=== PATIENT | male | born 1955 | race Caucasian/White ===

== ENCOUNTER → 2017-08-02 10:18 | Outpatient (CLI) | payer MEDICARE, MEDICAID, SELFPAY ==
[2017-08-02 13:37] LABS: Absolute Lymphocyte Count 1.54 X10^3/ul (0.83-4.51); Basophil# 0.04 X10^3/uL; Basophil% 0.8 % (0-1); Eosinophil# 0.22 X10^3/uL; Eosinophils% 4.2 % (0-5); Hematocrit 44.8 % (40-54); Hemoglobin 14.5 g/dl (13.0-16.5); Lymphocyte # 1.54 X10^3/ul (4.0); Lymphocyte % 29.6 % (19-41); Mean Corp Hgb Conc 32.4 g/gl (32-36); Mean Corpuscular Hgb 28.7 pg (27.0-32.0); Mean Corpuscular Volume 88.5 fL (80-94); Mean Platelet Vol. 10.6 fl (6.2-12.0); Monocyte# 0.36 X10^3/uL; Monocyte% 6.9 % (0-10); Neutrophil # 3.02 X10^3/uL (2.7-7.7); Neutrophil % 57.9 % (47-70); Platelet Count 190 K/mm3 (150-450); RBC Distribution Width CV 14.7 % (11.6-14.6); RBC Distribution Width SD 47.2 fl (35.1-43.9); Red Blood Count 5.06 M/mm3 (4.6-6.2); White Blood Count 5.2 K/mm3 (4.4-11.0)
[2017-08-02 13:38] LABS: POSITIVE COUNT NO; POSITIVE DIFFERENTIAL NO; POSITIVE MORPHOLOGY NO
[2017-08-02 14:08] LABS: AST(SGOT) 18 U/L (15-37); Alanine Aminotransfer ALT/SGPT 40 U/L (16-61); Albumin, Serum 3.5 g/dL (3.2-5.0); Alkaline Phosphatase 68 U/L (45-117); Anion Gap 10 (5-15); BUN 18 mg/dL (7-18); BUN/Creat Ratio 15.1 RATIO (10-20); Calcium,Total 8.5 mg/dL (8.5-10.1); Chloride 105 mmol/L (98-107); Creatinine, Serum 1.19 mg/dL (0.70-1.30); EST Glomerular Filtration Rate 65 mL/min (>60); Est Glom Filt Rate - Afr Amer 79 mL/min (>60); Globulin 3.6 g/dL (2.2-4.2); Glucose 82 mg/dL (74-106); Protein, Total 7.1 g/dL (6.4-8.2); Sodium Level 140 mmol/L (136-145); Thyroid Stim Hormone (TSH) 3.11 uIU/mL (0.358-3.74)
== END ==
PROVIDERS: Family Provider Family Medicine Geriatric Medicine; PCP Family Medicine Geriatric Medicine; Visit Provider Family Medicine Geriatric Medicine
DX: I10 Essential (primary) hypertension (principal)
CPT/HCPCS: 36415; 80053; 84443; 85025

== ENCOUNTER → 2018-02-04 10:55 | Outpatient (CLI) | payer MEDICARE, MEDICAID, SELFPAY ==
[2018-02-04 12:01] LABS: Absolute Lymphocyte Count 1.04 X10^3/ul (0.83-4.51); Absolute Neutrophil Count 4.4 X10^3/uL (2.0-7.7); Basophil# 0.02 X10^3/uL; Basophil% 0.3 % (0-1); Eosinophil# 0.11 X10^3/uL; Eosinophils% 1.8 % (0-5); Hemoglobin 15.6 g/dl (13.0-16.5); Lymphocyte # 1.04 X10^3/ul (4.0); Lymphocyte % 17.2 % (19-41); Mean Corp Hgb Conc 33.9 g/gl (32-36); Mean Corpuscular Hgb 29.2 pg (27.0-32.0); Mean Platelet Vol. 10.9 fl (6.2-12.0); Monocyte# 0.51 X10^3/uL; Monocyte% 8.4 % (0-10); Neutrophil # 4.35 X10^3/uL (2.7-7.7); Platelet Count 220 K/mm3 (150-450); RBC Distribution Width CV 13.5 % (11.6-14.6); RBC Distribution Width SD 42.2 fl (35.1-43.9); Red Blood Count 5.35 M/mm3 (4.6-6.2); White Blood Count 6.1 K/mm3 (4.4-11.0)
[2018-02-04 12:20] LABS: POSITIVE COUNT NO; POSITIVE DIFFERENTIAL NO; POSITIVE MORPHOLOGY NO
[2018-02-04 12:27] LABS: AST(SGOT) 17 U/L (15-37); Alanine Aminotransfer ALT/SGPT 32 U/L (16-61); Albumin, Serum 3.8 g/dL (3.2-5.0); Alkaline Phosphatase 68 U/L (45-117); Anion Gap 10 (5-15); BUN 13 mg/dL (7-18); BUN/Creat Ratio 10.6 RATIO (10-20); Calcium,Total 9.1 mg/dL (8.5-10.1); Chloride 102 mmol/L (98-107); Creatinine, Serum 1.23 mg/dL (0.70-1.30); EST Glomerular Filtration Rate 63 mL/min (>60); Est Glom Filt Rate - Afr Amer 76 mL/min (>60); Globulin 3.8 g/dL (2.2-4.2); Glucose 183 mg/dL (74-106); PSA,Total - Annual Screen 0.38 ng/mL (0.00-4.00); Potassium 3.7 mmol/L (3.5-5.1); Protein, Total 7.6 g/dL (6.4-8.2); Sodium Level 137 mmol/L (136-145); Thyroid Stim Hormone (TSH) 5.04 uIU/mL (0.358-3.74)
[2018-02-05 10:19] LABS: Hep C Antibodies <0.1 s/co ratio (0.0-0.9)
[2018-02-05 10:42] LABS: Hemoglobin A1c 5.5 % (4.2-6.3)
== END ==
PROVIDERS: Family Provider Family Medicine Geriatric Medicine; PCP Family Medicine Geriatric Medicine; Visit Provider Family Medicine Geriatric Medicine
DX: I10 Essential (primary) hypertension (principal); Z12.5 Encounter for screening for malignant neoplasm of prostate; Z13.89 Encounter for screening for other disorder; E16.2 Hypoglycemia, unspecified
CPT/HCPCS: 36415; 80053; 83036; 84153; 84443; 85025; 86803; G0103

== ENCOUNTER → 2018-05-07 08:10 | Outpatient (CLI) | payer MEDICARE, MEDICAID, SELFPAY ==
[2018-05-07 09:52] LABS: Thyroid Stim Hormone (TSH) 3.62 uIU/mL (0.358-3.74)
== END ==
PROVIDERS: Family Provider Family Medicine Geriatric Medicine; PCP Family Medicine Geriatric Medicine; Referring Provider Family Medicine Geriatric Medicine; Visit Provider Family Medicine Geriatric Medicine
DX: E03.9 Hypothyroidism, unspecified (principal)
CPT/HCPCS: 36415; 84443

== ENCOUNTER → 2018-08-07 13:40 | Outpatient (CLI) | payer MEDICARE, MEDICAID, SELFPAY ==
[2017-05-20 14:37] VITALS: BMI 28.3
[2018-08-07 16:12] LABS: Absolute Lymphocyte Count 1.23 X10^3/ul (0.83-4.51); Absolute Neutrophil Count 3.7 X10^3/uL (2.0-7.7); Basophil# 0.02 X10^3/uL; Basophil% 0.3 % (0-1); Eosinophil# 0.28 X10^3/uL; Eosinophils% 4.7 % (0-5); Hematocrit 47.9 % (40-54); Lymphocyte # 1.23 X10^3/ul (4.0); Lymphocyte % 20.7 % (19-41); Mean Corp Hgb Conc 33.4 g/gl (32-36); Mean Corpuscular Hgb 29.3 pg (27.0-32.0); Mean Corpuscular Volume 87.6 fL (80-94); Mean Platelet Vol. 11.1 fl (6.2-12.0); Monocyte# 0.67 X10^3/uL; Monocyte% 11.3 % (0-10); Neutrophil % 62.3 % (47-70); Platelet Count 221 K/mm3 (150-450); RBC Distribution Width CV 14.4 % (11.6-14.6); RBC Distribution Width SD 45.8 fl (35.1-43.9); Red Blood Count 5.47 M/mm3 (4.6-6.2); White Blood Count 5.9 K/mm3 (4.4-11.0)
[2018-08-07 16:17] LABS: Vitamin D,25 Hydroxy 12.5 ng/mL (29.95-100.01)
[2018-08-07 16:19] LABS: AST(SGOT) 16 U/L (15-37); Alanine Aminotransfer ALT/SGPT 38 U/L (16-61); Albumin, Serum 3.6 g/dL (3.2-5.0); Alkaline Phosphatase 70 U/L (45-117); Anion Gap 8 (5-15); BUN 16 mg/dL (7-18); Calcium,Total 8.8 mg/dL (8.5-10.1); Chloride 109 mmol/L (98-107); EST Glomerular Filtration Rate 80 mL/min (>60); Est Glom Filt Rate - Afr Amer 97 mL/min (>60); Globulin 3.7 g/dL (2.2-4.2); Glucose 84 mg/dL (74-106); Potassium 3.8 mmol/L (3.5-5.1); Protein, Total 7.3 g/dL (6.4-8.2); Sodium Level 140 mmol/L (136-145); Thyroid Stim Hormone (TSH) 4.09 uIU/mL (0.358-3.74)
[2018-08-07 16:20] LABS: POSITIVE COUNT NO; POSITIVE DIFFERENTIAL NO; POSITIVE MORPHOLOGY NO
== END ==
PROVIDERS: Family Provider Family Medicine Geriatric Medicine; PCP Family Medicine Geriatric Medicine; Visit Provider Family Medicine Geriatric Medicine
DX: E55.9 Vitamin D deficiency, unspecified (principal); I10 Essential (primary) hypertension
CPT/HCPCS: 36415; 80053; 82306; 84443; 85025

== ENCOUNTER → 2018-09-04 17:18 | Outpatient (CLI) | payer MEDICARE, MEDICAID, SELFPAY ==
[2017-05-20 14:37] VITALS: BMI 28.3
== END ==
PROVIDERS: Family Provider Family Medicine Geriatric Medicine; PCP Family Medicine Geriatric Medicine; Referring Provider Family Medicine Geriatric Medicine; Visit Provider Family Medicine Geriatric Medicine
DX: J11.1 Influenza due to unidentified influenza virus with other respiratory manifestations (principal)
CPT/HCPCS: 87633

== ENCOUNTER 2018-09-23 09:07 | Emergency (ER) | payer MEDICARE, MEDICAID, SELFPAY ==
[2018-09-23 09:08] VITALS: BP 148/66; PULSE 98; RESP 20; TEMP 36.8; O2SAT 96; BMI 30.2
--- NOTE | 2018-09-23 09:29 | ED.DCSUM_ITS ---
- ER Visit Summary Date of Service: 09/23/18 Chief Complaint: Cough History of Present Illness: The patient is a [address] Salinas. He has MRDD and is a poor informant. Per [facility] staff patient has a cough began 3 days ago. He has had subjective fever. His cough is productive yellow sputum without blood. He has been congested. They report that he has been wheezing. He does not have an inhaler. Patient also reports is been lightheaded. He has not passed out. Staff reports that he had a poor appetite. He has been exposed to influenza A at the [facility]. He finished prednisone and an unknown antibiotic last week. Physical Examination: Vitals: Stable. Afebrile. General: Well-nourished and well-developed. Head: Normocephalic atraumatic. HEENT: Sinus congestion. No drainage at this time. No pharyngeal erythema or tonsillar exudate. Neck: Supple, no lymphadenopathy. No JVD. Nontender. Cardiovascular: Regular rate and rhythm. No murmurs. Respiratory: No respiratory distress. Clear to auscultation bilaterally. Abdominal: Soft, nontender, nondistended, normal bowel sounds. No guarding, rebound, or peritoneal signs. Back: Nontender. Extremities: Nontender, no edema. Skin: Normal color, no rash. Neurologic: Alert and oriented ?3. Cranial nerves II through XII are intact. Normal strength and sensation. Psych: Normal affect. Test Results: Influenza is negative. CBC shows 7 neutrophils 81 lymphs lites and 9. Chem-7 shows a BUN of 22 and glucose 113. Chest x-ray shows increased markings left lung base. Infiltrate versus atelectasis. Emergency Department Course and Treatment: Patient was given Benadryl for his congestion. Is given a liter normal saline. He is resting comfortably. He was given a dose of Levaquin p.o. Treatment Plan: Patient has a pneumonia severity index of 65. He is a suitable candidate for outpatient treatment. He will be discharged on Levaquin. Instructed follow-up Dr. Salinas within 5 days for another exam. Return to the e mergency department for any worsening symptoms. Disposition: To home in improved and stable condition. Impression: 1. Pneumonia, community acquired. This note was generated with OLED-Tation software. It may contain incorrect words, spelling, and punctuation that were not noted in review of the chart prior to signing ED Disposition - Plan for ED Patient: Instructions: ED Pneumonia Adult Prescriptions: Albuterol Inhaler [Ventolin Hfa] 1 - 2 puff INHALATION Q4H PRN PRN #1 inhaler PRN Reason: Wheezing Levofloxacin [Levaquin] 750 mg PO DAILY #7 tablet Referrals: Kg Salinas Chi, MD [Primary Care Provider] - 3-5 Days
[2018-09-23 10:26] LABS: Absolute Lymphocyte Count 0.88 X10^3/ul (0.83-4.51); Absolute Neutrophil Count 7.7 X10^3/uL (2.0-7.7); Basophil# 0.02 X10^3/uL; Basophil% 0.2 % (0-1); Eosinophil# 0.14 X10^3/uL; Eosinophils% 1.5 % (0-5); Hematocrit 41.5 % (40-54); Lymphocyte # 0.88 X10^3/ul (4.0); Lymphocyte % 9.2 % (19-41); Mean Corp Hgb Conc 33.7 g/gl (32-36); Mean Corpuscular Volume 86.1 fL (80-94); Mean Platelet Vol. 10.4 fl (6.2-12.0); Monocyte% 7.3 % (0-10); Neutrophil # 7.74 X10^3/uL (2.7-7.7); Neutrophil % 81.3 % (47-70); Platelet Count 216 K/mm3 (150-450); RBC Distribution Width CV 13.8 % (11.6-14.6); RBC Distribution Width SD 42.8 fl (35.1-43.9); Red Blood Count 4.82 M/mm3 (4.6-6.2); White Blood Count 9.5 K/mm3 (4.4-11.0)
[2018-09-23 10:27] LABS: POSITIVE COUNT NO; POSITIVE DIFFERENTIAL NO; POSITIVE MORPHOLOGY NO
[2018-09-23 10:34] LABS: BUN 22 mg/dL (7-18); Creatinine, Serum 0.99 mg/dL (0.70-1.30); Estimated Creatinine Clearance 67.13 ml/min; Glucose 113 mg/dL (74-106)
[2018-09-23 10:35] LABS: Anion Gap 5 (5-15); BUN/Creat Ratio 22.3 RATIO (10-20); Calcium,Total 8.9 mg/dL (8.5-10.1); Chloride 107 mmol/L (98-107); EST Glomerular Filtration Rate 81 mL/min (>60); Est Glom Filt Rate - Afr Amer 98 mL/min (>60); Potassium 4.1 mmol/L (3.5-5.1); Sodium Level 138 mmol/L (136-145)
[2018-09-23 10:41] VITALS: BP 133/85; PULSE 80; RESP 18; O2SAT 97
--- NOTE | 2018-09-23 10:50 | RAD_ITS ---
STUDY: X-RAY CHEST REASON FOR EXAM: Male, 63 years old. Cough and wheezing. TECHNIQUE: PA and lateral views of the chest. COMPARISON: None. FINDINGS: EKG electrodes are seen. Mild increased markings at the left lung base suggestive of left basilar atelectasis versus early infiltrate. Follow-up is recommended. There is no demonstrated pleural abnormality. There is borderline cardiomegaly. Normal mediastinum and cait. Normal visualized pulmonary arteries. There is atherosclerotic tortuosity of the aortic arch and descending thoracic aorta. There are diffuse degenerative changes of the visualized thoracic spine. Normal visualized ribs, clavicles, and shoulders. There is no demonstrated abnormality of the visualized soft tissue structures of the upper abdomen. RAD/Chest PA and Lateral IMPRESSION: Increased markings at the left lung base suggestive of either early infiltrate or atelectasis. Follow-up is recommended. Electronically Signed: Casey Galindo, at 11:45 EDT , Service support ,
[2018-09-23] MEDS: DiphenhydrAMINE 25 MG Capsule 50 MG PO (11:01)
[2018-09-23 11:05] VITALS: BP 138/78; PULSE 72; RESP 19; TEMP 36.6; O2SAT 96
[2018-09-23 11:09] VITALS: O2SAT 96
[2018-09-23 12:11] VITALS: BP 128/73; PULSE 65; RESP 18; O2SAT 96
[2018-09-23] MEDS: levoFLOXacin 750 MG Tablet PO (13:21)
== END 2018-09-23 13:24 | disposition home or self-care (01) ==
PROVIDERS: Emergency Provider Emergency Medicine; Family Provider Family Medicine Geriatric Medicine; PCP Family Medicine Geriatric Medicine
DX: J18.9 Pneumonia, unspecified organism (principal); I10 Essential (primary) hypertension; N40.0 Benign prostatic hyperplasia without lower urinary tract symptoms; F79 Unspecified intellectual disabilities; F63.9 Impulse disorder, unspecified; Z79.899 Other long term (current) drug therapy
CPT/HCPCS: 71046; 80048; 85025; 87804; 99284; J7030; J7040

== ENCOUNTER → 2019-02-06 | Outpatient (CLI) | payer MEDICARE, MEDICAID, SELFPAY ==
[2019-02-06 12:26] LABS: Absolute Lymphocyte Count 1.42 X10^3/uL (0.83-4.51); Absolute Neutrophil Count 4.3 X10^3/uL (2.0-7.7); Basophil# 0.06 X10^3/uL; Basophil% 0.9 % (0-1); Eosinophil# 0.43 X10^3/uL; Eosinophils% 6.2 % (0-5); Hematocrit 44.9 % (40-54); Lymphocyte # 1.42 X10^3/ul (4.0); Lymphocyte % 20.4 % (19-41); Mean Corp Hgb Conc 33.4 g/dL (32-36); Mean Corpuscular Hgb 29.4 pg (27.0-32.0); Mean Platelet Vol. 10.6 fl (6.2-12.0); Monocyte# 0.65 X10^3/uL; Monocyte% 9.4 % (0-10); NRBC Flagged by Analyzer 0 % (0-5); Neutrophil # 4.33 X10^3/uL (2.7-7.7); Neutrophil % 62.2 % (47-70); Platelet Count 208 K/mm3 (150-450); RBC Distribution Width CV 13.2 % (11.6-14.6); RBC Distribution Width SD 42.4 fl (35.1-43.9)
[2019-02-06 12:54] LABS: Vitamin D,25 Hydroxy 20.8 ng/mL (29.95-100.01)
[2019-02-06 13:03] LABS: ALB/GLOB Ratio 0.9 RATIO (0.9-2.4); AST(SGOT) 14 U/L (15-37); Alanine Aminotransfer ALT/SGPT 33 U/L (16-61); Albumin, Serum 3.4 g/dL (3.2-5.0); Alkaline Phosphatase 69 U/L (45-117); Anion Gap 7 (5-15); BUN 14 mg/dL (7-18); BUN/Creat Ratio 13.3 RATIO (10-20); Calcium,Total 8.7 mg/dL (8.5-10.1); Chloride 109 mmol/L (98-107); Creatinine, Serum 1.05 mg/dL (0.70-1.30); EST Glomerular Filtration Rate 75 mL/min (>60); Est Glom Filt Rate - Afr Amer 91 mL/min (>60); Globulin 3.7 g/dL (2.2-4.2); Glucose 109 mg/dL (74-106); PSA,Total - Annual Screen 0.39 ng/mL (0.00-4.00); Protein, Total 7.1 g/dL (6.4-8.2); Sodium Level 140 mmol/L (136-145)
== END | disposition home or self-care (01) ==
LOC: POLAB3 08:47
PROVIDERS: Family Provider Family Medicine Geriatric Medicine; PCP Family Medicine Geriatric Medicine; Visit Provider Family Medicine Geriatric Medicine
DX: E55.9 Vitamin D deficiency, unspecified (principal); I10 Essential (primary) hypertension; Z12.5 Encounter for screening for malignant neoplasm of prostate
CPT/HCPCS: 36415; 80053; 82306; 84153; 84443; 85025; G0103

== ENCOUNTER 2019-05-14 08:52 | Day surgery (SDC) | payer MEDICARE, MEDICAID, SELFPAY ==
[2019-05-14 09:22] VITALS: BP 164/84; PULSE 88; RESP 16; TEMP 36.2; O2SAT 99; BMI 33.3
[2019-05-14] MEDS: Lactated Ringers 1,000 ML 100 ML IV (09:35)
[2019-05-14] MEDS: Cefazolin 2 GM in 0.9% Normal Saline 100 ML IV (12:10)
--- NOTE | 2019-05-14 12:10 | DCINST_ITS ---
Discharge Diet: Light diet - advance as tolerated Discharge Activity: Return to Normal Activity Call your doctor if your incision/area has: Sudden Increased Bleeding Allergies/Adverse Reactions: Allergies Penicillins Allergy (Verified 05/14/19 09:15) Unknown Medications to take at Discharge Lisinopril 20 mg PO DAILY 12/16/13 Risperidone 2 mg PO QHS 12/16/13 Tamsulosin HCl [Flomax] 0.4 mg PO DAILY 12/16/13 Levothyroxine [Synthroid] 75 mcg PO DAILY 08/14/16 Pravastatin [Pravachol] 40 mg PO QHS 08/14/16 Risperidone 1 mg PO DAILY 08/14/16 Primary Care Physician: Kg Salinas Chi, MD [Primary Care Provider] - Test Results: Test results from this visit will be discussed in further detail at your follow- up appointment, if applicable. Please Follow Up With: Ole Roldan MD When: please call to make an appointment.
[2019-05-14] MEDS: 0.9% Normal Saline (Pres. free 10 ML Vial (12:25)
[2019-05-14] MEDS: Lubricating Jelly 60 GM Tube 30 GM TOPICAL (12:25)
--- NOTE | 2019-05-14 12:30 | OP.PCM_ITS ---
Report of Operation Date of Procedure: 05/14/19 Pre-Operative Diagnosis: Overactive bladder and urge incontinence Post-Operative Diagnosis: Same Surgery/Procedure Performed:: Cystoscopy dilation of meatal stricture and injection of Botox 100 units into the bladder Description of Surgical Findings:: 64-year-old male taken back to the operating room, he is he [facility] has severe overactive bladder and urge incontinence today we will do a cystoscopy diagnostic and also inject the bladder with Botox he is tried multiple multiple medications with no improvement. On cystoscopy attempt to found to have a dense meatal stricture so I dilated the meatal stricture with a sounds using 14-26 American sounds after dilating the medial stricture then went into the bladder with a rigid offset cystoscope the entire length the urethra is normal the sphincter was intact the prostate was normal he did have a prior prostate surgery wide open channel inside the bladder I then checked the bladder there was some mild trabeculation throughout the bladder trigone was normal left and right ureteral orifice orifice normal no tumors or stones seen within the bladder I then injected 100 units of Botox 1 mL at the time into 10 sites in the back of the bladder avoiding the trigone. After the injection remove the cystoscope the bladder was drained the patient acetic was reversed plan to see him back in a month for checkup. Type of Anesthesia:: General Drains: none - Admit VTE Documentation VTE Present on Admission: No VTE Mechan Device Prophylaxis: SCD's
[2019-05-14 12:39] VITALS: BP 123/81; BP 164/84; PULSE 69; RESP 16; TEMP 36.5; O2SAT 96
[2019-05-14 12:45] VITALS: BP 125/77; BP 164/84; PULSE 67; RESP 16; O2SAT 96
[2019-05-14 13:01] VITALS: BP 118/86; BP 164/84; PULSE 62; RESP 16; TEMP 36.5; O2SAT 96
[2019-05-14 13:22] VITALS: BP 164/84
== END 2019-05-14 13:26 | disposition home or self-care (01) ==
LOC: SDC 08:53 → AC 08:55
PROVIDERS: Family Provider Family Medicine Geriatric Medicine; PCP Family Medicine Geriatric Medicine; Referring Provider Urology; Visit Provider Urology
PROC: 3E0K8GC Introduction of Other Therapeutic Substance into Genitourinary Tract, Via Natural or Artificial Opening Endoscopic (ICD-10-PCS; CPT 52287; principal; 2019-05-14 10:45)
DX: N32.81 Overactive bladder (principal); N40.1 Benign prostatic hyperplasia with lower urinary tract symptoms; N39.41 Urge incontinence; R35.1 Nocturia; R35.0 Frequency of micturition; I10 Essential (primary) hypertension; E78.00 Pure hypercholesterolemia, unspecified; F79 Unspecified intellectual disabilities; E06.9 Thyroiditis, unspecified; Z79.899 Other long term (current) drug therapy
CPT/HCPCS: 52287; J7120; J0585; J3490

== ENCOUNTER → 2019-08-07 09:31 | Outpatient (CLI) | payer MEDICARE, MEDICAID, SELFPAY ==
[2019-08-07 12:33] LABS: Absolute Lymphocyte Count 1.43 X10^3/uL (0.83-4.51); Absolute Neutrophil Count 3.8 X10^3/uL (2.0-7.7); Basophil# 0.04 X10^3/uL; Basophil% 0.7 % (0-1); Eosinophil# 0.34 X10^3/uL; Eosinophils% 5.6 % (0-5); Hematocrit 46.9 % (40-54); Hemoglobin 15.4 g/dL (13.0-16.5); Lymphocyte # 1.43 X10^3/ul (4.0); Lymphocyte % 23.4 % (19-41); Mean Corp Hgb Conc 32.8 g/dL (32-36); Mean Corpuscular Hgb 28.2 pg (27.0-32.0); Mean Corpuscular Volume 85.7 fL (80-94); Monocyte% 8.2 % (0-10); NRBC Flagged by Analyzer 0 % (0-5); Neutrophil # 3.76 X10^3/uL (2.7-7.7); Neutrophil % 61.6 % (47-70); Platelet Count 252 K/mm3 (150-450); RBC Distribution Width CV 13.2 % (11.6-14.6); RBC Distribution Width SD 41.1 fl (35.1-43.9); Red Blood Count 5.47 M/mm3 (4.6-6.2); White Blood Count 6.1 K/mm3 (4.4-11.0)
[2019-08-07 12:39] LABS: Vitamin D,25 Hydroxy 35.6 ng/mL (29.95-100.01)
[2019-08-07 12:40] LABS: ALB/GLOB Ratio 0.9 RATIO (0.9-2.4); AST(SGOT) 14 U/L (15-37); Alanine Aminotransfer ALT/SGPT 29 U/L (16-61); Albumin, Serum 3.7 g/dL (3.2-5.0); Alkaline Phosphatase 64 U/L (45-117); Anion Gap 6 (5-15); BUN 17 mg/dL (7-18); BUN/Creat Ratio 14.4 RATIO (10-20); Calcium,Total 9.3 mg/dL (8.5-10.1); Chloride 107 mmol/L (98-107); Creatinine, Serum 1.18 mg/dL (0.70-1.30); EST Glomerular Filtration Rate 66 mL/min (>60); Est Glom Filt Rate - Afr Amer 79 mL/min (>60); Globulin 3.9 g/dL (2.2-4.2); Glucose 106 mg/dL (74-106); Potassium 4.1 mmol/L (3.5-5.1); Protein, Total 7.6 g/dL (6.4-8.2); Sodium Level 141 mmol/L (136-145); Thyroid Stim Hormone (TSH) 3.62 uIU/mL (0.358-3.74)
== END ==
PROVIDERS: PCP Family Medicine Geriatric Medicine; Visit Provider Family Medicine Geriatric Medicine
DX: I10 Essential (primary) hypertension (principal); E55.9 Vitamin D deficiency, unspecified
CPT/HCPCS: 36415; 80053; 82306; 84443; 85025

== ENCOUNTER → 2019-08-20 12:00 | Outpatient (CLI) | payer MEDICARE, MEDICAID, SELFPAY ==
[2019-08-20 12:44] LABS: Absolute Lymphocyte Count 0.33 X10^3/uL (0.83-4.51); Absolute Neutrophil Count 6.7 X10^3/uL (2.0-7.7); Basophil# 0.02 X10^3/uL; Basophil% 0.3 % (0-1); Eosinophil# 0.01 X10^3/uL; Eosinophils% 0.1 % (0-5); Hemoglobin 17.9 g/dL (13.0-16.5); Lymphocyte # 0.33 X10^3/ul (4.0); Lymphocyte % 4.3 % (19-41); Mean Corp Hgb Conc 31.6 g/dL (32-36); Mean Corpuscular Hgb 27.8 pg (27.0-32.0); Mean Corpuscular Volume 88.2 fL (80-94); Mean Platelet Vol. 11.1 fl (6.2-12.0); Monocyte# 0.58 X10^3/uL; Monocyte% 7.6 % (0-10); NRBC Flagged by Analyzer 0 % (0-5); Neutrophil # 6.67 X10^3/uL (2.7-7.7); Neutrophil % 87.4 % (47-70); POSITIVE DIFFERENTIAL YES; POSITIVE MORPHOLOGY YES; Platelet Count 199 K/mm3 (150-450); RBC Distribution Width CV 14.6 % (11.6-14.6); RBC Distribution Width SD 44.4 fl (35.1-43.9); Red Blood Count 6.43 M/mm3 (4.6-6.2); White Blood Count 7.6 K/mm3 (4.4-11.0)
--- NOTE | 2019-08-20 12:49 | RAD_ITS ---
STUDY: X-RAY - ABDOMEN/PELVIS REASON FOR EXAM: Male, 64 years old. ABD PAIN. PT IS DIFFICULT TO UNDERSTAND TO OBTAIN A HISTORY TECHNIQUE: AP supine and upright views of the abdomen and pelvis. COMPARISON: None. FINDINGS: Increased markings at the left lung base suggestive of left basilar atelectasis. There is elevation of the right hemidiaphragm. There is a paralytic ileus of the small intestine with mild gaseous distention. Gas is seen throughout the colon down to the rectum. Gaseous distention of the stomach. There is no demonstrated free abdominal air. The visualized liver, spleen and kidneys are grossly normal in size and morphology. Normal soft tissue structures. Normal visualized osseous structures. RAD/Abd Inc Decub and/or Erect IMPRESSION: Dilated small bowel loops with air-fluid levels with gas in the colon. Findings are suggestive of either an ileus pattern or incomplete small bowel obstruction. There is also evidence of gaseous distention of the stomach. Follow-up is recommended. Electronically Signed: Casey Galindo, at 13:29 EST , Service support ,
[2019-08-20 12:50] LABS: Differential Indicated SCAN CRITERIA MET; Hematocrit 56.7 % (40-54)
[2019-08-20 13:22] LABS: ALB/GLOB Ratio 0.9 RATIO (0.9-2.4); AST(SGOT) 22 U/L (15-37); Alanine Aminotransfer ALT/SGPT 36 U/L (16-61); Albumin, Serum 3.9 g/dL (3.2-5.0); Alkaline Phosphatase 70 U/L (45-117); Anion Gap 12 (5-15); BUN 28 mg/dL (7-18); BUN/Creat Ratio 17.4 RATIO (10-20); Calcium,Total 9.1 mg/dL (8.5-10.1); Chloride 108 mmol/L (98-107); Creatinine, Serum 1.61 mg/dL (0.70-1.30); EST Glomerular Filtration Rate 46 mL/min (>60); Est Glom Filt Rate - Afr Amer 55 mL/min (>60); Globulin 4.3 g/dL (2.2-4.2); Glucose 161 mg/dL (74-106); Potassium 4.5 mmol/L (3.5-5.1); Protein, Total 8.2 g/dL (6.4-8.2); Sodium Level 137 mmol/L (136-145)
== END ==
PROVIDERS: PCP Family Medicine Geriatric Medicine; Referring Provider Family Medicine Geriatric Medicine; Visit Provider Family Medicine Geriatric Medicine
DX: R10.9 Unspecified abdominal pain (principal); R19.7 Diarrhea, unspecified
CPT/HCPCS: 36415; 74019; 80053; 82274; 83630; 85025; 87177; 87209; 87493; 87506

== ENCOUNTER → 2020-02-18 14:57 | Outpatient (CLI) | payer MEDICARE, MEDICAID, SELFPAY ==
[2020-02-18 16:11] LABS: Absolute Lymphocyte Count 1.64 X10^3/uL (0.83-4.51); Absolute Neutrophil Count 5.3 X10^3/uL (2.0-7.7); Basophil# 0.05 X10^3/uL; Basophil% 0.6 % (0-1); Eosinophil# 0.69 X10^3/uL; Eosinophils% 8.5 % (0-5); Hematocrit 47.1 % (40-54); Hemoglobin 15.5 g/dL (13.0-16.5); Lymphocyte # 1.64 X10^3/ul (4.0); Lymphocyte % 20.2 % (19-41); Mean Corp Hgb Conc 32.9 g/dL (32-36); Mean Corpuscular Volume 88.2 fL (80-94); Mean Platelet Vol. 10.7 fl (6.2-12.0); Monocyte# 0.44 X10^3/uL; Monocyte% 5.4 % (0-10); NRBC Flagged by Analyzer 0 % (0-5); Neutrophil # 5.25 X10^3/uL (2.7-7.7); Neutrophil % 64.8 % (47-70); Platelet Count 272 K/mm3 (150-450); RBC Distribution Width CV 13.8 % (11.6-14.6); Red Blood Count 5.34 M/mm3 (4.6-6.2); White Blood Count 8.1 K/mm3 (4.4-11.0)
[2020-02-18 16:28] LABS: ALB/GLOB Ratio 0.9 RATIO (0.9-2.4); AST(SGOT) 27 U/L (15-37); Alanine Aminotransfer ALT/SGPT 33 U/L (16-61); Albumin, Serum 3.7 g/dL (3.2-5.0); Alkaline Phosphatase 81 U/L (45-117); Anion Gap 5 (5-15); BUN 15 mg/dL (7-18); BUN/Creat Ratio 12.9 RATIO (10-20); Calcium,Total 8.8 mg/dL (8.5-10.1); Chloride 104 mmol/L (98-107); Creatinine, Serum 1.16 mg/dL (0.70-1.30); EST Glomerular Filtration Rate 67 mL/min (>60); Est Glom Filt Rate - Afr Amer 81 mL/min (>60); Globulin 3.9 g/dL (2.2-4.2); Glucose 116 mg/dL (74-106); PSA,Total - Annual Screen 0.38 ng/mL (0.00-4.00); Potassium 3.6 mmol/L (3.5-5.1); Protein, Total 7.6 g/dL (6.4-8.2); Sodium Level 138 mmol/L (136-145); Thyroid Stim Hormone (TSH) 4.31 uIU/mL (0.358-3.74)
[2020-02-18 16:51] LABS: Vitamin D,25 Hydroxy 54.2 ng/mL
== END ==
PROVIDERS: PCP Family Medicine Geriatric Medicine; Visit Provider Family Medicine Geriatric Medicine
DX: E55.9 Vitamin D deficiency, unspecified (principal); I10 Essential (primary) hypertension; Z12.5 Encounter for screening for malignant neoplasm of prostate
CPT/HCPCS: 36415; 80053; 82306; 84153; 84443; 85025; G0103

== ENCOUNTER → 2020-03-16 09:53 | Outpatient (CLI) | payer MEDICARE, MEDICAID, SELFPAY ==
[2020-03-16 13:45] LABS: Thyroid Stim Hormone (TSH) 3.79 uIU/mL (0.358-3.74)
== END ==
PROVIDERS: PCP Family Medicine Geriatric Medicine; Visit Provider Family Medicine Geriatric Medicine
DX: E03.9 Hypothyroidism, unspecified (principal)
CPT/HCPCS: 36415; 84443

== ENCOUNTER → 2020-04-19 | Outpatient (CLI) | payer MEDICARE, MEDICAID, SELFPAY | END | disposition home or self-care (01) | LOC: LABSPEC 17:30 | PROVIDERS: PCP Family Medicine Geriatric Medicine; Referring Provider Family Medicine Geriatric Medicine; Visit Provider Family Medicine Geriatric Medicine | DX: U07.1 COVID-19 (principal) | CPT/HCPCS: 87633; 87635; C9803; U0003 ==

== ENCOUNTER 2020-07-09 05:54 | Day surgery (SDC) | payer MEDICARE, MEDICAID, SELFPAY ==
[2020-07-05 14:45] VITALS: BMI 31.6
[2020-07-09] VITALS (7 sets, daily range): BP systolic 101–157; BP diastolic 62–78; PULSE 60–90; RESP 14–18; TEMP 36.2–36.6; O2SAT 96–99; BMI 29.8
[2020-07-09] MEDS: Lactated Ringers 1,000 ML 100 ML IV (06:28)
--- NOTE | 2020-07-09 07:20 | PCM.HP.STD ---
Problem List (1) Overactive bladder Status: Acute History of Present Illness Date of Admission: 07/09/20 Chief Complaint: Overactive bladder, urge incontinence The patient is a 65 year old male who comes from a special needs home he lives in a senior living, he has a history of prior TURP but still has severe overactive bladder causing accidents so with Botox injections 100 units he has been doing relatively well the Botox injection is worn off so today working to proceed with another Botox injection 100 units into the bladder for his overactive bladder and urge incontinence. Past Medical History Medical History: Medical History (Last Updated 07/05/20 @ 14:49 by Jody Newell) Difficulty balancing when standing R26.89 Incontinence R32 Limb weakness R29.898 Prostate enlargement N40.0 Thyroid disease E07.9 Allergies doxycycline Allergy (Verified 07/05/20 14:48) unknown Penicillins Allergy (Verified 07/05/20 14:46) Unknown Home Medications: Ambulatory Orders Medication Instructions Recorded Levothyroxine [Synthroid] 75 mcg PO DAILY 08/14/16 Risperidone 1 mg PO DAILY 08/14/16 alfuzosin 10 mg tablet,extended 10 mg PO 07/05/20 release 24 hr buspirone 10 mg tablet 10 mg PO 07/05/20 cholecalciferol (vitamin D3) 10 10 mcg PO DAILY 07/05/20 mcg (400 unit) capsule valsartan 320 tab PO 07/05/20 mg-hydrochlorothiazide 12.5 mg tablet Surgical History: no surgical history Smoking Status: Never smoker Tobacco Use: Non-smoker Review of Systems Constitutional: Denies: Chills, Fever, Weight Change HEENT: Denies: Head Aches, Sinus Congestion, Sinus Drainage Cardiovascular: Denies: Chest Pain, Palpitations Respiratory: Denies: Cough, Shortness of breath at rest, Sputum production Gastrointestinal: Denies: Abdominal Pain, Nausea, Vomiting Genitourinary: Denies: Dysuria Musculoskeletal: Denies: Joint Pain, Joint Tenderness Skin: Denies: Rash, Wounds Neurological: Denies: Numbness, Tingling, Focal weakness Psychiatric: Denies: Anxiety, Depression, Homicidal Ideations, Suicidal Ideations Hematologic/ Lymphatic: Denies: Easy Bruising, Easy Bleeding VTE Information - Inpt Only VTE Present on Admission: No - Physical Exam Vitals/I&O's: Vital Signs Temp Pulse Resp BP Pulse Ox 97.1 F L 90 18 157/77 H 99 07/09/20 06:23 07/09/20 06:23 07/09/20 06:23 07/09/20 06:23 07/09/20 06:23 Oxygen Delivery Method Room Air Weight: 86.5 kg Body Mass Index (BMI) 29.8 General: Alert, Oriented x3, Cooperative HEENT: Atraumatic, PERRLA, EOMI, Normocephalic Neck: Supple, No JVD, Negative Carotid Bruits Lungs: Clear to auscultation, Normal air movement Cardiovascular: Regular rate, No murmurs Abdomen: Bowel Sounds Present, Soft, Non Tender Extremities: No edema, Capillary Refill Less than 3 Seconds Skin: No rashes, No breakdown Musculoskeletal: No Tenderness to Palpation of Joints or Extremities Neurological: Cranial nerves II-XII grossly intact Psych/Mental Status: Normal Affect, Appropriate Current Medications Botulinum Toxin Type A (Botulinum Toxin A 100 Units/Vial Vial) 100 units IJ X1 ONE Stop: 07/09/20 13:06 Cefazolin Sodium 2 gm/ Sodium (Chloride) 110 mls @ 150 mls/hr IV PREOP ONE Stop: 07/09/20 13:48 Lactated Ringer's () 1,000 mls @ 100 mls/hr IV .Q10H DELFIN Last Admin: 07/09/20 06:28 Dose: 100 mls/hr Documented by: Assessment/Plan All Active Problems (Last Updated 07/05/20 @ 14:49 by Jody Newell) Overactive bladder (Acute) Strain of left ankle (Acute) Plan to proceed with Botox injection in the bladder.
--- NOTE | 2020-07-09 07:21 | DCINST_ITS ---
Discharge Diet: Light diet - advance as tolerated Discharge Activity: Return to Normal Activity Call your doctor if your incision/area has: Sudden Increased Bleeding Call your doctor if you observe: Fever of 101 or Higher Suture Line Care: Avoid Pulling/Pushing, Avoid Pinching/Bending Allergies/Adverse Reactions: Allergies doxycycline Allergy (Verified 07/05/20 14:48) unknown Penicillins Allergy (Verified 07/05/20 14:46) Unknown Medications to take at Discharge Levothyroxine [Synthroid] 75 mcg PO DAILY 08/14/16 Risperidone 1 mg PO DAILY 08/14/16 alfuzosin 10 mg tablet,extended release 24 hr 10 mg PO 07/05/20 buspirone 10 mg tablet 10 mg PO 07/05/20 cholecalciferol (vitamin D3) 10 mcg (400 unit) capsule 10 mcg PO DAILY 07/05/20 valsartan 320 mg-hydrochlorothiazide 12.5 mg tablet tab PO 07/05/20 Primary Care Physician: Kg Salinas Chi, MD [Primary Care Provider] - Test Results: Test results from this visit will be discussed in further detail at your follow- up appointment, if applicable. Please Follow Up With: Ole Roldan MD When: 4 weeks, please call to make an appointment.
[2020-07-09] MEDS: Cefazolin 2 GM in 0.9% Normal Saline 100 ML IV (08:01)
[2020-07-09] MEDS: 0.9% Normal Saline (Pres. free 10 ML Vial (08:15)
--- NOTE | 2020-07-09 08:19 | PCM.OPRPT ---
Problem List (1) Overactive bladder Status: Acute Report of Operation Date of Procedure: 07/09/20 Pre-Operative Diagnosis: Overactive bladder urge incontinence Post-Operative Diagnosis: Same Surgery/Procedure Performed:: Cystoscopy and Botox injection 100 units Description of Surgical Findings:: Patient has a history of an overactive bladder which is failed conservative measures and medical therapy. Today the patient presents to the hospital for an injection of Botox into the bladder. The patient understands the risk of the procedure involved bleeding, infection, paralytic bladder and failure to empty the bladder. The possibility of needing a catheter or self intermittent catheterization of the bladder is not able to function properly. The risk of infection and bleeding and the risk of anesthesia was discussed with the patient. Patient signed the consent form and we proceeded to the operating room. Patient was taken back to the operating room after induction of anesthesia, the patient was placed supine on the table in the legs were placed in dorsolithotomy position. The genitals and urethra were prepped and draped in usual sterile fashion. Using a 21 [place] offset cystoscope I went into the bladder via the urethra. The bladder was inspected. The trigone was normal. The left and right ureter orifice were identified. On the back table the Botox medication was prepared per the fabric separator operator's instruction, a total of 100 units of Botox were prepared. We then used a Botox needle through the cystoscope and then injected 0.5 cc of Botox solution into each site going through a matrix pattern in the back of the bladder to inject about every centimeter across the back of the bladder in several layers avoiding the trigone. After a total of 100 units of Botox was injected into the bladder there was minimal bleeding. The bladder was drained. The patient's anesthetic was reversed and the patient was taken back to the PACU in stable condition. Type of Anesthesia:: General Drains: none - Admit VTE Documentation VTE Present on Admission: No
== END 2020-07-09 09:21 | disposition home or self-care (01) ==
LOC: SDC 05:56 → AC 05:56
PROVIDERS: PCP Family Medicine Geriatric Medicine; Referring Provider Urology; Visit Provider Urology
PROC: 3E0K8GC Introduction of Other Therapeutic Substance into Genitourinary Tract, Via Natural or Artificial Opening Endoscopic (ICD-10-PCS; CPT 52287; principal; 2020-07-09 07:50)
DX: N32.81 Overactive bladder (principal); N40.1 Benign prostatic hyperplasia with lower urinary tract symptoms; N39.498 Other specified urinary incontinence; N39.41 Urge incontinence; I10 Essential (primary) hypertension; E06.9 Thyroiditis, unspecified; E78.00 Pure hypercholesterolemia, unspecified; Z79.899 Other long term (current) drug therapy
CPT/HCPCS: 00910; 52287; J7120; J0585; J3490

== ENCOUNTER → 2020-08-18 11:21 | Outpatient (CLI) | payer MEDICARE, MEDICAID, SELFPAY ==
[2020-07-09 06:23] VITALS: BMI 29.8
[2020-08-18 12:20] LABS: Absolute Lymphocyte Count 1.69 X10^3/uL (0.83-4.51); Absolute Neutrophil Count 4.8 X10^3/uL (2.0-7.7); Basophil# 0.06 X10^3/uL; Basophil% 0.8 % (0-1); Eosinophil# 0.16 X10^3/uL; Eosinophils% 2.2 % (0-5); Hematocrit 46.6 % (40-54); Hemoglobin 15.2 g/dL (13.0-16.5); Lymphocyte # 1.69 X10^3/ul (4.0); Lymphocyte % 22.8 % (19-41); Mean Corp Hgb Conc 32.6 g/dL (32-36); Mean Corpuscular Hgb 28.5 pg (27.0-32.0); Mean Corpuscular Volume 87.3 fL (80-94); Mean Platelet Vol. 10.5 fl (6.2-12.0); Monocyte# 0.63 X10^3/uL; Monocyte% 8.5 % (0-10); NRBC Flagged by Analyzer 0 % (0-5); Neutrophil # 4.84 X10^3/uL (2.7-7.7); Neutrophil % 65.2 % (47-70); Platelet Count 241 K/mm3 (150-450); RBC Distribution Width CV 14.3 % (11.6-14.6); RBC Distribution Width SD 45.1 fl (35.1-43.9); Red Blood Count 5.34 M/mm3 (4.6-6.2); White Blood Count 7.4 K/mm3 (4.4-11.0)
[2020-08-18 12:34] LABS: Vitamin D,25 Hydroxy 26.9 ng/mL
[2020-08-18 12:43] LABS: AST(SGOT) 14 U/L (15-37); Alanine Aminotransfer ALT/SGPT 33 U/L (16-61); Albumin, Serum 3.8 g/dL (3.2-5.0); Alkaline Phosphatase 71 U/L (45-117); Anion Gap 8 (5-15); BUN 14 mg/dL (7-18); BUN/Creat Ratio 12.4 RATIO (10-20); Calcium,Total 9.2 mg/dL (8.5-10.1); Chloride 105 mmol/L (98-107); Creatinine, Serum 1.13 mg/dL (0.70-1.30); EST Glomerular Filtration Rate 69 mL/min (>60); Est Glom Filt Rate - Afr Amer 83 mL/min (>60); Globulin 3.9 g/dL (2.2-4.2); Glucose 111 mg/dL (74-106); Potassium 3.8 mmol/L (3.5-5.1); Protein, Total 7.7 g/dL (6.4-8.2); Sodium Level 138 mmol/L (136-145); Thyroid Stim Hormone (TSH) 4.35 uIU/mL (0.358-3.74)
== END ==
PROVIDERS: PCP Family Medicine Geriatric Medicine; Visit Provider Family Medicine Geriatric Medicine
DX: I10 Essential (primary) hypertension (principal); E55.9 Vitamin D deficiency, unspecified
CPT/HCPCS: 36415; 80053; 82306; 84443; 85025

== ENCOUNTER → 2020-09-28 08:13 | Outpatient (CLI) | payer MEDICARE, MEDICAID, SELFPAY ==
[2020-07-09 06:23] VITALS: BMI 29.8
[2020-09-28 12:19] LABS: Hemoglobin 15.1 g/dL (13.0-16.5); Mean Corp Hgb Conc 32.8 g/dL (32-36); Mean Corpuscular Hgb 28.9 pg (27.0-32.0); Mean Platelet Vol. 10.6 fl (6.2-12.0); Platelet Count 203 K/mm3 (150-450); RBC Distribution Width CV 13.9 % (11.6-14.6); RBC Distribution Width SD 44.2 fl (35.1-43.9); Red Blood Count 5.23 M/mm3 (4.6-6.2)
[2020-09-28 12:39] LABS: ALB/GLOB Ratio 1.1 RATIO (0.9-2.4); AST(SGOT) 17 U/L (15-37); Alanine Aminotransfer ALT/SGPT 37 U/L (16-61); Albumin, Serum 3.8 g/dL (3.2-5.0); Alkaline Phosphatase 68 U/L (45-117); Anion Gap 8 (5-15); BUN 18 mg/dL (7-18); BUN/Creat Ratio 16.5 RATIO (10-20); Chloride 104 mmol/L (98-107); Cholesterol 132 mg/dL (200); Creatinine, Serum 1.09 mg/dL (0.70-1.30); EST Glomerular Filtration Rate 72 mL/min (>60); Est Glom Filt Rate - Afr Amer 87 mL/min (>60); Globulin 3.6 g/dL (2.2-4.2); Glucose 120 mg/dL (74-106); High Density Lipoprotein 44 mg/dL; Potassium 3.7 mmol/L (3.5-5.1); Protein, Total 7.4 g/dL (6.4-8.2); Sodium Level 139 mmol/L (136-145); Triglycerides 129 mg/dL; Very Low Density Lipoprotein 26 mg/dL (5-40)
[2020-09-28 12:46] LABS: Hemoglobin A1c 5.9 % (3.8-5.6)
== END ==
PROVIDERS: PCP Family Medicine Geriatric Medicine; Referring Provider Psychiatry & Neurology Child & Adolescent Psychiatry; Visit Provider Psychiatry & Neurology Child & Adolescent Psychiatry
DX: Z79.899 Other long term (current) drug therapy (principal)
CPT/HCPCS: 36415; 80053; 80061; 83036; 85027

== ENCOUNTER → 2020-10-11 10:50 | Outpatient (CLI) | payer MEDICARE, MEDICAID, SELFPAY ==
[2020-07-09 06:23] VITALS: BMI 29.8
[2020-10-11 12:43] LABS: Thyroid Stim Hormone (TSH) 4.39 uIU/mL (0.358-3.74)
== END ==
PROVIDERS: PCP Family Medicine Geriatric Medicine; Visit Provider Family Medicine Geriatric Medicine
DX: E03.9 Hypothyroidism, unspecified (principal)
CPT/HCPCS: 36415; 84443

== ENCOUNTER → 2020-10-18 14:44 | Outpatient (CLI) | payer MEDICARE, MEDICAID, SELFPAY ==
[2020-07-09 06:23] VITALS: BMI 29.8
--- NOTE | 2020-10-18 14:50 | ECHOD_ITS ---
Reason For Study: SOB Procedure This was a 2D Doppler, Color Flow transthoracic echocardiogram. The study was technically difficult. Patient refused IV for Definity. Exam performed in department. Left Ventricle Normal LV size. Left ventricular systolic function is normal. The estimated ejection fraction is 55 %. Stage 1 diastolic dysfunction. No regional wall motion abnormalities noted. Right Ventricle Normal RV size. Normal systolic function. Atria Normal left atrium. Mitral Valve Normal mitral valve. Tricuspid Valve Normal tricuspid valve. Aortic Valve The aortic valve is not well visualized. Pulmonic Valve The pulmonic valve is not well visualized. Great Vessels Normal aortic root. The pulmonary artery is normal size. Pericardium/Pleural No pericardial effusion. MMode/2D Measurements & Calculations LVIDd: 5.2 cm IVSd: 1.0 cm Ao root diam: 2.8 cm LVIDs: 3.3 cm LVPWd: 1.2 cm FS: 35.8 % LAV(MOD-bp): 33.2 ml LA A4 area: 16.0 cm2 LA dimension(2D): 4.0 cm LAV(MOD-bp) Indexed: 16.8 ml/m2 LAV(MOD-sp2): 28.3 ml LAV(MOD-sp4): 37.0 ml RA A4 area: 20.4 cm2 Doppler Measurements & Calculations MV E max nikos: 49.8 cm/sec Lat Peak E' Nikos: 11.4 cm/sec Med Peak E' Nikos: 9.7 cm/sec MV A max nikos: 68.2 cm/sec E/E' lat: 4.4 E/E' med: 5.1 MV E/A: 0.73 Ao V2 max: 131.1 cm/sec LV V1 max: 95.3 cm/sec PA V2 max: 108.7 cm/sec Ao max P.9 mmHg LV V1 max P.6 mmHg Ao V2 mean: 85.7 cm/sec Ao mean P.3 mmHg Ao V2 VTI: 18.5 cm ECHO/Echo Complete Interpretation Summary Normal LV size. Left ventricular systolic function is normal. The estimated ejection fraction is 55 %. Stage 1 diastolic dysfunction. The study was technically limited. The study was technically difficult. Ordering Physician: Kg Salinas Referring Physician: Kg Salinas Chi Performed By: Elza Solomon, JERMAINE, RVT
== END ==
PROVIDERS: PCP Family Medicine Geriatric Medicine; Referring Provider Family Medicine Geriatric Medicine; Visit Provider Family Medicine Geriatric Medicine
DX: R06.02 Shortness of breath (principal)
CPT/HCPCS: 93306

== ENCOUNTER → 2020-11-05 06:51 | Outpatient (CLI) | payer MEDICARE, MEDICAID, SELFPAY ==
[2020-07-09 06:23] VITALS: BMI 29.8
--- NOTE | 2020-11-05 14:27 | PFT ---
INTRODUCTION: The patient is a 65-year-old male that presents for pulmonary function studies secondary to a diagnosis of shortness of breath. Respiratory therapy reported that the patient had difficulty with testing and was unable to perform diffusing capacity maneuvers. Bronchodilators were used during testing. INTERPRETATION: Forced expiration spirometry demonstrates no evidence of a large airways obstructive ventilatory defect. There was no significant response to aerosolized bronchodilators. Spirograms are of suboptimal quality and terminate prior to 6 seconds, likely underestimating FVC. Body plethysmography was performed and reveals a decreased TLC to 3.95 L, 77% of predicted, indicative of a mild restrictive ventilatory impairment. IMPRESSION: Isolated mild restrictive ventilatory impairment. Results should be viewed with caution due to patient difficulty with testing. Diffusing capacity was unable to be obtained.
== END ==
PROVIDERS: PCP Family Medicine Geriatric Medicine; Referring Provider Family Medicine Geriatric Medicine; Visit Provider Family Medicine Geriatric Medicine
DX: R06.02 Shortness of breath (principal)
CPT/HCPCS: 94060; 94726

== ENCOUNTER → 2020-11-12 09:54 | Outpatient (CLI) | payer MEDICARE, MEDICAID, SELFPAY ==
[2020-07-09 06:23] VITALS: BMI 29.8
--- NOTE | 2020-11-12 09:56 | RAD_ITS ---
STUDY: X-RAY - LEFT ANKLE REASON FOR EXAM: Male, 65 years old. Ankle pain. TECHNIQUE: 3 view(s) of the ankle. COMPARISON: None. FINDINGS: Normal visualized distal tibia and fibula. Normal medial and lateral malleoli. Normal tibiotalar articulation and ankle mortise. Normal visualized talus and calcaneus. The visualized subtalar, talonavicular, calcaneocuboid and tarsal articulations are normal. Minimal anterolateral soft tissue swelling. Question sprain. RAD/Ankle min 3 Views IMPRESSION: Soft tissue swelling without fracture or dislocation. Electronically Signed: Nicholas Benedr DO at 23:57 EDT Tel [phone], Service support ,
== END ==
PROVIDERS: PCP Family Medicine Geriatric Medicine; Referring Provider Family Medicine Geriatric Medicine; Visit Provider Family Medicine Geriatric Medicine
DX: M25.572 Pain in left ankle and joints of left foot (principal)
CPT/HCPCS: 73610

== ENCOUNTER → 2020-12-01 16:16 | Outpatient (CLI) | payer MEDICARE, MEDICAID, SELFPAY ==
[2020-07-09 06:23] VITALS: BMI 29.8
== END ==
PROVIDERS: PCP Family Medicine Geriatric Medicine; Visit Provider Family Medicine Geriatric Medicine
DX: R68.83 Chills (without fever) (principal)
CPT/HCPCS: 87635; C9803; U0005; U0003

== ENCOUNTER 2021-02-23 05:42 | Day surgery (SDC) | payer MEDICARE, MEDICAID, SELFPAY ==
[2020-07-09 06:23] VITALS: BMI 29.8
[2021-02-23] VITALS (8 sets, daily range): BP systolic 84–132; BP diastolic 51–71; PULSE 41–58; RESP 14–16; TEMP 36.1–36.3; O2SAT 95–99; BMI 30.7
[2021-02-23] MEDS: Lactated Ringers 1,000 ML 100 ML IV (06:18)
[2021-02-23] MEDS: Cefazolin 2 GM in 0.9% Normal Saline 100 ML IV (07:24)
[2021-02-23] MEDS: Lubricating Jelly 60 GM Tube 30 GM TOPICAL (07:35)
[2021-02-23] MEDS: Lidocaine Jelly 2% 20 ML Syringe (URO-JET) 20 APPLIC (07:35)
--- NOTE | 2021-02-23 07:42 | PCM.DC ---
Discharge Instructions Diet Discharge Diet: No restrictions Activity Discharge Activity: Return to Normal Activity and May Not Drive (while taking narcotic pain medications.) Dressing / Incision Call your doctor if you observe: Fever of 101 or Higher Follow Up Care Please Follow Up With: Ole Roldan MD When: Call [phone] for an appointment Test Results: Test results from this visit will be discussed in further detail at your follow-up appointment, if applicable. Discharge Plan Admission Primary Reason for Your Visit: incontinence Attending Provider: Ole Roldan Primary Care Provider: Kg Salinas Chi Instructions Additional Instructions / Restrictions: stop Uroxatrol Discharge Orders/Prescriptions Prescriptions: New ciprofloxacin HCl [Cipro] 500 mg tablet 500 mg PO BID Qty: 14 RF: 0 oxybutynin chloride 15 mg tablet extended release 24hr 15 mg PO DAILY Qty: 90 RF: 3 Continued valsartan-hydrochlorothiazide 320-12.5 mg tablet 1 tab PO DAILY RF: 0 cholecalciferol (vitamin D3) 10 mcg (400 unit) capsule 10 mcg PO DAILY RF: 0 buspirone 10 mg tablet 10 mg PO TID RF: 0 levothyroxine 25 MCG tablet 100 mcg PO DAILY RF: 0 risperidone 1 MG tablet 1 mg PO BREAKFAST RF: 0 risperidone 2 mg tablet 2 mg PO QHS RF: 0 metoprolol tartrate 25 mg tablet 12.5 mg PO BID RF: 0 albuterol sulfate 2.5 mg/0.5 mL solution for nebulization 2.5 mg inhalation BID RF: 0 melatonin 10 mg Tablet 10 mg PO QHS RF: 0 Artificial Tears (cmc) 1 % Drops 2 drp EACH EYE QHS RF: 0 Referrals / Follow Up: Ole Roldan MD [STAFF PHYSICIAN] - Kg Salinas Chi, MD [Primary Care Provider] - Disposition Disposition (needs filled in before D/C Order can be placed): Home, Self Care
--- NOTE | 2021-02-23 07:43 | PCM.OPRPT ---
Report of Operation Date of Procedure: 02/23/21 Pre-Operative Diagnosis: Worsening incontinence Post-Operative Diagnosis: Same plus dense urethral stricture in the mid urethra Surgery/Procedure Performed:: Cystoscopy dilation of urethral stricture Description of Surgical Findings:: This is a 65-year-old male with a history of bladder control problems he lives in a half-way in the past we did a TUR resection of the prostate to open up the urethra prostate for obstruction after this he did fairly well with his bladder control but recently is been having worse problems so he comes back to the operating room for cystoscopy. Because of his mental status change he would require anesthesia to do a cystoscopy would not tolerate it in the office setting. Patient was taken back to the operating room after smooth induction of a MAC local the penis and testicles were prepped and draped in usual sterile fashion he was placed in dorsolithotomy position. I first tried to go into the meatus with a [address] [place] rigid cystourethroscope and immediately discovered that he had a dense meatal stricture and urethral stricture in the distal urethra I had to dilate the stricture starting from [address] [place] and worked all the way way up to [address] [place] it was a very dense stricture. After dilating the stricture that was he able to easily get into the urethra with a [address] [place] scope and work my way all the way into the bladder and inspected the bladder. The bladder was normal the prostate had been resected prior had wide open channel no obstruction bladder was normal trigone was normal. Basically the main finding was dense urethral stricture this could be contributing to his bladder control problems hopefully dilation of this will help and also can have him stop the Uroxatrol since this is not necessary and will start him on some oxybutynin 15 mg extended release daily to help with bladder control. He will follow-up in the office in about a month for checkup. I explained to the caregiver that the stricture may come back we could try to dilate in the office if it does. Surgeon: Ole Roldan Type of Anesthesia: General Drains: none Admit VTE Documentation VTE Present on Admission: No VTE Mechan Device Prophylaxis: SCD's
== END 2021-02-23 08:48 | disposition home or self-care (01) ==
LOC: SDC 05:43 → AC 05:44
PROVIDERS: PCP Family Medicine Geriatric Medicine; Referring Provider Urology; Visit Provider Urology
PROC: 0TJB8ZZ Inspection of Bladder, Via Natural or Artificial Opening Endoscopic (ICD-10-PCS; CPT 52000; principal; 2021-02-23 07:20)
DX: N35.919 Unspecified urethral stricture, male, unspecified site (principal); N40.1 Benign prostatic hyperplasia with lower urinary tract symptoms; R35.1 Nocturia; R33.8 Other retention of urine; N32.81 Overactive bladder; I10 Essential (primary) hypertension; F41.9 Anxiety disorder, unspecified; E07.9 Disorder of thyroid, unspecified; Z79.899 Other long term (current) drug therapy
CPT/HCPCS: 52281; J7120

== ENCOUNTER → 2021-03-01 14:01 | Outpatient (CLI) | payer MEDICARE, MEDICAID, SELFPAY ==
[2021-03-01 16:37] LABS: Absolute Lymphocyte Count 1.73 X10^3/uL (0.83-4.51); Absolute Neutrophil Count 4.6 X10^3/uL (2.0-7.7); Basophil# 0.05 X10^3/uL; Basophil% 0.7 % (0-1); Eosinophil# 0.12 X10^3/uL; Eosinophils% 1.7 % (0-5); Hemoglobin 15.1 g/dL (13.0-16.5); Lymphocyte # 1.73 X10^3/ul (0.83-4.51); Lymphocyte % 24.1 % (19-41); Mean Corp Hgb Conc 34.3 g/dL (32-36); Mean Corpuscular Hgb 30.3 pg (27.0-32.0); Mean Corpuscular Volume 88.2 fL (80-94); Mean Platelet Vol. 10.3 fl (6.2-12.0); Monocyte# 0.57 X10^3/uL; Monocyte% 7.9 % (0-10); NRBC Flagged by Analyzer 0 % (0-5); Neutrophil # 4.58 X10^3/uL (2.7-7.7); Neutrophil % 63.9 % (47-70); Platelet Count 208 K/mm3 (150-450); RBC Distribution Width CV 14.3 % (11.6-14.6); RBC Distribution Width SD 45.6 fl (35.1-43.9); Red Blood Count 4.99 M/mm3 (4.6-6.2); White Blood Count 7.2 K/mm3 (4.4-11.0)
[2021-03-01 17:18] LABS: ALB/GLOB Ratio 0.9 RATIO (0.9-2.4); AST(SGOT) 15 U/L (15-37); Alanine Aminotransfer ALT/SGPT 29 U/L (16-61); Albumin, Serum 3.4 g/dL (3.2-5.0); Alkaline Phosphatase 61 U/L (45-117); Anion Gap 8 (5-15); BUN 18 mg/dL (7-18); BUN/Creat Ratio 15.5 RATIO (10-20); Calcium,Total 8.8 mg/dL (8.5-10.1); Chloride 106 mmol/L (98-107); Creatinine, Serum 1.16 mg/dL (0.70-1.30); EST Glomerular Filtration Rate 67 mL/min (>60); Est Glom Filt Rate - Afr Amer 81 mL/min (>60); Globulin 3.7 g/dL (2.2-4.2); Glucose 121 mg/dL (74-106); Potassium 3.5 mmol/L (3.5-5.1); Protein, Total 7.1 g/dL (6.4-8.2); Sodium Level 139 mmol/L (136-145); Thyroid Stim Hormone (TSH) 2.42 uIU/mL (0.358-3.74)
[2021-03-01 17:23] LABS: Vitamin D,25 Hydroxy 33.8 ng/mL
== END ==
PROVIDERS: PCP Family Medicine Geriatric Medicine; Referring Provider Family Medicine Geriatric Medicine; Visit Provider Family Medicine Geriatric Medicine
DX: I10 Essential (primary) hypertension (principal); E55.9 Vitamin D deficiency, unspecified
CPT/HCPCS: 36415; 80053; 82306; 84443; 85025

== ENCOUNTER 2021-09-06 10:14 | Outpatient (CLI) | payer MEDICARE, MEDICAID, SELFPAY ==
[2021-09-06 12:13] LABS: Absolute Neutrophil Count 4.6 X10^3/uL (2.0-7.7); Basophil# 0.04 X10^3/uL; Basophil% 0.6 % (0-1); Eosinophil# 0.13 X10^3/uL; Eosinophils% 1.8 % (0-5); Hematocrit 46.4 % (40-54); Hemoglobin 15.2 g/dL (13.0-16.5); Lymphocyte % 23.4 % (19-41); Mean Corp Hgb Conc 32.8 g/dL (32-36); Mean Corpuscular Hgb 27.3 pg (27.0-32.0); Mean Corpuscular Volume 83.3 fL (80-94); Monocyte# 0.71 X10^3/uL; Monocyte% 9.8 % (0-10); NRBC Flagged by Analyzer 0 % (0-5); Neutrophil % 63.4 % (47-70); Platelet Count 230 K/mm3 (150-450); RBC Distribution Width CV 13.8 % (11.6-14.6); RBC Distribution Width SD 41.6 fl (35.1-43.9); Red Blood Count 5.57 M/mm3 (4.6-6.2); White Blood Count 7.3 K/mm3 (4.4-11.0)
[2021-09-06 12:28] LABS: Vitamin D,25 Hydroxy 35.5 ng/mL
[2021-09-06 12:35] LABS: AST(SGOT) 12 U/L (15-37); Alanine Aminotransfer ALT/SGPT 28 U/L (16-61); Albumin, Serum 3.6 g/dL (3.2-5.0); Alkaline Phosphatase 65 U/L (45-117); Anion Gap 3 (5-15); BUN 18 mg/dL (7-18); Calcium,Total 9.8 mg/dL (8.5-10.1); Chloride 109 mmol/L (98-107); Creatinine, Serum 1.38 mg/dL (0.70-1.30); EST Glomerular Filtration Rate 54 mL/min (>60); Est Glom Filt Rate - Afr Amer 66 mL/min (>60); Globulin 3.7 g/dL (2.2-4.2); Glucose 91 mg/dL (74-106); Potassium 4.1 mmol/L (3.5-5.1); Protein, Total 7.3 g/dL (6.4-8.2); Sodium Level 141 mmol/L (136-145); Thyroid Stim Hormone (TSH) 2.93 uIU/mL (0.358-3.74)
== END 2021-09-06 23:59 | disposition home or self-care (01) ==
LOC: POLAB3 10:16
PROVIDERS: PCP Family Medicine Geriatric Medicine; Visit Provider Family Medicine Geriatric Medicine
DX: I10 Essential (primary) hypertension (principal); E55.9 Vitamin D deficiency, unspecified
CPT/HCPCS: 36415; 80053; 82306; 84443; 85025

== ENCOUNTER 2021-10-06 11:15 | Outpatient (CLI) | payer MEDICARE, MEDICAID, SELFPAY ==
[2021-10-06 12:18] LABS: Absolute Lymphocyte Count 1.03 X10^3/uL (0.83-4.51); Absolute Neutrophil Count 4.7 X10^3/uL (2.0-7.7); Basophil# 0.03 X10^3/uL; Basophil% 0.5 % (0-1); Eosinophil# 0.09 X10^3/uL; Eosinophils% 1.4 % (0-5); Hematocrit 41.3 % (40-54); Hemoglobin 13.3 g/dL (13.0-16.5); Lymphocyte # 1.03 X10^3/ul (0.83-4.51); Lymphocyte % 15.5 % (19-41); Mean Corp Hgb Conc 32.2 g/dL (32-36); Mean Corpuscular Volume 83.9 fL (80-94); Mean Platelet Vol. 9.9 fl (6.2-12.0); Monocyte# 0.75 X10^3/uL; Monocyte% 11.3 % (0-10); NRBC Flagged by Analyzer 0 % (0-5); Neutrophil # 4.68 X10^3/uL (2.7-7.7); Neutrophil % 70.4 % (47-70); Platelet Count 256 K/mm3 (150-450); RBC Distribution Width CV 13.8 % (11.6-14.6); RBC Distribution Width SD 42.5 fl (35.1-43.9); Red Blood Count 4.92 M/mm3 (4.6-6.2); White Blood Count 6.6 K/mm3 (4.4-11.0)
[2021-10-06 12:44] LABS: Hemoglobin A1c 5.9 % (3.8-5.6)
[2021-10-06 12:47] LABS: ALB/GLOB Ratio 0.7 RATIO (0.9-2.4); AST(SGOT) 16 U/L (15-37); Alanine Aminotransfer ALT/SGPT 36 U/L (16-61); Albumin, Serum 3.2 g/dL (3.2-5.0); Alkaline Phosphatase 85 U/L (45-117); Anion Gap 6 (5-15); BUN 20 mg/dL (7-18); BUN/Creat Ratio 17.4 RATIO (10-20); Calcium,Total 9.1 mg/dL (8.5-10.1); Chloride 106 mmol/L (98-107); Creatinine, Serum 1.15 mg/dL (0.70-1.30); EST Glomerular Filtration Rate 67 mL/min (>60); Est Glom Filt Rate - Afr Amer 81 mL/min (>60); Globulin 4.4 g/dL (2.2-4.2); Glucose 112 mg/dL (74-106); Potassium 3.9 mmol/L (3.5-5.1); Protein, Total 7.6 g/dL (6.4-8.2); Sodium Level 140 mmol/L (136-145); Thyroid Stim Hormone (TSH) 3.88 uIU/mL (0.358-3.74)
== END 2021-10-06 23:59 | disposition home or self-care (01) ==
LOC: POLAB3 11:16
PROVIDERS: PCP Family Medicine Geriatric Medicine; Visit Provider Family Medicine Geriatric Medicine
DX: R53.83 Other fatigue (principal); Z79.899 Other long term (current) drug therapy
CPT/HCPCS: 36415; 80053; 83036; 84443; 85025

== ENCOUNTER 2021-10-06 11:33 | Outpatient (CLI) | payer MEDICARE, MEDICAID, SELFPAY ==
--- NOTE | 2021-10-06 11:42 | CT_ITS ---
STUDY: CT RIGHT ANKLE WITHOUT CONTRAST REASON FOR EXAM: Male, 66 years old. SPRAIN OF UNSPECIFIED LIGAMENT RADIATION DOSAGE (If Supplied By Facility): CTDIvol = ( 15.35 ) mGy, DLP = ( 411.33 ) mGycm TECHNIQUE: Thin section transaxial imaging of the ankle was obtained, with sagittal and coronal reconstructed images. Individualized dose optimization techniques were used for this CT. COMPARISON: None. FINDINGS: Well-corticated bones visualized inferior to the fibula and lateral to the talus bone, subtle demonstrate the mild irregularity in the contour, subchondral lucencies., no prior studies are available for comparison. A defect is visualized in the inferior fibular cortex visualized on coronal series 602 image 43 A lucency is visualized underlying the cortex/periosteum the inferior lateral talus seen on coronal series 602 image 38. Increased density visualized in the cortex along the medial tibial talar joint space. Subtle scattered bone density is visualized on coronal series 602 image 39. Extensive subchondral lucencies visualized most prominent on the lining the articular bone surfaces, degenerative bone changes seen. Extensive circumferential subcutaneous soft tissues is seen most prominent overlying the lateral malleolus with extension visualized surrounding the tendon sheaths. CT/Extremity Lower without Contra IMPRESSION: Extensive degenerative changes and soft tissue swelling, can''t rule out acute fracture or acute on chronic fracture. If clinically indicated would recommend further evaluation with an MRI Electronically Signed: Rod Maravilla MD at 12:27 EDT ,
== END 2021-10-06 23:59 | disposition home or self-care (01) ==
PROVIDERS: PCP Family Medicine Geriatric Medicine; Referring Provider Family Medicine Geriatric Medicine; Visit Provider Family Medicine Geriatric Medicine
DX: S93.401D Sprain of unspecified ligament of right ankle, subsequent encounter (principal); R53.83 Other fatigue; Z79.899 Other long term (current) drug therapy
CPT/HCPCS: 36415; 73700; 80053; 83036; 84443; 85025

== ENCOUNTER → 2021-10-10 | Outpatient (CLI) | payer MEDICARE, MEDICAID, SELFPAY ==
--- NOTE | 2021-10-10 18:05 | MRI_ITS ---
EXAM: MR RIGHT LOWER EXTREMITY WITHOUT INTRAVENOUS CONTRAST, ANKLE CLINICAL INDICATION: SPRAIN RT ANKLE History, Signs T Symptoms SPRAIN RT ANKLE Technologist Notes Patient could not hold still, DEVELOPMENTALLY DISABLED PATIENT WHO SPRAINED ANKLE. FOLLOW UP FROM CT 10/06/21. SPRAINED ANKLE ON 10/01/21. PATIENT HAD DIFFICULTY FOLLOWING INSTRUCTION AND HOLDING STILL. TECHNIQUE: Multiplanar and multisequence MR images of the right ankle without intravenous contrast. This report was created using [employer] report generation technology. COMPARISON: None. FINDINGS: LIGAMENTS: ANTERIOR TALOFIBULAR: Unremarkable. Intact. POSTERIOR TALOFIBULAR: Unremarkable. Intact. ANTERIOR TIBIOFIBULAR: Unremarkable. Intact. POSTERIOR TIBIOFIBULAR: Unremarkable. Intact. CALCANEOFIBULAR: Unremarkable. Intact. DELTOID: Unremarkable. Intact. SPRING: Unremarkable. Intact. LISFRANC: Unremarkable. Intact. TENDONS: ACHILLES: Unremarkable. Intact. FLEXOR: Unremarkable. Intact. EXTENSOR: Unremarkable. Intact. PERONEAL: Unremarkable. Intact. TIBIALIS ANTERIOR: Unremarkable. Intact. TIBIALIS POSTERIOR: Unremarkable. Intact. MUSCLES: Unremarkable. Normal bulk and signal. FLUID: Unremarkable. No joint effusion. SINUS TARSI: Unremarkable. Normal fat in the sinus tarsi. TARSAL TUNNEL: Unremarkable. PLANTAR FASCIA: Unremarkable. Intact. CARTILAGE: Unremarkable. No osteochondral lesion. Articular cartilage intact. BONES/JOINTS: There is a calcaneal spur. Subchondral cysts along the ankle mortise and talonavicular joint. Degenerative cystic changes along the articular surface of the tarsal bones. Talar dome intact. No fracture or marrow edema. OTHER SOFT TISSUES: Unremarkable. MRI/Lower Ext Joint Only (Routine) IMPRESSION: Severe motion artifact. No acute fracture. Degenerative changes throughout the ankle mortise, talonavicular joint, and tarsal articulations. Electronically Signed: Momo Glasgow MD at 19:50 EDT ,
== END | disposition home or self-care (01) ==
LOC: MRI 17:21
PROVIDERS: PCP Family Medicine Geriatric Medicine; Visit Provider Family Medicine Geriatric Medicine
DX: S93.401S Sprain of unspecified ligament of right ankle, sequela (principal)
CPT/HCPCS: 73721

== ENCOUNTER → 2021-11-22 | Outpatient (CLI) | payer MEDICARE, MEDICAID, SELFPAY | END | disposition home or self-care (01) | PROVIDERS: PCP Family Medicine Geriatric Medicine; Visit Provider Podiatrist | DX: L97.522 Non-pressure chronic ulcer of other part of left foot with fat layer exposed (principal) | CPT/HCPCS: 87070; 87075; 87077; 87186; 87205 ==

== ENCOUNTER 2021-12-02 09:00 | Inpatient (IN) | payer MEDICARE, MEDICAID, SELFPAY ==
[2021-12-02] VITALS (10 sets, daily range): BP systolic 106–139; BP diastolic 57–71; PULSE 50–71; RESP 16–18; TEMP 36.1–36.6; O2SAT 96–100; BMI 33.8; BMI 31.9
--- NOTE | 2021-12-02 09:53 | EKG12_ITS ---
Test Reason : Blood Pressure : / mmHG Vent. Rate : 051 BPM Atrial Rate : 051 BPM P-R Int : 164 ms QRS Dur : 096 ms QT Int : 396 ms P-R-T Axes : 022 037 081 degrees QTc Int : 364 ms Sinus bradycardia Nonspecific T wave abnormality Abnormal ECG Confirmed by CALLIE RAMOS, JOSE ANTONIO ([id number]), editorial cartoonist ELBA ARMSTRONG ([id number]) on 12/05/2021 12:41:20 PM Referred By: THANH Confirmed By:JOSE ANTONIO LEDESMA MD
--- NOTE | 2021-12-02 09:53 | CT_ITS ---
STUDY: CTA CHEST REASON FOR EXAM: Male, 66 years old. Dizziness, high risk for PE RADIATION DOSAGE (If Supplied By Facility): CTDIvol = ( 12.59 ) mGy, DLP = ( 515.85 ) mGycm TECHNIQUE: The examination was performed with the intravenous administration of IV 75mL Isovue-370. Post-processing of the angiographic images was performed, with multiplanar reformation and 3D reconstruction. Individualized dose optimization techniques were used for this CT. COMPARISON: None. FINDINGS: Normal enhancement of the main pulmonary artery and right and left pulmonary arteries. Normal enhancement of the bilateral peripheral pulmonary arteries. There is no demonstrated pulmonary embolism. There is atherosclerotic calcification of the aortic arch with tortuosity. There is no demonstrated aortic dissection. There are calcifications of the coronary arteries. Normal mediastinum. Normal hilar regions. Normal visualized trachea and bronchi. The lungs are well expanded. There is no focal infiltrate. There is calcified granuloma in the right middle lobe. Normal pleura. Normal chest wall structures. There are degenerative changes of thoracic spine. Normal visualized upper abdomen. CT/CTA Chest W/WO Contrast IMPRESSION: CTA chest examination, without a demonstrated pulmonary embolism or arterial dissection. Electronically Signed: Raymundo Leigh MD at 12:54 EDT Reading Location ID and State: [facility] / [place] , Service support ,
--- NOTE | 2021-12-02 09:53 | CT_ITS ---
STUDY: CT BRAIN WITHOUT CONTRAST REASON FOR EXAM: Male, 66 years old. Transient slurred speech RADIATION DOSAGE (If Supplied By Facility): CTDIvol = ( 47.06 ) mGy, DLP = ( 907.97 ) mGycm TECHNIQUE: Transaxial CT imaging of the brain was performed without administration of intravenous contrast material. Individualized dose optimization techniques were used for this CT. COMPARISON: No relevant priors. FINDINGS: Normal soft tissue structures. Normal calvarium. There is asymmetry of the ventricles consistent with an anatomic variant. The left lateral ventricle is larger than the right. Mild degree of cerebral atrophy. Questionable component of normal pressure hydrocephalus. Normal white matter tracts of the cerebral hemispheres. Normal basal ganglia and thalami. Normal brainstem. Normal cerebellum. There is no intracranial hemorrhage. There are no findings of an acute ischemic infarction. Atherosclerotic calcification of the vertebral arteries and cavernous portions of the internal carotid arteries bilaterally. Normal visualized paranasal sinuses. CT/Brain/Head without Contrast IMPRESSION: Chronic involutional changes of the brain. Questionable component of the normal pressure hydrocephalus. Electronically Signed: Casey Galindo MD at 12:33 EDT ,
[2021-12-02] MEDS: 0.9% Normal Saline 1,000 ML 1000 ML IV (10:02)
[2021-12-02 10:07] LABS: Absolute Lymphocyte Count 1.48 X10^3/uL (0.83-4.51); Absolute Neutrophil Count 4.3 X10^3/uL (2.0-7.7); Basophil# 0.04 X10^3/uL; Basophil% 0.6 % (0-1); Eosinophil# 0.15 X10^3/uL; Eosinophils% 2.2 % (0-5); Hematocrit 41.8 % (40-54); Hemoglobin 13.6 g/dL (13.0-16.5); Lymphocyte # 1.48 X10^3/ul (0.83-4.51); Lymphocyte % 21.8 % (19-41); Mean Corp Hgb Conc 32.5 g/dL (32-36); Mean Corpuscular Hgb 26.6 pg (27.0-32.0); Mean Corpuscular Volume 81.6 fL (80-94); Mean Platelet Vol. 9.9 fl (6.2-12.0); Monocyte# 0.78 X10^3/uL; Monocyte% 11.5 % (0-10); NRBC Flagged by Analyzer 0 % (0-5); Neutrophil # 4.31 X10^3/uL (2.7-7.7); Neutrophil % 63.5 % (47-70); Platelet Count 188 K/mm3 (150-450); RBC Distribution Width CV 13.7 % (11.6-14.6); RBC Distribution Width SD 40.6 fl (35.1-43.9); Red Blood Count 5.12 M/mm3 (4.6-6.2); White Blood Count 6.8 K/mm3 (4.4-11.0)
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
[2021-12-02 10:14] LABS: International Normalized Ratio 1.1; Prothrombin Time (Protime)PT. 13.6 SECONDS (11.7-14.9)
[2021-12-02 10:25] LABS: ALB/GLOB Ratio 0.9 RATIO (0.9-2.4); AST(SGOT) 8 U/L (15-37); Alanine Aminotransfer ALT/SGPT 16 U/L (16-61); Albumin, Serum 3.4 g/dL (3.2-5.0); Alkaline Phosphatase 77 U/L (45-117); Anion Gap 6 (5-15); BUN 55 mg/dL (7-18); BUN/Creat Ratio 11.9 RATIO (10-20); Chloride 109 mmol/L (98-107); Creatinine, Serum 4.62 mg/dL (0.70-1.30); EST Glomerular Filtration Rate 14 mL/min (>60); Est Glom Filt Rate - Afr Amer 16 mL/min (>60); Estimated Creatinine Clearance 12.81 ml/min; Globulin 3.9 g/dL (2.2-4.2); Glucose 111 mg/dL (74-106); Potassium 3.7 mmol/L (3.5-5.1); Protein, Total 7.3 g/dL (6.4-8.2); Sodium Level 141 mmol/L (136-145); Troponin-I HS 4 pg/mL (3.0-78.0)
--- NOTE | 2021-12-02 10:56 | VDLE_ITS ---
Reason For Study: SHORTNESS OF BREATH RIGHT LEFT GSV is normal. GSV is normal. CFV is compressible, spontaneous, phasic, CFV is compressible, spontaneous, phasic, competent and demonstrates normal competent, and demonstrates normal augmentation. augmentation. FV is compressible, spontaneous, phasic, FV is compressible, spontaneous, phasic, competent and demonstrates normal competent and demonstrates normal augmentation. augmentation. POP V is compressible, spontaneous, phasic, POP V is compressible, spontaneous, phasic, competent and demonstrates normal competent and demonstrates normal augmentation. augmentation. T/P Trunk is compressible. T/P Trunk is compressible. PTV is compressible. PTV is compressible. RT PerV is compressible. LT PerV is compressible. Procedure Exam performed portable in ED. A preliminary report was called and/or faxed to Dr. Kelley. VL/Venous Duplex US - Rick Extrem Interpretation Summary No evidence for acute deep venous thrombosis bilateral lower extremities with p atent and compressible bilateral great saphenous veins. Ordering Physician: Willa Kelley Referring Physician: Kg Salinas Chi Performed By: Noman Alvarez
--- NOTE | 2021-12-02 11:37 | PCM.HP.STD ---
HPI - General General Date of Admission: 12/02/21 Date of Service: 12/02/21 Chief Complaint: Dizziness, slurred speech intermittent for couple days HPI Narrative DAVONTE OKEEFE, is a 66 M [facility] for dizziness, slurred speech. Patient has developmental disorder therefore history mainly taken from Eva, health aide from the [facility]. Patient said he is feeling dizzy lightheaded and provider noted slurred speech. He also had dizziness and lightheadedness for last couple days. Calhoun denied that she passed out. Patient himself denies focal weakness but history not reliable because of cognitive impairment/developmental disorder. Denies chest pain, shortness of breath, abdominal pain. No fever. Patient had fracture in right ankle about a month ago and cast was removed 2 weeks ago. Prior to that he had a cast in left leg which was removed about a month ago. Health aid denies personal history of DVT/PE. Twelve-lead EKG shows sinus bradycardia 51 bpm, QTC 364 milliseconds [facility] Medical History Anxiety Difficulty balancing when standing History of echocardiogram Hypertension Incontinence Limb weakness Non-smoker Prostate enlargement Shortness of breath on exertion Thyroid disease Wears glasses Home Medications levothyroxine 25 mcg tablet 112 mcg PO DAILY 08/14/16 [History Last Taken 02/23/21 05:20] risperidone 1 mg tablet 1 mg PO BREAKFAST 08/14/16 [History Last Taken 07/09/20] buspirone 10 mg tablet 20 mg PO TID 07/05/20 [History Last Taken 02/23/21 05:20] cholecalciferol (vitamin D3) 10 mcg (400 unit) capsule 25 mcg PO DAILY 07/05/20 [History Last Taken 07/09/20] valsartan 320 mg-hydrochlorothiazide 12.5 mg tablet 1 tab PO DAILY 07/05/20 [History Last Taken 07/09/20] albuterol sulfate 2.5 mg/0.5 mL solution for nebulization 2.5 mg inhalation DAILY SOB 02/22/21 [History Last Taken 02/23/21 05:20] carboxymethylcellulose sodium 1 % eye drops (Artificial Tears (carboxymethylcellulose)) 2 drp EACH EYE QHS 02/22/21 [History Last Taken Unknown] melatonin 10 mg tablet 10 mg PO QHS 02/22/21 [History Last Taken Unknown] metoprolol tartrate 25 mg tablet 12.5 mg PO BID 02/22/21 [History Last Taken 02/23/21 05:20] risperidone 2 mg tablet 2 mg PO QHS 02/22/21 [History Last Taken 02/23/21 05:20] oxybutynin chloride 15 mg tablet,extended release 24 hr 15 mg PO DAILY #90 tabs 02/23/21 [Rx Last Taken Unknown] budesonide 0.5 mg/2 mL suspension for nebulization 0.5 mg inhalation DAILY 12/02/21 [History Last Taken Unknown] hydroxyzine pamoate 50 mg capsule 50 mg PO 4X/DAY 12/02/21 [History Last Taken Unknown] mupirocin 2 % topical ointment 1 applic topical TID 12/02/21 [History Last Taken Unknown] tamsulosin 0.4 mg capsule 0.4 mg PO QHS 12/02/21 [History Last Taken Unknown] Allergy/AdvReac Type Severity Reaction Status Date / Time doxycycline Allergy unknown Verified 12/02/21 09:12 Penicillins Allergy Unknown Verified 12/02/21 09:12 Surgical History Hx of colonoscopy Hx of cystoscopy Hx of cystoscopy Hx of cystoscopy Hx of transurethral resection of prostate Hx of transurethral resection of prostate Social History Smoking Status: Never smoker alcohol intake: never ROS ROS Narrative 14 ROS is limited/unobtainable due to developmental disorder/cognitive deficit. As per health aide, no fever . Patient himself denies dysuria. Moving bowels daily. Blood pressure is controlled. Denies diabetes/high blood pressure Rest as described in HPI Review of Systems ROS Unobtainable: due to mental condition Vital Signs Vital Signs Vital Signs: 12/02/21 09:02 12/02/21 10:02 Temperature 97.5 F L Temperature Source Temporal Pulse Rate 58 L 52 L Respiratory Rate 16 17 Blood Pressure 115/65 108/57 L Blood Pressure Mean 81 74 Pulse Ox 96 96 Oxygen Delivery Method Room Air Weight Weight: 197 lb 1.492 oz Body Mass Index (BMI) 33.8 Physical Exam Narrative General: Alert, chronic cognitive deficit, difficult to obtain orientation. Awake HEENT: Left eye legally blind. Right eye diminished vision. PERRLA, EOMI Oral: Oral mucosa dry. No Gingival or Mucosal Lesions/ Ulcerations Neck: Supple, No JVD, Negative Carotid Bruits Lungs: Air entry diminished in bilateral lung bases. No crepitation/rhonchi Cardiovascular: Regular rate, Regular Rhythm, Normal S1, Normal S2, No murmurs Abdomen: Bowel Sounds Present, Soft, Non Tender, Non-Distended : No renal angle tenderness. No suprapubic tenderness. Extremities: No edema, Capillary Refill Less than 3 Seconds Skin: No rashes, No breakdown Musculoskeletal: Left calf felt indurated. No tenderness of right or left leg. Recent fracture of right ankle and prior to that left leg. Neurological: Developmental disorder. Detailed neuro exam unobtainable. Slurred speech/dysarthria on top of chronic language deficit Psych/Mental Status: Flat affect Results Lab / Micro Data Result Diagrams: 12/02/21 09:15 12/02/21 09:15 Labs: Laboratory Results - last 24 hr 12/02/21 09:15: WBC 6.8, RBC 5.12, Hgb 13.6, Hct 41.8, MCV 81.6, MCH 26.6 L, MCHC 32.5, RDW Std Deviation 40.6, RDW Coeff of Deepali 13.7, Plt Count 188, MPV 9.9, Immature Gran % (Auto) 0.400, Neut % (Auto) 63.5, Lymph % (Auto) 21.8, [place] % (Auto) 11.5 H, Eos % (Auto) 2.2, Baso % (Auto) 0.6, Absolute Neuts (auto) 4.3, Absolute Lymphs (auto) 1.48, Nucleated RBC % 0 12/02/21 09:15: PT 13.6, INR 1.1 12/02/21 09:15: Sodium 141, Potassium 3.7, Chloride 109 H, Carbon Dioxide 26.0, Anion Gap 6, BUN 55 H, Creatinine 4.62 H, Estim Creat Clear Calc 12.81, Est GFR (MDRD) Af Amer 16 L, Est GFR (MDRD) Non-Af 14 L, BUN/Creatinine Ratio 11.9, Glucose 111 H, Calcium 10.0, Total Bilirubin 0.60, AST 8 L, ALT 16, Alkaline Phosphatase 77, Troponin I High Sens 4, Total Protein 7.3, Albumin 3.4, Globulin 3.9, Albumin/Globulin Ratio 0.9 Assessment & Plan Assessment/Plan (1) Near syncope: PLAN: Plan 1. Near syncope/slurred speech, exact etiology unclear: Rule out TIA/stroke: As per the health aide from [facility], patient is speech is improving but he still mild slurring. Dizziness has resolved. No syncope. Patient is being admitted in PCU. Orthostatic blood pressure. Troponin is negative. Serum magnesium and phosphorus are normal. Patient has moderate risk of DVT/PE as per modified Wells criteria of PE/DVT. Venous duplex ordered. VQ scan ordered. Patient does not have personal history of DVT/PE as per health aide. MRI brain and carotid duplex ordered. 2D echo ordered. 2. SAMUEL, exact etiology unclear: Patient baseline creatinine runs around 1.15, last 1 10/06/2021. Admitted with BUN 55, creatinine 4.62. As per the L2 there is no noticeable decrease in urine output. Denies burning micturition. No history of recurrent UTI but patient has history of BPH. 3. Overactive bladder/urge incontinence: Patient was seen by Dr. Roldan in June 2020 for eval problem and had Botox. He has history of prior TURP. 4. Hypothyroidism: TSH and free T4 tomorrow AM. Continue home dose of thyroxine. 5. Hypertension: Blood pressure is normal range. Other chronic comorbidities include developmental disorder/cognitive deficit, left eye legal blindness, severe scoliosis, hard of hearing, chronic disequilibrium VTE prophylaxis: Heparin 5000 units subcutaneous twice daily. Living will/advanced directive/end of life care: The patient is from [facility]. He has guardian from [facility], [facility]. After discussion of benefits/risks procedures involved with full code, DNR CC arrest and DNR CC, health aide said he has DNRCC arrest with no intubation As per [facility], patient does not want artificial life support including intubation, tube feed, ventilator and/chest compression, central venous catheter, vasopressor and DC shock if needed Total time spent in [id number] encounter in discussion of advanced directive 16 minutes. Charges/Coding Visit Charges OBSV E&M: 93418 Initial observation care L3 Procedures Hospitalists Procedures: 78122 Advncd Care Plan 30 Min
[2021-12-02 11:38] LABS: CPK Total, Creatine Kinase 49 U/L (39-308)
[2021-12-02 12:13] LABS: Magnesium 2.3 mg/dL (1.6-2.6); Phosphorus 3.4 mg/dL (2.5-4.9)
--- NOTE | 2021-12-02 13:24 | CDU_ITS ---
Reason For Study: Dizziness Rt. Velocities/BP Lt. Velocities/BP Prox CCA 61.7/8.2 cm/sec. Prox CCA 107.2/13.9 cm/sec. Mid CCA 90.4/12.1 cm/sec. Mid CCA 92.5/12.6 cm/sec. Dist CCA 77.3/12.1 cm/sec. Dist CCA 96.2/15.1 cm/sec. Prox ICA 48.6/13.4 cm/sec. Prox ICA 47/13.9 cm/sec. Mid ICA 77.3/18.6 cm/sec. Mid ICA 81.4/20 cm/sec. Dist ICA 90.4/21.3 cm/sec. Dist ICA 82.6/21.2 cm/sec. Rt. ICA/CCA = 1.17. Lt. ICA/CCA = 0.86. Prox ECA 100.8/4.3 cm/sec. Prox ECA 110.9/6.5 cm/sec. Rt. Vert. 34.3/10.7 cm/sec. Lt. Vert. 53.2/15.1 cm/sec. Right Extracranial There is intimal thickening but no significant atherosclerotic plaque noted in the right common carotid artery. There is heterogeneous, smooth atherosclerotic plaque noted in the right internal carotid artery. There is intimal thickening but no significant atherosclerotic plaque noted in the right external carotid artery. Antegrade flow is noted in the right vertebral artery. Left Extracranial There is homogeneous, smooth atherosclerotic plaque noted in the left common carotid artery. There is intimal thickening but no significant atherosclerotic plaque noted in the left internal carotid artery. There is intimal thickening but no significant atherosclerotic plaque noted in the left external carotid artery. Antegrade flow is noted in the left vertebral artery. Procedure This is a Carotid Duplex examination using B-mode, color flow and specral Doppler. Carotid Duplex 19710. Exam performed portable in patient room. VL/Carotid Duplex Ultrasound Interpretation Summary Smooth plaque at the proximal right internal carotid artery with less than 50% stenosis Less than 50% stenosis right external carotid artery Intimal thickening at the proximal left internal carotid artery with less than 50% stenosis Less than 50% stenosis left external carotid artery Patent and antegrade vertebral arteries bilaterally Ordering Physician: Temo Ba Referring Physician: Kg Salinas Chi Performed By: Christina Ojeda RVT
--- NOTE | 2021-12-02 13:24 | ECHOCS_ITS ---
Reason For Study: TIA/CVA Procedure This was a 2D Doppler, Color Flow transthoracic echocardiogram. Contrast injection was performed. The study was technically difficult. Exam performed portable in patient room. Left Ventricle Overall image quality is good for the parasternal views-7 out of 10, and fair for the apical views-6 out of 10 contrast was used to enhance imaging. Visually estimated left ventricular ejection fraction is about 65%. LV cavity size wall motion appear normal. LV wall thickness is at the upper limits of normal Diastolic function is indeterminate. No regional wall motion abnormality is appreciated. Right Ventricle Right ventricle appears mildly dilated in the parasternal views. RV systolic function is normal. Free wall of the right ventricle appears echodense, and slightly shaggy, and there is trivial pericardial effusion surrounding the right atrium. Clinical correlation is suggested. Alternate imaging may be considered. Atria Left atrium appears dilated. Transverse diameter is 4.8 cm. Left atrial volume index was not reported. Right atrial size appears normal. Mitral Valve Mitral valve appears grossly normal structurally and functionally. There is trivial mitral regurgitation. There is no mitral stenosis. Tricuspid Valve Tricuspid valve appears grossly normal. There is no appreciable tricuspid regurgitation hence PA systolic pressure could not be estimated. Aortic Valve Aortic valve appears grossly normal structurally and functionally. Aortic root size is normal. Pulmonic Valve Pulmonic valve appears grossly normal. Pericardium/Pleural There is trivial pericardial effusion surrounding the right atrium, and possibly surrounding the right ventricle and the apex. No gross echo evidence of tamponade. Medication Diluted definity 3.5ml given slow IV push to enhance endocardial definition. Performed a rapid injection of agitated mix of 9 cc saline and 1cc air to assess for atrial septal defect. IAC There is no evidence of interatrial shunting based on agitated saline contrast injection. There is no aneurysm of the interatrial septum. MMode/2D Measurements & Calculations LVIDd: 5.4 cm IVSd: 0.97 cm Ao root diam: 3.1 cm LVIDs: 3.0 cm LVPWd: 1.0 cm RVDd: 3.0 cm FS: 44.2 % LAV(MOD-bp): 28.1 ml LA A4 area: 12.9 cm2 LA dimension(2D): 4.7 cm LAV(MOD-bp) Indexed: 14.8 ml/m2 LAV(MOD-sp2): 27.8 ml LAV(MOD-sp4): 26.9 ml RA A4 area: 17.6 cm2 Doppler Measurements & Calculations MV E max nikos: 46.4 cm/sec Lat Peak E' Nikos: 10.0 cm/sec Med Peak E' Nikos: 10.2 cm/sec MV A max nikos: 58.1 cm/sec E/E' lat: 4.6 E/E' med: 4.6 MV E/A: 0.80 Ao V2 max: 166.9 cm/sec LV V1 max: 114.0 cm/sec PA V2 max: 186.8 cm/sec Ao max P.1 mmHg LV V1 max P.2 mmHg PA V2 mean: 122.8 cm/sec Ao V2 mean: 105.3 cm/sec PA V2 VTI: 37.1 cm Ao mean P.1 mmHg Ao V2 VTI: 30.0 cm ECHO/Echo Complete W/ Contrast Interpretation Summary Preserved LV and RV systolic function grossly normal valves left atrial enlarge ment, left atrial diameter 4.8 cm, left atrial volume index not reported. No evidence of interatrial shunting based on agitated saline contrast, There is no aneurysm of the interatrial septum. Probable trivial pericardial effusion surrounding the right atrium and the righ t ventricle, with slight echogenicity of the RV free wall and shagginess, clinical correlation turk ggested. Diastolic function is indeterminate. There is no evidence of inferior venacaval plethora. Compared to a previous echo report from October 2020, left atrium is dilated on the present study, no major difference in LV function or valve structure and physiology, trivial larisa cardial effusion was not reported on the previous study. Preserved LV and RV systolic function grossly normal valves left atrial enlarge ment, left atrial diameter 4.8 cm, left atrial volume index not reported. No evidence of interatrial shunting based on agitated saline contrast, There is no aneurysm of the interatrial septum. Probable trivial pericardial effusion surrounding the right atrium and the righ t ventricle, with slight echogenicity of the RV free wall and shagginess, clinical correlation turk ggested. Diastolic function indeterminate. Compared to a previous echo report from October 2020, left atrium is dilated on the present study, no major difference in LV function or valve structure and physiology, trivial larisa cardial effusion was not reported on the previous study. Ordering Physician: Temo Ba Referring Physician: Kg Salinas Chi Performed By: Elza Solomon RDCS, RVT
[2021-12-02] MEDS: 0.9% Saline Lock 10 ML Syringe IV (13:53)
[2021-12-02] MEDS: 0.9% Normal Saline 1,000 ML 100 ML IV (13:53)
--- NOTE | 2021-12-02 14:47 | MRI_ITS ---
EXAM: MR HEAD WITHOUT INTRAVENOUS CONTRAST CLINICAL INDICATION: stroke, suspected TECHNIQUE: Multiplanar and multisequence MR images of the brain were obtained without intravenous contrast. This report was created using [employer] report generation technology. COMPARISON: CT head without contrast 12/02/2021. FINDINGS: BRAIN AND EXTRA-AXIAL SPACES: No diffusion restriction to suspect acute or subacute ischemic infarct. Markedly dilated left lateral ventricle with diminished left central white matter volume. Normal remaining ventricles and cisterns. No focal signal abnormalities throughout the brain parenchyma. No intra- or extra-axial hemorrhage. No intracranial mass or mass effect. Posterior fossa structures are unremarkable. No hydrocephalus. SELLA: Unremarkable. Normal sella turcica, pituitary gland, infundibular stalk, optic chiasm and hypothalamus. AUDITORY SYSTEM: Unremarkable. The internal auditory canals are patent. BONES/JOINTS: Unremarkable. No discrete lytic or blastic abnormalities. SINUSES: Unremarkable as visualized. Clear. MASTOID AIR CELLS: Unremarkable as visualized. Clear. ORBITS: Unremarkable as visualized. Both globes, extraocular muscles, optic nerves and retrobulbar fat appear unremarkable. VASCULATURE: Unremarkable as visualized. Normal flow voids in the major intracranial circulation. MRI/Brain without Contrast IMPRESSION: 1. No MRI evidence of acute or subacute ischemic infarct, intracranial mass or acute intracranial abnormality. 2. Diminished left central white matter volume accounting for disproportionate dilatation of the left lateral ventricle with compared to the right. This is presumably developmental since there is no intrinsic signal abnormality of the brain parenchyma and particularly in the left cerebral hemisphere. This is unchanged when compared to CT head scan of 12/02/2021. Electronically Signed: Chilo Mackey MD at 15:32 EDT ,
--- NOTE | 2021-12-02 14:51 | WOUNDNOTE ---
wound photo: left dorsal foot
--- NOTE | 2021-12-02 15:30 | CASEMGMT ---
Discharge Rag Boiler Called Eva patients caregiver. Patient can return back to the care home when he is medically ready. Caregiver Eva will transport patient back home. Alannah Celaya Discharge Rag Boiler
[2021-12-02 15:48] LABS: Mucous, Urine 0 SEEN /hpf (<or=2+); Red Blood Cells-Urine 0 SEEN /hpf (0-5); Squamous Epithelial Cells - UA 0 SEEN /hpf (0-5)
[2021-12-02 15:51] LABS: Color, Urine Straw (Yellow); Glucose, Dipstick Normal (Normal); Ketone-Dipstick Negative (Negative); Leukocyte Esterase-Dipstick Negative /ul (Negative); Nitrite-Dipstick Negative (Negative); Occult Blood-Urine Negative /ul (Negative); Protein-Dipstick Negative (Negative); Urine Bilirubin Dipstick Negative (Negative); Urine Clarity Clear (Clear); Urine Urobilinogen Normal (Normal)
[2021-12-02 16:02] LABS: Bacteria RARE /hpf (None Seen); White Blood Cells 0-5 SEEN /hpf (0-5)
[2021-12-02] MEDS: Atorvastatin Calcium 80 MG Tablet PO (23:49)
[2021-12-03] VITALS (11 sets, daily range): BP systolic 128–139; BP diastolic 67–74; PULSE 53–75; RESP 16–18; TEMP 36.2–36.7; O2SAT 93–99; BMI 31.9
[2021-12-03] MEDS: 0.9% Normal Saline 1,000 ML 100 ML IV ×3 (00:41→22:07)
--- NOTE | 2021-12-03 07:15 | NM_ITS ---
EXAM: NM LUNG PERFUSION AND VENTILATION SCAN CLINICAL INDICATION: suspected PULMONARY EMBOLISM TECHNIQUE: Routine VQ scan protocol was performed using 53 mCi Tc-99m DTPA aerosol and intravenous 5.3 mCi Technetium 99m MAA. This report was created using [employer] report Tango technology. COMPARISON: None. FINDINGS: VENTILATION: The ventilation images demonstrate prominent amount of central clumping of tracer with diminished peripheral dilation consistent with airway disease. PERFUSION: Perfusion images show no segmental defects. NM/Lung Scan Vent/Perf IMPRESSION: 1. Low probability of pulmonary embolism. 2. Bilateral ventilation abnormality. Electronically Signed: Noé Oscar MD at 16:05 EDT ,
[2021-12-03 07:25] LABS: Absolute Lymphocyte Count 1.25 X10^3/uL (0.83-4.51); Absolute Neutrophil Count 4.1 X10^3/uL (2.0-7.7); Basophil# 0.03 X10^3/uL; Basophil% 0.5 % (0-1); Eosinophil# 0.12 X10^3/uL; Hematocrit 36.5 % (40-54); Hemoglobin 11.8 g/dL (13.0-16.5); Lymphocyte # 1.25 X10^3/ul (0.83-4.51); Lymphocyte % 20.4 % (19-41); Mean Corp Hgb Conc 32.3 g/dL (32-36); Mean Corpuscular Hgb 26.2 pg (27.0-32.0); Mean Corpuscular Volume 80.9 fL (80-94); Mean Platelet Vol. 9.6 fl (6.2-12.0); Monocyte# 0.61 X10^3/uL; NRBC Flagged by Analyzer 0 % (0-5); Neutrophil # 4.07 X10^3/uL (2.7-7.7); Neutrophil % 66.4 % (47-70); Platelet Count 173 K/mm3 (150-450); RBC Distribution Width CV 14.1 % (11.6-14.6); RBC Distribution Width SD 41.6 fl (35.1-43.9); Red Blood Count 4.51 M/mm3 (4.6-6.2); White Blood Count 6.1 K/mm3 (4.4-11.0)
[2021-12-03 08:39] LABS: Anion Gap 7 (5-15); BUN 52 mg/dL (7-18); BUN/Creat Ratio 13.3 RATIO (10-20); Calcium,Total 9.4 mg/dL (8.5-10.1); Chloride 113 mmol/L (98-107); Cholesterol 99 mg/dL (200); Creatinine, Serum 3.91 mg/dL (0.70-1.30); EST Glomerular Filtration Rate 16 mL/min (>60); Est Glom Filt Rate - Afr Amer 20 mL/min (>60); Estimated Creatinine Clearance 15.14 ml/min; Glucose 114 mg/dL (74-106); High Density Lipoprotein 29 mg/dL; Potassium 3.8 mmol/L (3.5-5.1); Sodium Level 143 mmol/L (136-145); Thyroid Stim Hormone (TSH) 5.93 uIU/mL (0.358-3.74); Triglycerides 139 mg/dL; Very Low Density Lipoprotein 28 mg/dL (5-40)
[2021-12-03] MEDS: Aspirin 81 MG TAB.CHEW PO (08:48)
[2021-12-03 09:02] LABS: Hemoglobin A1c 5.8 % (3.8-5.6)
--- NOTE | 2021-12-03 10:21 | RAD_ITS ---
STUDY: X-RAY CHEST REASON FOR EXAM: Male, 66 years old. Post Lung Study TECHNIQUE: Single AP portable view of the chest. COMPARISON: CT scan of the chest of 12/02/2021. FINDINGS: No focal infiltrate is seen. No evidence of pneumothorax. There is no demonstrated pleural abnormality. Borderline cardiac silhouette. Normal mediastinum and cait. Normal visualized pulmonary arteries. There is atherosclerotic tortuosity of the aortic arch and descending thoracic aorta. Levoscoliosis of the lower thoracic spine. There is no demonstrated abnormality of the visualized soft tissue structures of the upper abdomen. RAD/Chest 1 View IMPRESSION: No active pulmonary disease. No evidence of pneumothorax. Electronically Signed: Sha Guzman MD at 11:57 EDT ,
[2021-12-03 12:17] LABS: T4 Free Direct 0.99 ng/dL (0.76-1.46)
--- NOTE | 2021-12-03 15:37 | PN.HOSP_ITS ---
Subjective Subjective Follow-up for acute kidney injury, near syncope. Patient not feeling dizziness or lightheaded. MRI brain negative for acute or subacute infarct. Objective Data Objective Data Vital Signs: Vital Signs Temp Pulse Resp BP Pulse Ox 98.1 F 61 18 137/74 H 98 12/03/21 11:15 12/03/21 15:00 12/03/21 11:15 12/03/21 11:15 12/03/21 11:15 Oxygen Delivery Method Room Air Weight: 186 lb 1.122 oz Body Mass Index (BMI) 31.9 Intake & Output: Intake and Output for Last 24 Hours 12/01/21 12/02/21 12/03/21 23:59 23:59 23:59 Intake Total 2520 / 2520 1453.34 / 1453.34 Output Total 500 / 500 Balance 2019 1453.34 / 1453.34 Lab / Micro Data Result Diagrams: 12/03/21 07:07 12/03/21 07:07 Labs: Laboratory Results - last 24 hr 12/02/21 15:40: Urine Color Straw, Urine Clarity Clear, Urine pH 6.0, Ur Specific Leckrone 1.010, Urine Protein Negative, Urine Glucose (UA) Normal, Urine Ketones Negative, Urine Occult Blood Negative, Urine Nitrite Negative, Urine Bilirubin Negative, Urine Urobilinogen Normal, Ur Leukocyte Esterase Negative, Urine RBC 0 SEEN, Urine WBC 0-5 SEEN, Ur Squamous Epith Cells 0 SEEN, Urine Bacteria RARE, Urine Mucus 0 SEEN 12/03/21 07:07: WBC 6.1, RBC 4.51 L, Hgb 11.8 L, Hct 36.5 L, MCV 80.9, MCH 26.2 L, MCHC 32.3, RDW Std Deviation 41.6, RDW Coeff of Deepali 14.1, Plt Count 173, MPV 9.6, Immature Gran % (Auto) 0.700, Neut % (Auto) 66.4, Lymph % (Auto) 20.4, Cloud % (Auto) 10.0, Eos % (Auto) 2.0, Baso % (Auto) 0.5, Absolute Neuts (auto) 4.1, Absolute Lymphs (auto) 1.25, Nucleated RBC % 0 12/03/21 07:07: Sodium 143, Potassium 3.8, Chloride 113 H, Carbon Dioxide 23.0, Anion Gap 7, BUN 52 H, Creatinine 3.91 H, Estim Creat Clear Calc 15.14, Est GFR (MDRD) Af Amer 20 L, Est GFR (MDRD) Non-Af 16 L, BUN/Creatinine Ratio 13.3, Glucose 114 H, Calcium 9.4, Triglycerides 139, Cholesterol 99, LDL Cholesterol 42, VLDL Cholesterol 28, HDL Cholesterol 29 L, TSH 5.93 H 12/03/21 07:07: Hemoglobin A1c 5.8 H 12/03/21 07:07: Free T4 0.99 Radiography Diagnostic Testing: Radiology Impression Carotid Duplex 12/02/21 13:24 Interpretation Summary Smooth plaque at the proximal right internal carotid artery with less than 50% stenosis Less than 50% stenosis right external carotid artery Intimal thickening at the proximal left internal carotid artery with less than 50% stenosis Less than 50% stenosis left external carotid artery Patent and antegrade vertebral arteries bilaterally Echocardiogram 12/02/21 13:24 Interpretation Summary Preserved LV and RV systolic function grossly normal valves left atrial enlargement, left atrial diameter 4.8 cm, left atrial volume index not reported. No evidence of interatrial shunting based on agitated saline contrast, There is no aneurysm of the interatrial septum. Probable trivial pericardial effusion surrounding the right atrium and the right ventricle, with slight echogenicity of the RV free wall and shagginess, clinical correlation suggested. Diastolic function is indeterminate. There is no evidence of inferior venacaval plethora. Compared to a previous echo report from October 2020, left atrium is dilated on the present study, no major difference in LV function or valve structure and physiology, trivial pericardial effusion was not reported on the previous study. Preserved LV and RV systolic function grossly normal valves left atrial enlargement, left atrial diameter 4.8 cm, left atrial volume index not reported. No evidence of interatrial shunting based on agitated saline contrast, There is no aneurysm of the interatrial septum. Probable trivial pericardial effusion surrounding the right atrium and the right ventricle, with slight echogenicity of the RV free wall and shagginess, clinical correlation suggested. Diastolic function indeterminate. Compared to a previous echo report from October 2020, left atrium is dilated on the present study, no major difference in LV function or valve structure and physiology, trivial pericardial effusion was not reported on the previous study. Chest X-Ray 12/03/21 10:21 IMPRESSION: No active pulmonary disease. No evidence of pneumothorax. Rhythm Strip Rhythm Strip: Sinus genny Rate: 51 Ectopy: None Physical Exam Narrative Patient has limited compliance and understanding due to developmental disorder. He could not tell me whether he had a prior kidney disease, stroke. Physical exam General: Alert, awake chronic cognitive deficit,?awake oriented x2 HEENT: Left eye legally blind.? Right eye diminished vision.? PERRLA, EOMI Oral: Oral mucosa moist.? No Gingival or Mucosal Lesions/ Ulcerations Neck: Supple, No JVD, Negative Carotid Bruits Lungs:? Air entry diminished in bilateral lung bases.? No crepitation/rhonchi Cardiovascular: Regular rate, Regular Rhythm, Normal S1, Normal S2, No murmurs Abdomen: Bowel Sounds Present, Soft, Non Tender, Non-Distended : No renal angle tenderness.? No suprapubic tenderness. Extremities: No edema, Capillary Refill Less than 3 Seconds Skin: No rashes, No breakdown Musculoskeletal: Left calf felt indurated.? No tenderness of right or left leg.? Recent fracture of right ankle and prior to that left leg. Neurological: Developmental disorder.? Detailed neuro exam unobtainable.? Slurred speech resolved Psych/Mental Status: Flat affect Assessment & Plan Assessment/Plan (1) Near syncope: PLAN: Plan 1. Near syncope/slurred speech, exact etiology unclear: Rule out TIA/stroke: As per the health aide from [facility], patient is speech is improving but he still mild slurring. Dizziness has resolved. No syncope. Patient is being admitted in PCU. Orthostatic blood pressure. Troponin is negative. Serum magnesium and phosphorus are normal. Patient has moderate risk of DVT/PE as per modified Wells criteria of PE/DVT. Venous duplex ordered. VQ scan ordered. Lázaro york does not have personal history of DVT/PE as per health aide. MRI brain and carotid duplex ordered. 2D echo ordered. 12/03: MRI negative for acute or subacute infarct or hemorrhage. Carotid duplex shows less than 50% stenosis in right and left ICA and ECA. 2D echo reviewed, preserved RV and LV systolic function. Left atrium dilated. No evidence of interatrial shunting. Lipid profile LDL 42, HDL 29. We will continue baby aspirin and high intensity statin. Patient on multiple antipsychotic and antidepression meds including risperidone, high-dose of hydroxyzine and buspirone therefore slurred speech/near syncope may be due to medications. 2. SAMUEL, exact etiology unclear: Patient baseline creatinine runs around 1.15, last 1 10/06/2021. Admitted with BUN 55, creatinine 4.62. As per the L2 there is no noticeable decrease in urine output. Denies burning micturition. No history of recurrent UTI but patient has history of BPH. 12/03: SAMUEL most likely prerenal as creatinine is improving but is still high. Serum creatinine increasing but patient needs continued IV fluid rehydration for SAMUEL. BUN/creatinine 52/3.91. 3. Overactive bladder/urge incontinence: Patient was seen by Dr. Roldan in June 2020 for eval problem and had Botox. He has history of prior TURP. 12/03: On exam no suprapubic tenderness or bladder fullness. Bladder scan rule out urinary retention. 4. Hypothyroidism: 12/03: TSH 5.93. And free T4 0.98. Increase the levothyroxine to 2 125 mcg daily 5. Hypertension: Blood pressure is normal range. Other chronic comorbidities include developmental disorder/cognitive deficit, left eye legal blindness, severe scoliosis, hard of hearing, chronic di sequilibrium VTE prophylaxis: Heparin 5000 units subcutaneous twice daily. Living will/advanced directive/end of life care: The patient is from [facility]. He has guardian from [facility], [facility]. After discussion of benefits/risks procedures involved with full code, DNR CC arrest and DNR CC, health aide said he has DNRCC arrest with no intubation As per [facility], patient does not want artificial life support including intubation, tube feed, ventilator and/chest compression, central venous catheter, vasopressor and DC shock if needed Total time spent in [id number] encounter in discussion of advanced directive 16 minutes. Clinical Impression(s) from Imaging Studies Brain CT 12/02/21 09:53 IMPRESSION: Chronic involutional changes of the brain. Questionable component of the normal pressure hydrocephalus. Chest CTA 12/02/21 09:53 IMPRESSION: CTA chest examination, without a demonstrated pulmonary embolism or arterial dissection. Venous Doppler Study 12/02/21 10:56 Interpretation Summary No evidence for acute deep venous thrombosis bilateral lower extremities with patent and compressible bilateral great saphenous veins. Carotid Duplex 12/02/21 13:24 Interpretation Summary Smooth plaque at the proximal right internal carotid artery with less than 50% stenosis Less than 50% stenosis right external carotid artery Intimal thickening at the proximal left internal carotid artery with less than 50% stenosis Less than 50% stenosis left external carotid artery Patent and antegrade vertebral arteries bilaterally Echocardiogram 12/02/21 13:24 Interpretation Summary Preserved LV and RV systolic function grossly normal valves left atrial enlargement, left atrial diameter 4.8 cm, left atrial volume index not reported. No evidence of interatrial shunting based on agitated saline contrast, There is no aneurysm of the interatrial septum. Probable trivial pericardial effusion surrounding the right atrium and the right ventricle, with slight echogenicity of the RV free wall and shagginess, clinical correlation suggested. Diastolic function is indeterminate. There is no evidence of inferior venacaval plethora. Compared to a previous echo report from October 2020, left atrium is dilated on the present study, no major difference in LV function or valve structure and physiology, trivial pericardial effusion was not reported on the previous study. Preserved LV and RV systolic function grossly normal valves left atrial enlargement, left atrial diameter 4.8 cm, left atrial volume index not reported. No evidence of interatrial shunting based on agitated saline contrast, There is no aneurysm of the interatrial septum. Probable trivial pericardial effusion surrounding the right atrium and the right ventricle, with slight echogenicity of the RV free wall and shagginess, clinical correlation suggested. Diastolic function indeterminate. Compared to a previous echo report from October 2020, left atrium is dilated on the present study, no major difference in LV function or valve structure and physiology, trivial pericardial effusion was not reported on the previous study. Ordering Physician: Temo Ba Referring Physician: Kg Salinas Chi Performed By: Elza Solomon, JERMAINE, RVT Brain MRI 12/02/21 14:47 IMPRESSION: 1. No MRI evidence of acute or subacute ischemic infarct, intracranial mass or acute intracranial abnormality. 2. Diminished left central white matter volume accounting for disproportionate dilatation of the left lateral ventricle with compared to the right. This is presumably developmental since there is no intrinsic signal abnormality of the brain parenchyma and particularly in the left cerebral hemisphere. This is unchanged when compared to CT head scan of 12/02/2021. Charges/Coding Visit Charges Inpatient E&M: 17427 Subs Hosp L2
[2021-12-03] MEDS: Metoprolol Tartrate 25 MG Tablet 12.5 MG PO (17:01)
[2021-12-03] MEDS: busPIRone 5 MG Tablet 10 MG PO (23:22)
[2021-12-03] MEDS: Glycerin/Hypromellose/PEG400 15 ml Bottle 2 DRP EACH EYE (23:23)
[2021-12-03] MEDS: Tamsulosin HCl 0.4 MG Capsule PO (23:24)
[2021-12-03] MEDS: Atorvastatin Calcium 40 MG Tablet PO (23:25)
[2021-12-03] MEDS: MELATONIN 10 MG TABLET PO (23:27)
[2021-12-03] MEDS: RisperiDONE 2 MG Tablet PO (23:27)
[2021-12-04] VITALS (11 sets, daily range): BP systolic 118–136; BP diastolic 65–87; PULSE 49–66; RESP 16–20; TEMP 36.3–37.1; O2SAT 95–98; BMI 31.9
[2021-12-04] MEDS: Levothyroxine 125 MCG Tablet PO (04:52)
[2021-12-04] MEDS: busPIRone 5 MG Tablet 10 MG PO ×3 (04:53→21:46)
[2021-12-04 06:53] LABS: Anion Gap 7 (5-15); BUN 42 mg/dL (7-18); BUN/Creat Ratio 13.1 RATIO (10-20); Calcium,Total 9.2 mg/dL (8.5-10.1); Chloride 116 mmol/L (98-107); EST Glomerular Filtration Rate 21 mL/min (>60); Est Glom Filt Rate - Afr Amer 25 mL/min (>60); Glucose 103 mg/dL (74-106); Potassium 3.6 mmol/L (3.5-5.1); Sodium Level 145 mmol/L (136-145)
[2021-12-04] MEDS: Budesonide Respules 0.5 MG/2 ML AMPUL.NEB. INHALATION (07:29)
[2021-12-04] MEDS: Albuterol 2.5 MG/3 ML VIAL.NEB. INHALATION (07:29)
[2021-12-04] MEDS: Aspirin 81 MG TAB.CHEW PO (07:43)
[2021-12-04] MEDS: Cholecalciferol (VIT D3) 25 MCG TABLET (1,000 UNITS) PO (07:44)
[2021-12-04] MEDS: RisperiDONE 1 MG Tablet PO (07:44)
[2021-12-04] MEDS: 0.9% Normal Saline 1,000 ML 100 ML IV ×2 (07:44→17:51)
[2021-12-04] MEDS: Metoprolol Tartrate 25 MG Tablet 12.5 MG PO ×2 (10:23→21:49)
--- NOTE | 2021-12-04 14:26 | PCM.PN.HOSP ---
Subjective Subjective Follow-up on acute kidney injury/near syncope: Patient was seen and examined. He denied any new complaints. No acute events overnight. Objective Data Objective Data Vital Signs: Vital Signs Temp Pulse Resp BP Pulse Ox 98.0 F 64 16 136/73 H 98 12/04/21 10:22 12/04/21 10:23 12/04/21 10:22 12/04/21 10:23 12/04/21 10:22 Oxygen Delivery Method Room Air Weight: 84.4 kg Body Mass Index (BMI) 31.9 Intake & Output: Intake and Output for Last 24 Hours 12/02/21 12/03/21 12/04/21 23:59 23:59 23:59 Intake Total 2520 / 2520 2531.67 / 2531.67 1661.67 / 1661.67 Output Total 500 / 500 Balance 2019 2531.67 / 2531.67 1661.67 / 1661.67 Lab / Micro Data Result Diagrams: 12/03/21 07:07 12/04/21 05:52 Labs: Laboratory Results - last 24 hr 12/04/21 05:52: Sodium 145, Potassium 3.6, Chloride 116 H, Carbon Dioxide 22.0, Anion Gap 7, BUN 42 H, Creatinine 3.20 H, Estim Creat Clear Calc 18.50, Est GFR (MDRD) Af Amer 25 L, Est GFR (MDRD) Non-Af 21 L, BUN/Creatinine Ratio 13.1, Glucose 103, Calcium 9.2 Radiography Diagnostic Testing: Radiology Impression Lung Scan-VQ NM 12/03/21 07:15 IMPRESSION: 1. Low probability of pulmonary embolism. 2. Bilateral ventilation abnormality. Electronically Signed: Noé Oscar MD at 16:05 EDT , Rhythm Strip Rhythm Strip: Sinus genny Rate: 51 Ectopy: None Physical Exam Narrative Physical exam: General: Alert, Oriented x3, No apparent distress HEENT: Atraumatic Oral: Moist Mucosa Neck: Supple Lungs: Clear to auscultation Cardiovascular: HS I+II, regular, no murmurs Abdomen: Bowel Sounds Present, Soft, Non Tender Extremities: No edema Skin: No rashes, No breakdown Neurological: Grossly intact Psych/Mental Status: Appropriate Assessment & Plan Assessment/Plan (1) Near syncope: (2) Acute renal failure: PLAN: Plan 1. Near syncope, acute stroke ruled out Will check orthostatic vitals in am 2. SAMUEL, likely pre-renal, baseline creatinine is 1.15, admitted creatinine 4.62, creatinine now is 3.20 Continue on IVF, repeat labs in am Check renal ultrasound 3. Hypothyroidism, continue on Synthroid 4. Hypertension, controlled, continue on metoprolol 5. Cognitive impairment secondary to developmental disorder/left eye legal blindness/scoliosis/hearing impairment, remained stable for now 6. DVT PPx- Heparin SC Charges/Coding Visit Charges Inpatient E&M: 00749 Subs Hosp L2
[2021-12-04] MEDS: Glycerin/Hypromellose/PEG400 15 ml Bottle 2 DRP EACH EYE (21:45)
[2021-12-04] MEDS: Atorvastatin Calcium 40 MG Tablet PO (21:46)
[2021-12-04] MEDS: Tamsulosin HCl 0.4 MG Capsule PO (21:46)
[2021-12-04] MEDS: MELATONIN 10 MG TABLET PO (21:47)
[2021-12-04] MEDS: RisperiDONE 2 MG Tablet PO (21:47)
[2021-12-04] MEDS: Heparin Injection (Vial) 5,000 UNIT/ML VIAL 5000 UNIT SC (21:53)
[2021-12-05] VITALS (12 sets, daily range): BP systolic 100–149; BP diastolic 56–82; PULSE 51–70; RESP 16–20; TEMP 36.4–36.7; O2SAT 95–99
[2021-12-05] MEDS: 0.9% Normal Saline 1,000 ML 100 ML IV (03:40)
[2021-12-05] MEDS: Heparin Injection (Vial) 5,000 UNIT/ML VIAL 5000 UNIT SC ×2 (05:10→13:55)
[2021-12-05] MEDS: 0.9% Saline Lock 10 ML Syringe IV (05:10)
[2021-12-05] MEDS: Levothyroxine 125 MCG Tablet PO (05:10)
[2021-12-05] MEDS: busPIRone 5 MG Tablet 10 MG PO ×2 (05:10→13:55)
[2021-12-05 06:29] LABS: Absolute Lymphocyte Count 1.33 X10^3/uL (0.83-4.51); Basophil# 0.04 X10^3/uL; Basophil% 0.5 % (0-1); Eosinophil# 0.27 X10^3/uL; Eosinophils% 3.7 % (0-5); Hematocrit 36.2 % (40-54); Hemoglobin 11.6 g/dL (13.0-16.5); Lymphocyte # 1.33 X10^3/ul (0.83-4.51); Lymphocyte % 18.2 % (19-41); Mean Corpuscular Hgb 26.4 pg (27.0-32.0); Mean Corpuscular Volume 82.5 fL (80-94); Monocyte# 0.59 X10^3/uL; Monocyte% 8.1 % (0-10); NRBC Flagged by Analyzer 0 % (0-5); Neutrophil # 5.04 X10^3/uL (2.7-7.7); Neutrophil % 69.1 % (47-70); Platelet Count 187 K/mm3 (150-450); RBC Distribution Width CV 13.5 % (11.6-14.6); RBC Distribution Width SD 40.6 fl (35.1-43.9); Red Blood Count 4.39 M/mm3 (4.6-6.2); White Blood Count 7.3 K/mm3 (4.4-11.0)
[2021-12-05 07:08] LABS: ALB/GLOB Ratio 0.9 RATIO (0.9-2.4); AST(SGOT) 17 U/L (15-37); Alanine Aminotransfer ALT/SGPT 23 U/L (16-61); Alkaline Phosphatase 68 U/L (45-117); Anion Gap 9 (5-15); BUN 31 mg/dL (7-18); BUN/Creat Ratio 11.3 RATIO (10-20); Calcium,Total 8.8 mg/dL (8.5-10.1); Chloride 113 mmol/L (98-107); Creatinine, Serum 2.75 mg/dL (0.70-1.30); EST Glomerular Filtration Rate 25 mL/min (>60); Est Glom Filt Rate - Afr Amer 30 mL/min (>60); Estimated Creatinine Clearance 21.53 ml/min; Globulin 3.4 g/dL (2.2-4.2); Glucose 122 mg/dL (74-106); Potassium 3.5 mmol/L (3.5-5.1); Protein, Total 6.4 g/dL (6.4-8.2); Sodium Level 143 mmol/L (136-145)
[2021-12-05] MEDS: Albuterol 2.5 MG/3 ML VIAL.NEB. INHALATION (07:09)
[2021-12-05] MEDS: Budesonide Respules 0.5 MG/2 ML AMPUL.NEB. INHALATION (07:09)
--- NOTE | 2021-12-05 08:00 | US_ITS ---
INDICATION: SAMUEL EXAMINATION: Ultrasound US Kidney(s) complete (eg, kidneys and bladder) TECHNIQUE: Smith scale and color doppler images were obtained of the kidneys. COMPARISON: None. FINDINGS: RIGHT KIDNEY: 12.0 x 5.1 x 6.1 cm. There is no hydronephrosis. Normal parenchyma. No echogenic calculi. No masses. LEFT KIDNEY: 12.4 x 5.6 x 6.0 cm. There is no hydronephrosis. Normal parenchyma. No echogenic calculi. No masses. URINARY BLADDER: Underdistended but no acute findings. US/Kidney and Bladder IMPRESSION: Negative renal ultrasound. Electronically Signed: Gene Kenney, at 11:35 EDT ,
[2021-12-05] MEDS: Aspirin 81 MG TAB.CHEW PO (08:51)
[2021-12-05] MEDS: RisperiDONE 1 MG Tablet PO (08:52)
--- NOTE | 2021-12-05 10:56 | DCINST_ITS ---
Discharge Instructions Diet Discharge Diet: Low fat / Low cholesterol and 2000 mg Sodium Diet Activity Discharge Activity: Return to Normal Activity Follow Up Care Test Results: Test results from this visit will be discussed in further detail at your follow- up appointment, if applicable. Discharge Plan Admission Admit Date/Time: 12/03/21 11:47 Primary Reason for Your Visit: SAMUEL/Near syncope Attending Provider: Ivis Montenegro Primary Care Provider: Kg Salinas Chi Consult[employer] Providers: Temo Ba Instructions Additional Instructions / Restrictions: Continue to keep yourself hydrated You need repeat blood work to check on your kidney function within a week Follow-up with your primary care doctor within 1 week Discharge Orders/Prescriptions Prescriptions: New atorvastatin 40 mg Tablet 40 mg PO QHS 30 Days Qty: 30 0RF levothyroxine 125 mcg Tablet 125 mcg PO 0600 30 Days Qty: 30 0RF Continued cholecalciferol (vitamin D3) 10 mcg (400 unit) capsule 25 mcg PO DAILY buspirone 10 mg tablet 20 mg PO TID risperidone 1 MG tablet 1 mg PO BREAKFAST risperidone 2 mg tablet 2 mg PO QHS metoprolol tartrate 25 mg tablet 12.5 mg PO BID albuterol sulfate 2.5 mg/0.5 mL solution for nebulization 2.5 mg inhalation DAILY melatonin 10 mg Tablet 10 mg PO QHS Artificial Tears (cmc) 1 % Drops 2 drp EACH EYE QHS oxybutynin chloride 15 mg tablet extended release 24hr 15 mg PO DAILY Qty: 90 3RF hydroxyzine pamoate 50 mg Capsule 50 mg PO 4X/DAY tamsulosin 0.4 mg Capsule 0.4 mg PO QHS budesonide 0.5 mg/2 mL Suspension For Nebulization 0.5 mg INHALATION DAILY mupirocin 2 % Ointment 1 applic TOPICAL TID Discontinued valsartan-hydrochlorothiazide 320-12.5 mg tablet 1 tab PO DAILY levothyroxine 25 MCG tablet 112 mcg PO DAILY Referrals / Follow Up: Kg Salinas Chi, MD [Primary Care Provider] - Disposition Disposition (needs filled in before D/C Order can be placed): Home, Self Care
--- NOTE | 2021-12-05 11:14 | DS.PCM_ITS ---
Providers Date of Admission: 12/03/21 Date of Discharge: 12/05/21 Primary Care Physician: Dr. Kg Salinas MD Consultations 12/02/21 13:30 Consult: Onc/Wound/post form remover Routine Comment: Reason For Visit: tia Diagnosis Discharge Diagnosis (1) Near syncope: Status: Acute Code(s): R55 - Syncope and collapse (2) Acute renal failure: Status: Acute Code(s): N17.9 - Acute kidney failure, unspecified Medications at Discharge Home Medications risperidone 1 mg tablet 1 mg PO BREAKFAST 08/14/16 buspirone 10 mg tablet 20 mg PO TID 07/05/20 cholecalciferol (vitamin D3) 10 mcg (400 unit) capsule 25 mcg PO DAILY 07/05/20 albuterol sulfate 2.5 mg/0.5 mL solution for nebulization 2.5 mg inhalation DAILY SOB 02/22/21 carboxymethylcellulose sodium 1 % eye drops (Artificial Tears (carboxymethylcellulose)) 2 drp EACH EYE QHS 02/22/21 melatonin 10 mg tablet 10 mg PO QHS 02/22/21 metoprolol tartrate 25 mg tablet 12.5 mg PO BID 02/22/21 risperidone 2 mg tablet 2 mg PO QHS 02/22/21 oxybutynin chloride 15 mg tablet,extended release 24 hr 15 mg PO DAILY #90 tabs 02/23/21 budesonide 0.5 mg/2 mL suspension for nebulization 0.5 mg inhalation DAILY 12/02/21 hydroxyzine pamoate 50 mg capsule 50 mg PO 4X/DAY 12/02/21 mupirocin 2 % topical ointment 1 applic topical TID 12/02/21 tamsulosin 0.4 mg capsule 0.4 mg PO QHS 12/02/21 atorvastatin 40 mg tablet 40 mg PO QHS 30 days #30 tabs 12/05/21 levothyroxine 125 mcg tablet 125 mcg PO 0600 30 days #30 tabs 12/05/21 Hospital Course Operations None Procedures 2-D Echocardiogram Summary of Care Provided Minutes Spent on Discharge: 40 Hospital Course: 66-year-old male with past medical history of neurodevelopmental disorder who comes in with complaints of lightheadedness, slurred speech near syncope. History of the brain showed chronic involutional changes. CTA of the chest as well as V/Q scan was unremarkable with PE. Doppler Lower extremity was unremarkable. Carotid ultrasound showed less than 50% ICA stenosis. Brain MRI showed no evidence of acute infarct. 2D echo showed EF of 65%, dilated left atrium, unchanged from previous. Patient was admitted to rule out TIA/stroke. He was found to have acute kidney injury. His baseline creatinine 1.5. Was admitted creatinine of 4.62. Patient was continued on IV fluids. Renal ultrasound was negative. His valsartan- hydrochlorothiazide was discontinued. Patient's renal function continue to improve. He was discharged home. He was noted to resumed on valsartan?hydrochlorothiazide. He needs to follow-up with his primary care doctor within a week for repeat renal function. Physical Exam Narrative Physical exam: General: Alert, Oriented x3, No apparent distress HEENT: Atraumatic Oral: Moist Mucosa Neck: Supple Lungs: Clear to auscultation Cardiovascular: HS I+II, regular, no murmurs Abdomen: Bowel Sounds Present, Soft, Non Tender Extremities: No edema Skin: No rashes, No breakdown Neurological: Grossly intact Psych/Mental Status: Appropriate Weight / BMI Weight Weight: 84.4 kg Body Mass Index (BMI) 31.9 ABG / Lab / Microbiology Data Result Diagrams: 12/05/21 05:45 12/05/21 05:45 Laboratory: Laboratory Results - last 24 hr 12/05/21 05:45: Sodium 143, Potassium 3.5, Chloride 113 H, Carbon Dioxide 21.0, Anion Gap 9, BUN 31 H, Creatinine 2.75 H, Estim Creat Clear Calc 21.53, Est GFR (MDRD) Af Amer 30 L, Est GFR (MDRD) Non-Af 25 L, BUN/Creatinine Ratio 11.3, Glu cose 122 H, Calcium 8.8, Total Bilirubin 0.50, AST 17, ALT 23, Alkaline Phosphatase 68, Total Protein 6.4, Albumin 3.0 L, Globulin 3.4, Albumin/Globulin Ratio 0.9 12/05/21 05:45: WBC 7.3, RBC 4.39 L, Hgb 11.6 L, Hct 36.2 L, MCV 82.5, MCH 26.4 L, MCHC 32.0, RDW Std Deviation 40.6, RDW Coeff of Deepali 13.5, Plt Count 187, MPV 10.0, Immature Gran % (Auto) 0.400, Neut % (Auto) 69.1, Lymph % (Auto) 18.2 L, [place] % (Auto) 8.1, Eos % (Auto) 3.7, Baso % (Auto) 0.5, Absolute Neuts (auto) 5.0, Absolute Lymphs (auto) 1.33, Nucleated RBC % 0 D/C Instructions Discharge Diet: Low fat / Low cholesterol and 2000 mg Sodium Diet Meaningful Use Info Meaningful Use Diagnoses (Choose all that apply): None applicable Discharge Plan Admission Admit Date/Time: 12/03/21 11:47 Primary Reason for Your Visit: SAMUEL/Near syncope Attending Provider: Ivis Montenegro Primary Care Provider: Kg Salinas Chi Consulting Providers: Temo Ba Instructions Additional Instructions / Restrictions: Continue to keep yourself hydrated You need repeat blood work to check on your kidney function within a week Follow-up with your primary care doctor within 1 week Discharge Orders/Prescriptions Prescriptions: New atorvastatin 40 mg Tablet 40 mg PO QHS 30 Days Qty: 30 0RF levothyroxine 125 mcg Tablet 125 mcg PO 0600 30 Days Qty: 30 0RF Continued cholecalciferol (vitamin D3) 10 mcg (400 unit) capsule 25 mcg PO DAILY buspirone 10 mg tablet 20 mg PO TID risperidone 1 MG tablet 1 mg PO BREAKFAST risperidone 2 mg tablet 2 mg PO QHS metoprolol tartrate 25 mg tablet 12.5 mg PO BID albuterol sulfate 2.5 mg/0.5 mL solution for nebulization 2.5 mg inhalation DAILY melatonin 10 mg Tablet 10 mg PO QHS Artificial Tears (cmc) 1 % Drops 2 drp EACH EYE QHS oxybutynin chloride 15 mg tablet extended release 24hr 15 mg PO DAILY Qty: 90 3RF hydroxyzine pamoate 50 mg Capsule 50 mg PO 4X/DAY tamsulosin 0.4 mg Capsule 0.4 mg PO QHS budesonide 0.5 mg/2 mL Suspension For Nebulization 0.5 mg INHALATION DAILY mupirocin 2 % Ointment 1 applic TOPICAL TID Discontinued valsartan-hydrochlorothiazide 320-12.5 mg tablet 1 tab PO DAILY levothyroxine 25 MCG tablet 112 mcg PO DAILY Referrals / Follow Up: Kg Salinas Chi, MD [Primary Care Provider] - 12/08/21 11:00 am Disposition Disposition (needs filled in before D/C Order can be placed): Home, Self Care Charges/Coding Visit Charges Inpatient E&M: 07854 Disch Hosp
[2021-12-05] MEDS: Cholecalciferol (VIT D3) 25 MCG TABLET (1,000 UNITS) PO (11:22)
[2021-12-05] MEDS: Metoprolol Tartrate 25 MG Tablet 12.5 MG PO (11:22)
--- NOTE | 2021-12-05 11:37 | WOUNDNOTE ---
wound photo: left foot
--- NOTE | 2021-12-05 11:54 | PHA.DC.MR ---
Pharmacy Service has performed discharge medication reconciliation for this patient. The patient's discharge medication list was reviewed for discrepancies and discrepancies were resolved. Home Medications risperidone 1 mg tablet 1 mg PO BREAKFAST 08/14/16 buspirone 10 mg tablet 20 mg PO TID 07/05/20 cholecalciferol (vitamin D3) 10 mcg (400 unit) capsule 25 mcg PO DAILY 07/05/20 albuterol sulfate 2.5 mg/0.5 mL solution for nebulization 2.5 mg inhalation DAILY SOB 02/22/21 carboxymethylcellulose sodium 1 % eye drops (Artificial Tears (carboxymethylcellulose)) 2 drp EACH EYE QHS 02/22/21 melatonin 10 mg tablet 10 mg PO QHS 02/22/21 metoprolol tartrate 25 mg tablet 12.5 mg PO BID 02/22/21 risperidone 2 mg tablet 2 mg PO QHS 02/22/21 oxybutynin chloride 15 mg tablet,extended release 24 hr 15 mg PO DAILY #90 tabs 02/23/21 budesonide 0.5 mg/2 mL suspension for nebulization 0.5 mg inhalation DAILY 12/02/21 hydroxyzine pamoate 50 mg capsule 50 mg PO 4X/DAY 12/02/21 mupirocin 2 % topical ointment 1 applic topical TID 12/02/21 tamsulosin 0.4 mg capsule 0.4 mg PO QHS 12/02/21 atorvastatin 40 mg tablet 40 mg PO QHS 30 days #30 tabs 12/05/21 levothyroxine 125 mcg tablet 125 mcg PO 0600 30 days #30 tabs 12/05/21
== END 2021-12-05 20:20 | disposition home or self-care (01) | DRG 684 ==
LOC: ED 10:05 → PCU 13:06
PROVIDERS: Admitting Provider Internal Medicine; Emergency Provider Emergency Medicine; PCP Family Medicine Geriatric Medicine; Visit Provider Internal Medicine
DX: N17.9 Acute kidney failure, unspecified (principal); E03.9 Hypothyroidism, unspecified; I10 Essential (primary) hypertension; I65.23 Occlusion and stenosis of bilateral carotid arteries; M41.9 Scoliosis, unspecified; F41.9 Anxiety disorder, unspecified; R55 Syncope and collapse; Z66 Do not resuscitate; H91.90 Unspecified hearing loss, unspecified ear; Z79.82 Long term (current) use of aspirin; Z79.899 Other long term (current) drug therapy; Z79.890 Hormone replacement therapy; R47.81 Slurred speech; R32 Unspecified urinary incontinence; N32.81 Overactive bladder; F89 Unspecified disorder of psychological development
CPT/HCPCS: 36415; 70450; 70551; 71045; 71275; 76770; 78582; 80048; 80053; 80061; 81001; 82550; 83036; 83735; 84100; 84439; 84443; 84484; 85025; 85610; 92507; 92522; 92526; 92610; 93005; 93306; 93880; 93970; 94640; 94762; 97161; 97165; 99285; A9540; A9567; J7030; J7040; Q9957; Q9967; A4216; C8929

== ENCOUNTER → 2021-12-06 | Outpatient (CLI) | payer MEDICARE, MEDICAID, SELFPAY ==
[2021-12-06 16:16] LABS: Absolute Lymphocyte Count 1.31 X10^3/uL (0.83-4.51); Basophil# 0.04 X10^3/uL; Basophil% 0.6 % (0-1); Eosinophil# 0.28 X10^3/uL; Eosinophils% 4.4 % (0-5); Hemoglobin 12.7 g/dL (13.0-16.5); Lymphocyte # 1.31 X10^3/ul (0.83-4.51); Lymphocyte % 20.8 % (19-41); Mean Corp Hgb Conc 32.6 g/dL (32-36); Mean Corpuscular Hgb 26.6 pg (27.0-32.0); Mean Corpuscular Volume 81.8 fL (80-94); Mean Platelet Vol. 9.9 fl (6.2-12.0); Monocyte# 0.64 X10^3/uL; Monocyte% 10.2 % (0-10); NRBC Flagged by Analyzer 0 % (0-5); Neutrophil # 3.99 X10^3/uL (2.7-7.7); Neutrophil % 63.4 % (47-70); Platelet Count 191 K/mm3 (150-450); RBC Distribution Width CV 13.7 % (11.6-14.6); RBC Distribution Width SD 40.8 fl (35.1-43.9); Red Blood Count 4.77 M/mm3 (4.6-6.2); White Blood Count 6.3 K/mm3 (4.4-11.0)
[2021-12-06 16:38] LABS: Anion Gap 7 (5-15); BUN 26 mg/dL (7-18); BUN/Creat Ratio 11.6 RATIO (10-20); Calcium,Total 8.9 mg/dL (8.5-10.1); Chloride 106 mmol/L (98-107); Creatinine, Serum 2.25 mg/dL (0.70-1.30); EST Glomerular Filtration Rate 31 mL/min (>60); Est Glom Filt Rate - Afr Amer 37 mL/min (>60); Glucose 79 mg/dL (74-106); Potassium 3.8 mmol/L (3.5-5.1); Sodium Level 140 mmol/L (136-145); Thyroid Stim Hormone (TSH) 6.08 uIU/mL (0.358-3.74)
== END | disposition home or self-care (01) ==
LOC: POLAB3 15:01
PROVIDERS: PCP Family Medicine Geriatric Medicine; Visit Provider Family Medicine Geriatric Medicine
DX: E03.9 Hypothyroidism, unspecified (principal); N17.9 Acute kidney failure, unspecified
CPT/HCPCS: 36415; 80048; 84443; 85025

== ENCOUNTER → 2021-12-07 | Outpatient (CLI) | payer MEDICARE, MEDICAID, SELFPAY ==
[2021-12-07 12:56] LABS: Anion Gap 4 (5-15); BUN 23 mg/dL (7-18); BUN/Creat Ratio 11.2 RATIO (10-20); Chloride 114 mmol/L (98-107); Creatinine, Serum 2.05 mg/dL (0.70-1.30); EST Glomerular Filtration Rate 34 mL/min (>60); Est Glom Filt Rate - Afr Amer 42 mL/min (>60); Glucose 98 mg/dL (74-106); Sodium Level 144 mmol/L (136-145)
== END | disposition home or self-care (01) ==
LOC: POLAB3 10:01
PROVIDERS: PCP Family Medicine Geriatric Medicine; Visit Provider Family Medicine Geriatric Medicine
DX: N17.9 Acute kidney failure, unspecified (principal)
CPT/HCPCS: 36415; 80048

== ENCOUNTER → 2022-01-03 | Outpatient (CLI) | payer MEDICARE, MEDICAID, SELFPAY ==
--- NOTE | 2022-01-03 08:30 | MRI_ITS ---
STUDY: MRI LEFT ANKLE WITHOUT CONTRAST REASON FOR EXAM: Swelling of the left ankle/foot for 6 weeks, ankle instability. TECHNIQUE: Standardized fat and water weighted pulse sequences were obtained in all 3 orthogonal planes. COMPARISON: Radiographs 11/12/2020. FINDINGS: Although there is image degradation secondary to patient motion, there is still significant diagnostically useful information available from this examination. There is mild edema in the lateral subcutis adipose space. There is a very small volume of fluid in the retromalleolar posterior tibialis tendon sheath (T2 axial images 7-9). The posterior tibialis tendon is morphologically normal. There is a small volume of fluid in the flexor digitorum longus tendon sheath proximal to the sustentaculum sarah (T2 axial images 2-13). The flexor digitorum longus tendon is morphologically normal. There is a small volume of fluid in the flexor hallucis longus tendon sheath proximal and distal to the sustentaculum sarah (T2 axial images 8-12, 22, 23). There is retromalleolar and submalleolar peroneal tenosynovitis (inversion recovery sagittal series 8 images 7-19). There is a longitudinal split of the perimalleolar peroneus brevis tendon (T2 axial images 10-19). The peroneus longus tendon is morphologically normal. Normal tibialis anterior tendon. Normal extensor hallucis longus tendon. Normal extensor digitorum longus tendons. Normal Achilles tendon and teno-osseous insertion. Normal plantar fascia. Normal plantar calcaneal tubercles. Normal intrinsic muscles of the rearfoot. Normal distal tibiofibular syndesmotic ligamentous complex. There is a partial tear of the anterior talofibular ligament (T2 axial images 15, 16). Normal calcaneocuboid and posterior talofibular ligaments. There is soft tissue fullness in the anterolateral gutter (T2 axial images 14, 15), a possible MRI manifestation of anterolateral impingement. Normal subtalar ligaments and sinus tarsi. Normal deltoid ligamentous complexes. There is a bone contusion of the the medial malleolus (T2 coronal images 17, 18) Normal plantar calcaneonavicular (spring) ligament. There is a small tibiotalar joint effusion (inversion recovery sagittal series 8 image 12). There is a small bone contusion of the superior aspect of the medial talar dome (T2 coronal images 15, 16). There is a small posterior subtalar joint effusion (inversion recovery sagittal series 8 image 15). Normal talonavicular articulation. Normal calcaneocuboid articulation. Normal navicular-cuneiform articulations. MRI/Lower Ext Joint Only (Routine) IMPRESSION: Partial tear of the anterior talofibular ligament. Soft tissue fullness in the anterolateral gutter, a possible MRI manifestation of anterolateral impingement. Longitudinal split of the peroneus brevis tendon and peroneal tenosynovitis. Mild flexor digitorum longus tenosynovitis. Mild flexor hallucis longus tenosynovitis. Very mild posterior tibialis tenosynovitis. Bone contusions of the medial malleolus and medial talar dome. Small tibiotalar and posterior subtalar joint effusions. Electronically Signed: Goyo Combs MD at 9:33 EDT ,
== END | disposition home or self-care (01) ==
LOC: MRI 07:55
PROVIDERS: PCP Family Medicine Geriatric Medicine; Referring Provider Podiatrist; Visit Provider Podiatrist
DX: M25.372 Other instability, left ankle (principal)
CPT/HCPCS: 73721

== ENCOUNTER 2022-01-11 10:23 | Outpatient (CLI) | payer MEDICARE, MEDICAID, SELFPAY ==
[2022-01-11 12:46] LABS: Albumin, Serum 3.5 g/dL (3.2-5.0); BUN 14 mg/dL (7-18); Calcium,Total 9.3 mg/dL (8.5-10.1); Chloride 107 mmol/L (98-107); Creatinine, Serum 1.08 mg/dL (0.70-1.30); EST Glomerular Filtration Rate 72 mL/min (>60); Est Glom Filt Rate - Afr Amer 87 mL/min (>60); Glucose 95 mg/dL (74-106); Phosphorus 2.4 mg/dL (2.5-4.9); Potassium 3.9 mmol/L (3.5-5.1); Sodium Level 139 mmol/L (136-145)
== END 2022-01-11 23:59 | disposition home or self-care (01) ==
LOC: POLAB3 10:25
PROVIDERS: PCP Family Medicine Geriatric Medicine; Visit Provider Internal Medicine Nephrology
DX: N17.9 Acute kidney failure, unspecified (principal)
CPT/HCPCS: 36415; 80069

== ENCOUNTER 2022-03-07 10:06 | Outpatient (CLI) | payer MEDICARE, MEDICAID, SELFPAY ==
[2022-03-07 12:09] LABS: Absolute Lymphocyte Count 1.72 X10^3/uL (0.83-4.51); Absolute Neutrophil Count 4.4 X10^3/uL (2.0-7.7); Basophil# 0.05 X10^3/uL; Basophil% 0.7 % (0-1); Eosinophil# 0.12 X10^3/uL; Eosinophils% 1.7 % (0-5); Hematocrit 43.7 % (40-54); Hemoglobin 14.4 g/dL (13.0-16.5); Lymphocyte # 1.72 X10^3/ul (0.83-4.51); Lymphocyte % 24.8 % (19-41); Mean Corpuscular Hgb 28.6 pg (27.0-32.0); Mean Corpuscular Volume 86.7 fL (80-94); Mean Platelet Vol. 10.2 fl (6.2-12.0); Monocyte# 0.56 X10^3/uL; Monocyte% 8.1 % (0-10); NRBC Flagged by Analyzer 0 % (0-5); Neutrophil # 4.44 X10^3/uL (2.7-7.7); Platelet Count 287 K/mm3 (150-450); RBC Distribution Width CV 15.5 % (11.6-14.6); Red Blood Count 5.04 M/mm3 (4.6-6.2); White Blood Count 6.9 K/mm3 (4.4-11.0)
[2022-03-07 12:31] LABS: Vitamin D,25 Hydroxy 37.9 ng/mL
[2022-03-07 12:55] LABS: ALB/GLOB Ratio 0.9 RATIO (0.9-2.4); AST(SGOT) 9 U/L (15-37); Alanine Aminotransfer ALT/SGPT 26 U/L (16-61); Albumin, Serum 3.5 g/dL (3.2-5.0); Alkaline Phosphatase 93 U/L (45-117); Anion Gap 9 (5-15); BUN 13 mg/dL (7-18); BUN/Creat Ratio 11.3 RATIO (10-20); Calcium,Total 9.3 mg/dL (8.5-10.1); Chloride 107 mmol/L (98-107); Creatinine, Serum 1.15 mg/dL (0.70-1.30); EST Glomerular Filtration Rate 67 mL/min (>60); Est Glom Filt Rate - Afr Amer 81 mL/min (>60); Glucose 100 mg/dL (74-106); PSA,Total - Annual Screen 1.94 ng/mL (0.00-4.00); Potassium 3.7 mmol/L (3.5-5.1); Protein, Total 7.5 g/dL (6.4-8.2); Sodium Level 141 mmol/L (136-145); Thyroid Stim Hormone (TSH) 0.57 uIU/mL (0.358-3.74)
== END 2022-03-07 23:59 | disposition home or self-care (01) ==
LOC: POLAB3 10:08
PROVIDERS: PCP Family Medicine Geriatric Medicine; Visit Provider Family Medicine Geriatric Medicine
DX: E03.9 Hypothyroidism, unspecified (principal); E55.9 Vitamin D deficiency, unspecified; I10 Essential (primary) hypertension; Z12.5 Encounter for screening for malignant neoplasm of prostate
CPT/HCPCS: 36415; 80053; 82306; 84153; 84443; 85025; G0103

== ENCOUNTER → 2022-03-15 | Outpatient (CLI) | payer MEDICARE, MEDICAID, SELFPAY | END | disposition home or self-care (01) | LOC: PSN 12:06 | PROVIDERS: PCP Family Medicine Geriatric Medicine; Referring Provider Family Medicine Geriatric Medicine; Visit Provider Family Medicine Geriatric Medicine | DX: R68.83 Chills (without fever) (principal) | CPT/HCPCS: 87635; 87804; 87807; C9803; U0003; U0005 ==

== ENCOUNTER → 2022-04-26 | Outpatient (CLI) | payer MEDICARE, MEDICAID, SELFPAY ==
[2022-04-26 10:34] LABS: Hematocrit 46.7 % (40-54); Hemoglobin 15.4 g/dL (13.0-16.5); Mean Corpuscular Hgb 28.2 pg (27.0-32.0); Mean Corpuscular Volume 85.4 fL (80-94); Mean Platelet Vol. 10.6 fl (6.2-12.0); Platelet Count 230 K/mm3 (150-450); RBC Distribution Width CV 13.8 % (11.6-14.6); RBC Distribution Width SD 43.4 fl (35.1-43.9); Red Blood Count 5.47 M/mm3 (4.6-6.2); White Blood Count 5.6 K/mm3 (4.4-11.0)
[2022-04-26 10:54] LABS: Vitamin B12 375 pg/mL (211-911)
[2022-04-26 11:10] LABS: AST(SGOT) 11 U/L (15-37); Alanine Aminotransfer ALT/SGPT 21 U/L (16-61); Albumin, Serum 3.7 g/dL (3.2-5.0); Alkaline Phosphatase 87 U/L (45-117); Anion Gap 6 (5-15); BUN 12 mg/dL (7-18); BUN/Creat Ratio 11.1 RATIO (10-20); Calcium,Total 9.6 mg/dL (8.5-10.1); Chloride 109 mmol/L (98-107); Creatinine, Serum 1.08 mg/dL (0.70-1.30); EST Glomerular Filtration Rate 72 mL/min (>60); Est Glom Filt Rate - Afr Amer 87 mL/min (>60); Globulin 3.7 g/dL (2.2-4.2); Glucose 102 mg/dL (74-106); Phosphorus 2.4 mg/dL (2.5-4.9); Potassium 3.8 mmol/L (3.5-5.1); Protein, Total 7.4 g/dL (6.4-8.2); Sodium Level 141 mmol/L (136-145); Thyroid Stim Hormone (TSH) 0.36 uIU/mL (0.358-3.74)
[2022-04-28 20:07] LABS: Free Kappa Light Chains 27.6 mg/L (3.3-19.4); Free Lambda Light Chains 14.6 mg/L (5.7-26.3)
[2022-04-30 10:20] LABS: Vitamin B1, Thiamine 151.9 nmol/L (66.5-200.0)
== END | disposition home or self-care (01) ==
LOC: MTLAB 08:00
PROVIDERS: Psychiatry & Neurology Neurology; PCP Family Medicine Geriatric Medicine; Referring Provider Internal Medicine Nephrology; Visit Provider Internal Medicine Nephrology
DX: N18.32 Chronic kidney disease, stage 3b (principal); G62.9 Polyneuropathy, unspecified; E03.9 Hypothyroidism, unspecified
CPT/HCPCS: 36415; 80053; 82607; 82746; 83883; 84100; 84425; 84443; 85027

== ENCOUNTER 2022-05-19 08:30 | Outpatient (CLI) | payer MEDICARE, MEDICAID, SELFPAY ==
--- NOTE | 2022-05-19 10:12 | TELEMED_ITS ---
[facility] has confirmed receipt of a request for visit. This document confirms receipt of the order initiating the consult. To find the results of the consultation, please view the patient's reports for the scanned Telemed Consult.
[2022-05-19 11:26] LABS: Uric Acid 7.2 mg/dL (3.5-7.2)
== END 2022-05-19 23:59 | disposition home or self-care (01) ==
LOC: PSN 08:33
PROVIDERS: PCP Family Medicine Geriatric Medicine; Referring Provider Psychiatry & Neurology Neurology; Visit Provider Psychiatry & Neurology Neurology
DX: M10.00 Idiopathic gout, unspecified site (principal); F79 Unspecified intellectual disabilities; R47.1 Dysarthria and anarthria
CPT/HCPCS: 36415; 84550; 95819

== ENCOUNTER → 2022-05-30 | Outpatient (CLI) | payer MEDICARE, MEDICAID, SELFPAY ==
[2022-06-01 15:08] LABS: Albumin 3.7 g/dL (2.9-4.4); Alpha-1-Globulins 0.3 g/dL (0.0-0.4); Alpha-2-Globulins 0.7 g/dL (0.4-1.0); Gamma Globulin 2.1 g/dL (0.4-1.8); Immunoglobulin A 212 mg/dL (61-437); Immunoglobulin G 2268 mg/dL (603-1613); Immunoglobulin M 38 mg/dL (20-172); PROEL- TOTAL PROTEIN 7.8 g/dL (6.0-8.5)
== END | disposition home or self-care (01) ==
LOC: MTLAB 14:41
PROVIDERS: PCP Family Medicine Geriatric Medicine; Referring Provider Psychiatry & Neurology Neurology; Visit Provider Psychiatry & Neurology Neurology
DX: G62.9 Polyneuropathy, unspecified (principal)
CPT/HCPCS: 36415; 82784; 84165; 86334

== ENCOUNTER → 2022-06-21 | Outpatient (CLI) | payer MEDICARE, MEDICAID, SELFPAY | END | disposition home or self-care (01) | LOC: LABSPEC 09:06 | PROVIDERS: PCP Family Medicine Geriatric Medicine; Visit Provider Psychiatry & Neurology Neurology | DX: G62.9 Polyneuropathy, unspecified (principal) | CPT/HCPCS: 86335 ==

== ENCOUNTER → 2022-08-01 | Outpatient (CLI) | payer MEDICARE, MEDICAID, SELFPAY | END | disposition home or self-care (01) | PROVIDERS: PCP Family Medicine Geriatric Medicine; Referring Provider Family Medicine Geriatric Medicine; Visit Provider Family Medicine Geriatric Medicine | DX: R68.83 Chills (without fever) (principal) | CPT/HCPCS: 87635; 87804; 87807; C9803; U0003; U0005 ==

== ENCOUNTER 2022-08-22 08:30 | Outpatient (RCR) | payer MEDICARE, MEDICAID, SELFPAY ==
--- NOTE | 2022-07-03 09:19 | HP.PTEVAL_ITS ---
Patient's Visit Information DAVONTE OKEEFE is a 67 year old M referred to Physical Therapy by Dr. Jim Sanchez DPM with a diagnosis of R sprain of tarsal ligament.. Date of Evaluation: 06/28/22 Physical Therapist: Man Rehman DPT - Visit Plan Frequency: 2x /Week Duration: 6 Weeks Plan: Restore ankle dorsiflexion range of motion, improve strength and stability throughout foot/ankle. Return to function activities including stair negotiation. - Subjective Pt. is here today for his initial evaluation with diagnosis of R sprain of tarsal ligament. Pt. arrives with his caregiver today. Pt. lives in a retirement. Caregiver reports that he broke is R ankle earlier last year after twisting it. He was in a cast a non wt. bearing during this time. He then hurt his L ankle and again his R ankle. Ultimately he had an MRI showing a tarsal ligament partial tear. He is doing better, but had had to alter his lifestyle a bit. 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 Pt. is a poor historian with his questioning. caregiver reports he typically says he has no pain, but will show facial expressions that indicate otherwise. He has been layed up with WBing periodically throughout last year and is overall weakened. - Pain R ankle Pain Intensity (Out of 10): 0 Comment: unrated, but reports some soreness L ankle Pain Intensity (Out of 10): 0 Comment: no pain currently - Objective POSTURE: Pt. has a general flexed posture in stance. Pt. has wide NINI in stance. Increased thoracic kyphosis and B hip ER in stance. Normal B knee positioning noted. PALPATION: Pt. has no pain with palpation throughout B ankles. Pt. has some mild B distal LE edema, non pitting. NEURO: pt. has normal sensation in BLEs. Pt. has 2+ B Achilles and patellar DTR. Pt. is able to rise on toes and heels, but does require increased instruction to complete. ROM: Pt. has slight loss of DF on R side 6deg, L 12deg. Rest of ankle mobility is normal. No pain noted with testing. MMT: Pt. has 4+/5 B ankle strength, except 5/5 B PF. Pt. Knee: ext 5/5 flexion 5-/5. hip: flexion 4+/5, abd 4+/5. ext 4/5. Core strength- fair-. GAIT: Pt. ambulates without AD. Patient is very impulsive with his movements and tends to start moving faster than his legs resulting in increased fwrd lean. HE has a wide NINI and tends to have a larger lateral sway, non [place] movements. STAIRS: Pt. is able to complete with with reciprocal pattern. He had some visible functional weakness and difficulty controlling his eccentric lowering with descending. - Balance/Special Test Scores Lower Extremity Functional Score: 28 - Goals Goal 1:: LTG: PT. to be I with HEP. Goal Time Frame: 4-6 Weeks Goal 2:: LTG: Pt. to have no pain with all work and recreational activities. Goal Time Frame: 4-6 Weeks Goal 3:: LTG: Pt. to negotiate 1 flight of steps without increase in symptoms. 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 Goal Time Frame: 2-4 Weeks Goal 5:: LTG: Pt. to have 5/5 strength throughout BLEs. Goal Time Frame: 4-6 Weeks - Rehabilitation Potential Physical Therapy Diagnosis: Pt. has signs and symptoms of R sprain of tarsal ligament. He did not have much ligament laxity today, and reports no high levels of pain. Pt. is very impulsive with his general mobility and at times gets a bit off balance. He was able to correct throughout his mobility today. Pt. would benefit from PT to work on some stability in SLS, ankle strengthening and functional mobility. Rehabilitation Potential: Good - Anticipated Interventions Patient/Client Instruction: Educate patient on: Condition, Plan of Care, Risk Factors, Benefits of Fitness Program For the Purpose of:: To foster healthy habits, To improve decision making, To facilitate caregiver knowledge, To improve self management, To prevent re- injury, To improve ability to perform tasks related to life management Therapeutic Exercise to Include: Strength training, Power training, Endurance training, Balance training, Flexibilty training, Gait and locomotor training, Passive ROM, Active ROM For the Purpose of:: To decrease pain, To increase ROM, To improve nutrient delivery to tissue, To increase oxygenation perfusion, To improve muscle performance and motor function, To improve ability to perform ADL's, To increase tolerance to activity/condition/position, To improve gait and locomotor functions, To improve health of tissue, To decrease soft tissue restriction, To increase flexibility/ROM, To improve endurance, To improve balance Thank you for the opportunity to evaluate your patient. For Medicare and Medicare HMO plans, please review the plan of care and approve it. It will need to be FAXED BACK to us at [phone] for Medicare purposes. For Medicare only, by signing this I certify the plan of care. Please let me know if there are questions or concerns regarding this plan of care. Physician Signature: Date:
--- NOTE | 2022-07-26 11:53 | HP.PTREVAL ---
Dr. Jim Sanchez, DPM, It has been my pleasure to treat DAVONTE OKEEFE over the last 8 visits for R sprain of tarsal ligament.. Please see the progress note below for an update on the physical therapy plan of care! Subjective: Pt. reports having some ankle pain on top of his ankle. He did trip at work, but did not fall. Per caregiver. He is planning on going to [place] to visit brother in ~1-2 months. Objective/Function: ROM: Pt. has good ROM of B ankles, slight loss of DF ~3-4 on R side compared to L. MMT: Pt. has 5/5 strength throughout BLEs including ankle/knee/hip. GAIT: Pt. has decent gait pattern without increase in symptoms. pt. does have increased wide NINI with B toeing out. He has a equal step length, but does tend to fall off into stance phase, with decreased heel striking during initial contact/loading. STAIRS: Pt. is able to negotiate with 1 HR with reciprocal pattern, but does have marked weakness controlling eccentric lowering. He does still need VCing to slow down with all functional movement. He did do well with VCing. SLS: RLE 6sec, LLE 10sec. TU.9sec without AD. FGA: . Difficulty with eyes closed, narrow NINI and stepping over objects. Plan Plan: Due to having an occurrence of fall at work and history of this, I would like to keep working on balance both statically and dynamically. Progress SLS and narrow NINI balance activities. Also progress walking endurance and maneuvering narrow areas for safety. His R ankle stability is much better and is LE strength in much better. Balance/Gait/Functional tests - Balance/Special Test Scores Lower Extremity Functional Score: 28 Goals Goal 1:: LTG: PT. to be I with HEP. Goal Time Frame: 4-6 Weeks Goal Progress: Progressing Goal 2:: LTG: Pt. to have no pain with all work and recreational activities. Goal Time Frame: 4-6 Weeks Goal Progress: Goal Met Goal 3:: LTG: Pt. to negotiate 1 flight of steps without increase in symptoms. 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 Goal Time Frame: 2-4 Weeks Goal Progress: Progressing Goal 5:: LTG: Pt. to have 5/5 strength throughout BLEs. NEW GOAL (07/26/22)- Pt. to be able to stand on 1 leg for at least 30sec bilaterally. Goal Time Frame: 4-6 Weeks Goal Progress: Goal Met Goal 6:: LTG: Pt. to complete FGA with score of at least 25/30 indicating reduced risk for future falls. Anticipated Interventions Patient/Client Instruction: Educate patient on: Condition, Plan of Care, Risk Factors, Benefits of Fitness Program For the Purpose of:: To foster healthy habits, To improve decision making, To facilitate caregiver knowledge, To improve self management, To prevent re-injury, To improve ability to perform tasks related to life management Therapeutic Exercise to Include: Strength training, Power training, Endurance training, Balance training, Flexibilty training, Gait and locomotor training, Passive ROM, Active ROM For the Purpose of:: To decrease pain, To increase ROM, To improve nutrient delivery to tissue, To increase oxygenation perfusion, To improve muscle performance and motor function, To improve ability to perform ADL's, To increase tolerance to activity/condition/position, To improve gait and locomotor functions, To improve health of tissue, To decrease soft tissue restriction, To increase flexibility/ROM, To improve endurance, To improve balance Please do not hesitate to contact me at [phone] by phone or if you have questions or concerns regarding this new plan of care! Sincerely, Man Rehman DPT
--- NOTE | 2022-08-22 09:29 | HP.PTREVAL ---
Dr. Jim Sanchez, DPLeroy, It has been my pleasure to treat RL OKEEFE over the last 15 visits for R sprain of tarsal ligament.. Please see the progress note below for an update on the physical therapy plan of care! Subjective: Pt. reports being 100% better overall. He reports no issues with walking, no pain, no issues as work. Caregiver reports overall doing well. Rl is going to [place] this weekend and caregiver was slightly hesitant with boarding a plane and more what seems to be conserned about his ability to just slow down with his mobility. Objective/Function: Pt. has switched footwear to a boot style to assist with stability. He is overall doing much better. Pt. reports no pain with all ROM testing. ROM: normal without all testing no pain. MMT: 5/5 throughout without increase in symptoms. GAIT: Pt. has pretty decent gait pattern, slight B toeing out. He was much more controlled today. FGA: . SLS: 30sec on R leg, 32sec on LLE. No UEs used. Plan Plan: Pt. is overall doing very well. He is going on a trip this week. He is to trial his exercises on his own for a few weeks. If I do not hear from him/caregiver in that time I will DC back to physician. Balance/Gait/Functional tests - Balance/Special Test Scores Functional Gait Assessment Score: 27 % Disability: 10.0000 Lower Extremity Functional Score: 80 Goals Goal 1:: LTG: PT. to be I with HEP. Goal Time Frame: 4-6 Weeks Goal Progress: Goal Met Goal 2:: LTG: Pt. to have no pain with all work and recreational activities. Goal Time Frame: 4-6 Weeks Goal Progress: Goal Met Goal 3:: LTG: Pt. to negotiate 1 flight of steps without increase in symptoms. 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 Goal Time Frame: 2-4 Weeks Goal Progress: Goal Met Goal 5:: LTG: Pt. to have 5/5 strength throughout BLEs. NEW GOAL (07/26/22)- Pt. to be able to stand on 1 leg for at least 30sec bilaterally. Goal Time Frame: 4-6 Weeks Goal Progress: Goal Met Goal 6:: LTG: Pt. to complete FGA with score of at least 25/30 indicating reduced risk for future falls. Goal Progress: Goal Met Anticipated Interventions Patient/Client Instruction: Educate patient on: Condition, Plan of Care, Risk Factors, Benefits of Fitness Program For the Purpose of:: To foster healthy habits, To improve decision making, To facilitate caregiver knowledge, To improve self management, To prevent re-injury, To improve ability to perform tasks related to life management Therapeutic Exercise to Include: Strength training, Power training, Endurance training, Balance training, Flexibilty training, Gait and locomotor training, Passive ROM, Active ROM For the Purpose of:: To decrease pain, To increase ROM, To improve nutrient delivery to tissue, To increase oxygenation perfusion, To improve muscle performance and motor function, To improve ability to perform ADL's, To increase tolerance to activity/condition/position, To improve gait and locomotor functions, To improve health of tissue, To decrease soft tissue restriction, To increase flexibility/ROM, To improve endurance, To improve balance Please do not hesitate to contact me at [phone] by phone or if you have questions or concerns regarding this new plan of care! Sincerely, Man Rehman DPT
== END 2022-08-22 19:00 | disposition home or self-care (01) ==
LOC: PT 08:30
PROVIDERS: PCP Family Medicine Geriatric Medicine; Referring Provider Podiatrist; Visit Provider Podiatrist
DX: S93.611D Sprain of tarsal ligament of right foot, subsequent encounter (principal); M79.673 Pain in unspecified foot
CPT/HCPCS: 97110; 97161; 97164

== ENCOUNTER → 2022-09-05 | Outpatient (CLI) | payer MEDICARE, MEDICAID, SELFPAY ==
[2022-09-05 13:08] LABS: Absolute Lymphocyte Count 1.56 X10^3/uL (0.83-4.51); Absolute Neutrophil Count 3.3 X10^3/uL (2.0-7.7); Basophil# 0.03 X10^3/uL; Basophil% 0.5 % (0-1); Eosinophil# 0.09 X10^3/uL; Eosinophils% 1.6 % (0-5); Hematocrit 47.1 % (40-54); Hemoglobin 15.4 g/dL (13.0-16.5); Lymphocyte # 1.56 X10^3/ul (0.83-4.51); Lymphocyte % 27.5 % (19-41); Mean Corp Hgb Conc 32.7 g/dL (32-36); Mean Corpuscular Hgb 27.9 pg (27.0-32.0); Mean Corpuscular Volume 85.3 fL (80-94); Mean Platelet Vol. 10.5 fl (6.2-12.0); Monocyte# 0.64 X10^3/uL; Monocyte% 11.3 % (0-10); NRBC Flagged by Analyzer 0 % (0-5); Neutrophil # 3.31 X10^3/uL (2.7-7.7); Neutrophil % 58.4 % (47-70); Platelet Count 232 K/mm3 (150-450); RBC Distribution Width CV 15.1 % (11.6-14.6); RBC Distribution Width SD 47.4 fl (35.1-43.9); Red Blood Count 5.52 M/mm3 (4.6-6.2); White Blood Count 5.7 K/mm3 (4.4-11.0)
[2022-09-05 13:33] LABS: Vitamin D,25 Hydroxy 39.9 ng/mL
[2022-09-05 13:35] LABS: AST(SGOT) 19 U/L (15-37); Alanine Aminotransfer ALT/SGPT 31 U/L (16-61); Albumin, Serum 3.5 g/dL (3.2-5.0); Alkaline Phosphatase 75 U/L (45-117); Anion Gap 7 (5-15); BUN 14 mg/dL (7-18); BUN/Creat Ratio 12.7 RATIO (10-20); Calcium,Total 9.3 mg/dL (8.5-10.1); Chloride 110 mmol/L (98-107); Cholesterol 112 mg/dL (200); EST Glomerular Filtration Rate 71 mL/min (>60); Est Glom Filt Rate - Afr Amer 85 mL/min (>60); Globulin 3.6 g/dL (2.2-4.2); Glucose 80 mg/dL (74-106); High Density Lipoprotein 38 mg/dL; Potassium 3.7 mmol/L (3.5-5.1); Protein, Total 7.1 g/dL (6.4-8.2); Sodium Level 143 mmol/L (136-145); Triglycerides 165 mg/dL; Very Low Density Lipoprotein 33 mg/dL (5-40)
[2022-09-07 13:06] LABS: Vitamin D 1,25-Dihydroxy 32.7 pg/mL (24.8-81.5)
== END | disposition home or self-care (01) ==
PROVIDERS: PCP Family Medicine Geriatric Medicine; Referring Provider Psychiatry & Neurology Neurology; Visit Provider Psychiatry & Neurology Neurology
DX: I10 Essential (primary) hypertension (principal); E78.5 Hyperlipidemia, unspecified; E55.9 Vitamin D deficiency, unspecified; S82.891A Other fracture of right lower leg, initial encounter for closed fracture
CPT/HCPCS: 36415; 80053; 80061; 82306; 82652; 84443; 85025

== ENCOUNTER → 2022-09-27 | Outpatient (CLI) | payer MEDICARE, MEDICAID, SELFPAY | END | disposition home or self-care (01) | PROVIDERS: PCP Family Medicine Geriatric Medicine; Referring Provider Psychiatry & Neurology Neurology; Visit Provider Psychiatry & Neurology Neurology | DX: G62.9 Polyneuropathy, unspecified (principal) ==

== ENCOUNTER 2022-10-13 08:30 | Outpatient (RCR) | payer MEDICARE, MEDICAID, SELFPAY ==
--- NOTE | 2022-09-12 10:54 | HP.PTEVAL_ITS ---
Patient's Visit Information DAVONTE OKEEFE is a 67 year old M referred to Physical Therapy by Dr. Kg Salinas MD with a diagnosis of GAIT INTABILITY. Date of Evaluation: 09/12/22 Physical Therapist: Hardik Landers, PT, Cert MDT, OCS - Visit Plan Frequency: 2x /Week Duration: 4 Weeks Plan: PT INTERVETIONS PROGRESSIVE BALANCE TRAINING ,BLE STRENGTHENING TO INCLUDE ANKLES , ENDURANCE PROGRAM ,LE FLEXABILIRY AND FUNTIONAL STRENGTHENING - Subjective This 67 y/o male presents to physical therapy with gait instability. Patient has problem with unsteady on feet especially when get up ,patient is impulsive . Patient has h/o of ankle injury sprain ankle left had air cast and right ankle hard cast due to fracture Apr 2022. Patient has no recent falls. Patient denies paresthesia/tingling. Lives in group and [employer] sit at desk at work. Patient is able to drive self and bath but cues due to impulsive. Patient was in prior PT and was on Vacation in [facility]. Patient has Caregiver scientific manager brings patient in . Walk-in shower and hand rails. Denies paresthesia/tingling. Patient sleeps good. Patient goals to improve balance. No recent x-rays. SOCIAL: Half-Way - Pain Bilateral Ankle Pain Intensity (Out of 10): Unrated Pain Intensity Range: Unrated - Objective POSTURE: mild forward posture. GAIT: ambulates with reciprocal pattern cues to slow down becomes impulsive. NEURO: denies paresthesia/tingling. BALANCE : see testing. MMT: quads/hams 4/5 ,hip flexion 4-/5. AROM ANKLE: DF 0 degrees ,inversion 25 degrees ,eversion 0 degrees ,plantar flexion 50 degrees. FLEXABLIY: hamstrings mod tight ,G-S MOD TIGHT - Balance/Special Test Scores Functional Gait Assessment Score: 17 % Disability: 43.3400 CATSIB Score (Max score 120 seconds): 0 Lower Extremity Functional Score: 29 30 Second Chair Rise Test Seconds: 17 - Goals Goal 1:: I with HEP for balance Goal Time Frame: 4-6 Weeks Goal 2:: Patient to demonstrate 50% improvement with gait and balance Goal Time Frame: 4-6 Weeks Goal 3:: Patient to improve CATSIBE by 10 points to improve balance Goal Time Frame: 4-6 Weeks Goal 4:: Patient to improve LFES score by 5 10 points to improve gait Goal Time Frame: 4-6 Weeks Goal 5:: Patient to improve functional gait assessment sore by 5 points to improve gait and balance Goal Time Frame: 4-6 Weeks - Rehabilitation Potential Physical Therapy Diagnosis: Patient demonstrates decrease balance with decrease CATSIB ,functional gait assessment , impulsive and poor somatosensory thus benefit from skilled PT Rehabilitation Potential: Good - Anticipated Interventions Patient/Client Instruction: Educate patient on: Condition, Plan of Care For the Purpose of:: To decrease pain, To increase ROM, To improve muscle performance and motor function, To increase tolerance to activity/condition/ position, To improve ability of physical actions for home/community/work/leisure, To improve health of tissue, To decrease soft tissue restriction, To increase flexibility/ROM Therapeutic Exercise to Include: Strength training, Endurance training, Balance training, Flexibilty training, Gait and locomotor training, Active ROM Comment: BLE For the Purpose of:: To decrease pain, To increase ROM, To improve muscle performance and motor function, To increase tolerance to activity/condition/position, To improve performance and independence with ADL's, To improve ability of physical actions for home/community/work/leisure, To improve health of tissue, To decrease soft tissue restriction, To increase flexibility/ROM, To improve endurance, To improve balance, To improve tolerance to ADL's Thank you for the opportunity to evaluate your patient. For Medicare and Medicare HMO plans, please review the plan of care and approve it. It will need to be FAXED BACK to us at [phone] for Medicare purposes. For Medicare only, by signing this I certify the plan of care. Please let me know if there are questions or concerns regarding this plan of care. Physician Signature: Date:
--- NOTE | 2022-10-13 08:57 | HP.PTDCSUM_ITS ---
It has been my pleasure to treat DAVONTE OKEEFE referred by Dr. Kg Salinas MD, with the diagnosis of GAIT INSTABILITY for a total of 10 visit(s). Discharge Date: 10/13/22 Please see the following information for a summary of their discharge status. Subjective: Caregiver stated okay for d/c Bilateral Ankle Pain Intensity (Out of 10): 0 % Improvement: 30 Objective/Function: POSTURE: mild forward posture. GAIT: ambulates with reciprocal pattern cues to slow down becomes impulsive. NEURO: denies paresthesia/tingling. BALANCE : see testing. MMT: quads/hams 4/5 ,hip flexion 4-/5. AROM ANKLE: DF 0 degrees ,inversion 25 degrees ,eversion 0 degrees ,plantar flexion 50 degrees. FLEXABLIY: hamstrings mod tight ,G-S MOD TIGHT Goal 1:: I with HEP for balance Goal Progress: Goal Met Goal 2:: Patient to demonstrate 50% improvement with gait and balance Goal Progress: Progressing Goal 3:: Patient to improve CATSIBE by 10 points to improve balance Goal Progress: Progressing Goal 4:: Patient to improve LFES score by 5 10 points to improve gait Goal Progress: Goal Met Goal 5:: Patient to improve functional gait assessment sore by 5 points to improve gait and balance Goal Progress: Progressing Plan: d/c to HEP with assist per skin care technician If there are questions or concerns regarding this patient's physical therapy, please feel free to call me at [phone]. Thank you for the referral of this patient. Sincerely, Hardik Landers, PT, Cert MDT, OCS Balance/Gait/Functional tests - Balance/Special Test Scores Functional Gait Assessment Score: 20 % Disability: 33.3400 CATSIB Score (Max score 120 seconds): 0 Lower Extremity Functional Score: 51 30 Second Chair Rise Test Seconds: 17
== END 2022-10-13 19:00 | disposition home or self-care (01) ==
LOC: PT 08:30
PROVIDERS: PCP Family Medicine Geriatric Medicine; Referring Provider Family Medicine Geriatric Medicine; Visit Provider Family Medicine Geriatric Medicine
DX: R26.81 Unsteadiness on feet (principal)
CPT/HCPCS: 97110; 97162

== ENCOUNTER → 2022-11-07 | Outpatient (CLI) | payer MEDICARE, MEDICAID, SELFPAY ==
--- NOTE | 2022-11-07 16:56 | STRESSREP ---
Stress Test Report Pharmacologic myocardial perfusion stress test. 67-year-old man with a history of wide-complex tachycardia Resting EKG demonstrates sinus rhythm with a rate of 77 bpm. Resting blood pressure is 148/100 mmHg. 0.4 mg of regadenoson was infused per usual protocol followed by rapid intravenous saline flush injection. Continuous EKG monitoring was performed. The maximum heart rate was 97 bpm which was 64% of max impacted heart rate the maximum workload was 1 metabolic equivalent. At rest there were no ST or T wave changes noted to suggest ischemia and at peak infusion nonspecific ST changes were noted which did not meet the criteria for ischemia. No clinical angina is noted. The final blood pressure was 140/94 mmHg. Myocardial perfusion protocol. 14.5 mCi of technetium 99m sestamibi was injected at rest. 0.4 mg of regadenoson was infused per usual protocol. At peak infusion 44 point mCi of technetium 99m sestamibi was injected stress images were obtained stress and rest images were reconstructed and compared in the short axis vertical long and horizontal long axis. Gated images were also obtained. Perfusion SPECT analysis: Review of the stress images demonstrate normal uptake of tracer noted in all areas of the myocardium. The resting images similar demonstrated normal uptake of tracer noted in all areas of the myocardium. No areas of reversibility are noted to suggest ischemia and no previous infarct is noted. Gated SPECT analysis: The gated ejection fraction is 74%. Conclusion: Normal pharmacologic myocardial perfusion stress test. [Preserved] ejection fraction.
== END | disposition home or self-care (01) ==
LOC: CVS 05:23
PROVIDERS: PCP Family Medicine Geriatric Medicine; Referring Provider Psychiatry & Neurology Neurology; Visit Provider Psychiatry & Neurology Neurology
DX: I47.20 Ventricular tachycardia, unspecified (principal); R94.31 Abnormal electrocardiogram [ECG] [EKG]
CPT/HCPCS: 78452; 93017; A9500; A4216; J2785

== ENCOUNTER → 2023-03-13 | Outpatient (CLI) | payer MEDICARE, MEDICAID, SELFPAY ==
[2023-03-13 12:13] LABS: Absolute Lymphocyte Count 1.34 X10^3/uL (0.83-4.51); Absolute Neutrophil Count 2.9 X10^3/uL (2.0-7.7); Basophil# 0.03 X10^3/uL; Basophil% 0.6 % (0-1); Eosinophils% 2.1 % (0-5); Hematocrit 47.9 % (40-54); Hemoglobin 15.7 g/dL (13.0-16.5); Lymphocyte # 1.34 X10^3/ul (0.83-4.51); Lymphocyte % 27.9 % (19-41); Mean Corp Hgb Conc 32.8 g/dL (32-36); Mean Corpuscular Hgb 27.9 pg (27.0-32.0); Mean Corpuscular Volume 85.1 fL (80-94); Mean Platelet Vol. 10.5 fl (6.2-12.0); Monocyte# 0.41 X10^3/uL; Monocyte% 8.5 % (0-10); NRBC Flagged by Analyzer 0 % (0-5); Neutrophil # 2.91 X10^3/uL (2.7-7.7); Neutrophil % 60.5 % (47-70); Platelet Count 248 K/mm3 (150-450); RBC Distribution Width CV 13.6 % (11.6-14.6); RBC Distribution Width SD 41.9 fl (35.1-43.9); Red Blood Count 5.63 M/mm3 (4.6-6.2); White Blood Count 4.8 K/mm3 (4.4-11.0)
[2023-03-13 12:36] LABS: Vitamin D,25 Hydroxy 43.8 ng/mL
[2023-03-13 12:59] LABS: ALB/GLOB Ratio 0.9 RATIO (0.9-2.4); AST(SGOT) 14 U/L (15-37); Alanine Aminotransfer ALT/SGPT 31 U/L (16-61); Albumin, Serum 3.4 g/dL (3.2-5.0); Alkaline Phosphatase 80 U/L (45-117); Anion Gap 5 (5-15); BUN 12 mg/dL (7-18); BUN/Creat Ratio 12.2 RATIO (10-20); Calcium,Total 8.9 mg/dL (8.5-10.1); Chloride 109 mmol/L (98-107); Cholesterol 91 mg/dL (200); Creatinine, Serum 0.98 mg/dL (0.70-1.30); EST Glomerular Filtration Rate 80 mL/min (>60); Est Glom Filt Rate - Afr Amer 97 mL/min (>60); Globulin 3.9 g/dL (2.2-4.2); Glucose 96 mg/dL (74-106); High Density Lipoprotein 33 mg/dL; PSA,Total - Annual Screen 0.57 ng/mL (0.00-4.00); Potassium 3.4 mmol/L (3.5-5.1); Protein, Total 7.3 g/dL (6.4-8.2); Sodium Level 141 mmol/L (136-145); Thyroid Stim Hormone (TSH) 0.21 uIU/mL (0.358-3.74); Triglycerides 77 mg/dL; Very Low Density Lipoprotein 15 mg/dL (5-40)
== END | disposition home or self-care (01) ==
LOC: POLAB3 10:23
PROVIDERS: PCP Family Medicine Geriatric Medicine; Visit Provider Family Medicine Geriatric Medicine
DX: I10 Essential (primary) hypertension (principal); Z12.5 Encounter for screening for malignant neoplasm of prostate; E55.9 Vitamin D deficiency, unspecified
CPT/HCPCS: 36415; 80053; 80061; 82306; 84153; 84443; 85025; G0103

== ENCOUNTER → 2023-03-23 | Outpatient (CLI) | payer MEDICARE, MEDICAID, SELFPAY ==
[2023-03-23 10:52] LABS: Anion Gap 3 (5-15); BUN 15 mg/dL (7-18); BUN/Creat Ratio 12.6 RATIO (10-20); Calcium,Total 9.4 mg/dL (8.5-10.1); Chloride 110 mmol/L (98-107); Creatinine, Serum 1.19 mg/dL (0.70-1.30); EST Glomerular Filtration Rate 64 mL/min (>60); Est Glom Filt Rate - Afr Amer 78 mL/min (>60); Glucose 127 mg/dL (74-106); Potassium 4.1 mmol/L (3.5-5.1); Sodium Level 142 mmol/L (136-145)
== END | disposition home or self-care (01) ==
LOC: LAB 08:27
PROVIDERS: PCP Family Medicine Geriatric Medicine; Referring Provider Family Medicine Geriatric Medicine; Visit Provider Family Medicine Geriatric Medicine
DX: E87.6 Hypokalemia (principal)
CPT/HCPCS: 36415; 80048

== ENCOUNTER → 2023-07-25 | Outpatient (CLI) | payer MEDICARE, MEDICAID, SELFPAY ==
--- NOTE | 2023-07-25 08:15 | RAD_ITS ---
STUDY: X-RAY - ESOPHAGUS (BARIUM SWALLOW) WITH FLUOROSCOPY REASON FOR EXAM: Male, 68 years old. DYSPHAGIA. Choking episodes. TECHNIQUE: 17 fluoroscopic view(s) of the esophagus were obtained following swallowing of barium. FLUOROSCOPY TIME (if supplied): (32nd) minutes/seconds. 27.52 mGy COMPARISON: None. FINDINGS: There is no demonstrated esophageal foreign body. There is no demonstrated stricture or mucosal abnormality. Normal gastroesophageal junction, without a demonstrated hiatal hernia. The patient ingested a 12 mm tablet of barium without any difficulty. Normal visualized aortic arch and descending thoracic aorta. Normal visualized pulmonary parenchyma. There are degenerative changes of the visualized thoracic spine. RAD/Esophagus Dual Contrast IMPRESSION: Normal plain film x-ray examination (barium swallow) of the esophagus. Electronically Signed: Casey Galindo MD at 9:07 EST ,
== END | disposition home or self-care (01) ==
LOC: RAD 08:00
PROVIDERS: PCP Family Medicine Geriatric Medicine; Referring Provider Otolaryngology; Visit Provider Otolaryngology
DX: R13.10 Dysphagia, unspecified (principal)
CPT/HCPCS: 74221

== ENCOUNTER → 2023-09-12 | Outpatient (CLI) | payer MEDICARE, MEDICAID, SELFPAY ==
[2023-09-12 11:32] LABS: Absolute Lymphocyte Count 1.19 X10^3/uL (0.83-4.51); Absolute Neutrophil Count 3.5 X10^3/uL (2.0-7.7); Basophil# 0.03 X10^3/uL; Basophil% 0.6 % (0-1); Eosinophil# 0.09 X10^3/uL; Eosinophils% 1.7 % (0-5); Hemoglobin 16.6 g/dL (13.0-16.5); Lymphocyte # 1.19 X10^3/ul (0.83-4.51); Lymphocyte % 22.4 % (19-41); Mean Corp Hgb Conc 33.2 g/dL (32-36); Mean Corpuscular Hgb 28.6 pg (27.0-32.0); Mean Corpuscular Volume 86.1 fL (80-94); Mean Platelet Vol. 10.4 fl (6.2-12.0); Monocyte# 0.45 X10^3/uL; Monocyte% 8.5 % (0-10); NRBC Flagged by Analyzer 0 % (0-5); Neutrophil # 3.53 X10^3/uL (2.7-7.7); Neutrophil % 66.4 % (47-70); Platelet Count 218 K/mm3 (150-450); RBC Distribution Width CV 14.4 % (11.6-14.6); Red Blood Count 5.81 M/mm3 (4.6-6.2); White Blood Count 5.3 K/mm3 (4.4-11.0)
[2023-09-12 12:06] LABS: Vitamin D,25 Hydroxy 37.4 ng/mL
[2023-09-12 12:14] LABS: AST(SGOT) 13 U/L (15-37); Alanine Aminotransfer ALT/SGPT 21 U/L (16-61); Albumin, Serum 3.6 g/dL (3.2-5.0); Alkaline Phosphatase 82 U/L (45-117); Anion Gap 4 (5-15); BUN 13 mg/dL (7-18); BUN/Creat Ratio 12.9 RATIO (10-20); Calcium,Total 9.1 mg/dL (8.5-10.1); Chloride 110 mmol/L (98-107); Cholesterol 134 mg/dL (200); Creatinine, Serum 1.01 mg/dL (0.70-1.30); EST Glomerular Filtration Rate 78 mL/min (>60); Est Glom Filt Rate - Afr Amer 94 mL/min (>60); Globulin 3.6 g/dL (2.2-4.2); Glucose 81 mg/dL (74-106); High Density Lipoprotein 38 mg/dL; Potassium 3.9 mmol/L (3.5-5.1); Protein, Total 7.2 g/dL (6.4-8.2); Sodium Level 141 mmol/L (136-145); Thyroid Stim Hormone (TSH) 0.12 uIU/mL (0.358-3.74); Triglycerides 121 mg/dL; Very Low Density Lipoprotein 24 mg/dL (5-40)
== END | disposition home or self-care (01) ==
LOC: POLAB3 10:32
PROVIDERS: PCP Family Medicine Geriatric Medicine; Visit Provider Family Medicine Geriatric Medicine
DX: I10 Essential (primary) hypertension (principal); E55.9 Vitamin D deficiency, unspecified; E78.5 Hyperlipidemia, unspecified
CPT/HCPCS: 36415; 80053; 80061; 82306; 84443; 85025

== ENCOUNTER → 2023-10-24 | Outpatient (CLI) | payer MEDICARE, MEDICAID, SELFPAY ==
[2023-10-24 11:49] LABS: Thyroid Stim Hormone (TSH) 0.19 uIU/mL (0.358-3.74)
== END | disposition home or self-care (01) ==
LOC: LAB 10:10
PROVIDERS: PCP Family Medicine Geriatric Medicine; Referring Provider Family Medicine Geriatric Medicine; Visit Provider Family Medicine Geriatric Medicine
DX: E03.9 Hypothyroidism, unspecified (principal)
CPT/HCPCS: 36415; 84443

== ENCOUNTER → 2023-11-23 | Outpatient (CLI) | payer MEDICARE, MEDICAID, SELFPAY | END | disposition home or self-care (01) | LOC: PSN 08:44 | PROVIDERS: PCP Family Medicine Geriatric Medicine; Referring Provider Family Medicine Geriatric Medicine; Visit Provider Family Medicine Geriatric Medicine | DX: R68.83 Chills (without fever) (principal) | CPT/HCPCS: 87631 ==

== ENCOUNTER → 2023-12-24 | Outpatient (CLI) | payer MEDICARE, MEDICAID, SELFPAY ==
[2023-12-24 14:22] LABS: Thyroid Stim Hormone (TSH) 5.01 uIU/mL (0.358-3.74)
== END | disposition home or self-care (01) ==
LOC: POLAB3 13:24
PROVIDERS: PCP Family Medicine Geriatric Medicine; Visit Provider Family Medicine Geriatric Medicine
DX: E03.9 Hypothyroidism, unspecified (principal)
CPT/HCPCS: 36415; 84443

== ENCOUNTER → 2024-02-06 | Outpatient (CLI) | payer MEDICARE, MEDICAID, SELFPAY ==
--- NOTE | 2024-02-06 08:57 | BD_ITS ---
STUDY: DUAL ENERGY X-RAY ABSORPTIOMETRY / DXA REASON FOR EXAM: Male, 68 years old. History of 2 ankle fractures TECHNIQUE: Bone Mineral Density (BMD) measurements of lumbar spine and bilateral hips were obtained. COMPARISON: None. FINDINGS: Lumbar Spine (L1-L4): g/cm2 (0.899) / T-score (-1.6) / Z-score (-0.7) Findings are suggestive of osteopenia with a moderate fracture risk. Left Femur Total: g/cm2 (0.794) / T-score (-1.6) / Z-score (-0.9) Left Femoral Neck: g/cm2 (0.666) / T-score (-1.9) / Z-score (-0.7) Right Femur Total: g/cm2 (0.824) / T-score (-1.4) / Z-score (-0.7) Right Femoral Neck: g/cm2 (0.652) / T-score (-2.0) / Z-score (-0.8) BD/Dexa Bone Density Study IMPRESSION: The patient is considered osteoporotic as outlined below according to World Alex Organization (WHO) criteria with a moderate fracture risk. Reference Information: The T-score is the number of standard deviations above or below the standard which is normal for young adults at their peak bone mineral density. The World Health Organization (WHO) interprets the T-scores as follows: Above -1 Normal bone density Between -1 and -2.5 Osteopenia Equal to / or below -2.5 Osteoporosis As a practical clinical guideline, osteopenia may be graded as follows: Mild -1 through -1.5 Moderate -1.6 through -2.0 Severe -2.1 through -2.4 The Z-score is the number of standard deviations above or below age-matched controls. A Z-score of less than -1.5 would be considered abnormal. References: 1. NIH Osteoporosis and Related Bone Diseases www osteo.org 2. International Society for Clinical Densitometry www iscd.org 3. National Osteoporosis Foundation www nof.org Electronically Signed: Casey Galindo MD at 10:27 EDT ,
== END | disposition home or self-care (01) ==
LOC: OPBD 08:52
PROVIDERS: PCP Family Medicine Geriatric Medicine; Referring Provider Psychiatry & Neurology Neurology; Visit Provider Psychiatry & Neurology Neurology
DX: T07.XXXA Unspecified multiple injuries, initial encounter (principal); M85.88 Other specified disorders of bone density and structure, other site
CPT/HCPCS: 77080

== ENCOUNTER → 2024-03-19 | Outpatient (CLI) | payer MEDICARE, MEDICAID, SELFPAY ==
[2024-03-19 12:00] LABS: Absolute Neutrophil Count 3.9 X10^3/uL (2.0-7.7); Basophil# 0.05 X10^3/uL; Basophil% 0.8 % (0-1); Eosinophil# 0.19 X10^3/uL; Hematocrit 48.9 % (40-54); Lymphocyte % 26.5 % (19-41); Mean Corp Hgb Conc 32.7 g/dL (32-36); Mean Corpuscular Hgb 28.5 pg (27.0-32.0); Mean Corpuscular Volume 87.2 fL (80-94); Mean Platelet Vol. 10.2 fl (6.2-12.0); Monocyte# 0.55 X10^3/uL; Monocyte% 8.6 % (0-10); NRBC Flagged by Analyzer 0 % (0-5); Neutrophil # 3.89 X10^3/uL (2.7-7.7); Neutrophil % 60.6 % (47-70); Platelet Count 225 K/mm3 (150-450); RBC Distribution Width CV 13.8 % (11.6-14.6); RBC Distribution Width SD 43.4 fl (35.1-43.9); Red Blood Count 5.61 M/mm3 (4.6-6.2); White Blood Count 6.4 K/mm3 (4.4-11.0)
[2024-03-19 12:49] LABS: AST(SGOT) 12 U/L (15-37); Alanine Aminotransfer ALT/SGPT 24 U/L (16-61); Albumin, Serum 3.7 g/dL (3.2-5.0); Alkaline Phosphatase 81 U/L (45-117); Anion Gap 4 (5-15); BUN 13 mg/dL (7-18); BUN/Creat Ratio 11.5 RATIO (10-20); Calcium,Total 9.8 mg/dL (8.5-10.1); Chloride 108 mmol/L (98-107); Cholesterol 112 mg/dL (200); Creatinine, Serum 1.13 mg/dL (0.70-1.30); EST Glomerular Filtration Rate 68 mL/min (>60); Est Glom Filt Rate - Afr Amer 82 mL/min (>60); Globulin 3.6 g/dL (2.2-4.2); Glucose 93 mg/dL (74-106); High Density Lipoprotein 39 mg/dL; PSA,Total - Annual Screen 0.53 ng/mL (0.00-4.00); Potassium 4.4 mmol/L (3.5-5.1); Protein, Total 7.3 g/dL (6.4-8.2); Sodium Level 140 mmol/L (136-145); Triglycerides 159 mg/dL; Very Low Density Lipoprotein 32 mg/dL (5-40)
[2024-03-19 12:52] LABS: Vitamin D,25 Hydroxy 34.6 ng/mL
[2024-03-19 15:13] LABS: Vitamin B12 534 pg/mL (211-911)
== END | disposition home or self-care (01) ==
LOC: POLAB3 11:36
PROVIDERS: Psychiatry & Neurology Neurology; PCP Family Medicine Geriatric Medicine; Visit Provider Family Medicine Geriatric Medicine
DX: I10 Essential (primary) hypertension (principal); E55.9 Vitamin D deficiency, unspecified; E78.5 Hyperlipidemia, unspecified; Z12.5 Encounter for screening for malignant neoplasm of prostate
CPT/HCPCS: 36415; 80053; 80061; 82306; 82607; 84153; 84443; 85025; G0103

== ENCOUNTER → 2024-04-29 | Outpatient (CLI) | payer MEDICARE, MEDICAID, SELFPAY ==
[2024-04-29 17:48] LABS: M R Staph aureus DNA By PCR Negative (Negative); Probe Check PASS; Specimen Processing Control PASS; Staph aureus DNA By PCR NEGATIVE (Negative)
== END | disposition home or self-care (01) ==
LOC: POLAB3 15:48
PROVIDERS: PCP Family Medicine Geriatric Medicine; Visit Provider Family Medicine Geriatric Medicine
DX: L03.90 Cellulitis, unspecified (principal); T14.8XXA Other injury of unspecified body region, initial encounter; Z22.39 Carrier of other specified bacterial diseases
CPT/HCPCS: 87640

== ENCOUNTER → 2024-07-14 | Outpatient (CLI) | payer MEDICARE, MEDICAID, SELFPAY ==
[2024-07-14 12:08] LABS: Absolute Lymphocyte Count 1.42 X10^3/uL (0.83-4.51); Absolute Neutrophil Count 4.8 X10^3/uL (2.0-7.7); Basophil# 0.04 X10^3/uL; Basophil% 0.6 % (0-1); Eosinophil# 0.08 X10^3/uL; Eosinophils% 1.2 % (0-5); Hematocrit 47.3 % (40-54); Hemoglobin 15.8 g/dL (13.0-16.5); Lymphocyte # 1.42 X10^3/ul (0.83-4.51); Mean Corp Hgb Conc 33.4 g/dL (32-36); Mean Corpuscular Hgb 28.9 pg (27.0-32.0); Mean Corpuscular Volume 86.6 fL (80-94); Mean Platelet Vol. 10.4 fl (6.2-12.0); Monocyte# 0.42 X10^3/uL; Monocyte% 6.2 % (0-10); NRBC Flagged by Analyzer 0 % (0-5); Neutrophil # 4.75 X10^3/uL (2.7-7.7); Neutrophil % 70.3 % (47-70); Platelet Count 218 K/mm3 (150-450); RBC Distribution Width SD 43.7 fl (35.1-43.9); Red Blood Count 5.46 M/mm3 (4.6-6.2); White Blood Count 6.8 K/mm3 (4.4-11.0)
[2024-07-14 12:50] LABS: AST(SGOT) 14 U/L (15-37); Alanine Aminotransfer ALT/SGPT 29 U/L (16-61); Albumin, Serum 3.6 g/dL (3.2-5.0); Alkaline Phosphatase 78 U/L (45-117); Anion Gap 6 (5-15); BUN 14 mg/dL (7-18); BUN/Creat Ratio 12.6 RATIO (10-20); Calcium,Total 9.2 mg/dL (8.5-10.1); Chloride 108 mmol/L (98-107); Cholesterol 109 mg/dL (200); Creatinine, Serum 1.11 mg/dL (0.70-1.30); EST Glomerular Filtration Rate 69 mL/min (>60); Est Glom Filt Rate - Afr Amer 84 mL/min (>60); Globulin 3.7 g/dL (2.2-4.2); Glucose 89 mg/dL (74-106); High Density Lipoprotein 49 mg/dL; Potassium 3.9 mmol/L (3.5-5.1); Protein, Total 7.3 g/dL (6.4-8.2); Sodium Level 142 mmol/L (136-145); Triglycerides 142 mg/dL; Very Low Density Lipoprotein 28 mg/dL (5-40)
[2024-07-14 13:00] LABS: Hemoglobin A1c 5.4 % (3.8-5.6)
== END | disposition home or self-care (01) ==
LOC: BIMLAB 08:32
PROVIDERS: PCP Family Medicine Geriatric Medicine; Referring Provider Psychiatry & Neurology Child & Adolescent Psychiatry; Visit Provider Psychiatry & Neurology Child & Adolescent Psychiatry
DX: Z79.899 Other long term (current) drug therapy (principal)
CPT/HCPCS: 36415; 80053; 80061; 83036; 84443; 85025

== ENCOUNTER → 2024-09-11 | Outpatient (CLI) | payer MEDICARE, MEDICAID, SELFPAY ==
[2024-09-11 11:08] LABS: Absolute Lymphocyte Count 1.37 X10^3/uL (0.83-4.51); Absolute Neutrophil Count 3.4 X10^3/uL (2.0-7.7); Basophil# 0.04 X10^3/uL; Basophil% 0.7 % (0-1); Eosinophil# 0.19 X10^3/uL; Eosinophils% 3.4 % (0-5); Hematocrit 43.1 % (40-54); Hemoglobin 14.6 g/dL (13.0-16.5); Lymphocyte # 1.37 X10^3/ul (0.83-4.51); Lymphocyte % 24.5 % (19-41); Mean Corp Hgb Conc 33.9 g/dL (32-36); Mean Corpuscular Hgb 28.8 pg (27.0-32.0); Mean Platelet Vol. 9.5 fl (6.2-12.0); Monocyte# 0.61 X10^3/uL; Monocyte% 10.9 % (0-10); NRBC Flagged by Analyzer 0 % (0-5); Neutrophil # 3.35 X10^3/uL (2.7-7.7); Neutrophil % 59.8 % (47-70); Platelet Count 234 K/mm3 (150-450); RBC Distribution Width CV 13.7 % (11.6-14.6); RBC Distribution Width SD 42.3 fl (35.1-43.9); Red Blood Count 5.07 M/mm3 (4.6-6.2); White Blood Count 5.6 K/mm3 (4.4-11.0)
[2024-09-11 19:58] LABS: ALB/GLOB Ratio 1.3 RATIO (0.9-2.4); AST(SGOT) 17 U/L (<=37); Alanine Aminotransfer ALT/SGPT 26 U/L (<=46); Albumin, Serum 3.3 g/dL (3.4-4.8); Alkaline Phosphatase 87 U/L (40-129); Anion Gap 14 (5-15); BUN 12 mg/dL (4-19); BUN/Creat Ratio 12.1 RATIO (10-20); Calcium,Total 8.4 mg/dL (7.6-11.0); Carbon Dioxide 19.6 mmol/L (21.0-32.0); Chloride 104 mmol/L (98-108); EST Glomerular Filtration Rate 80 (>60); Globulin 2.6 g/dL (2.2-4.2); Glucose 78 mg/dL (70-99); Protein, Total 5.9 g/dL (5.9-8.4); Sodium Level 138 mmol/L (133-145); Total Bilirubin 0.37 mg/dL (0.00-1.30)
[2024-09-11 20:30] LABS: Cholesterol 130 mg/dL (<=200); High Density Lipoprotein 29 mg/dL; Low Density Lipoprotein Calc. 77 mg/dL; Triglycerides 120 mg/dL; Very Low Density Lipoprotein 24 mg/dL (5-40); cholesterol:hdl ratio screen 4.48
[2024-09-11 20:35] LABS: Vitamin D,25 Hydroxy 21.9 ng/mL (30-100)
== END | disposition home or self-care (01) ==
LOC: POLAB3 10:31
PROVIDERS: PCP Family Medicine Geriatric Medicine; Visit Provider Family Medicine Geriatric Medicine
DX: I10 Essential (primary) hypertension (principal); E55.9 Vitamin D deficiency, unspecified; E78.5 Hyperlipidemia, unspecified
CPT/HCPCS: 36415; 80053; 80061; 82306; 84443; 85025

== ENCOUNTER → 2025-02-03 | Outpatient (CLI) | payer MEDICARE, MEDICAID, SELFPAY ==
--- NOTE | 2025-02-03 16:37 | RAD_ITS ---
PROCEDURE: LEFT ANKLE MIN 3 VIEWS 02/03/2025 REASON FOR EXAM: PAIN TECHNIQUE: LEFT ANKLE MIN 3 VIEWS COMPARISON: 11/12/2020 FINDINGS: No acute fracture or dislocation. Alignment is anatomic. Preserved joint spaces. No aggressive osseous lesion. No marked soft tissue swelling or radiopaque foreign body. RAD/Ankle min 3 Views IMPRESSION: No acute or aggressive osseous abnormality. Reading Location: [id number]
== END | disposition home or self-care (01) ==
LOC: MTRAD 16:37
PROVIDERS: PCP Family Medicine Geriatric Medicine; Referring Provider Physician Assistant; Visit Provider Physician Assistant
DX: M25.572 Pain in left ankle and joints of left foot (principal)
CPT/HCPCS: 73610

== ENCOUNTER 2025-03-24 17:45 | Emergency (ER) | payer MEDICARE, MEDICAID, SELFPAY ==
[2025-03-24 17:45] VITALS: BP 182/100; PULSE 78; RESP 16; TEMP 36.6; O2SAT 98; BMI 35.2
--- NOTE | 2025-03-24 18:17 | EX.ED.DYSGE1 ---
HPI History of Present Illness Chief Complaint: General Illness Detail of Chief Complaint: Patient reportedly jumped in a retirement. Now resolved. No complaints. Informant: patient and other (detention personnel with him.) Onset/Context/Timing Onset: Today Context: Sudden Onset Timing: Intermittent Current Severity: Gone Maximum Severity: Mild Narrative Narrative: 69-year-old male who choked while eating some chicken noodle soup. Now he feels fine. Denies any trouble swallowing. Denies any trouble breathing. He is symptom-free pain-free. Prior similar symptoms: No Recent Illness/Hospitalization: No PFSH PFS Medical History Left ankle sprain Right arm cellulitis Cancer Hypothyroidism Insomnia Bipolar disorder Essential hypertension Ventricular tachycardia Wears glasses Anxiety Non-smoker Shortness of breath on exertion Incontinence Limb weakness Difficulty balancing when standing Prostate enlargement Thyroid disease Strain of left ankle Home Medications ?Medication ?Instructions ?Recorded ?Last Taken ?Type risperidone 1 mg tablet 1 mg PO BREAKFAST 08/14/16 07/09/20 History buspirone 10 mg tablet 20 mg PO TID 07/05/20 02/23/21 05:20 History risperidone 2 mg tablet 2 mg PO QHS 02/22/21 02/23/21 05:20 History oxybutynin chloride 15 mg 15 mg PO DAILY #90 tabs 02/23/21 Unknown Rx tablet,extended release 24 hr mirtazapine 7.5 mg tablet 7.5 mg PO QHS 04/25/22 Unknown History cholecalciferol (vitamin D3) 25 25 mcg PO DAILY 01/01/24 Unknown History mcg (1,000 unit) tablet levothyroxine 100 mcg tablet 100 mcg PO DAILY 01/01/24 Unknown History Allergy/AdvReac Type Severity Reaction Status Date / Time doxycycline Allergy unknown Verified 03/24/25 17:47 Environmental Allergies: Allergy allergic Verified 03/24/25 17:47 Uncoded (seasonal) rhinitis Penicillins Allergy Unknown Verified 03/24/25 17:47 Surgical History Hx of transurethral resection of prostate Hx of colonoscopy Hx of cystoscopy Social History Smoking Status: Never smoker second hand exposure: No alcohol intake: never substance use type: does not use caffeine: Yes Type: carbonated beverages Number of servings: 1 ROS ROS ED ROS Narrative Denies recent illness. Constitutional Constitutional ED: Denies chills or fever(s) Eyes Eyes: Denies blurry vision ENT ENT ED: Denies ear pain Cardiovascular Cardiovascular: Denies chest pain Respiratory/Chest Respiratory/Chest: Denies cough or dyspnea Gastrointestinal Gastrointestinal: Denies abdominal pain Genitourinary Genitourinary ED: Denies dysuria or hematuria Musculoskeletal Musculoskeletal: Denies arthralgias or back pain Integumentary Denies abscess Neurologic Neurologic: Denies headache(s) Psychiatric Psychiatric: Denies anxiety or depression Endocrine Endocrinology: Denies cold intolerance Hematologic/Lymphatic Hematologic/Lymphatic: Reports none Allergic/Immunologic Allergic/Immunologic ED: Denies mouth swelling, tongue swelling or urticaria EXAM Physical Exam Narrative Exam Narrative: 69-year-old male no acute distress vital signs stable afebrile. Pulse ox 98% on room air. No hypoxia. No trouble breathing or swallowing. No choking. 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 Right eye pupil round react to light. Show motion intact. Mouth no joint swelling or breathing no stridor or drooling again last water drink without any difficulty. Neck nontender no lymphadenopathy. Lungs clear to auscultation bilaterally. Heart regular rhythm no murmur rate about 80. Chest wall ribs nontender. Abdomen soft nontender. Moving all 4 extremities. 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 Normal dorsi plantarflexion. He is awake and alert. Answering questions following commands. Very benign exam. Const Vital Signs: 03/24/25 17:45 Temperature 98 F Temperature Source Oral Pulse Rate 78 Respiratory Rate 16 Blood Pressure 182/100 H Blood Pressure Mean 127 Pulse Ox 98 Oxygen Delivery Method Room Air MDM MDM MDM Narrative Medical decision making narrative: 69-year-old male with choking episode at the retirement. Currently can swallow without any difficulty. His lungs are clear. There is noes signs of aspiration. He will be discharged home to follow-up as needed. Discharge Plan Triage Chief Complaint: General Illness ED Provider: Filippo Bradshaw Dx/Rx/DC Orders Clinical Impression: Choking Instructions: ED Choking Spell (Adult) Prescriptions: No Action buspirone 10 mg tablet 20 mg PO TID mirtazapine 7.5 mg tablet 7.5 mg PO QHS levothyroxine 100 mcg tablet 100 mcg PO DAILY cholecalciferol (vitamin D3) 25 mcg (1,000 unit) tablet 25 mcg PO DAILY risperidone 1 MG tablet 1 mg PO BREAKFAST risperidone 2 mg tablet 2 mg PO QHS oxybutynin chloride 15 mg tablet extended release 24hr 15 mg PO DAILY Qty: 90 3RF Primary Care Provider: Kg Salinas Chi Referrals: Kg Salinas Chi, MD [Primary Care Provider, Geriatrics] - As Needed Activity Restrictions/Additional Instructions: He checks well now. He may return to work. Make sure he chews his food thoroughly and eats and drink slowly. Print Language: [place] Disposition Disposition: Home, Self Care
== END 2025-03-24 18:36 | disposition home or self-care (01) ==
LOC: ED 18:27
PROVIDERS: Emergency Provider Emergency Medicine; PCP Family Medicine Geriatric Medicine; Visit Provider Emergency Medicine
DX: T17.928A Food in respiratory tract, part unspecified causing other injury, initial encounter (principal); F31.9 Bipolar disorder, unspecified; I10 Essential (primary) hypertension; Y92.89 Other specified places as the place of occurrence of the external cause; F41.9 Anxiety disorder, unspecified; Z79.899 Other long term (current) drug therapy; E03.9 Hypothyroidism, unspecified; Z79.890 Hormone replacement therapy
CPT/HCPCS: 99282

== ENCOUNTER → 2025-03-25 | Outpatient (CLI) | payer MEDICARE, MEDICAID, SELFPAY ==
[2025-03-25 10:20] LABS: Hematocrit 44.7 % (40-54); Hemoglobin 15.2 g/dL (13.0-16.5); Immature Granulocytes Count 0.050 X10^3/uL (0.0-0.0); Mean Corp Hgb Conc 34.0 g/dL (32-36); Mean Corpuscular Volume 84.3 fL (80-94); Mean Platelet Vol. 9.9 fl (6.2-12.0); NRBC Flagged by Analyzer 0 % (0-5); Platelet Count 204 K/mm3 (150-450); RBC Distribution Width CV 14.5 % (11.6-14.6); RBC Distribution Width SD 43.9 fl (35.1-43.9); Red Blood Count 5.30 M/mm3 (4.6-6.2); White Blood Count 5.7 K/mm3 (4.4-11.0)
[2025-03-25 13:57] LABS: Alanine Aminotransfer ALT/SGPT 26 U/L (<=46); Albumin, Serum 4.0 g/dL (3.4-4.8); Alkaline Phosphatase 80 U/L (40-129); Chloride 105 mmol/L (98-108); Potassium 3.7 mmol/L (3.3-5.1); Vitamin D,25 Hydroxy 27.3 ng/mL (30-100)
[2025-03-25 15:51] LABS: AST(SGOT) 26 U/L (<=37); Anion Gap 15 (5-15); BUN 14 mg/dL (4-19); BUN/Creat Ratio 12.8 RATIO (10-20); Calcium,Total 9.4 mg/dL (7.6-11.0); Carbon Dioxide 20.7 mmol/L (21.0-32.0); Cholesterol 113 mg/dL (<=200); Globulin 3.2 g/dL (2.2-4.2); Glucose 146 mg/dL (70-99); Low Density Lipoprotein Calc. 43 mg/dL; Triglycerides 141 mg/dL; Very Low Density Lipoprotein 28 mg/dL (5-40); cholesterol:hdl ratio screen 2.73
[2025-03-25 17:55] LABS: Xtra Tube Kwok EXTRA TUBE
== END | disposition home or self-care (01) ==
LOC: POLAB3 09:54
PROVIDERS: PCP Family Medicine Geriatric Medicine; Visit Provider Family Medicine Geriatric Medicine
DX: I10 Essential (primary) hypertension (principal); E55.9 Vitamin D deficiency, unspecified; E78.5 Hyperlipidemia, unspecified
CPT/HCPCS: 36415; 80053; 80061; 82306; 84443; 85025

== ENCOUNTER → 2025-04-14 | Outpatient (CLI) | payer MEDICARE, MEDICAID, SELFPAY ==
[2025-04-14 12:32] LABS: Mucous, Urine 0 SEEN /hpf (<or=2+); Red Blood Cells-Urine 0 SEEN /hpf (0-5)
[2025-04-14 13:02] LABS: Color, Urine Yellow (Yellow); Glucose, Dipstick Normal (Normal); Ketone-Dipstick Negative (Negative); Leukocyte Esterase-Dipstick 25 /ul (Negative); Nitrite-Dipstick Positive (Negative); Occult Blood-Urine 10 /ul (Negative); Protein-Dipstick 15 mg/dl (Negative); Specific Gravity, Urine 1.010 (1.002-1.030); Urine Bilirubin Dipstick Negative (Negative)
[2025-04-14 13:08] LABS: Squamous Epithelial Cells - UA 0-5 SEEN /hpf (0-5)
== END | disposition home or self-care (01) ==
LOC: POLAB3 12:29
PROVIDERS: PCP Family Medicine Geriatric Medicine; Visit Provider Family Medicine Geriatric Medicine
DX: J32.9 Chronic sinusitis, unspecified (principal); R35.0 Frequency of micturition; R06.2 Wheezing
CPT/HCPCS: 81001; 87077; 87086; 87088; 87631; 87651

== ENCOUNTER → 2025-05-11 | Outpatient (CLI) | payer MEDICARE, MEDICAID, SELFPAY ==
--- OUTSIDE RECORDS SUMMARY | 2025-05-11 09:46 | XMS RPT_ITS | CCD ---
Author Organization [facility] Care Team Providers Care Records Assistant Name Role Phone Dr. Kg Salinas Chi Primary Care Provider [phone] Edinson Scott Attending Provider Dr. Willa Kelley Emergency Provider Dr. Temo Ba Admit Provider Dr. Temo Ba Attending Provider Dr. Temo Ba Other Provider 1([facility])[phone] MD Ja Farmer Attending Provider Dr. Ivis Montenegro Attending Provider Dr. Ivis Montenegro Other Provider Dr. Willa Kelley Referring Provider [phone] Kg Salinas Chi Primary Care Provider Dr. Kg Salinas Chi Primary Care Provider Dr. Kg Salinas Chi Referring Provider Dr. Jarad Tavera Attending Provider Dr. Jarad Tavera Referring Provider Dr. aCrlo Parmar Attending Provider MD Jarad Tavera Attending Provider Unavailab le Dr. Kg Salinas Chi Primary Care Provider Dr. Jarad Tavera Attending Provider Dr. Jarad Tavera Referring Provider Dr. Kg Salinas Chi Referring Provider Dr. Carlo Parmar Attending Provider MD Jarad Pressley Attending Provider Nargisny FINN Boone Attending Provider [phone] Kg Salinas Chi Primary Care Provider [phone] Dr. Kg Salinas Chi Referring Provider Dr. Jarad Tavera Attending Provider [phone] Kg Salinas Chi Primary Care Provider Unavailable Primary Care Provider Unavailabl e YANCY RAMAN D Attending Unavailable LEATHA LEVY Attending Unavailable Veronica RAMOS PhD, Carmen Gee Unavailable Veronica RAMOS PhD, Carmen Gee Unavailable Generic Provider MD, No Assigned Pcp Primary Car e Provider Unavailable Brad RAMOS, Dr. Kg Choudhury Primary Care Provider Diana RAMOS, Dr. Long Attending Provider Diana RAMOS, Dr. Long Referring Provider Brad RAMOS, Dr. Kg Choudhury Referring Provider [phone] Mo Arias Attending Provider Brad RAMOS, Dr. Kg Choudhury Attending Provider CARMEN MARTIN Referring Unavailable GENERIC PROVIDER, NO ASSIGNED PCP Primary Care Unavailable CARMEN MARTIN Attending Unavailable YANCY, RAMAN D Referring Unavailable GENERIC PROVIDER, NO ASSIGNED PCP Primary Care Unavailable YANCY, RAMAN D Referring Unavailable GENERIC PROVIDER, NO ASSIGNED PCP Primary Care Unavailable YANCY, RAMAN D Referring Unavailable GENERIC PROVIDER, NO ASSIGNED PCP Primary Care Unavailable YANCY, RAMAN D Referring Unavailable GENERIC PROVIDER, NO ASSIGNED PCP Primary Care Unavailable YANCY, RAMAN D Referring Unavailable GENERIC PROVIDER, NO ASSIGNED PCP Primary Care Unavailable YANCY, RAMAN D Referring Unavailable GENERIC PROVIDER, NO ASSIGNED PCP Primary Care Unavailable YANCY, RAMAN D Referring Unavailable GENERIC PROVIDER, NO ASSIGNED PCP Primary Care Unavailable YANCY, RAMAN D Referring Unavailable GENERIC PROVIDER, NO ASSIGNED PCP Primary Care Unavailable YANCY, RAMAN D Referring Unavailable GENERIC PROVIDER, NO ASSIGNED PCP Primary Care Unavailable YANCY, RAMAN D Referring Unavailable GENERIC PROVIDER, NO ASSIGNED PCP Primary Care Unavailable YANCY, RAMAN D Referring Unavailable GENERIC PROVIDER, NO ASSIGNED PCP Primary Care Unavailable YANCY, RAMAN D Referring Unavailable GENERIC PROVIDER, NO ASSIGNED PCP Primary Care Unavailable YANCY, RAMAN D Referring Unavailable GENERIC PROVIDER, NO ASSIGNED PCP Primary Care Unavailable YANCY, RAMAN D Referring Unavailable GENERIC PROVIDER, NO ASSIGNED PCP Primary Care Unavailable YANCY, RAMAN D Referring Unavailable GENERIC PROVIDER, NO ASSIGNED PCP Primary Care Unavailable YANCY, RAMAN D Referring Unavailable GENERIC PROVIDER, NO ASSIGNED PCP Primary Care Unavailable YANCY, RAMAN D Referring Unavailable GENERIC PROVIDER, NO ASSIGNED PCP Primary Care Unavailable Brad RAMOS, Dr. Kg Choudhury Primary Care Provider [phone] Mo Arias Attending Provider [phone] Mo Arias Referring Provider Dr. Kg Salinas MD, Chi Referring Provider Dr. Kg Salinas MD, Chi Primary Care Physician [phone] Physician [address] Filippo Bradshaw MD Emergency Department Physici an Brad, Kg Chi Primary Care Unavailable Brad, Kg Chi Attending Unavailable Brad, Kg Chi Attending Unavailable Brad, Kg Chi Primary Care Unavailable Brad, Kg Chi Attending Unavailable Brad, Kg Chi Primary Care Unavailable Brad, Kg Chi Primary Care Unavailable Solaro, Mercedes Attending Unavailable Solaro, Mercedes Referring Unavailable Brad, Kg Chi Attending Unavailable Brad, Kg Chi Primary Care Unavailable Mo Arias Attending Unavailable Mo Arias Referring Unavailable Brad, Kg Chi Primary Care Unavailable Filippo Bradshaw Attending Unavailable Brad, Kg Chi Primary Care Unavailable Brad, Kg Chi Referring Unavailable Brad, Kg Chi Primary Care Unavailable Brad, Kg Chi Attending Unavailable Mo Arias Attending Unavailable Brad, Kg Chi Referring Unavailable Brad, Kg Chi Primary Care Unavailable Mo Arias Attending Unavailable Brad, Kg Chi Referring Unavailable Brad, Kg Chi Primary Care Unavailable Allergies Allergy Classification Reported Allergen(s) Allergy Type Date of Onset Reaction(s) Facility (20 sources) Doxycycline; Translations: [DOXYCYCLINE] Drug Allergy 8 Rash, Unknown [facility] Work Phone: (20 sources) Penicillins; Translations: [PENICILLINS] Allergy to substance 08-21-201 4 Unknown [facility] Work Phone: (5 sources) Environmental Allergies: Uncoded; Translations: [Environmental Allergies: Uncoded] Allergy to substance 5 allergic rhinitis [facility] (1 source) Doxycycline Drug Allergy 5 [facility] Repository Medications Current Medications Medication Drug Class(es) Dates Sig (Normalized) Sig (Original) albuterol 0.83 mg/ml inhalation solution (20 sources) beta2-Adrenergic Agonist Start: 02-10-2022 albuterol (PROVENTIL) 2.5 mg /3 mL (0.083 %) nebulizer solution 02/10/2022 Active Start: 02-22-2021 take 2.5 mg by inhal ation twice daily Albuterol Sulfate Active 2.5 MG INHALATION TWICE A DAY February 22, 2021 8:42am Start: 02-22-2021 End: 07-26-2022 take 2.5 mg by inhalation once daily Albuterol Sulfate 2.5 mg/0.5 mL solution for nebulization Discontinued 2.5 mg INHALATION DAILY February 22, 2021 12:00am July 26, 2022 11:42am SOB aspirin 81 mg delayed release oral tablet (3 sources) Platelet Aggregation Inhibitor, Nonsteroidal Anti-inflammatory Drug take 1 tablet by mouth once daily aspirin, enteric coated (ASPIRIN, ENTERIC COATED) 81 mg EC tablet Take 81 mg by mouth once daily. Active Comment on above: Take 81 mg by mouth once daily. busPIRone hydrochloride 10 mg oral tablet (20 sources) Start: 06-19-19 busPIRone (Buspar) 10 mg tablet 1 tablet (10 mg). 06/19/2024 Active Start: 07-05-2020 take 10 mg by mouth three times daily Buspirone Active 10 MG PO THREE TIMES A DAY July 05, 2020 3:47pm Start: 07-05-2020 take 2 tablets by mo ut three times daily Start: 07-05-2020 take 20 mg by mouth three times daily Buspirone Active 20 MG PO THREE TIMES A DAY July 05, 2020 1:00am Comment on above: Take 20 mg by mouth. cholecalciferol 0.025 mg ora l tablet (20 sources) Vitamin D Start: 01-01-2024 take 1 tablet by mouth once daily Start: 07-05-2020 take 10 ug by mouth once daily Cholecalciferol (Vitamin D3) Active 10 MCG PO DAILY July 05, 2020 3:47pm Start: 07-05-2020 End: 01-01-2024 take 1 capsule by mouth once daily Cholecalciferol (Vitamin D3) 10 mcg (400 unit) capsule Discontinued 25 ug PO DAILY July 05, 2020 1:00am January 01, 2024 8:41am take 1 tablet by coy once daily cholecalciferol (Vitamin D3) 25 MCG (1000 UT) tablet Take 1 tablet (1,000 Units) by mouth once daily. Active ciprofloxacin 500 mg oral tablet (4 sources) Quinolone Antimicrobial Start: 02-23-2021 take 1 tablet by mouth twice daily Ciprofloxacin Hcl (Cipro) 500 mg tablet Active 500 MG PO TWICE A DAY February 23, 2021 7:40am levothyroxine sodium 0.1 mg oral tablet (20 sources) l-Thyroxine Start: 01-01-2024 take 1 tablet by mouth once daily Start: 12-05-2021 End: 01-01-2024 Levothyroxine 125 mcg Tablet Discontinued 125 ug PO 0600 30 30 0 December 05, 2021 12:00am January 01, 2024 8:37am Start: 08-14-2016 take 100 ug by mouth once daily Levothyroxine Active 100 MCG PO DAILY August 14, 2016 12:06pm Start: 08-14-2016 End: 12-05-2021 Levothyroxine 25 MCG tablet Discontinued 112 ug PO DAILY August 14, 2016 1:00am December 05, 2021 11:10am Start: 08-14-2016 End: 12-05-2021 take 112 ug by mouth once daily Levothyroxine Discontinued 112 MCG PO DAILY August 14, 2016 1:00am December 05, 2021 11:10am LEVOTHYROXINE SO DIUM (LEVOTHYROXINE ORAL) Take 125 mcg by mouth. Active LEVOTHYROXINE SO DIUM (LEVOTHYROXINE ORAL) Take 125 mcg by mouth. 0 Active Comment on above: Take 125 mcg by mout h. 24 hr oxybutynin chloride 15 mg extended release oral tablet (20 sources) Cholinergic Muscarinic Antagonist Start: 06-22-2024 oxybutynin XL (Ditropan-XL) 15 mg 24 hr tablet 1 tablet (15 mg). 06/22/2024 Active Start: 02-16-2022 oxybutynin ER (DITROPAN XL) 15 mg 24 hr Extended Rel Tab 02/16/2022 Active Start: 02-23-2021 take 1 tablet by coy th once daily risperiDONE 1 mg oral tablet (20 sources) Atypical Antipsychotic Start: 01-16-2022 risperi DONE (RISPERDAL) 2 mg tablet 1/2 (1mg) every morning, 2mg in evening 01/16/2022 Active Start: 02-22-2021 take 1 tablet by coy th at bedtime Start: 08-14-2016 take 1 tablet by coy th at breakfast Start: 08-14-2016 End: 02-18-2022 take 1 mg by mouth at breakfast Risperidone Active 1 M G PO WITH BREAKFAST August 14, 2016 1:00am Start: 12-16-2013 End: 07-05-2020 take 2 tablets by mouth at bedtime Risperidone 1 MG tablet Discontinued 2 mg PO AT BEDTIME December 16, 2013 12:00am July 05, 2020 3:47pm Start: 12-16-2013 End: 07-05-2020 take 2 mg by mouth at bedtime Risperidone Discontinued 2 MG PO AT BEDTIME December 16, 2013 12:00am July 05, 2020 3:47pm Comment on above: 1/2 (1mg) every morn ing, 2mg in evening Take 1 mg by mouth t wice daily. Completed/Discontinued Medications Medication Drug Class(es) Dates Sig (Normalized) Sig (Original) atorvastatin 40 mg oral tablet (20 sources) HMG-CoA Reductase Inhibitor Start: End: take 1 tablet by mouth at bedtime Atorvastatin 40 mg Tablet Discontinued 40 mg PO AT BEDTIME 30 30 0 December 05, 2021 12:00am July 26, 2022 11:42am Comment on above: Take by mouth. budesonide 0.25 mg/ml inhalation suspension (20 sources) Corticosteroid Start: End: take 0.5 mg by inhalation once daily Budesonide 0.5 mg/2 mL Suspension For Nebulization Discontinued 0.5 mg INHALATION DAILY December 02, 2021 12:00am February 8th, 2023 11:42am carboxymethylcellulose sodium 10 mg/ml ophthalmic solution (20 sources) Start: 021 End: 023 take 1 drop(s) into the eye(s) at bedtime Carboxymethylcellulose Sodium (Artificial Tears (Cmc)) 1 % Drops Discontinued 2 NMA EACH EYE AT BEDTIME February 22, 2021 12:00am July 26, 2022 11:42am Start: 02-22-2021 End: 07-26-2022 take 1 drop(s) into the eye(s) at bedtime Carboxymethylcellulose Sodium (Artificia l Tears (Cmc)) 1 % Drops Discontinued 2 DRP EACH EYE AT BEDTIME February 22, 2021 12:00am July 26, 2022 11:42am clindamycin 150 mg oral capsule (4 sources) Lincosamide Antibacterial Start: 09-08-2024 End: 02-03-2025 take 3 capsules by mouth three times daily Clindamycin Hcl 150 mg capsule Discontinued 450 mg PO THREE TIMES A DAY 90 0 September 08, 2024 12:00am February 03, 2025 4:51pm CODEINE PHOSPHATE/GUAIFENESIN (G TUSSIN AC ORAL) (1 source) End: 02-18-2022 CODEINE PHOSPHATE/GUAIFENES IN (G TUSSIN AC ORAL) Take by mouth. 0 02/18/2022 Discontinued Comment on above: Take by mouth. diphenhydrAMINE hydrochloride 25 mg oral capsule (1 source) Histamine-1 Receptor Antagonist Start: 07-01-2017 End: 02-18-2022 diphenhydrAMINE (BENADRYL) 25 mg capsule Indications: Rash For age 12+ years: Take 1-2 capsules by mouth every 6 hours as needed. (may cause drowsiness) 48 capsule 1 07/01/2017 02/18/2022 Discontinued Comment on above: For age 12+ years: T michel 1-2 capsules by mouth every 6 hours as needed. (may cause drowsiness) Doxycycline (1 source) Tetracycline-clas s Drug End: 02-18-2022 DOXYCYCLINE HYCLATE ORAL Take by mouth. 0 02/18/2022 Discontinued Comment on above: Take by mouth. Fenofibrate (1 source) Peroxisome Proliferator Receptor alpha Agonist End: 02-18-2022 FENOFIBRATE MICRONIZED 48 MG TAB hydroCHLOROthiazide 12.5 mg / valsartan 320 mg oral tablet (20 sources) Thiazide Diuretic, Angiotensin 2 Receptor Hansel Start: 07-05-2020 End: 12-05-2021 Valsartan-Hydrochlo rothiazide 320-12.5 mg tablet Discontinued 1 {tbl} PO DAILY July 05, 2020 1:00am December 05, 2021 11:10am Start: 07-05-2020 End: 12-05-2021 take 1 tablet by mouth once daily Valsartan-Hydrochlorothiazide Discontinu ed 1 TABLET PO DAILY July 05, 2020 1:00am December 05, 2021 11:10am hydrOXYzine pamoate 50 mg oral capsule (20 sources) Antihistamine Start: 12-02-2021 End: 07-26-2022 take 1 capsule by mouth four times daily Hydroxyzine Pamoate 50 mg Capsule Discontinued 50 mg PO 4 TIMES DAILY December 02, 2021 12:00am July 26, 2022 11:42am lisinopril 20 mg oral tablet (20 sources) Angiotensin Converting Enzyme Inhibitor Start: 12-16-2013 End: 07-05-2020 take 1 tablet by mouth once daily Lisinopril 20 MG tablet Discontinued 20 mg PO DAILY December 16, 2013 12:00am July 05, 2020 3:47pm End: 02-18-2022 LISINOPRIL ORAL Take by mout h. 0 02/18/2022 Discontinued Comment on above: Take by mouth. melatonin 10 mg oral tablet (20 sources) Start: 02-22-2021 End: 04-25-2022 take 1 tablet by mouth at bedtime Melatonin 10 mg Tablet Discontinued 10 mg PO AT BEDTIME February 22, 2021 12:00am April 25, 2022 10:04am Start: 07-02-2020 End: 07-05-2020 take 1 capsule by mouth at bedtime Melatonin 5 MG capsule Discontinued 5 mg PO AT BEDTIME July 02, 2020 1:00am July 05, 2020 3:47pm metoprolol tartrate 25 mg oral tablet (20 sources) beta-Adrenergic Hansel Start: 04-25-2022 End: 01-02-2023 take 12.5 mg by mouth once daily Metoprolol Tartrate Discontinued 12.5 MG PO DAILY April 25, 2022 11:28am January 02, 2023 10:48am Start: 02-22-2021 End: 01-02-2023 Metoprolol Tartrate 25 mg ta blet Discontinued 12.5 mg PO DAILY 15 4 April 25, 2022 11:28am January 02, 2023 10:48am Start: 02-22-2021 End: 04-25-2022 Metoprolol Tartrate 25 mg ta blet Discontinued 12.5 mg PO TWICE A DAY February 22, 2021 12:00am April 25, 2022 11:29am Start: 02-22-2021 End: 04-25-2022 take 12.5 mg by mouth twice daily Metoprolol Tartrate Discontinued 12.5 MG PO TWICE A DAY February 22, 2021 12:00am April 25, 2022 11:29am Comment on above: Take 12.5 mg by mout h. mirtazapine 15 mg oral tablet (17 sources) Start: 06-08-2024 End: 07-29-2024 mirtazapine (Remeron) 15 mg tablet 06/08/2024 07/29/2024 Discontinued (Therapy completed) Start: 04-25-2022 take 1 tablet by mouth at bedt juju mupirocin 0.02 mg/mg topical ointment (20 sources) RNA Synthetase Inhibitor Antibacterial Start: 12-02-2021 End: 07-26-2022 Mupirocin 2 % Ointment Discontinued 1 NMA TOPICAL THREE TIMES A DAY December 02, 2021 12:00am July 26, 2022 11:42am omeprazole 20 mg delayed release oral tablet (1 source) Proton Pump Inhibitor Start: 08-21-2014 End: 02-18-2022 take 1 tablet by mouth once daily Omeprazole 20 mg TbEC Take 20 mg by mouth once daily. 30 tablet 6 08/21/2014 02/18/2022 Discontinued Comment on above: Take 20 mg by mouth once daily. pravastatin sodium 40 mg oral tablet (20 sources) HMG-CoA Reductase Inhibitor Start: 08-14-2016 End: 07-05-2020 take 1 tablet by mouth at bedtime Pravastatin 40 MG tablet Discontinued 40 mg PO AT BEDTIME August 14, 2016 1:00am July 05, 2020 3:47pm predniSONE (1 source) End: 02-18-2022 PREDNISONE ORAL Take by mouth. 0 02/18/2022 Discontinued Comment on above: Take by mouth. tamsulosin hydrochloride 0.4 mg oral capsule (20 sources) alpha-Adrenergic Hansel Start: 12-16-2013 End: 01-01-2024 take 1 capsule by mouth at bedtime Tamsulosin 0.4 mg Capsule Discontinued 0.4 mg PO AT BEDTIME December 02, 2021 12:00am January 01, 2024 8:43am Comment on above: Take 0.4 mg by mouth . vitamin b12 1 mg oral tablet (19 sources) Vitamin B12 Start: 09-06-2022 End: 09-08-2024 take 1 tablet by mouth once daily Cyanocobalamin (Vitamin B-12) 1,000 mcg tablet Discontinued 1000 ug PO DAILY 16 04February 22, 2023 5:15pm January 01, 2024 8:31am Problems Active Problems Problem Classification Problem Date Documented Date Episodic/Chronic Acute and unspecified renal failure (20 sources) Acute renal failure syndrome; Translations: [Acute kidney failure, unspecified] Episodic Cardiac dysrhythmias (20 sources) Cardiac arrhythmia; Translations: [Cardiac arrhythmia, unspecified] 05-31-2022 Chronic Developmental disorders (20 sources) Intellectual disability; Translations: [Unspecified intellectual disabilities] Chronic Essential hypertension (12 sources) Essential hypertension; Translations: [Essential (primary) hypertension] Onset: 04-13-2025 07-24-2022 Chronic Fracture of lower limb (8 sources) Fracture of ankle; Translations: [Other fracture of right lower leg, initial encounter for closed fracture] 09-05-2022 Episodic Genitourinary symptoms and ill-defined conditions (20 sources) Retention of urine; Translations: [Retention of urine, unspecified] Onset: 04-14-2025 08-23-2016 Episodic Immunizations and screening for infectious disease (9 sources) Patient encounter status; Translations: [Encounter for immunization] 09-04-2022 Episodic Maintenance chemotherapy; radiotherapy (20 sources) Patient encounter status; Translations: [Encounter for antineoplastic radiation therapy] Onset: 08-26-2024 08-26-2024 Chronic Malaise and fatigue (16 sources) Fatigue; Translations: [Other fatigue] Episodic Malignant neoplasm without specification of site (4 sources) Malignant neoplastic disease; Translations: [Malignant (primary) neoplasm, unspecified] 09-08-2024 Chronic Neoplasms of unspecified nature or uncertain behavior (6 sources) Neoplasm of uncertain behavior of skin; Translations: [Neoplasm of uncertain behavior of skin] Onset: 07-01-2024 07-01-2024 Episodic Non-Hodgkin`s lymphoma (20 sources) Cutaneous/peripheral T-cell lymphoma; 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, unspecified, unspecified site] Onset: 07-29-2024 07-29-2024 Chronic Other circulatory disease (13 sources) Orthostatic hypotension; Translations: [Orthostatic hypotension] 04-25-2022 Episodic Other circulatory disease (7 sources) Orthostatic hypotension; Translations: [Orthostatic hypotension] Episodic Other diseases of bladder and urethra (20 sources) Overactive bladder; Translations: [Overactive bladder] 07-09-2020 Chronic Other injuries and conditions due to external causes (4 sources) Fracture of bone; Translations: [Unspecified multiple injuries, initial encounter] 01-01-2024 Episodic Other injuries and conditions due to external causes (1 source) Choking; Translations: [Unspecified foreign body in larynx causing other injury, initial encounter] 03-24-2025 Episodic Other injuries and conditions due to external causes (1 source) Food in respiratory tract, part unspecified causing other injury, initial encounter; Translations: [Food in respiratory tract, part unspecified causing other injury, initial encounter] Onset: 04-01-2025 Episodic Other nervous system disorders (13 sources) Polyneuropathy; Translations: [Polyneuropathy, unspecified] 04-25-2022 Chronic Other nervous system disorders (7 sources) Polyneuropathy, unspecified; Translations: [Unspecified hereditary and idiopathic peripheral neuropathy] Chronic Other nervous system disorders (13 sources) Dysarthria; Translations: [Dysarthria and anarthria] 04-25-2022 Episodic Other nervous system disorders (5 sources) Dysarthria and anarthria; Translations: [Dysarthria] Episodic Other non-traumatic joint disorders (2 sources) Acute ankle pain; Translations: [Pain in left ankle and joints of left foot] Episodic Other non-traumatic joint disorders (1 source) Pain in left ankle and joints of left foot; Translations: [Pain in left ankle and joints of left foot] Onset: 02-13-2025 Episodic Other skin disorders (3 sources) Disorder of skin and/or subcutaneous tissue; Translations: [Other infiltrative disorders of the skin and subcutaneous tissue] Onset: 07-01-2024 07-01-2024 Episodic Other skin disorders (2 sources) Other infiltrative disorders of the skin and subcutaneous tissue; Translations: [Other infiltrative disorders of the skin and subcutaneous tissue] Onset: 07-01-2024 Episodic Other upper respiratory infections (1 source) Chronic sinusitis, unspecified; Translations: [Chronic sinusitis, unspecified] Onset: 04-14-2025 Chronic Residual codes; unclassified (1 source) Chills (without fever); Translations: [Chills (without fever)] Onset: 04-14-2025 Episodic Sprains and strains (20 sources) Strain of muscle and/or tendon of lower leg; Translations: [Strain of unspecified muscle and tendon at ankle and foot level, left foot, initial encounter] Onset: 02-13-2025 07-24-2022 Episodic Syncope (20 sources) Near syncope; Translations: [Syncope and collapse] Episodic Thyroid disorders (9 sources) Hypothyroidism; Translations: [Hypothyroidism, unspecified] 07-24-2022 Chronic Unclassified (2 sources) OTV; Translations: [OTV] Onset: 08-29-2024 Past or Other Problems Problem Classification Problem Date Documented Da te Episodic/Chronic Other aftercare (1 source) Other ferry terminal agent (current) drug therapy; Translations: [Other ferry terminal agent (current) drug therapy] Onset: 08-02-2024 Episodic Skin and subcutaneous tissue infections (6 sources) Cellulitis of right upper limb; Translations: [Cellulitis of right upper limb] Onset: 05-27-2024 09-08-2024 Episodic Results Test Name Value Interpretation Reference Range Facility [email or web address] 04-23-2025 [email or web address] [facility] Speech Pathology [facility] [address] [place] [address]. [address] [place] [address] / REHABILITATION SERVICES INITIAL EVALUATION MR#: [id number] Acct: [id number] Name: RL BROWN Rep #: [id number] : [id number] 69 From: Juliet Fletcher Referring DrRachid: Dr. Kg Salinas MD Status: REG RCR Insurance: MEDICARE PART A B MEDICAID [place] Visit History Visit Info Date of Eval: 04/17/25 Today is Visit #: 1 Salesperson Burial Needs: AARON Gaines Attending Doctor: Referring Doctor: Reason for Referral: DYSPHAGIA RX HERE Medical Diagnosis: Oropharyngeal dysphagia Date of Onset of Diagnosis: Unknown Previous speech therapy: Yes Results: Rl received speech therapy in 2021 after a TIA for mild dysphagia. Rl was put in a thin liquid with easy to chew (IDDSI level EC7) upon being discharged from the hospital. Other Relevant Medical History/Diagnoses/Eric giovanni: Rl Brown is a 69M [facility] resident who was referred to [facility] outpatient speech therapy for dysphagia concerns. Rl has a PMH of anxiety, cancer, TIA, ventricular tachycardia, hypothyroidism, essential hypertension, cardiac arrhythmia, orthostatic hypotension, intellectual disability, dysarthria, polyneuropathy, and overactive bladder. His caregiver stated that he has difficulty with eating and drinking too quickly, which has caused him to have a major choking incident within the last month (he was eating chicken noodle soup). Medications related to this diagnosis: buspirone 10 mg tablet, cholecalciferol (vitamin D3) 25 mcg (1,000 unit) tablet, levothyroxine 100 mcg tablet, mirtazapine 7.5 mg tablet, oxybutynin chloride 15 mg tablet extended release 24hr, risperidone 1 MG tablet, risperidone 2 mg tablet Smoking Status: Never smoker Diagnosis Diagnosis: Mild oropharyngeal dysphagia Pain Is pain an issue with your current prescribed condition?: No Personal Preferred language: Gabonese Patient Allergies Allergies Allergies: Allergies doxycycline Allergy (Verified 03/24/25 17:47) unknown Environmental Allergies: Uncoded (seasonal) Allergy (Verified 03/24/25 17:47) allergic rhinitis Penicillins Allergy (Verified 03/24/25 17:47) Unknown Subjective Dysphagia Symptoms Reported Symptoms/Problems with: Coughing and Choking Current Diet Solids Current Diet: Regular Current Diet Liquids Current Liquids: Thin Ramsey free water Protocol: Yes Objective Dysphagia Administered by Administered by: Caregiver Thin Liquids Administred via: Cup Oral Transit: WNL Bolus clearance: fully cleared Gagging: No Cough: immediate, delayed and wet Pharyngeal phase: laryngeal elevation mildly restricted slow initiation Patient Report: Caregiver reported that Rl will guzzle liquids if given the opportunity. She also stated that he does not follow commands well, so it is hard to get him to slow down when he is given a drink. Comments: Mildly recuced hyolarygeal excursion may be due to how quickly he was drinking the water. Pureed Administered via: Spoon Oral Preparation: lip or tongue seal bolus escape and WNL Oral Transit: WNL Bolus clearance: significant clearance/minimal residue Gagging: No Cough: none observed/unable to assess Pharyngeal phase: laryngeal elevation mildly restricted slow initiation Comments: Mildly recuced hyolarygeal excursion observed. Rl not able to follow command to take smaller bites or to slow down while taking bites. Soft Bite sized (Mechanical) Administered via: Spoon Oral Preparation: WNL Oral Transit: WNL Bolus clearance: fully cleared Gagging: No Cough: throat clear, wet and productive Pharyngeal phase: laryngeal elevation mildly restricted slow initiation Comments: Mildly recuced hyolarygeal excursion observed. Rl not able to follow command to take smaller bites or to slow down while taking bites. Regular Oral Preparation: WNL Oral Transit: Delay > 1 seconds Bolus clearance: significant clearance/minimal residue Gagging: No Cough: none observed/unable to assess Pharyngeal phase: laryngeal elevation mildly restricted slow initiation Comments: Mildly recuced hyolarygeal excursion observed. Rl also with slower mastication during this consistency. Swallowing Impairment Contributing Factors to Swallowing Impairment: Reduced Alertness or Attention, Difficulty Following Directions and Reduced Laryngeal Excursion Impact Impact on Safety Functioning: Risk for Aspiration Recommendations Modified Barium Swallow/Cookie Swallow Recommended: No Swallowing Treatment: Yes Diet Texture Recommendations Solids: Soft Bite sized (Level 6, Chopped) Liquids: Thin (Level 0) Safety Saftey Precautions/Swallowin g Recommendations (Check all that Apply): Supervision Needed All Meals, (more content not included)... Normal [facility] Urine Cultureon 04-16-2025 URC Below infection level. Streptococcus group B [place] Count <1000 Normal [facility] Comment on above: Performed By: #### L 400.0001, M100.2200, M100.678, M100.677 ####[facility] [address] [place], [address] M100.677on 04-14-2025 M100.677 Negative Normal [facility] Comment on above: Performed By: #### L 400.0001, M100.2200, M100.678, M100.677 ####[facility] [address] [place], [address] M100.678on 04-14-2025 M100.678 Normal Reference Range = Negative FLUABV+SARS-CoV-2+RSV Pnl Resp LUZ ELENA+probe GeneXpert Instrument, PCR method SARS-CoV-2 (COVID 19) Negative INFLUENZA A Negative INFLUENZA B Negative RSV PCR Negative Normal [facility] Comment on above: Performed By: #### L 400.0001, M100.2200, M100.678, M100.677 ####[facility] [address] [place], [address] Urinalysis, Completeon 04-14 BACTERIA 3+ /hpf Normal None Seen [facility] Comment on above: Order Comment: Urine , Random Performed By: #### L 400.0001, M100.2200, M100.678, M100.677 ####[facility] [address] [place], [address] EPI,SQUAMOUS 0-5 SEEN Normal 0-5 [facility] Comment on above: Order Comment: Urine , Random Performed By: #### L 400.0001, M100.2200, M100.678, M100.677 ####[facility] [address] [place], [address] WBC 0-5 SEEN Normal 0-5 [facility] Comment on above: Order Comment: Urine , Random Performed By: #### L 400.0001, M100.2200, M100.678, M100.677 ####[facility] [address] [place], [address] Mucus Ql (Urine sed) 0 SEEN Normal [facility] Comment on above: Order Comment: Urine , Random Performed By: #### L 400.0001, M100.2200, M100.678, M100.677 ####[facility] [address] [place], [address] RBC 0 SEEN Normal 0-5 [facility] Comment on above: Order Comment: Urine , Random Performed By: #### L 400.0001, M100.2200, M100.678, M100.677 ####[facility] [address] [place], [address] CBC W/Diff, Automatedon 10-0 8-2025 Absolute Lymph 1.57 X10 3/uL Normal 0.83-4.51 [facility] Comment on above: Performed By: #### L 500.4050, L501.9520, L506.1001, L500.4100, L100.0100 #### [facility] [address] [place], [address] Absolute Neut 3.5 X10 3/uL Normal 2.0-7.7 [facility] Comment on above: Performed By: #### L 500.4050, L501.9520, L506.1001, L500.4100, L100.0100 #### [facility] [address] [place], [address] Basophils/100 WBC (Bld) 0.7 % Normal 0-1 [facility] Comment on above: Performed By: #### L 500.4050, L501.9520, L506.1001, L500.4100, L100.0100 #### [facility] [address] [place], [address] Eosinophils/100 WBC (Bld) 3.1 % Normal 0-5 [facility] Comment on above: Performed By: #### L 500.4050, L501.9520, L506.1001, L500.4100, L100.0100 #### [facility] [address] [place], [address] Erythrocyte distribution width (RBC) [Ratio] 14.5 % Normal 11.6-14.6 [facility] Comment on above: Performed By: #### L 500.4050, L501.9520, L506.1001, L500.4100, L100.0100 #### [facility] [address] [place], [address] Hematocrit (Bld) [Volume fraction] 44.7 % Normal 40-54 [facility] Comment on above: Performed By: #### L 500.4050, L501.9520, L506.1001, L500.4100, L100.0100 #### [facility] [address] [place], [address] Hemoglobin (Bld) [Mass/Vol] 15.2 g/dL Normal 13.0-16.5 [facility] Comment on above: Performed By: #### L 500.4050, L501.9520, L506.1001, L500.4100, L100.0100 #### [facility] [address] [place], [address] IG% 0.900 Normal 0.0-0.9 [facility] Comment on above: Result Comment: IG% - Immature Granulocytes (promyelocytes, myelocytes and metamyelocytes) > 1% indicates that a LEFT SHIFT is Present. Performed By: #### L 500.4050, L501.9520, L506.1001, L500.4100, L100.0100 #### [facility] [address] [place], [address] Lymphocytes/100 WBC (Bld) 27.4 % Normal 19-41 [facility] Comment on above: Performed By: #### L 500.4050, L501.9520, L506.1001, L500.4100, L100.0100 #### [facility] [address] [place], [address] MCH (RBC) [Entitic mass] 28.7 pg Normal 27.0-32.0 [facility] Comment on above: Performed By: #### L 500.4050, L501.9520, L506.1001, L500.4100, L100.0100 #### [facility] [address] [place], [address] MCHC (RBC) [Mass/Vol] 34.0 g/dL Normal 32-36 [facility] Comment on above: Performed By: #### L 500.4050, L501.9520, L506.1001, L500.4100, L100.0100 #### [facility] [address] [place], [address] MCV (RBC) [Entitic vol] 84.3 fL Normal 80-94 [facility] Comment on above: Performed By: #### L 500.4050, L501.9520, L506.1001, L500.4100, L100.0100 #### [facility] [address] [place], [address] Monocytes/100 WBC (Bld) 7.3 % Normal 0-10 [facility] Comment on above: Performed By: #### L 500.4050, L501.9520, L506.1001, L500.4100, L100.0100 #### [facility] [address] [place], [address] Neutrophils/100 WBC (Bld) 60.6 % Normal 47-70 [facility] Comment on above: Performed By: #### L 500.4050, L501.9520, L506.1001, L500.4100, L100.0100 #### [facility] [address] [place], [address] Nucleated RBC (Bld) [#/Vol] 0 10*3/uL Normal 0-5 [facility] Comment on above: Performed By: #### L 500.4050, L501.9520, L506.1001, L500.4100, L100.0100 #### [facility] [address] [place], [address] Platelet mean volume (Bld) [Entitic vol] 9.9 fL Normal 6.2-12.0 [facility] Comment on above: Performed By: #### L 500.4050, L501.9520, L506.1001, L500.4100, L100.0100 #### [facility] [address] [place], [address] Platelets (Bld) [#/Vol] 204 10*3/uL Normal 150-450 [facility] Comment on above: Performed By: #### L 500.4050, L501.9520, L506.1001, L500.4100, L100.0100 #### [facility] [address] [place], [address] RBC (Bld) [#/Vol] 5.30 10*6/uL Normal 4.6-6.2 [facility] Comment on above: Performed By: #### L 500.4050, L501.9520, L506.1001, L500.4100, L100.0100 #### [facility] [address] [place], [address] RDW SD 43.9 fl Normal 35.1-43.9 [facility] Comment on above: Performed By: #### L 500.4050, L501.9520, L506.1001, L500.4100, L100.0100 #### [facility] [address] [place], [address] WBC (Bld) [#/Vol] 5.7 10*3/uL Normal 4.4-11.0 [facility] Comment on above: Performed By: #### L 500.4050, L501.9520, L506.1001, L500.4100, L100.0100 #### [facility] [address] [place], [address] Comprehensive Metabolic Prof ilon 03-25-2025 Albumin/Globulin [Mass ratio] 1.2 {ratio} Normal 0.9-2.4 [facility] Comment on above: Performed By: #### L 500.4050, L501.9520, L506.1001, L500.4100, L100.0100 ####[facility] [address] [place], [address] AST [Catalytic activity/Vol] 26 U/L Normal <=37 [facility] Comment on above: Result Comment: AMENDED REPORT 03/25/251550 AST previously reported as: 25 U/L Performed By: #### L 500.4050, L501.9520, L506.1001, L500.4100, L100.0100 ####[facility] [address] [place], [address] Bilirubin [Mass/Vol] 0.55 mg/dL Normal 0.00-1.30 [facility] Comment on above: Result Comment: AMENDED REPORT 03/25/251550 T BILI previously reported as: 0.54 mg/dL Performed By: #### L 500.4050, L501.9520, L506.1001, L500.4100, L100.0100 ####[facility] [address] [place], [address] BUN/CRE 12.8 RATIO Normal 10-20 [facility] Comment on above: Result Comment: AMENDED REPORT 03/25/251550 BUN/CRE previously reported as: 13.5 RATIO Performed By: #### L 500.4050, L501.9520, L506.1001, L500.4100, L100.0100 ####[facility] [address] [place], [address] Calcium [Mass/Vol] 9.4 mg/dL Normal 7.6-11.0 [facility] Comment on above: Result Comment: AMENDED REPORT 03/25/251550 CA previously reported as: 9.3 mg/dL Performed By: #### L 500.4050, L501.9520, L506.1001, L500.4100, L100.0100 ####[facility] [address] [place], [address] CO2 [Moles/Vol] 20.7 mmol/L Low 21.0-32.0 [facility] Comment on above: Result Comment: AMENDED REPORT 03/25/251550 CO2 previously reported as: 23.1 mmol/L Performed By: #### L 500.4050, L501.9520, L506.1001, L500.4100, L100.0100 ####[facility] [address] [place], [address] Creatinine [Mass/Vol] 1.08 mg/dL Normal 0.70-1.20 [facility] Comment on above: Result Comment: AMENDED REPORT 03/25/251550 CREAT,SERUM previously reported as: 1.03 mg/dL Performed By: #### L 500.4050, L501.9520, L506.1001, L500.4100, L100.0100 ####[facility] [address] [place], [address] GAP 15 Normal 5-15 [facility] Comment on above: Result Comment: AMENDED REPORT 03/25/251550 GAP previously reported as: 13 Performed By: #### L 500.4050, L501.9520, L506.1001, L500.4100, L100.0100 ####[facility] [address] [place], [address] Globulin (S) [Mass/Vol] 3.2 g/dL Normal 2.2-4.2 [facility] Comment on above: Result Comment: AMENDED REPORT 03/25/251550 GLOB previously reported as: 3.0 g/dL Performed By: #### L 500.4050, L501.9520, L506.1001, L500.4100, L100.0100 ####[facility] [address] [place], [address] Glucose [Mass/Vol] 146 mg/dL High 70-99 [facility] Comment on above: Result Comment: AMENDED REPORT 03/25/251550 GLU previously reported as: 143 H mg/dL Performed By: #### L 500.4050, L501.9520, L506.1001, L500.4100, L100.0100 ####[facility] [address] [place], [address] T PROT 7.2 g/dL Normal 5.9-8.4 [facility] Comment on above: Result Comment: AMENDED REPORT 03/25/251550 T PROT previously reported as: 7.0 g/dL Performed By: #### L 500.4050, L501.9520, L506.1001, L500.4100, L100.0100 ####[facility] [address] [place], [address] Urea nitrogen [Mass/Vol] 14 mg/dL Normal 4-19 [facility] Comment on above: Performed By: #### L 500.4050, L501.9520, L506.1001, L500.4100, L100.0100 ####[facility] [address] [place], [address] Lipid Profileon 03-25-2025 CHOL:HDL 2.73 Normal [facility] Comment on above: Performed By: #### L 500.4050, L501.9520, L506.1001, L500.4100, L100.0100 ####[facility] [address] [place], [address] Cholesterol [Mass/Vol] 113 mg/dL Normal <=200 [facility] Comment on above: Result Comment: Chol esterol level, Desirable <200 mg/dL Borderline high cholesterol 200-239 mg/dL High cholesterol >=240 mg/dL Recommendations of the NCEP Adult Treatment Panel for the following risk-cutoff thresholds for the [place] population. Performed By: #### L 500.4050, L501.9520, L506.1001, L500.4100, L100.0100 ####[facility] [address] [place], [address] Cholesterol in HDL [Mass/Vol] 41 mg/dL Normal [facility] Comment on above: Result Comment: Rosy onal Cholesterol Education Program (NCEP) guidelines: <40 mg/dL: Low HDL-cholesterol (major risk factor for CHD) >= 60 mg/dL: High HDL-cholesterol (negative risk factor for CHD) HDL-cholesterol is affected by a number of factors, e.g. smoking, exercise, hormones, sex and age. Performed By: #### L 500.4050, L501.9520, L506.1001, L500.4100, L100.0100 ####[facility] [address] [place], [address] Cholesterol in LDL [Mass/Vol] 43 mg/dL Normal [facility] Comment on above: Result Comment: Bord rmbjeg=280-071 mg/dL Higher Dcyp=721 mg/dL or greater Friedwald Equation for LDL-C Performed By: #### L 500.4050, L501.9520, L506.1001, L500.4100, L100.0100 ####[facility] [address] [place], [address] Cholesterol in VLDL [Mass/Vol] 28 mg/dL Normal 5-40 [facility] Comment on above: Performed By: #### L 500.4050, L501.9520, L506.1001, L500.4100, L100.0100 ####[facility] [address] [place], [address] Triglyceride [Mass/Vol] 141 mg/dL Normal [facility] Comment on above: Result Comment: The drugs N-Acetylcysteine and Metamizole may falsely depress this assay. Normal range: <150 mg/dL Borderline High: 150-199 mg/dL High: 200-499 mg/dL Very High: >500 mg/dL Performed By: #### L 500.4050, L501.9520, L506.1001, L500.4100, L100.0100 ####[facility] [address] [place], [address] Thyroid Stim Hormone (TSH)on 03-25-2025 TSH 5.490 uIU/mL High 0.300-4.200 [facility] Comment on above: Performed By: #### L 500.4050, L501.9520, L506.1001, L500.4100, L100.0100 ####[facility] [address] [place], [address] Vitamin D,25 Hydroxyon 03-25 Vitamin D 25-OH 27.3 ng/mL Low 30-100 [facility] Comment on above: Result Comment: Swapna min D Status Deficiency: <20 ng/mL (50nmol/L) Insufficiency: 20-30 ng/mL (50-75 nmol/L) Sufficiency: 30-100 ng/mL (75-250 nmol/L) Toxicity: >100 ng/mL (>250 nmol/L) Performed By: #### L 500.4050, L501.9520, L506.1001, L500.4100, L100.0100 ####[facility] [address] [place], [address] Emergency Department Summary on 03-24-2025 Emergency Department Summary [facility] Medical Records Department [address] [place] [address] Emergency Department Summary 03/24/25 MR#: [id number] Acct: [id number] Name: RL BROWN Rep #: [id number] : 1955 69 From: Filippo Bradshaw MD PCP: Dr. Kg Salinas MD Status:PRE ER Location: ED HPI History of Present Illness Chief Complaint: General Illness Detail of Chief Complaint: Patient reportedly jumped in a shelter. Now resolved. No complaints. Informant: patient and other (long-term personnel with him.) Onset/Context/Timing Onset: Today Context: Sudden Onset Timing: Intermittent Current Severity: Gone Maximum Severity: Mild Narrative Narrative: 69-year-old male who choked while eating some chicken noodle soup. Now he feels fine. Denies any trouble swallowing. Denies any trouble breathing. He is symptom-free pain-free. Prior similar symptoms: No Recent Illness/Hospitalizati on: No PFSH PFSH Medical History Left ankle sprain Right arm cellulitis Cancer Hypothyroidism Insomnia Bipolar disorder Essential hypertension Ventricular tachycardia Wears glasses Anxiety Non-smoker Shortness of breath on exertion Incontinence Limb weakness Difficulty balancing when standing Prostate enlargement Thyroid disease Strain of left ankle Home Medications ???Medication ???Instructions ???Recorded ???Last Taken ???Type risperidone 1 mg tablet 1 mg PO BREAKFAST 08/14/1607/09/2 1 History buspirone 10 mg tablet 20 mg PO TID 07/05/20 02/23/21 05: 20 History risperidone 2 mg tablet 2 mg PO QHS 02/22/21 02/23/21 05:2 0 History oxybutynin chloride 15 mg 15 mg PO DAILY #90 tabs 02/23/21 U nknown Rx tablet,extended release 24 hr mirtazapine 7.5 mg tablet 7.5 mg PO QHS 04/25/22 Unknown His tory cholecalciferol (vitamin D3) 25 25 mcg PO DAILY 01/01/24 Unknown H istory mcg (1,000 unit) tablet levothyroxine 100 mcg tablet 100 mcg PO DAILY 01/01/24 Unknown History Allergy/AdvReac Type Severity Reaction Status Date / Time doxycycline Allergy unknown Verified 03/24/25 17:47 Environmental Allergies: Allergy allergic Verified 03/24/25 17:47 Uncoded (seasonal) rhinitis Penicillins Allergy Unknown Verified 03/24/25 17:47 Surgical History Hx of transurethral resection of prostate Hx of colonoscopy Hx of cystoscopy Social History Smoking Status: Never smoker second hand exposure: No alcohol intake: never substance use type: does not use caffeine: Yes Type: carbonated beverages Number of servings: 1 ROS ROS ED ROS Narrative Denies recent illness. Constitutional Constitutional ED: Denies chills or fever(s) Eyes Eyes: Denies blurry vision ENT ENT ED: Denies ear pain Cardiovascular Cardiovascular: Denies chest pain Respiratory/Chest Respiratory/Chest: Denies cough or dyspnea Gastrointestinal Gastrointestinal: Denies abdominal pain Genitourinary Genitourinary ED: Denies dysuria or hematuria Musculoskeletal Musculoskeletal: Denies arthralgias or back pain Integumentary Denies abscess Neurologic Neurologic: Denies headache(s) Psychiatric Psychiatric: Denies anxiety or depression Endocrine Endocrinology: Denies cold intolerance Hematologic/Lymphatic Hematologic/Lymphatic : Reports none Allergic/Immunologic Allergic/Immunologic ED: Denies mouth swelling, tongue swelling or urticaria EXAM Physical Exam Narrative Exam Narrative: 69-year-old male no acute distress vital signs stable afebrile. Pulse ox 98% on room air. No hypoxia. No trouble breathing or swallowing. No choking. 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 Right eye pupil round react to light. Show motion intact. Mouth no joint swelling or breathing no stridor or drooling again last water drink without any difficulty. Neck nontender no lymphadenopathy. Lungs clear to auscultation bilaterally. Heart regular rhythm no murmur rate about 80. Chest wall ribs nontender. Abdomen soft nontender. Moving all 4 extremities. Normal senior vice president strength. Normal dorsi plantarflexion. He is awake and alert. Answering questions following commands. Very benign exam. Const Vital Signs: 03/24/25 17:45 Temperature 98 F Temperature Source Oral Pulse Rate 78 Respiratory Rate 16 Blood Pressure 182/100 H Blood Pressure Mean 127 Pulse Ox 98 Oxygen Delivery Method Room Air MDM MDM MDM Narrative Medical decision making narrative: 69-year-old male with choking episode at the shelter. Currently can swallow without any difficulty. His lungs are clear. There is noes signs of aspiration. He will be discharged home to follow-up as needed. Discharge Plan Triage (more content not included)... Normal [facility] Ankle min 3 Viewson 02-04-20 Ankle min 3 Views [facility] Imaging Services [address] [place] [address] Ankle min 3 Views MR#: [id number] Acct: [id number] Name: RL BROWN Rep #: [id number] : 1955 M 69 From: Emiliano Rebolledo MD PCP: Dr. Kg Salinas MD Status: REG CLI Study: Ankle min 3 Views Date of Exam: 02/03/25 Exam# [id number] Ordering Dr: Mo Villegas PROCEDURE: LEFT ANKLE MIN 3 VIEWS 02/03/2025 REASON FOR EXAM: PAIN TECHNIQUE: LEFT ANKLE MIN 3 VIEWS COMPARISON: 11/12/2020 FINDINGS: No acute fracture or dislocation. Alignment is anatomic. Preserved joint spaces. No aggressive osseous lesion. No marked soft tissue swelling or radiopaque foreign body. RAD/Ankle min 3 Views IMPRESSION: No acute or aggressive osseous abnormality. Reading Location: [id number] CC: Dr. Kg Salinas MD; FINN Garcia Eeler: Signed Normal [facility] Urgent Care Visit Reporton 0 02-03-2025 Urgent Care Visit Report [facility] [address], [address] [place] [address] OFFICE VISIT Date of Service: 02/03/25 MR#: [id number] Acct: [id number] Name: RL BROWN Rep #: [id number] : 1955 Provider: FINN Garcia Age/Sex: 69/M Location: [email or web address] Status: Signed Intake Vital Signs 09/08/24 08:13 02/03/25 17:06 Height 5 ft 4 in 5 ft 4 in Weight: 180 lb 178 lb 4 oz BMI 30.9 30.6 BP 118/74 128/62 H Blood Pressure Location Lt brachial Rt brachial Position Sitting Sitting Respiration 18 Pulse 85 93 Pulse Source Monitor Monitor Temp 98.5 F 98.0 F Temp Source Oral Oral Pulse Oximetry (%) 95 96 Oxygen Delivery Method room air room air Intake Visit Reasons: L ANKLE INJURY/ [employer] Chief Complaint: L Ankle Injury Accompanied by: Caregiver Allergies doxycycline Allergy (Verified 02/03/25 16:51) unknown Environmental Allergies: Uncoded (seasonal) Allergy (Verified 02/03/25 16:51) allergic rhinitis Penicillins Allergy (Verified 02/03/25 16:51) Unknown Medications ???Medication ???Instructions ???Recorded ???Confirmed ???Type risperidone 1 mg tablet 1 mg PO BREAKFAST 08/14/16 5 History buspirone 10 mg tablet 20 mg PO TID 07/05/20 02/03/25 His tory risperidone 2 mg tablet 2 mg PO QHS 02/22/21 02/03/25 Hist ory oxybutynin chloride 15 mg 15 mg PO DAILY #90 tabs 02/23/21 0 02/03/25 Rx tablet,extended release 24 hr mirtazapine 7.5 mg tablet 7.5 mg PO QHS 04/25/22 02/03/25 Hi story cholecalciferol (vitamin D3) 25 25 mcg PO DAILY 01/01/24 02/03/25 History mcg (1,000 unit) tablet levothyroxine 100 mcg tablet 100 mcg PO DAILY 01/01/24 02/03/25 History Have you fallen in the past year?: Yes Nurse's Note: Tripped over log at work yesterday. Left ankle pain down to left foot. [facility] Medical History (Updated 02/03/25 @ 17:26 by Mo BRISENO, FINN) Left ankle sprain Right arm cellulitis Cancer Hypothyroidism Insomnia Bipolar disorder Essential hypertension Ventricular tachycardia Wears glasses Anxiety Non-smoker Shortness of breath on exertion Incontinence Limb weakness Difficulty balancing when standing Prostate enlargement Thyroid disease Strain of left ankle Surgical History Hx of transurethral resection of prostate Hx of colonoscopy Hx of cystoscopy Social History Smoking Status: Never smoker second hand exposure: No alcohol intake: never substance use type: does not use caffeine: Yes Type: carbonated beverages Number of servings: 1 HPI HPI Chief Complaint: L Ankle Injury Details: RL BROWN, is a 69 M who presents to the office today for initial evaluation of left medial ankle pain and swelling after trip/fall over a log at work yesterday. Localized pain to the same is aggravated/with prolonged standing, alleviated with sit/rest. No [id number] medications taken to assist. No left knee complaints or complaints upon questioning. No other associated symptoms and no other alleviating/aggravati ng factors. Above history verified by patient's window and door installer who accompanying him today. ROS Const Constitutional: No other (As above) Exam Const General: cooperative, healthy appearing and no acute distress Orientation: alert and awake Resp Effort Inspection: normal respiratory effort and able to speak in complete sentences Cardio Rate: regular rate Pulses: radial pulses present Skin General: no rashes or lesions noted Neuro General: patient alert and patient awake Cognition: normal cognition Speech: speech normal Extrem General: full ROM, capillary refill normal and normal exam except as noted (L medial ankle swelling/palpable tender; neg. drawer and unguarded ambulate) Psych Appearance: grossly normal Mood: congruent mood Attitude: cooperative Coding Level of Care Code Off vis,est,level 4 Diagnoses Left ankle sprain S93.402A Assessment and Plan Assessment and Plan (1) Left ankle sprain: Status: Acute Plan: Three-view left ankle radiographs reveal no acute osseous pathology or dislocation and trace medial soft tissue swelling, with radiologist interpretation pending at the time patient discharge. Return to work with restrictions as noted on today's [employer] (and no restrictions effective 02/10/2025). Rest, ice, elevate, home exercises, and acetaminophen as needed for symptomatic relief [facility]-up with [facility] on an as-needed basis only. Patient's caregiver states acknowledging understanding all the above. This note was generated with [employer] dictation software. It may contain incorrect words, spelling, and punctuation that were not noted in checking the note bef (more content not included)... Normal [facility] Absolute neutrophil countOrd ered By: Kg Salinas on 09-11-2024 Neutrophils (Bld) [#/Vol] 3.4 10*3/uL 2.0-7.7 [facility] Anion gap in Serum or Plasma Ordered By: Kg Salinas on 09-11-2024 Anion gap [Moles/Vol] 14 mmol/L 5-15 [facility] BUN/creatinine ratioOrdered By: Kg Salinas on 09-11-2024 Urea nitrogen/Creatinine [Mass ratio] 12.1 mg/mg 10-20 [facility] Basophil percentageOrdered B y: Kg Salinas on 09-11-2024 Basophils/100 WBC (Bld) 0.7 % 0-1 [facility] Bilirubin, totalOrdered By: Kg Salinas on 09-11-2024 Bilirubin [Mass/Vol] 0.37 mg/dL 0.00-1.30 [facility] CBC W/Diff, Automatedon 08-17 Absolute Lymph 1.37 X10 3/uL Normal 0.83-4.51 [facility] Comment on above: Performed By: #### L 100.0100, L501.9520, L506.1001, L500.4050, L500.4100 #### [facility] [address] [place], [address] Absolute Neut 3.4 X10 3/uL Normal 2.0-7.7 [facility] Comment on above: Performed By: #### L 100.0100, L501.9520, L506.1001, L500.4050, L500.4100 #### [facility] [address] [place], [address] Basophils/100 WBC (Bld) 0.7 % Normal 0-1 [facility] Comment on above: Performed By: #### L 100.0100, L501.9520, L506.1001, L500.4050, L500.4100 #### [facility] [address] [place], [address] Eosinophils/100 WBC (Bld) 3.4 % Normal 0-5 [facility] Comment on above: Performed By: #### L 100.0100, L501.9520, L506.1001, L500.4050, L500.4100 #### [facility] [address] [place], [address] Erythrocyte distribution width (RBC) [Ratio] 13.7 % Normal 11.6-14.6 [facility] Comment on above: Performed By: #### L 100.0100, L501.9520, L506.1001, L500.4050, L500.4100 #### [facility] [address] [place], [address] Hematocrit (Bld) [Volume fraction] 43.1 % Normal 40-54 [facility] Comment on above: Performed By: #### L 100.0100, L501.9520, L506.1001, L500.4050, L500.4100 #### [facility] [address] [place], [address] Hemoglobin (Bld) [Mass/Vol] 14.6 g/dL Normal 13.0-16.5 [facility] Comment on above: Performed By: #### L 100.0100, L501.9520, L506.1001, L500.4050, L500.4100 #### [facility] [address] [place], [address] IG% 0.700 Normal 0.0-0.9 [facility] Comment on above: Result Comment: IG% - Immature Granulocytes (promyelocytes, myelocytes and metamyelocytes) > 1% indicates that a LEFT SHIFT is Present. Performed By: #### L 100.0100, L501.9520, L506.1001, L500.4050, L500.4100 #### [facility] [address] [place], [address] Lymphocytes/100 WBC (Bld) 24.5 % Normal 19-41 [facility] Comment on above: Performed By: #### L 100.0100, L501.9520, L506.1001, L500.4050, L500.4100 #### [facility] [address] [place], [address] MCH (RBC) [Entitic mass] 28.8 pg Normal 27.0-32.0 [facility] Comment on above: Performed By: #### L 100.0100, L501.9520, L506.1001, L500.4050, L500.4100 #### [facility] [address] [place], [address] MCHC (RBC) [Mass/Vol] 33.9 g/dL Normal 32-36 [facility] Comment on above: Performed By: #### L 100.0100, L501.9520, L506.1001, L500.4050, L500.4100 #### [facility] [address] [place], [address] MCV (RBC) [Entitic vol] 85.0 fL Normal 80-94 [facility] Comment on above: Performed By: #### L 100.0100, L501.9520, L506.1001, L500.4050, L500.4100 #### [facility] [address] [place], [address] Monocytes/100 WBC (Bld) 10.9 % High 0-10 [facility] Comment on above: Performed By: #### L 100.0100, L501.9520, L506.1001, L500.4050, L500.4100 #### [facility] [address] [place], [address] Neutrophils/100 WBC (Bld) 59.8 % Normal 47-70 [facility] Comment on above: Performed By: #### L 100.0100, L501.9520, L506.1001, L500.4050, L500.4100 #### [facility] [address] [place], [address] Nucleated RBC (Bld) [#/Vol] 0 10*3/uL Normal 0-5 [facility] Comment on above: Performed By: #### L 100.0100, L501.9520, L506.1001, L500.4050, L500.4100 #### [facility] [address] [place], [address] Platelet mean volume (Bld) [Entitic vol] 9.5 fL Normal 6.2-12.0 [facility] Comment on above: Performed By: #### L 100.0100, L501.9520, L506.1001, L500.4050, L500.4100 #### [facility] [address] [place], [address] Platelets (Bld) [#/Vol] 234 10*3/uL Normal 150-450 [facility] Comment on above: Performed By: #### L 100.0100, L501.9520, L506.1001, L500.4050, L500.4100 #### [facility] [address] [place], [address] RBC (Bld) [#/Vol] 5.07 10*6/uL Normal 4.6-6.2 [facility] Comment on above: Performed By: #### L 100.0100, L501.9520, L506.1001, L500.4050, L500.4100 #### [facility] [address] [place], [address] RDW SD 42.3 fl Normal 35.1-43.9 [facility] Comment on above: Performed By: #### L 100.0100, L501.9520, L506.1001, L500.4050, L500.4100 #### [facility] [address] [place], [address] WBC (Bld) [#/Vol] 5.6 10*3/uL Normal 4.4-11.0 [facility] Comment on above: Performed By: #### L 100.0100, L501.9520, L506.1001, L500.4050, L500.4100 #### [facility] [address] [place], [address] Calculated very low density lipoprotein (VLDL) cholesterol measurementOrdered By: Kg Salinas on 09-11-2024 VLDL Cholesterol 24 mg/dL 5-40 [facility] Carbon dioxide, total [Moles /volume] in Central venous bloodOrdered By: Kg Slainas on 09-11-2024 CO2 [Moles/Vol] 19.6 mmol/L Low 21.0-32.0 [facility] Chloride assayOrdered By: Ace Salinas on 09-11-2024 Chloride [Moles/Vol] 104 mmol/L 98-108 [facility] Comprehensive Metabolic Prof ilon 09-11-2024 Albumin [Mass/Vol] 3.3 g/dL Low 3.4-4.8 [facility] Comment on above: Performed By: #### L 100.0100, L501.9520, L506.1001, L500.4050, L500.4100 #### [facility] [address] [place], [address] Albumin/Globulin [Mass ratio] 1.3 {ratio} Normal 0.9-2.4 [facility] Comment on above: Performed By: #### L 100.0100, L501.9520, L506.1001, L500.4050, L500.4100 #### [facility] [address] [place], [address] ALK PHOS 87 U/L Normal 40-129 [facility] Comment on above: Performed By: #### L 100.0100, L501.9520, L506.1001, L500.4050, L500.4100 #### [facility] [address] [place], [address] ALT [Catalytic activity/Vol] 26 U/L Normal <=46 [facility] Comment on above: Performed By: #### L 100.0100, L501.9520, L506.1001, L500.4050, L500.4100 #### [facility] [address] [place], [address] AST [Catalytic activity/Vol] 17 U/L Normal <=37 [facility] Comment on above: Performed By: #### L 100.0100, L501.9520, L506.1001, L500.4050, L500.4100 #### [facility] [address] [place], [address] Bilirubin [Mass/Vol] 0.37 mg/dL Normal 0.00-1.30 [facility] Comment on above: Performed By: #### L 100.0100, L501.9520, L506.1001, L500.4050, L500.4100 #### [facility] [address] [place], [address] BUN/CRE 12.1 RATIO Normal 10-20 [facility] Comment on above: Performed By: #### L 100.0100, L501.9520, L506.1001, L500.4050, L500.4100 #### [facility] [address] [place], [address] Calcium [Mass/Vol] 8.4 mg/dL Normal 7.6-11.0 [facility] Comment on above: Performed By: #### L 100.0100, L501.9520, L506.1001, L500.4050, L500.4100 #### [facility] [address] [place], [address] Chloride [Moles/Vol] 104 mmol/L Normal 98-108 [facility] Comment on above: Performed By: #### L 100.0100, L501.9520, L506.1001, L500.4050, L500.4100 #### [facility] [address] [place], [address] CO2 [Moles/Vol] 19.6 mmol/L Low 21.0-32.0 [facility] Comment on above: Performed By: #### L 100.0100, L501.9520, L506.1001, L500.4050, L500.4100 #### [facility] [address] [place], [address] Creatinine [Mass/Vol] 1.00 mg/dL Normal 0.70-1.20 [facility] Comment on above: Performed By: #### L 100.0100, L501.9520, L506.1001, L500.4050, L500.4100 #### [facility] [address] [place], [address] GAP 14 Normal 5-15 [facility] Comment on above: Performed By: #### L 100.0100, L501.9520, L506.1001, L500.4050, L500.4100 #### [facility] [address] [place], [address] GFR/1.73 sq M.predicted among non-blacks MDRD (S/P/Bld) [Vol rate/Area] 80 mL/min/{1.73_m2} Normal >60 [facility] Comment on above: Result Comment: mL/m in/1.73m2 CKD-EPI Creatinine Equation (2020) Performed By: #### L 100.0100, L501.9520, L506.1001, L500.4050, L500.4100 #### [facility] [address] [place], [address] Globulin (S) [Mass/Vol] 2.6 g/dL Normal 2.2-4.2 [facility] Comment on above: Performed By: #### L 100.0100, L501.9520, L506.1001, L500.4050, L500.4100 #### [facility] [address] [place], [address] Glucose [Mass/Vol] 78 mg/dL Normal 70-99 [facility] Comment on above: Performed By: #### L 100.0100, L501.9520, L506.1001, L500.4050, L500.4100 #### [facility] [address] [place], [address] Potassium [Moles/Vol] 4.0 mmol/L Normal 3.3-5.1 [facility] Comment on above: Performed By: #### L 100.0100, L501.9520, L506.1001, L500.4050, L500.4100 #### [facility] [address] [place], [address] Sodium [Moles/Vol] 138 mmol/L Normal 133-145 [facility] Comment on above: Performed By: #### L 100.0100, L501.9520, L506.1001, L500.4050, L500.4100 #### [facility] [address] [place], [address] T PROT 5.9 g/dL Normal 5.9-8.4 [facility] Comment on above: Performed By: #### L 100.0100, L501.9520, L506.1001, L500.4050, L500.4100 #### [facility] [address] [place], [address] Urea nitrogen [Mass/Vol] 12 mg/dL Normal 4-19 [facility] Comment on above: Performed By: #### L 100.0100, L501.9520, L506.1001, L500.4050, L500.4100 #### [facility] [address] [place], [address] Eosinophil percentageOrdered By: Kg Salinas on 09-11-2024 Eosinophils/100 WBC (Bld) 3.4 % 0-5 [facility] Erythrocyte distribution wid th ratioOrdered By: Kg Salinas on 09-11-2024 Erythrocyte distribution width (RBC) [Ratio] 13.7 % 11.6-14.6 [facility] Erythrocyte distribution wid th standard deviationOrdered By: Kg Salinas on 09-11-2024 Erythrocyte distribution width (RBC) [Entitic vol] 42.3 fL 35.1-43.9 [facility] GFR/1.73 sq M.predicted elayne g non-blacks MDRD (S/P/Bld) [Vol rate/Area]Ordered By: Kg Salinas on 09-11-2024 Estimated GFR (MDRD) Non-Af Amer 80 >60 [facility] Comment on above: mL/min/1.73m2 CKD-EP I Creatinine Equation (2020) Hematocrit Auto (Bld) [Volum e fraction]Ordered By: Kg Salinas 09-11-2024 Hematocrit (Bld) [Volume fraction] 43.1 % 40-54 [facility] Hemoglobin measurementOrdere d By: Kg Salinas 09-11-2024 Hemoglobin (Bld) [Mass/Vol] 14.6 g/dL 13.0-16.5 [facility] Immature granulocytes/100 WB C Auto (Bld)Ordered By: Kg Salinas 09-11-2024 Immature granulocytes/100 WBC (Bld) 0.700 % 0.0-0.9 [facility] Comment on above: IG% - Immature Granu locytes (promyelocytes, myelocytes and metamyelocytes) > 1% indicates that a LEFT SHIFT is Present. L506.1001on 09-11-2024 Vitamin D 25-OH 21.9 ng/mL Low 30-100 [facility] Comment on above: Result Comment: Swapna min D Status Deficiency: <20 ng/mL (50nmol/L) Insufficiency: 20-30 ng/mL (50-75 nmol/L) Sufficiency: 30-100 ng/mL (75-250 nmol/L) Toxicity: >100 ng/mL (>250 nmol/L) Performed By: #### L 100.0100, L501.9520, L506.1001, L500.4050, L500.4100 #### [facility] [address] [place], [address] LDL calc ser/plasOrdered By: Kg Salinas on 09-11-2024 LDL Cholesterol, Calculated 77 mg/dL [facility] Comment on above: Ecuwyqrise=908-101 m g/dL & Higher Hgsa=621 mg/dL or greater Laboratory - Chemistry and C hemistry - challengeOrdered By: Kg Salinas on 09-11-2024 AST [Catalytic activity/Vol] 17 U/L <38 [facility] Lipid Profileon 09-11-2024 CHOL:HDL 4.48 Normal [facility] Comment on above: Performed By: #### L 100.0100, L501.9520, L506.1001, L500.4050, L500.4100 #### [facility] [address] [place], [address] Cholesterol [Mass/Vol] 130 mg/dL Normal <=200 [facility] Comment on above: Result Comment: Chol esterol level, Desirable <200 mg/dL Borderline high cholesterol 200-239 mg/dL High cholesterol >=240 mg/dL Recommendations of the NCEP Adult Treatment Panel for the following risk-cutoff thresholds for the [place] population. Performed By: #### L 100.0100, L501.9520, L506.1001, L500.4050, L500.4100 #### [facility] [address] [place], [address] Cholesterol in HDL [Mass/Vol] 29 mg/dL Low [facility] Comment on above: Result Comment: Rosy onal Cholesterol Education Program (NCEP) guidelines: <40 mg/dL: Low HDL-cholesterol (major risk factor for CHD) >= 60 mg/dL: High HDL-cholesterol (negative risk factor for CHD) HDL-cholesterol is affected by a number of factors, e.g. smoking, exercise, hormones, sex and age. Performed By: #### L 100.0100, L501.9520, L506.1001, L500.4050, L500.4100 #### [facility] [address] [place], [address] Cholesterol in LDL [Mass/Vol] 77 mg/dL Normal [facility] Comment on above: Result Comment: Bord uidkda=156-648 mg/dL Higher Jnob=374 mg/dL or greater Performed By: #### L 100.0100, L501.9520, L506.1001, L500.4050, L500.4100 #### [facility] [address] [place], [address] Cholesterol in VLDL [Mass/Vol] 24 mg/dL Normal 5-40 [facility] Comment on above: Performed By: #### L 100.0100, L501.9520, L506.1001, L500.4050, L500.4100 #### [facility] [address] [place], [address] Triglyceride [Mass/Vol] 120 mg/dL Normal [facility] Comment on above: Result Comment: The drugs N-Acetylcysteine and Metamizole may falsely depress this assay. Normal range: <150 mg/dL Borderline High: 150-199 mg/dL High: 200-499 mg/dL Very High: >500 mg/dL Performed By: #### L 100.0100, L501.9520, L506.1001, L500.4050, L500.4100 #### [facility] [address] [place], [address] Lymphocytes Auto (Unsp spec) [#/Vol]Ordered By: Kg Salinas on 09-11-2024 Lymphocytes (Bld) [#/Vol] 1.37 10*3/uL 0.83-4.51 [facility] Lymphocytes/100 WBC Auto (Un sp spec)Ordered By: Kg Salinas on 09-11-2024 Lymphocytes/100 WBC (Bld) 24.5 % 19-41 [facility] MCV (mean corpuscular volume ) determinationOrdered By: Kg Salinas on 09-11-2024 MCV (RBC) [Entitic vol] 85.0 fL 80-94 [facility] Mean corpuscular hemoglobin (MCH) determinationOrdered By: Kg Salinas on 09-11-2024 MCH (RBC) [Entitic mass] 28.8 pg 27.0-32.0 [facility] Mean corpuscular hemoglobin concentration (MCHC) determinationOrdered By: Kg Salinsa on 09-11-2024 MCHC (RBC) [Mass/Vol] 33.9 g/dL 32-36 [facility] Mean platelet volume determi nationOrdered By: Kg Salinas on 09-11-2024 Platelet mean volume (Bld) [Entitic vol] 9.5 fL 6.2-12.0 [facility] Monocyte percentageOrdered B y: Kg Salinas on 09-11-2024 Monocytes/100 WBC (Bld) 10.9 % High 0-10 [facility] Neutrophil percentageOrdered By: Kg Salinas on 09-11-2024 Neutrophils/100 WBC (Bld) 59.8 % 47-70 [facility] Nucleated red blood cell per centageOrdered By: Kg Salinas on 09-11-2024 Nucleated RBC/100 WBC (Bld) [Ratio] 0 % 0-5 [facility] Platelet countOrdered By: Ace Salinas on 09-11-2024 Platelets (Bld) [#/Vol] 234 10*3/uL 150-450 [facility] Potassium (Unsp spec) [Mass/ Vol]Ordered By: Kg Salinas on 09-11-2024 Potassium [Moles/Vol] 4.0 mmol/L 3.3-5.1 [facility] RBC Auto (Bld) [#/Vol]Ordere d By: Kg Salinas on 09-11-2024 RBC (Bld) [#/Vol] 5.07 10*6/uL 4.6-6.2 [facility] Screening total cholesterol/ high density lipoprotein (HDL) cholesterol ratioOrdered By: Kg Salinas on 09-11-2024 Cholesterol.total/Choles terol in HDL [Mass ratio] 4.48 {ratio} [facility] Serum creatinine measurement (mass/volume)Ordered By: Kg Salinas on 09-11-2024 Creatinine [Mass/Vol] 1.00 mg/dL 0.70-1.20 [facility] Serum globulin measurementOr dered By: Kg Salinas 09-11-2024 Globulin (S) [Mass/Vol] 2.6 g/dL 2.2-4.2 [facility] Serum glucose measurement (m ass/volume)Ordered By: Kg Salinas 09-11-2024 Glucose [Mass/Vol] 78 mg/dL 70-99 [facility] Serum or plasma alanine lopez otransferase (ALT) measurementOrdered By: Kg Salinas 09-11-2024 ALT [Catalytic activity/Vol] 26 U/L <47 [facility] Serum or plasma albumin miguel urement (mass/volume)Ordered By: Kg Salinas 09-11-2024 Albumin [Mass/Vol] 3.3 g/dL Low 3.4-4.8 [facility] Serum or plasma albumin/glob ulin mass ratioOrdered By: Kg Salinas 09-11-2024 Albumin/Globulin [Mass ratio] 1.3 {ratio} 0.9-2.4 [facility] Serum or plasma alkaline yolie sphatase measurementOrdered By: Kg Salinas 09-11-2024 ALP [Catalytic activity/Vol] 87 U/L 40-129 [facility] Serum or plasma calcium miguel urement (mass/volume)Ordered By: Kg Salinas 09-11-2024 Calcium [Mass/Vol] 8.4 mg/dL 7.6-11.0 [facility] Serum or plasma cholesterol in HDL measurement (mass/volume)Ordered By: Kg Salinas 09-11-2024 Cholesterol in HDL [Mass/Vol] 29 mg/dL Low >40 [facility] Comment on above: National Cholesterol Education Program (NCEP) guidelines:<40 mg/dL: Low HDL-cholesterol (major risk factor for CHD)>= 60 mg/dL: High HDL-cholesterol (negative risk factor for CHD)HDL-cholesterol is affected by a number of factors, e.g. smoking, exercise, hormones, sex and age. Serum or plasma cholesterol measurement (mass/volume)Ordered By: Kg Salinas on 09-11-2024 Cholesterol [Mass/Vol] 130 mg/dL <201 [facility] Comment on above: Cholesterol level, D esirable <200 mg/dLBorderline high cholesterol 200-239 mg/dLHigh cholesterol >=240 mg/dLRecommendations of the NCEP Adult Treatment Panel for the following risk-cutoff thresholds for the [place] population. Serum or plasma urea nitroge n measurement (mass/volume)Ordered By: Kg Salinas on 09-11-2024 Urea nitrogen [Mass/Vol] 12 mg/dL 4-19 [facility] Sodium levelOrdered By: Kg Salinas 09-11-2024 Sodium [Moles/Vol] 138 mmol/L 133-145 [facility] TSH DL <= 0.005 mIU/L QnOrde red By: Kg Salinas on 09-11-2024 Thyroid Stimulating Hormone (TSH) 3.340 uIU/mL 0.300-4.200 [facility] Thyroid Stim Hormone (TSH)on 09-11-2024 TSH 3.340 uIU/mL Normal 0.300-4.200 [facility] Comment on above: Performed By: #### L 100.0100, L501.9520, L506.1001, L500.4050, L500.4100 #### [facility] [address] [place] [address], [address] Total proteinOrdered By: Kg Salinas on 09-11-2024 Protein [Mass/Vol] 5.9 g/dL 5.9-8.4 [facility] Triglycerides measurementOrd ered By: Kg Salinas 09-11-2024 Triglyceride [Mass/Vol] 120 mg/dL <199 [facility] Comment on above: The drugs N-Acetylcy steine and Metamizole may falsely depress this assay. Normal range: <150 mg/dLBorderline High: 150-199 mg/dLHigh: 200-499 mg/dLVery High: >500 mg/dL Vitamin D, 25-hydroxyOrdered By: Kg Salinas on 09-11-2024 Vitamin D 25-Hydroxy 21.9 ng/mL Low 30-100 [facility] Comment on above: Vitamin D StatusDefi ciency: <20 ng/mL (50nmol/L)Insufficiency: 20-30 ng/mL (50-75 nmol/L)Sufficiency: 30-100 ng/mL (75-250 nmol/L)Toxicity: >100 ng/mL (>250 nmol/L) White blood cell (WBC) count Ordered By: Kg Salinas on 09-11-2024 WBC (Bld) [#/Vol] 5.6 10*3/uL 4.4-11.0 [facility] No Panel Informationon 09-10 Actual Fractions Delivered 12 [facility] Actual Session Delivered Dose 250 cGray [facility] Actual Total Dose 3000 cGray [facility] Course Number 1 [facility] Elapsed Days 15 [facility] Last Date 09/10/2024 [facility] Prescribed Fractional Dose 250 cGray [facility] Prescribed Number of Fractions 12 [facility] Prescribed Technique [facility] Prescribed Total Dose 3000 cGray [facility] Prescription Pattern Comment 1cm bolus, clinical set up [facility] Start Date 08/26/2024 [facility] Treatment Site [facility] No Panel Informationon 09-09 Actual Fractions Delivered 11 [facility] Actual Session Delivered Dose 250 cGray [facility] Actual Total Dose 2750 cGray [facility] Course Number 1 [facility] Elapsed Days 14 [facility] Last Date 09/09/2024 [facility] Prescribed Fractional Dose 250 cGray [facility] Prescribed Number of Fractions 12 [facility] Prescribed Technique [facility] Prescribed Total Dose 3000 cGray [facility] Prescription Pattern Comment 1cm bolus, clinical set up [facility] Start Date 08/26/2024 [facility] Treatment Site [facility] No Panel Informationon 09-08 Actual Fractions Delivered 10 [facility] Actual Session Delivered Dose 250 cGray [facility] Actual Total Dose 2500 cGray [facility] Course Number 1 [facility] Elapsed Days 13 [facility] Last Date 09/08/2024 [facility] Prescribed Fractional Dose 250 cGray [facility] Prescribed Number of Fractions 12 [facility] Prescribed Technique [facility] Prescribed Total Dose 3000 cGray [facility] Prescription Pattern Comment 1cm bolus, clinical set up [facility] Start Date 08/26/2024 [facility] Treatment [facility] Urgent Care Visit Reporton 0 09-08-2024 Urgent Care Visit Report [facility] [address], [address] [place] [address] OFFICE VISIT Date of Service: 09/08/24 MR#: [id number] Acct: [id number] Name: RL BROWN Rep #: [id number] : 1955 Provider: FINN Garcia Age/Sex: 69/M Location: [facility] Status: Signed Intake Vital Signs 01/01/24 08:01 09/08/24 07:54 09/08/24 08:13 Height 5 ft 4 in 5 ft 4 in 5 ft 4 in Weight: 180 lb BMI 30.9 BP 118/74 Blood Pressure Location Lt brachial Position Sitting Respiration 18 Pulse 85 Pulse Source Monitor Temp 98.5 F Temp Source Oral Pulse Oximetry (%) 95 Oxygen Delivery Method room air Intake Visit Reasons: SWOLLEN R ELBOW Sourcing Assistant Required: No Accompanied by: Caregiver Is patient in pain?: Yes Pain scale (1-10): 4 Allergies doxycycline Allergy (Verified 01/01/24 08:06) unknown Environmental Allergies: Uncoded (seasonal) Allergy (Verified 09/08/24 08:12) allergic rhinitis Penicillins Allergy (Verified 01/01/24 08:06) Unknown Medications ???Medication ???Instructions ???Recorded ???Confirmed ???Type risperidone 1 mg tablet 1 mg PO BREAKFAST 08/14/16 5 History buspirone 10 mg tablet 20 mg PO TID 07/05/20 09/08/24 His tory risperidone 2 mg tablet 2 mg PO QHS 02/22/21 09/08/24 Hist ory oxybutynin chloride 15 mg 15 mg PO DAILY #90 tabs 02/23/21 0 09/08/24 Rx tablet,extended release 24 hr mirtazapine 7.5 mg tablet 7.5 mg PO QHS 04/25/22 09/08/24 Hi story cholecalciferol (vitamin D3) 25 25 mcg PO DAILY 01/01/24 09/08/24 History mcg (1,000 unit) tablet levothyroxine 100 mcg tablet 100 mcg PO DAILY 01/01/24 09/08/24 History clindamycin HCl 150 mg capsule 450 mg (3 x 150 mg) PO TID #90 cap s 09/08/24 09/08/24 Rx Have you fallen in the past year?: No PFS Medical History (Updated 09/08/24 @ 09:10 by Mo Villegas PA, PA) Right arm cellulitis Cancer Hypothyroidism Insomnia Bipolar disorder Essential hypertension Ventricular tachycardia Wears glasses Anxiety Non-smoker Shortness of breath on exertion Incontinence Limb weakness Difficulty balancing when standing Prostate enlargement Thyroid disease Strain of left ankle Surgical History Hx of transurethral resection of prostate Hx of colonoscopy Hx of cystoscopy Social History Smoking Status: Never smoker second hand exposure: No alcohol intake: never substance use type: does not use caffeine: Yes Type: carbonated beverages Number of servings: 1 HPI HPI Details: RL BROWN, is a 69 M who presents to the office today for right upper extremity erythema, warmth, swelling, tenderness of unknown etiology. Caregiver notes patient was complaining of the same yesterday where she appreciated the above described symptoms and wanted him further evaluated here. No history of open wounds/trauma to the same. No complaints of fever, chills, sweats, lightheadedness/dizzi ness, nausea/vomiting. No oyeg-yeo-psyrskt products taken to assist. No other associated symptoms and no other alleviating/aggravati ng factors. He is currently being treated by oncology at [facility] for left upper extremity cancer (nonspecific otherwise) with follow-up appointment with oncology later today. ROS Const Constitutional: No other (As above) Exam Const General: cooperative, healthy appearing and no acute distress Orientation: alert and awake HENMT Head: normal to inspection Ears: hearing grossly normal bilaterally, external ears normal, TM's normal bilaterally and EAC's normal Nose: external nose normal, nares normal, septum normal and no nasal discharge Eyes General: appearance normal, both eyes and all related structures Neck Neck: normal visual inspection, no meningeal signs and supple Chest Chest palpation inspection: normal inspection of the chest Resp Effort Inspection: normal respiratory effort and able to speak in complete sentences Cardio Rate: regular rate Pulses: radial pulses present Skin General: no rashes or lesions noted Other: Erythema and swelling to left extensor surface elbow and distal two thirds of forearm with localized warmth and tenderness to palpation of the same Neuro General: patient alert, patient awake and patient oriented x3 Cognition: normal cognition Speech: speech normal Extrem General: normal to inspection Psych Appearance: grossly normal Mood: congruent mood Attitude: cooperative Coding Level of Care Code Off vis,new,level 3 Diagnoses Right arm cellulitis L03.113 Assessment and Plan Assessment and Plan (1) Right arm cellulitis: Status: Acute Plan: Clindamycin as prescribed today. Supportive measures (more content not included)... Normal [facility] No Panel Informationon 09-05 Actual Fractions Delivered 7 [facility] Actual Session Delivered Dose 250 cGray [facility] Actual Total Dose 1750 cGray [facility] Course Number 1 [facility] Elapsed Days 10 [facility] Last Date 09/05/2024 [facility] Prescribed Fractional Dose 250 cGray [facility] Prescribed Number of Fractions 12 [facility] Prescribed Technique [facility] Prescribed Total Dose 3000 cGray [facility] Prescription Pattern Comment 1cm Bolus, Clinical Setup [facility] Start Date 08/26/2024 [facility] Treatment Site [facility] No Panel Informationon 09-04 Actual Fractions Delivered 6 [facility] Actual Session Delivered Dose 250 cGray [facility] Actual Total Dose 1500 cGray [facility] Course Number 1 [facility] Elapsed Days 9 [facility] Last Date 09/04/2024 [facility] Prescribed Fractional Dose 250 cGray [facility] Prescribed Number of Fractions 12 [facility] Prescribed Technique [facility] Prescribed Total Dose 3000 cGray [facility] Prescription Pattern Comment 1cm Bolus, Clinical Setup [facility] Start Date 08/26/2024 [facility] Treatment [facility] No Panel Informationon 09-03 Actual Fractions Delivered 5 [facility] Actual Session Delivered Dose 250 cGray [facility] Actual Total Dose 1250 cGray [facility] Course Number 1 [facility] Elapsed Days 8 [facility] Last Date 09/03/2024 [facility] Prescribed Fractional Dose 250 cGray [facility] Prescribed Number of Fractions 12 [facility] Prescribed Technique [facility] Prescribed Total Dose 3000 cGray [facility] Prescription Pattern Comment 1cm Bolus, Clinical Setup [facility] Start Date 08/26/2024 [facility] Treatment [facility] No Panel Informationon 09-02 Actual Fractions Delivered 4 [facility] Actual Session Delivered Dose 250 cGray [facility] Actual Total Dose 1000 cGray [facility] Course Number 1 [facility] Elapsed Days 7 [facility] Last Date 09/02/2024 [facility] Prescribed Fractional Dose 250 cGray [facility] Prescribed Number of Fractions 12 [facility] Prescribed Technique [facility] Prescribed Total Dose 3000 cGray [facility] Prescription Pattern Comment 1cm Bolus, Clinical Setup [facility] Start Date 08/26/2024 [facility] Treatment [facility] No Panel Informationon 09-01 Actual Fractions Delivered 5 [facility] Actual Session Delivered Dose 250 cGray [facility] Actual Total Dose 1250 cGray [facility] Course Number 1 [facility] Elapsed Days 6 [facility] Last Date 09/01/2024 [facility] Prescribed Fractional Dose 250 cGray [facility] Prescribed Number of Fractions 12 [facility] Prescribed Technique [facility] Prescribed Total Dose 3000 cGray [facility] Prescription Pattern Comment 1cm bolus, clinical set up [facility] Start Date 08/26/2024 [facility] Treatment Site [facility] No Panel Informationon 08-29 Actual Fractions Delivered 4 [facility] Actual Session Delivered Dose 250 cGray [facility] Actual Total Dose 1000 cGray [facility] Course Number 1 [facility] Elapsed Days 3 [facility] Last Date 08/29/2024 [facility] Prescribed Fractional Dose 250 cGray [facility] Prescribed Number of Fractions 12 [facility] Prescribed Technique [facility] Prescribed Total Dose 3000 cGray [facility] Prescription Pattern Comment 1cm bolus, clinical set up [facility] Start Date 08/26/2024 [facility] Treatment Site [facility] No Panel Informationon 08-28 Actual Fractions Delivered 3 [facility] Actual Session Delivered Dose 250 cGray [facility] Actual Total Dose 750 cGray [facility] Course Number 1 [facility] Elapsed Days 2 [facility] Last Date 08/28/2024 [facility] Prescribed Fractional Dose 250 cGray [facility] Prescribed Number of Fractions 12 [facility] Prescribed Technique [facility] Prescribed Total Dose 3000 cGray [facility] Prescription Pattern Comment 1cm Bolus, Clinical Setup [facility] Start Date 08/26/2024 [facility] Treatment [facility] No Panel Informationon 08-27 Actual Fractions Delivered 2 [facility] Actual Session Delivered Dose 250 cGray [facility] Actual Total Dose 500 cGray [facility] Course Number 1 [facility] Elapsed Days 1 [facility] Last Date 08/27/2024 [facility] Prescribed Fractional Dose 250 cGray [facility] Prescribed Number of Fractions 12 [facility] Prescribed Technique [facility] Prescribed Total Dose 3000 cGray [facility] Prescription Pattern Comment 1cm Bolus, Clinical Setup [facility] Start Date 08/26/2024 [facility] Treatment Site [facility] No Panel Informationon 08-26 Actual Fractions Delivered 1 [facility] Actual Session Delivered Dose 250 cGray [facility] Actual Total Dose 250 cGray [facility] Course Number 1 [facility] Elapsed Days 0 [facility] Last Date 08/26/2024 [facility] Prescribed Fractional Dose 250 cGray [facility] Prescribed Number of Fractions 12 [facility] Prescribed Technique [facility] Prescribed Total Dose 3000 cGray [facility] Prescription Pattern Comment 1cm Bolus, Clinical Setup [facility] Start Date 08/26/2024 [facility] Treatment Site [facility] No Panel Informationon 07-29 These images are not reportable by radiology and will not be interpreted by Radiologists. IMAGING RAD ONC CT SIM IMAGES ONLYon 07-29-[address] SIM IMAGES ONLY These images are not reportable by radiology and will not be interpreted by Radiologists. Normal [facility] Absolute neutrophil countOrd ered By: Mercedes Ortiz on 07-14-2024 Neutrophils (Bld) [#/Vol] 4.8 10*3/uL 2.0-7.7 [facility] Albumin to globulin ratioOrd ered By: Mercedes Ortiz on 07-14-2024 Albumin/Globulin [Mass ratio] 1.0 {ratio} 0.9-2.4 [facility] Basophil percentageOrdered B y: Mercedes Ortiz on 07-14-2024 Basophils/100 WBC (Bld) 0.6 % 0-1 [facility] Bilirubin, totalOrdered By: Mercedes Ortiz on 07-14-2024 Bilirubin [Mass/Vol] 0.80 mg/dL 0.20-1.00 [facility] Comment on above: For patients on eltr ombopag therapy, use of Dimension Falcon TBIL is not recommended. Blood urea nitrogen (BUN)/cr eatinine ratioOrdered By: Mercedes Ortiz on 07-14-2024 Urea nitrogen/Creatinine [Mass ratio] 12.6 mg/mg 10-20 [facility] CBC W/Diff, Automatedon 06-19 Absolute Lymph 1.42 X10 3/uL Normal 0.83-4.51 [facility] Comment on above: Performed By: #### L 500.4100, L501.9520, L501.9985, L100.0100, L500.4050 ####[facility] [address] [place], [address] Absolute Neut 4.8 X10 3/uL Normal 2.0-7.7 [facility] Comment on above: Performed By: #### L 500.4100, L501.9520, L501.9985, L100.0100, L500.4050 ####[facility] [address] [place], [address] Basophils/100 WBC (Bld) 0.6 % Normal 0-1 [facility] Comment on above: Performed By: #### L 500.4100, L501.9520, L501.9985, L100.0100, L500.4050 ####[facility] [address] [place], [address] Eosinophils/100 WBC (Bld) 1.2 % Normal 0-5 [facility] Comment on above: Performed By: #### L 500.4100, L501.9520, L501.9985, L100.0100, L500.4050 ####[facility] [address] [place], [address] Erythrocyte distribution width (RBC) [Ratio] 14.0 % Normal 11.6-14.6 [facility] Comment on above: Performed By: #### L 500.4100, L501.9520, L501.9985, L100.0100, L500.4050 ####[facility] [address] [place], [address] Hematocrit (Bld) [Volume fraction] 47.3 % Normal 40-54 [facility] Comment on above: Performed By: #### L 500.4100, L501.9520, L501.9985, L100.0100, L500.4050 ####[facility] [address] [place], [address] Hemoglobin (Bld) [Mass/Vol] 15.8 g/dL Normal 13.0-16.5 [facility] Comment on above: Performed By: #### L 500.4100, L501.9520, L501.9985, L100.0100, L500.4050 ####[facility] [address] [place], [address] IG% 0.700 Normal 0.0-0.9 [facility] Comment on above: Result Comment: IG% - Immature Granulocytes (promyelocytes, myelocytes and metamyelocytes) > 1% indicates that a LEFT SHIFT is Present. Performed By: #### L 500.4100, L501.9520, L501.9985, L100.0100, L500.4050 ####[facility] [address] [place], [address] Lymphocytes/100 WBC (Bld) 21.0 % Normal 19-41 [facility] Comment on above: Performed By: #### L 500.4100, L501.9520, L501.9985, L100.0100, L500.4050 ####[facility] [address] [place], [address] MCH (RBC) [Entitic mass] 28.9 pg Normal 27.0-32.0 [facility] Comment on above: Performed By: #### L 500.4100, L501.9520, L501.9985, L100.0100, L500.4050 ####[facility] [address] [place], [address] MCHC (RBC) [Mass/Vol] 33.4 g/dL Normal 32-36 [facility] Comment on above: Performed By: #### L 500.4100, L501.9520, L501.9985, L100.0100, L500.4050 ####[facility] [address] [place], [address] MCV (RBC) [Entitic vol] 86.6 fL Normal 80-94 [facility] Comment on above: Performed By: #### L 500.4100, L501.9520, L501.9985, L100.0100, L500.4050 ####[facility] [address] [place], [address] Monocytes/100 WBC (Bld) 6.2 % Normal 0-10 [facility] Comment on above: Performed By: #### L 500.4100, L501.9520, L501.9985, L100.0100, L500.4050 ####[facility] [address] [place], [address] Neutrophils/100 WBC (Bld) 70.3 % High 47-70 [facility] Comment on above: Performed By: #### L 500.4100, L501.9520, L501.9985, L100.0100, L500.4050 ####[facility] [address] [place], [address] Nucleated RBC (Bld) [#/Vol] 0 10*3/uL Normal 0-5 [facility] Comment on above: Performed By: #### L 500.4100, L501.9520, L501.9985, L100.0100, L500.4050 ####[facility] [address] [place], [address] Platelet mean volume (Bld) [Entitic vol] 10.4 fL Normal 6.2-12.0 [facility] Comment on above: Performed By: #### L 500.4100, L501.9520, L501.9985, L100.0100, L500.4050 ####[facility] [address] [place], [address] Platelets (Bld) [#/Vol] 218 10*3/uL Normal 150-450 [facility] Comment on above: Performed By: #### L 500.4100, L501.9520, L501.9985, L100.0100, L500.4050 ####[facility] [address] [place], [address] RBC (Bld) [#/Vol] 5.46 10*6/uL Normal 4.6-6.2 [facility] Comment on above: Performed By: #### L 500.4100, L501.9520, L501.9985, L100.0100, L500.4050 ####[facility] [address] [place], [address] RDW SD 43.7 fl Normal 35.1-43.9 [facility] Comment on above: Performed By: #### L 500.4100, L501.9520, L501.9985, L100.0100, L500.4050 ####[facility] [address] [place], [address] WBC (Bld) [#/Vol] 6.8 10*3/uL Normal 4.4-11.0 [facility] Comment on above: Performed By: #### L 500.4100, L501.9520, L501.9985, L100.0100, L500.4050 ####[facility] [address] [place], [address] Carbon dioxide measurementOr dered By: Mercedes Ortiz on 07-14-2024 CO2 [Moles/Vol] 27.0 mmol/L 21.0-32.0 [facility] Chloride measurementOrdered By: Mercedes Ortiz on 07-14-2024 Chloride [Moles/Vol] 108 mmol/L High 98-107 [facility] Comprehensive Metabolic Prof ilon 07-14-2024 Albumin [Mass/Vol] 3.6 g/dL Normal 3.2-5.0 [facility] Comment on above: Performed By: #### L 500.4100, L501.9520, L501.9985, L100.0100, L500.4050 ####[facility] [address] [place], [address] Albumin/Globulin [Mass ratio] 1.0 {ratio} Normal 0.9-2.4 [facility] Comment on above: Performed By: #### L 500.4100, L501.9520, L501.9985, L100.0100, L500.4050 ####[facility] [address] [place], [address] ALK P 78 U/L Normal 45-117 [facility] Comment on above: Performed By: #### L 500.4100, L501.9520, L501.9985, L100.0100, L500.4050 ####[facility] [address] [place], [address] ALT [Catalytic activity/Vol] 29 U/L Normal 16-61 [facility] Comment on above: Performed By: #### L 500.4100, L501.9520, L501.9985, L100.0100, L500.4050 ####[facility] [address] [place], [address] AST [Catalytic activity/Vol] 14 U/L Low 15-37 [facility] Comment on above: Performed By: #### L 500.4100, L501.9520, L501.9985, L100.0100, L500.4050 ####[facility] [address] [place], [address] Bilirubin [Mass/Vol] 0.80 mg/dL Normal 0.20-1.00 [facility] Comment on above: Result Comment: For patients on eltrombopag therapy, use of Dimension Falcon TBIL is not recommended. Performed By: #### L 500.4100, L501.9520, L501.9985, L100.0100, L500.4050 ####[facility] [address] [place], [address] BUN/CRE 12.6 RATIO Normal 10-20 [facility] Comment on above: Performed By: #### L 500.4100, L501.9520, L501.9985, L100.0100, L500.4050 ####[facility] [address] [place], [address] CA,Total 9.2 mg/dL Normal 8.5-10.1 [facility] Comment on above: Performed By: #### L 500.4100, L501.9520, L501.9985, L100.0100, L500.4050 ####[facility] [address] [place], [address] Chloride [Moles/Vol] 108 mmol/L High 98-107 [facility] Comment on above: Performed By: #### L 500.4100, L501.9520, L501.9985, L100.0100, L500.4050 ####[facility] [address] [place], [address] CO2 [Moles/Vol] 27.0 mmol/L Normal 21.0-32.0 [facility] Comment on above: Performed By: #### L 500.4100, L501.9520, L501.9985, L100.0100, L500.4050 ####[facility] [address] [place], [address] Creatinine [Mass/Vol] 1.11 mg/dL Normal 0.70-1.30 [facility] Comment on above: Result Comment: The validity of the calculated GFR GFRAA in patients over 70 years has not been determined. Clinical correlation is essential. Performed By: #### L 500.4100, L501.9520, L501.9985, L100.0100, L500.4050 ####[facility] [address] [place], [address] EST GFR - AA 84 mL/min Normal >60 [facility] Comment on above: Result Comment: Afri can [place] GFR Calc Performed By: #### L 500.4100, L501.9520, L501.9985, L100.0100, L500.4050 ####[facility] [address] [place], [address] GAP 6 Normal 5-15 [facility] Comment on above: Performed By: #### L 500.4100, L501.9520, L501.9985, L100.0100, L500.4050 ####[facility] [address] [place], [address] GFR/1.73 sq M.predicted among non-blacks MDRD (S/P/Bld) [Vol rate/Area] 69 mL/min/{1.73_m2} Normal >60 [facility] Comment on above: Result Comment: Non- GFR Calc Performed By: #### L 500.4100, L501.9520, L501.9985, L100.0100, L500.4050 ####[facility] [address] [place], [address] Globulin (S) [Mass/Vol] 3.7 g/dL Normal 2.2-4.2 [facility] Comment on above: Performed By: #### L 500.4100, L501.9520, L501.9985, L100.0100, L500.4050 ####[facility] [address] [place], [address] Glucose [Mass/Vol] 89 mg/dL Normal 74-106 [facility] Comment on above: Performed By: #### L 500.4100, L501.9520, L501.9985, L100.0100, L500.4050 ####[facility] [address] [place], [address] Potassium [Moles/Vol] 3.9 mmol/L Normal 3.5-5.1 [facility] Comment on above: Performed By: #### L 500.4100, L501.9520, L501.9985, L100.0100, L500.4050 ####[facility] [facility] [address] [place], [address] Sodium [Moles/Vol] 142 mmol/L Normal 136-145 [facility] Comment on above: Performed By: #### L 500.4100, L501.9520, L501.9985, L100.0100, L500.4050 ####[facility] [address] [place], [address] T PROT 7.3 g/dL Normal 6.4-8.2 [facility] Comment on above: Performed By: #### L 500.4100, L501.9520, L501.9985, L100.0100, L500.4050 ####[facility] [address] [place], [address] Urea nitrogen [Mass/Vol] 14 mg/dL Normal 7-18 [facility] Comment on above: Performed By: #### L 500.4100, L501.9520, L501.9985, L100.0100, L500.4050 ####[facility] [address] [place], [address] Eosinophil percentageOrdered By: [facility] on 07-14-2024 Eosinophils/100 WBC (Bld) 1.2 % 0-5 [facility] Erythrocyte distribution wid th ratioOrdered By: [facility] on 07-14-2024 Erythrocyte distribution width (RBC) [Ratio] 14.0 % 11.6-14.6 [facility] Erythrocyte distribution wid th standard deviationOrdered By: [facility] on 07-14-2024 Erythrocyte distribution width (RBC) [Entitic vol] 43.7 fL 35.1-43.9 [facility] Estimated glomerular filtrat ion rate (GFR) AmericanOrdered By: [facility] on 07-14-2024 Estimated GFR (MDRD) Amer 84 mL/min >60 [facility] Comment on above: GFR Calc Glomerular filtration rate ( GFR) estimationOrdered By: [facility] on 07-14-2024 Estimated GFR (MDRD) Non-Af Amer 69 mL/min >60 [facility] Comment on above: Non- GFR Calc Glucose measurementOrdered B y: [facility] on 07-14-2024 Glucose [Mass/Vol] 89 mg/dL 74-106 [facility] Hematocrit Auto (Bld) [Volum e fraction]Ordered By: [facility] on 07-14-2024 Hematocrit (Bld) [Volume fraction] 47.3 % 40-54 [facility] Hemoglobin A1c percentageOrd ered By: [facility] on 07-14-2024 HbA1c (Bld) [Mass fraction] 5.4 % Normal 3.8-5.6 [facility] Comment on above: Normal < 5.7 % Predi abetic 5.7 - 6.4 % Diabetic >or= 6.5 % Please note range changes. Result Comment: Norm al < 5.7 % Prediabetic 5.7 - 6.4 % Diabetic >or= 6.5 % Please note range changes. Performed By: #### L 500.5460, L501.7245, L501.9908, L100.0100, L500.4050 ####[facility] [address] [place], [place], [id number] Hemoglobin measurementOrdere d By: Mercedes Ortiz on 07-14-2024 Hemoglobin (Bld) [Mass/Vol] 15.8 g/dL 13.0-16.5 [facility] High density lipoprotein (HD L) measurementOrdered By: Mercedes Ortiz on 07-14-2024 Cholesterol in HDL [Mass/Vol] 49 mg/dL >40 [facility] Comment on above: The drugs N-Acetylcy steine and Metamizole may falsely depress this assay. Reference Range HDL <40 mg/dL Low HDL Cholesterol HDL >or= 60 mg/dL High HDL Cholesterol Immature granulocytes/100 WB C Auto (Bld)Ordered By: Mercedes Ortiz on 07-14-2024 Immature granulocytes/100 WBC (Bld) 0.700 % 0.0-0.9 [facility] Comment on above: IG% - Immature Granu locytes (promyelocytes, myelocytes and metamyelocytes) > 1% indicates that a LEFT SHIFT is Present. Laboratory - Chemistry and C hemistry - challengeOrdered By: Mercedes Ortiz on 07-14-2024 AST [Catalytic activity/Vol] 14 U/L Low 15-37 [facility] Lipid Profileon 07-14-2024 Cholesterol [Mass/Vol] 109 mg/dL Normal 200 [facility] Comment on above: Result Comment: <200 mg/dL Desirable 200-240 mg/dL Borderline >240 mg/dL High Risk Performed By: #### L 500.4100, L501.9520, L501.9985, L100.0100, L500.4050 ####[facility] [address] [place], [address] Cholesterol in HDL [Mass/Vol] 49 mg/dL Normal [facility] Comment on above: Result Comment: The drugs N-Acetylcysteine and Metamizole may falsely depress this assay. Reference Range HDL <40 mg/dL Low HDL Cholesterol HDL >or= 60 mg/dL High HDL Cholesterol Performed By: #### L 500.4100, L501.9520, L501.9985, L100.0100, L500.4050 ####[facility] [address] [place], [address] Cholesterol in LDL [Mass/Vol] 32 mg/dL Normal 0-130 [facility] Comment on above: Performed By: #### L 500.4100, L501.9520, L501.9985, L100.0100, L500.4050 ####[facility] [address] [place], [address] Cholesterol in VLDL [Mass/Vol] 28 mg/dL Normal 5-40 [facility] Comment on above: Performed By: #### L 500.4100, L501.9520, L501.9985, L100.0100, L500.4050 ####[facility] [address] [place], [address] Triglyceride [Mass/Vol] 142 mg/dL Normal [facility] Comment on above: Result Comment: The drugs N-Acetylcysteine and Metamizole may falsely depress this assay. Serum Triglycerides Reference Interval Normal <150 mg/dL Borderline high 150 - 199 mg/dL High 200 - 499 mg/dL Very High > or = 500 mg/dL Performed By: #### L 500.4100, L501.9520, L501.9985, L100.0100, L500.4050 ####[facility] [address] [place], [address] Low density lipoprotein (LDL ) cholesterol measurementOrdered By: Mercedes Ortiz on 07-14-2024 Cholesterol in LDL [Mass/Vol] 32 mg/dL 0-130 [facility] Lymphocytes Auto (Unsp spec) [#/Vol]Ordered By: Mercedesstanley Ortiz on 07-14-2024 Lymphocytes (Bld) [#/Vol] 1.42 10*3/uL 0.83-4.51 [facility] Lymphocytes/100 WBC Auto (Un sp spec)Ordered By: Mercedes Ortiz on 07-14-2024 Lymphocytes/100 WBC (Bld) 21.0 % 19-41 [facility] MCV (mean corpuscular volume ) determinationOrdered By: Mercedes Ortiz on 07-14-2024 MCV (RBC) [Entitic vol] 86.6 fL 80-94 [facility] Mean corpuscular hemoglobin (MCH) determinationOrdered By: Mercedes Ortiz on 07-14-2024 MCH (RBC) [Entitic mass] 28.9 pg 27.0-32.0 [facility] Mean corpuscular hemoglobin concentration (MCHC) determinationOrdered By: Mercedes Solaro on 07-14-2024 MCHC (RBC) [Mass/Vol] 33.4 g/dL 32-36 [facility] Mean platelet volume determi nationOrdered By: Mercedes Solaro on 07-14-2024 Platelet mean volume (Bld) [Entitic vol] 10.4 fL 6.2-12.0 [facility] Monocyte percentageOrdered B y: Mercedes Solaro on 07-14-2024 Monocytes/100 WBC (Bld) 6.2 % 0-10 [facility] Neutrophil percentageOrdered By: Mercedes Solarkristen on 07-14-2024 Neutrophils/100 WBC (Bld) 70.3 % High 47-70 [facility] Nucleated red blood cell per centageOrdered By: Mercedes Solaro on 07-14-2024 Nucleated RBC/100 WBC (Bld) [Ratio] 0 % 0-5 [facility] Platelet countOrdered By: Padma Ortiz on 07-14-2024 Platelets (Bld) [#/Vol] 218 10*3/uL 150-450 [facility] Potassium measurementOrdered By: Mercedes Solarkristen on 07-14-2024 Potassium [Moles/Vol] 3.9 mmol/L 3.5-5.1 [facility] RBC Auto (Bld) [#/Vol]Ordere d By: Mercedes Solarkristen on 07-14-2024 RBC (Bld) [#/Vol] 5.46 10*6/uL 4.6-6.2 [facility] Serum anion gap measurementO rdered By: Mercedes Solarkristen on 07-14-2024 Anion gap [Moles/Vol] 6 mmol/L 5-15 [facility] Serum globulin measurementOr dered By: Mercedes Solarkristen on 07-14-2024 Globulin (S) [Mass/Vol] 3.7 g/dL 2.2-4.2 [facility] Serum or plasma alanine lopez otransferase (ALT) measurementOrdered By: Mercedes Ortiz on 07-14-2024 ALT [Catalytic activity/Vol] 29 U/L 16-61 [facility] Serum or plasma albumin miguel urement (mass/volume)Ordered By: Mercedes Ortiz on 07-14-2024 Albumin [Mass/Vol] 3.6 g/dL 3.2-5.0 [facility] Serum or plasma alkaline yolie sphatase measurementOrdered By: Mercedes Ortiz on 07-14-2024 ALP [Catalytic activity/Vol] 78 U/L 45-117 [facility] Serum or plasma calcium miguel urement (mass/volume)Ordered By: Mercedes Ortiz on 07-14-2024 Calcium [Mass/Vol] 9.2 mg/dL 8.5-10.1 [facility] Serum or plasma cholesterol measurement (mass/volume)Ordered By: Mercedes Ortiz on 07-14-2024 Cholesterol [Mass/Vol] 109 mg/dL <200 [facility] Comment on above: <200 mg/dL Desirable 200-240 mg/dL Borderline >240 mg/dL High Risk Serum or plasma creatinine m easurement (mass/volume)Ordered By: Mercedes Ortiz on 07-14-2024 Creatinine [Mass/Vol] 1.11 mg/dL 0.70-1.30 [facility] Comment on above: The validity of the calculated GFR & GFRAA in patients over 70 years has not been determined. Clinical correlation is essential. Serum or plasma urea nitroge n measurement (mass/volume)Ordered By: Mercedes Ortiz on 07-14-2024 Urea nitrogen [Mass/Vol] 14 mg/dL 7-18 [facility] Sodium levelOrdered By: Mercedes Ortiz on 07-14-2024 Sodium [Moles/Vol] 142 mmol/L 136-145 [facility] TSH QnOrdered By: Mercedes peterson on 07-14-2024 Thyroid Stimulating Hormone (TSH) 4.400 uIU/mL High 0.358-3.740 [facility] Thyroid Stim Hormone (TSH)on 07-14-2024 TSH 4.400 uIU/mL High 0.358-3.740 [facility] Comment on above: Performed By: #### L 500.4100, L501.9520, L501.9985, L100.0100, L500.4050 ####[facility] [address] [place], [address] Total proteinOrdered By: Kelly Wilkinsonkristen on 07-14-2024 Protein [Mass/Vol] 7.3 g/dL 6.4-8.2 [facility] Triglycerides measurementOrd ered By: Mercedes Diana on 07-14-2024 Triglyceride [Mass/Vol] 142 mg/dL <199 [facility] Comment on above: The drugs N-Acetylcy steine and Metamizole may falsely depress this assay.Serum Triglycerides Reference Interval Normal <150 mg/dL Borderline high 150 - 199 mg/dL High 200 - 499 mg/dL Very High > or = 500 mg/dL Very low density lipoprotein (VLDL) cholesterol measurementOrdered By: Mercedes Ortiz on 07-14-2024 VLDL Cholesterol 28 mg/dL 5-40 [facility] White blood cell (WBC) count Ordered By: Mercedes Ortiz on 07-14-2024 WBC (Bld) [#/Vol] 6.8 10*3/uL 4.4-11.0 [facility] Surgical pathology studyon 0 07-04-2024 Surgical pathology study Pathology report.total SEE COMMENT Dermatopathology Report Case: [id number] Authorizing Provider: Raman Hemphill MD Collected: 07/04/2024 1537 Ordering Location: [facility] Received: 07/04/[address] [place] [address] Pathologist: Todd Norman MD Specimen: OUTSIDE BLOCK(S)/SLIDE(S), 9 SLIDES, [facility] #[id number] / 6 SLIDES, [facility], ([facility] CONSULT REPORT #[id number]) (BX: 05/30/2024) Path report.final diagnosis SEE COMMENT 9 SLIDES, [facility] #[id number] / 6 IMMUNOSTAIN SLIDES, [facility] CONSULT REPORT #[id number]) (BX: 05/30/2024) SKIN, LEFT LATERAL ABDOMEN, PUNCH BIOPSY: ATYPICAL LYMPHOCYTIC INFILTRATE, SEE NOTE. Note: Microscopic examination reveals a specimen that extends into the deep reticular dermis. There is spongiosis with parakeratosis and irregular hyperplasia of the epidermis with occasional exocytosis of small lymphocytes. There is a brisk superficial and moderate deep lymphocytic infiltrate with areas of crush artifact. There are rare eosinophils. A PAS stain is negative for fungus. Approximately forty percent of the lymphocytes stain with antibodies against CD20, while approximately sixty percent stain with antibodies against CD3. The ratio of CD4 to CD8 is approximately 4:1. There are occasional CD30 positive cells. A PU.1 stain stains a moderate number of cells in the dermis. There are numerous PD-1 positive cells and ICOS stains a moderate to numerous number of cells. CXCL-13 stains occasional to moderate cells. The epidermal changes are unusual for a primary cutaneous CD4 positive small / medium T-cell lymphoproliferative disorder although this diagnosis cannot be excluded due to the number of PD-1 positive cells. The differential includes cutaneous lymphoid hyperplasia. Electronically signed out by Todd Norman MD Path report.relevant Hx Epidermal Inclusion Cyst vs. Abscess, Morphology: subcutaneous cyst with prominent follicular pore and erythematous nodule without drainage, Biopsy by Punch Method Path report.gross observation SEE COMMENT A. OUTSIDE BLOCK(S)/SLIDE(S). Received for consultation from [facility] are nine slides labeled #[id number] (BX: 05/30/2024) along with the corresponding pathology report and a slide consultation report from [facility] - [id number]. Received six immunostain slides from [facility] (#[id number]) 07/11/24 upon request. [facility] Comment on above: Order Comment: Mater ials Received: 9 SLIDES, [facility] #[id number] / 6 SLIDES, [facility], ([facility] CONSULT REPORT #[id number]) (BX: 05/30/2024) CBC W Auto Differential pane l (Bld)on 07-01-2024 Basophils (Bld) [#/Vol] 0.03 x10*3/uL Normal 0.00-0.10 [facility] Comment on above: Performed By: #### 5 7021-8 #### KAREN Whitman ([id number]) [facility] ([facility]) [id number] [place] [address] Basophils/100 WBC (Bld) 0.5 % Normal 0.0-2.0 [facility] Comment on above: Performed By: #### 5 7021-8 #### KAREN BOWEN L ([id number]) [facility] ([facility]) [address] [place] [address] Eosinophils (Bld) [#/Vol] 0.10 x10*3/uL Normal 0.00-0.40 [facility] Comment on above: Performed By: #### 5 7021-8 #### KAREN Whitman ([id number]) [facility] ([facility]) [address] [place] [address] Eosinophils/100 WBC (Bld) 1.6 % Normal 0.0-6.0 [facility] Comment on above: Performed By: #### 5 7021-8 #### KAREN Whitman ([id number]) [facility] ([facility]) [address] [place] [address] Erythrocyte distribution width (RBC) [Ratio] 13.6 % Normal 11.5-14.5 [facility] Comment on above: Performed By: #### 5 7021-8 #### KAREN BOWEN L ([id number]) [facility] ([facility]) [address] [place] [address] Hematocrit (Bld) [Volume fraction] 49.7 % Normal 41.0-52.0 [facility] Comment on above: Performed By: #### 5 7021-8 #### KAREN BOWEN L ([id number]) [facility] ([facility]) [address] [place] [address] Hemoglobin (Bld) [Mass/Vol] 16.6 g/dL Normal 13.5-17.5 [facility] Comment on above: Performed By: #### 5 7021-8 #### KAREN Whitman ([id number]) [facility] ([facility]) [address] [place] [address] Immature granulocytes (Bld) [#/Vol] 0.02 x10*3/uL Normal 0.00-0.50 [facility] Comment on above: Performed By: #### 5 7021-8 #### KAREN Whitman ([id number]) [facility] ([facility]) [address] [place] [address]12[address] Immature granulocytes/100 WBC (Bld) 0.3 % Normal 0.0-0.9 [facility] Comment on above: Result Comment: Tory ture Granulocyte Count (IG) includes promyelocytes, myelocytes and metamyelocytes but does not include bands. Percent differential counts (%) should be interpreted in the context of the absolute cell counts (cells/UL). Performed By: #### 5 7021-8 #### KAREN Whitman ([id number]) [facility] ([facility]) [address] [place] [address]16[address] Lymphocytes (Bld) [#/Vol] 1.14 x10*3/uL Normal 0.80-3.00 [facility] Comment on above: Performed By: #### 5 7021-8 #### KAREN Whitman ([id number]) [facility] ([facility]) [address] [place] [address]367 Lymphocytes/100 WBC (Bld) 18.1 % Normal 13.0-44.0 [facility] Comment on above: Performed By: #### 5 7021-8 #### KAREN Whitman ([id number]) [facility] ([facility]) [address] [place] [address] 80542 MCH (RBC) [Entitic mass] 29.0 pg Normal 26.0-34.0 [facility] Comment on above: Performed By: #### 5 7021-8 #### KAREN Whitman ([id number]) [facility] ([facility]) [address] [place] [address] MCHC (RBC) [Mass/Vol] 33.4 g/dL Normal 32.0-36.0 [facility] Comment on above: Performed By: #### 5 7021-8 #### KAREN Whitman ([id number]) [facility] ([facility]) [address] [place] [address] 46551 MCV (RBC) [Entitic vol] 87 fL Normal 80-100 [facility] Comment on above: Performed By: #### 5 7021-8 #### KAREN Whitman ([id number]) [facility] ([facility]) [address] [place] [address] 02796 Monocytes (Bld) [#/Vol] 0.39 x10*3/uL Normal 0.05-0.80 [facility] Comment on above: Performed By: #### 5 7021-8 #### KAREN Whitman ([id number]) [facility] ([facility]) [address] [place] [address] 47943 Monocytes/100 WBC (Bld) 6.2 % Normal 2.0-10.0 [facility] Comment on above: Performed By: #### 5 7021-8 #### KAREN Whitman ([id number]) [facility] ([facility]) [address] [place] [address] 81433 Neutrophils (Bld) [#/Vol] 4.62 x10*3/uL Normal 1.60-5.50 [facility] Comment on above: Result Comment: Perc ent differential counts (%) should be interpreted in the context of the absolute cell counts (cells/uL). Performed By: #### 5 7021-8 #### KAREN Whitman ([id number]) [facility] ([facility]) [address] [place] [address] 36069 Neutrophils/100 WBC (Bld) 73.3 % Normal 40.0-80.0 [facility] Comment on above: Performed By: #### 5 7021-8 #### KAREN LENZMOERIK Whitman ([id number]) [facility] ([facility]) [address] [place] [address] 68484 Nucleated RBC/100 WBC (Bld) [Ratio] 0.0 /100 WBCs Normal 0.0-0.0 [facility] Comment on above: Performed By: #### 5 7021-8 #### KAREN Whitman ([id number]) [facility] ([facility]) [address] [place] [address] 03221 Platelets (Bld) [#/Vol] 231 x10*3/uL Normal 150-450 [facility] Comment on above: Performed By: #### 5 7021-8 #### KAREN Whitman ([id number]) [facility] ([facility]) [address] [place] [address] 68588 RBC (Bld) [#/Vol] 5.73 x10*6/uL Normal 4.50-5.90 [facility] Comment on above: Performed By: #### 5 7021-8 #### KAREN Whitman ([id number]) [facility] ([facility]) [address] [place] [address] 20366 WBC (Bld) [#/Vol] 6.3 x10*3/uL Normal 4.4-11.3 [facility] Comment on above: Performed By: #### 5 7021-8 #### KAREN Whitman ([id number]) [facility] ([facility]) [address] [place] [address] 21499 Comprehensive metabolic 2000 panelon 07-01-2024 Albumin BCP dye [Mass/Vol] 4.5 g/dL Normal 3.4-5.0 [facility] Comment on above: Performed By: #### 2 4323-8 #### KAREN Whitman ([id number]) [facility] ([facility]) [address] [place] [address] ALP [Catalytic activity/Vol] 73 U/L Normal 33-136 [facility] Comment on above: Performed By: #### 2 4323-8 #### KAREN Whitman ([id number]) [facility] ([facility]) [address] [place] [address] 47094 ALT With P-5'-P [Catalytic activity/Vol] 19 U/L Normal 10-52 [facility] Comment on above: Result Comment: Gudelia ents treated with Sulfasalazine may generate falsely decreased results for ALT. Performed By: #### 2 4323-8 #### KAREN Whitman ([id number]) [facility] ([facility]) [address] [place] [address] Anion gap [Moles/Vol] 14 mmol/L Normal 10-20 [facility] Comment on above: Performed By: #### 2 4323-8 #### KAREN Whitman ([id number]) [facility] ([facility]) [address] [place] [address] AST With P-5'-P [Catalytic activity/Vol] 13 U/L Normal 9-39 [facility] Comment on above: Performed By: #### 2 4323-8 #### KAREN Whitman ([id number]) [facility] ([facility]) [address] [place] [address] Bilirubin [Mass/Vol] 0.7 mg/dL Normal 0.0-1.2 [facility] Comment on above: Performed By: #### 2 4323-8 #### KAREN Whitman (60901) [facility] ([facility]) [address] [place] [address] Calcium [Mass/Vol] 9.8 mg/dL Normal 8.6-10.6 [facility] Comment on above: Performed By: #### 2 4323-8 #### KAREN Whitman ([id number]) [facility] ([facility]) [address] [place] [address] Chloride [Moles/Vol] 106 mmol/L Normal 98-107 [facility] Comment on above: Performed By: #### 2 4323-8 #### KAREN Whitman ([id number]) [facility] ([facility]) [address] [place] [address] CO2 [Moles/Vol] 26 mmol/L Normal 21-32 [facility] Comment on above: Performed By: #### 2 4323-8 #### KAREN BOWEN L ([id number]) [facility] ([facility]) [address] [place] [address] Creatinine [Mass/Vol] 1.04 mg/dL Normal 0.50-1.30 [facility] Comment on above: Performed By: #### 2 4323-8 #### KAREN BOWEN L ([id number]) [facility] ([facility]) [address] [place] [address] 22731 Glomerular filtration rate/1.73 sq M.predicted 77 mL/min/1.73m*2 Normal >60 [facility] Comment on above: Result Comment: Calc ulations of estimated GFR are performed using the 2020 CKD-EPI Study Refit equation without the race variable for the IDMS-Traceable creatinine methods. https://jasn.asnjournals.org/content///ASN.829 0829905 Performed By: #### 2 4323-8 #### KAREN BOWEN L ([id number]) [facility] ([facility]) [id number] [place] [address] 73840 Glucose [Mass/Vol] 99 mg/dL Normal 74-99 [facility] Comment on above: Performed By: #### 2 4323-8 #### KAREN BOWEN L ([id number]) [facility] ([facility]) [address] [place] [address] 49606 Potassium [Moles/Vol] 4.1 mmol/L Normal 3.5-5.3 [facility] Comment on above: Performed By: #### 2 4323-8 #### KAREN BOWEN L ([id number]) [facility] ([facility]) [address] [place] [address] 66773 Protein [Mass/Vol] 7.3 g/dL Normal 6.4-8.2 [facility] Comment on above: Performed By: #### 2 4323-8 #### KAREN BOWEN L ([id number]) [facility] ([facility]) [address] [place] [address] Sodium [Moles/Vol] 142 mmol/L Normal 136-145 [facility] Comment on above: Performed By: #### 2 4323-8 #### KAREN BOWEN L ([id number]) [facility] ([facility]) [address] [place] [address] Urea nitrogen [Mass/Vol] 12 mg/dL Normal 6-23 [facility] Comment on above: Performed By: #### 2 4323-8 #### KAREN FANTZER L ([id number]) [facility] ([facility]) [address] [place] [address] DERMPATH LAB- DERMATOPATHOLO Candelaria 07-01-2024 DERMPATH LAB- DERMATOPATHOLOGY Pathology report.total SEE COMMENT Dermatopathology Case: [id number] Authorizing Provider: Leatha Levy MD Collected: 07/01/2024 1433 Ordering Location: [facility] Received: 07/01/[address] [place] [address] Pathologist: Leatha Levy MD Specimen: SKIN, Left Flank Posterior Path report.final diagnosis SEE COMMENT SKIN, LEFT FLANK POSTERIOR, PUNCH BIOPSY: ATYPICAL CD4 POSITIVE LYMPHOID INFILTRATE (SEE COMMENT): Comment: The punch biopsy extends to the deep dermis. There is neutrophilic serum crust overlying an irregularly acanthotic epidermis with spongiosis and multifocal erosion. A PAS stain (control appropriate) is negative for pathogenic fungal organisms. Throughout the dermis there is a perivascular and diffuse infiltrate of small, medium and occasionally larger mononuclear cells with intermixed background eosinophils and scattered plasma cells. The infiltrate extends around vessels to the deep dermis and is present on the margins. The vessels are patent and intact without notable angioinvasion. An immunohistochemical panel was performed, and the atypical population of interest is positive with CD3, CD4, and reveals that CD7 is predominantly retained. CD8 highlights a lesser population of smaller background T-cells. CD30 highlights rare dermal cells and is essentially negative. PD1 highlights a significant portion of medium to occasional larger cells, some of which are in small clusters. CD20 highlights a significant population of background mononuclear cells. Germinal centers are not readily identified. The flow cytometry report revealing a clonal population of CD4 positive T-cells along with polyclonal B cell light chain expression is noted. The case was reviewed with a second dermatopathologist, Dr. Todd Norman. The findings may be seen in a T-cell lymphoproliferative disorder, and the microscopic differential diagnosis includes 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. The epidermal changes and significant plasmacellular infiltrate would be unusual for a primary cutaneous T cell lymphoma. A spirochete immunostain is pending, and the findings will be reported in an addendum once available. Clinical correlation is required. Electronically signed out by LEATHA LEVY MD Laboratory comment By the signature on this report, the individual or group listed as making the Final Interpretation/Diagno sis certifies that they have reviewed this case. Path report.relevant Hx SEE COMMENT Encounter Diagnosis: Neoplasm of uncertain behavior of skin [id number] A Collection Comments: Differential Diagnosis: 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 vs drug eruption Check Margins Yes/No?: Comments: Dermpath Lab: Routine Histopathology (formalin-fixed tissue) Finding Region: Left Flank Specimen Objective: 4.0 x 1.8 cm red scaly plaque Path report.microscopic observation Microscopic examination performed. Path report.addendum SEE COMMENT A spirochete immunostain (control appropriate performed at [facility] [address] [place], [place] [address] [address]) is negative for pathogenic organisms. Addendum electronically signed by Leatha Levy MD on 07/14/2024 at 11:46 AM LAB AP ASR DISCLAIMER One or more of the reagents used to perform assays on this specimen MAY have contained components considered to be analyte specific reagents (ASR's). ASR's have not been cleared or approved by the U.S. Food and Drug Administration. These assays were developed and their performance characteristics determined by the Department of Pathology at [facility]. The FDA does not require this test to go through premarket FDA review. This test is used for clinical purposes. It should not be regarded as investigational or for research. This laboratory is certified under the Clinical Laboratory Improvement Amendments (CLIA) as qualified to perform high complexity clinical laboratory testing. The assays were performed with appropriate positive and negative controls which stained appropriately. Path report.gross observation SEE COMMENT A: Received in formalin is a 4 x 4 x 4 mm piece of skin. It is humphreys in color. It is cylindrical in shape. It was embedded in toto. The specimen was inked. The specimen was grossed by Annabel Laureano. Normal [facility] Extractable nuclear Ab panel (S)on 07-01-2024 Centromere protein B Ab Qn (S) <0.2 Normal <1.0 [facility] Comment on above: Result Comment: < 1. 0 = NEGATIVE >=1.0 = POSITIVE Performed By: #### 4 3119-7 #### KAREN [place] ([id number]) [facility] ([facility]) [address] [place] [address] 30848 Chromatin Ab Qn <0.2 Normal <1.0 [facility] Comment on above: Result Comment: < 1. 0 = NEGATIVE >=1.0 = POSITIVE Performed By: #### 4 3119-7 #### KAREN [place]man ([id number]) [facility] ([facility]) [address] [place] [address] 88059 DNA double strand Ab Qn (S) [IU]/mL Normal <5.0 [facility] Comment on above: Result Comment: NEGA TIVE: <= 4 IU/ML EQUIVOCAL: 5- 9 IU/ML POSITIVE: >=10 IU/ML Performed By: #### 4 3119-7 #### KAREN [place]man ([id number]) [facility] ([facility]) [address] [place] [address] 09837 Michelle-1 extractable nuclear Ab IA Ql (S) <0.2 Normal <1.0 [facility] Comment on above: Result Comment: < 1. 0 = NEGATIVE >=1.0 = POSITIVE Performed By: #### 4 3119-7 #### KAREN [place] ([id number]) [facility] ([facility]) [address] [place] [address] 08392 Ribonucleoprotein extractable nuclear Ab IA Qn (S) <0.2 Normal <1.0 [facility] Comment on above: Result Comment: < 1. 0 = NEGATIVE >=1.0 = POSITIVE Performed By: #### 4 3119-7 #### KAREN BOWEN L ([id number]) [facility] ([facility]) [address] [place] [address] 23740 Ribosomal P Ab Qn (S) <0.2 Normal <1.0 [facility] Comment on above: Result Comment: < 1. 0 = NEGATIVE >=1.0 = POSITIVE Performed By: #### 4 3119-7 #### KAREN BOWEN L ([id number]) [facility] ([facility]) [address] [place] [address] 44791 SCL-70 extractable nuclear Ab IA Ql (S) <0.2 Normal <1.0 [facility] Comment on above: Result Comment: < 1. 0 = NEGATIVE >=1.0 = POSITIVE Performed By: #### 4 3119-7 #### KAREN BOWEN L ([id number]) [facility] ([facility]) [address] [place] [address] 85193 Sjogrens syndrome-A extractable nuclear Ab IA Qn (S) <0.2 Normal <1.0 [facility] Comment on above: Result Comment: < 1. 0 = NEGATIVE >=1.0 = POSITIVE Performed By: #### 4 3119-7 #### KAREN [place] ([id number]) [facility] ([facility]) [address] [place] [address] 50808 Sjogrens syndrome-B extractable nuclear Ab IA Qn (S) <0.2 Normal <1.0 [facility] Comment on above: Result Comment: < 1. 0 = NEGATIVE >=1.0 = POSITIVE Performed By: #### 4 3119-7 #### KAREN BOWEN L ([id number]) [facility] ([facility]) [address] [place] [address] 05551 Vargas extractable nuclear Ab IA Qn (S) <0.2 Normal <1.0 [facility] Comment on above: Result Comment: < 1. 0 = NEGATIVE >=1.0 = POSITIVE Performed By: #### 4 3119-7 #### KAREN BOWEN L ([id number]) [facility] ([facility]) [address] [place] [address] 64666 Vargas extractable nuclear Ab+Ribonucleoprotein extractable nuclear Ab IA Ql (S) <0.2 Normal <1.0 [facility] Comment on above: Result Comment: < 1. 0 = NEGATIVE >=1.0 = POSITIVE Performed By: #### 4 3119-7 #### KAREN [place] ([id number]) [facility] ([facility]) [address] [place], [place] [address] FLOW CYTOMETRY TEST (PERFORM ABLE)- LAB ONLYon 07-01-2024 CELL POPULATIONS SEE COMMENT [facility] Comment on above: Result Comment: Abno rmal Cell Population: Lymphocytes Percentage: 4.4 % Phenotype Marker Interpretation CD2 Positive moderate-bright CD3 Positive moderate-bright CD4 Positive moderate CD5 Positive moderate CD7 Partial CD8 Negative CD10 Negative CD25 Dim-negative CD26 Negative CD30 Negative CD45 Positive moderate-bright CD45RA Negative CD45RO Positive moderate-bright CD56 Negative HLA-DR Negative TCR Alpha/Beta Positive moderate-bright TCR Gamma/Delta Negative TRBC1 Positive dim-moderate Performed By: #### F LWCYTO #### KAREN Whitman ([id number]) [facility] ([facility]) [address] [place], [place] [address] DIAGNOSIS SEE COMMENT [facility] Comment on above: Result Comment: SKIN , LEFT ANTERIOR FLANK, FLOW CYTOMETRY: 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 Note: In the appropriate clinicopathological context, the immunophenotype would be compatible with mycosis fungoides vs. other CD4+ cutaneous T-cell lymphoproliferative disorders. Correlate with separate dermatopathology report. Performed By: #### F LWCYTO #### KAREN [place]man ([id number]) [facility] ([facility]) [address] [place] [address] 50687 FLOW DIFFERENTIAL SEE COMMENT Normal [facility] Comment on above: Result Comment: Lymp hocyte: 75 % CD3+CD4+: 47 % ; CD3+CD8+: 17 % ; Polyclonal (TRBC1) Natural Killer Cells: 6 % CD19+: 29 % B Cell Light Chain Expression: Polyclonal Surface Belfield/Surface Lambda: 58%/33% Monocyte: 1 % Granulocyte: 6 % Performed By: #### Sreekanth LWCYTO #### KAREN Whitman ([id number]) [facility] ([facility]) [address] [place], [place] [address] FLOW TEST ORDERED Cutaneous Panel Normal not established [facility] Comment on above: Performed By: #### F LWCYTO #### KAREN Whitman ([id number]) [facility] ([facility]) [address] [place] [address] Lab test method Nom (Spec) SEE COMMENT [facility] Comment on above: Result Comment: Refe rence ranges not established. This test is a multicolor, whole blood lysis assay. It was developed and its performance characteristics determined by the Department of Pathology, [facility], and has not been cleared or approved by the U.S. Food and Drug Administration. The laboratory is regulated under CLIA as qualified to perform high complexity testing. This test is used for clinical purposes. It should not be regarded as investigational or for research. Immunophenotypic analysis was performed using the following antibodies: 1A: CD45. 1B: HLA-DR, CD30, CD4, CD14, CD3, CD45. 1C: CD56, CD7, CD4, CD8, CD3, CD45. 1D: CD2, CD26, CD4, CD5, CD3, CD45. 1E: TCR Alpha/Beta, TCR Gamma/Delta, CD4, CD10, CD3, CD45. 1F: CD45RA, CD25, CD4, CD45RO, CD3, CD45. 1G: TRBC1, TCR Gamma/Delta, CD4, CD8, CD3, CD45. 1H: Belfield Surface, Lambda Surface, CD20, CD38, CD19, CD45. Performed By: #### F LWCYTO #### KAREN Whitman ([id number]) [facility] ([facility]) [address] [place], [place] [address] NUMBER OF CELLS COLLECTED [facility] Comment on above: Result Comment: 09 - [phone] Performed By: #### F LWCYTO #### KAREN Whitman ([id number]) [facility] ([facility]) [address] [place], [place] [address] Pathology report Cancer Narrative SEE COMMENT [facility] Comment on above: Result Comment: Flow Cytometry Case: [id number] Authorizing Provider: Leatha Levy MD Collected: 07/01/2024 1432 Ordering Location: [facility] Received: 07/02/2024 1913 [facility] Pathologist: Alex Claderón MD Specimen: SKIN, Left Flank Anterior Performed By: #### F LWCYTO #### KAREN Whitman ([id number]) [facility] ([facility]) [address] [place] [address] SIGNATURE COMMENT By the signature on this report, the individual or group listed as making the Final Interpretation/Diagno sis certifies that they have reviewed this case and the staining reactivity of the antibodies and reagents in the analysis were determined to be acceptable. Diagnostic interpretation performed at [facility] Comment on above: Performed By: #### F LWCYTO #### KAREN Whitman ([id number]) [facility] ([facility]) [address] [place] [address] SPECIMEN VIABILITY Acceptable Normal [facility] Ambulatory Comment on above: Performed By: #### F LWCYTO #### KAREN Whitman ([id number]) [facility] ([facility]) [address] [place] [address] Lesion biopsyon 07-01-2024 Type of biopsy: [facility] Informed consent: discussed and consent obtained Timeout: patient name, date of , surgical site, and procedure verified Procedure prep: Patient was prepped and draped Anesthesia: the lesion was anesthetized in a standard fashion Anesthetic: 1% lidocaine w/ epinephrine 1-100,000 local infiltration Punch size: 4 mm Suture size: 4-0 Suture type: Prolene (polypropylene) Suture removal (days): 14 Hemostasis achieved with: suture Outcome: patient tolerated procedure well Post-procedure details: sterile dressing applied and wound care instructions given Dressing type: bandage and petrolatum [facility] Work Phone: [facility] Work Phone: Type of biopsy: pun h Informed consent: discussed and consent obtained Timeout: patient name, date of , surgical site, and procedure verified Procedure prep: Patient was prepped and draped Anesthesia: the lesion was anesthetized in a standard fashion Anesthetic: 1% lidocaine w/ epinephrine 1-100,000 local infiltration Punch size: 6 mm Suture size: 4-0 Suture type: Prolene (polypropylene) Suture removal (days): 14 Hemostasis achieved with: suture Outcome: patient tolerated procedure well Post-procedure details: sterile dressing applied and wound care instructions given Dressing type: bandage and petrolatum [facility] Work Phone: [facility] Work Phone: Nuclear Abon 07-01-2024 Nuclear Ab Hep2 substrate Ql (S) Negative Normal Negative [facility] Comment on above: Result Comment: The Antinuclear Antibody (LIZET) test was performed using indirect immunofluorescence assay with HEp-2 cells slide. Performed By: #### 5 9069-5 #### KAREN Whitman ([id number]) [facility] ([facility]) [id number] [place] [address] SURGICAL PATHOLOGY REFERENCE LAB CONSULTon 05-30-2024 ADDENDUM 1: Normal [facility] Comment on above: Order Comment: Speci men Type: FORMALIN-FIXED PARAFFIN-EMBEDDED TISSUE SPECIMEN Ordering Facility: [facility] Address: [address] [place] [address] Result Comment: No d efinitive abnormal clone of T cells was identified in the molecular studies. However, given the nature of the results, CD4 positive small/medium T-cell lymphoproliferative disorder cannot entirely be excluded. Continued clinical follow-up is recommended. Addendum electronically signed by Mo Aguayo MD on 06/14/2024 at 9:36 AM Performed By: #### L [id number] #### [facility] CLIA [id number] [address] [facility] [address] [place] CASE REPORT Normal [facility] Comment on above: Order Comment: Speci men Type: FORMALIN-FIXED PARAFFIN-EMBEDDED TISSUE SPECIMEN Ordering Facility: [facility] Address: [address] [place] [address] Result Comment: Surg ical Pathology Report Case: [id number] Authorizing Provider: Hu Cee MD Collected: 05/30/2024 11:14 AM Ordering Location: [facility] Received: 05/30/2024 11:13 AM [facility] Pathologist: Mo Aguayo MD Specimen: Block(s) and/or Slide(s), 9 SLIDES / 1 BLOCK [id number] ; A1 Performed By: #### L [id number] #### [facility] CLIA [id number] [address] [place] [address] CLINICAL HISTORY CONSULT REQUESTED [facility] Comment on above: Order Comment: Speci men Type: FORMALIN-FIXED PARAFFIN-EMBEDDED TISSUE SPECIMEN Ordering Facility: [facility] Address: [address] [place] [address] Performed By: #### L [id number] #### [facility] CLIA [id number] [address] [place] [address] DIAGNOSIS COMMENT Normal [facility] Comment on above: Order Comment: Speci men Type: FORMALIN-FIXED PARAFFIN-EMBEDDED TISSUE SPECIMEN Ordering Facility: [facility] Address: [address] [place] [address] Result Comment: Than k you for consulting me on this punch biopsy specimen from the left abdomen of a 69-year-old patient. The history of a subcutaneous cyst with prominent follicular pore and erythematous nodule without drainage is noted, as is the clinical differential diagnosis including an epidermoid cyst or abscess. Histologic sections show compact parakeratosis with serous and neutrophilic exudate overlying an acanthotic and markedly spongiotic epidermis with focal erosion and exocytosis of lymphocytes, neutrophils, and eosinophils. Within the dermis, there is a dense perivascular and interstitial lymphohistiocytic infiltrate with occasional eosinophils and plasma cells. The enclosed immunohistochemical and special stains are reviewed at the [facility] along with the provided appropriate controls. Stain for CD3 and CD20 show numerous T cells and B cells, respectively. There are few scattered WE66-spnaeluc reactive cells. The CD4:CD8 ratio is elevated. Fungal elements are not identified on a PAS/F special stain. In order to further characterize the infiltrate, additional immunohistochemical stains are performed the [facility] with appropriate controls. A PU.1 stain highlights numerous macrophages within the infiltrate, confirming that at least a subset of the CD4-positive cells are histiocytes. Stains for PD-1 and ICOS are positive in numerous cells within the infiltrate, while there is relatively less CXCL13 staining. In my opinion, the histologic and immunohistochemical features are those of an atypical lymphoid infiltrate. These features are nonspecific, but raise the possibility of a 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. This entity is indolent and amenable to local treatment, with minimal risk of recurrence or secondary lymphoproliferative disorders. If desired, molecular studies to detect a clonal population of T cells can be performed to further evaluate for this possible diagnosis. Continued clinical follow-up with repeat biopsy should similar lesions appear in other locations is recommended. Thank you for sending this case in consultation. Please call the Dermatopathology Consultation Service at [phone] with questions or if additional follow-up information becomes available regarding this patient. This case was reviewed in conjunction with the Dermatopathology Fellow, Dr. Octavio Martin. Laboratory Developed Test (LDT) Disclaimer: Performance characteristics of immunohistochemical, immunofluorescent and chromogenic in-situ hybridization tests have been determined by the performing laboratory within [facility]???s [place] [facility] Pathology and Laboratory Medicine Department ([facility], [facility], [facility], [facility], [facility], [facility], or [facility]) in a manner consistent with CLIA requirements. One or more of these tests have not been cleared or approved by the FDA. [facility] is regulated under CLIA as qualified to perform high-complexity testing. These tests are used for clinical purposes. They should not be regarded as investigational or for research. Positive and negative controls stain appropriately. Performed By: #### L [id number] #### [facility] CLIA [id number] [address] [place] [address] [place] FINAL DIAGNOSIS Normal [facility] Comment on above: Order Comment: Speci men Type: FORMALIN-FIXED PARAFFIN-EMBEDDED TISSUE SPECIMEN Ordering Facility: [facility] Address: [address] [place] [address] Result Comment: A. S moose, left abdomen, punch biopsy: -Atypical lymphoid infiltrate, see comment. PARISA/CAITLIN 06/04/2024 Performed By: #### L [id number] #### [facility] CLIA [id number] [address] [place] [address] [place] FINAL PERFORMING LAB Normal [facility] Comment on above: Order Comment: Speci men Type: FORMALIN-FIXED PARAFFIN-EMBEDDED TISSUE SPECIMEN Ordering Facility: [facility] Address: [address] [place] [address] Result Comment: Diag nostic interpretation performed at: [facility], [address] [place] [address] CLIA# [id number] Senior Hydrogeologist: Quang Nation MD Performed By: #### L [id number] #### [facility] CLIA [id number] [address] [place] [address] [place] T-CELL CLONALITY BIOMED2 [facility] 05-30-2024 T-CELL CLONALITY BIOMED2 OTHER Normal [facility] Comment on above: Order Comment: Speci men Type: FORMALIN-FIXED PARAFFIN-EMBEDDED TISSUE SPECIMEN Ordering Facility: [facility] Address: [address] [place] [address] Result Comment: [facility] Accession Number: [id number] Case #: [id number] Block #: A1 ([id number] A1) Sample Description: Left Lateral Abdomen Sample Type: FFPET DNA Quality: GOOD (>=300 bp) Results: TCRB A (V-J1+J2): No specific products TCRB B (V-J2): No specific products TCRB C (D-J1+J2): No specific products TCRG D: Nonclonal Interpretation: A clonal rearrangement is NOT DETECTED (See comment). Comment: A clonal rearrangement was not detected by PCR using primer sets targeting the T-cell receptor beta (TCRB) or gamma (TCRG) chain loci. A negative result does not completely exclude the possibility of a monoclonal T-cell population. Methodology: DNA is isolated from the specimen provided and subjected to PCR amplification using a fluorescently labeled primers targeting the T-cell receptor beta (TCRB) and gamma (TCRG) chain loci ([email or web address], [place], [place]). Fluorescently labeled PCR products were analyzed by capillary gel electrophoresis. An additional PCR reaction directed at housekeeping genes was performed as a control for each sample to ensure adequate DNA quality. Limitations: 1) PCR may not detect all clonal rearrangements detectable by Southern blot analysis. 2) The sensitivity of the assay is affected by the intensity of the polyclonal background. The assay detects a clonal population of approximately 5% in a background of tonsil DNA. 3) Monoclonality is not equivalent to malignancy. Results of this test should be interpreted in the context of the clinical, histological, flow cytometric, and/or immunophenotypic information. 4) Detection of monoclonality with this assay usually indicates a monoclonal T-cell population; however, lineage assignment is not entirely reliable since some B-cell lymphomas and acute myeloid leukemias may have rearranged TCR genes. Disclaimer: This test was developed and its performance characteristics determined by [facility]'s Pathology and Laboratory Medicine Department. It has not been cleared or approved by the FDA. [facility] Pathology and Laboratory Medicine Department is regulated under CLIA as certified to perform high-complexity testing. This test is used for clinical purposes. It should not be regarded as investigational or for research. Testing [place] [address]. CLIA Number: [id number] As reviewed by Dina Silverman DO Performed By: #### T CBMDO #### [facility] CLIA [id number] [address] [place] [address] [place] MRSA Wound DNA by PCRon 04-18 MRSA DNA ASSAY Negative Normal Negative [facility] Comment on above: Order Comment: LEFT SIDE ABSCRSS Performed By: #### L 8200.1075 ####[facility] [facility] [place], [address] SA DNA ASSAY Negative Normal Negative [facility] Comment on above: Order Comment: LEFT SIDE ABSCRSS Performed By: #### L 8200.1075 ####[facility] [address] [place], [address] Absolute lymphocyte countOrd ered By: Kg Salinas on 09-12-2023 Lymphocytes Auto (Unsp spec) [#/Vol] 1.19 10*3/uL 0.83-4.51 [facility] Automated lymphocyte count a s percentage of total leukocytesOrdered By: Kg Salinas on 09-12-2023 Lymphocytes/100 WBC Auto (Unsp spec) 22.4 % 19-41 [facility] Basophil percentageOrdered B y: Kg Salinas on 09-12-2023 Basophils/100 WBC (Bld) 0.6 % 0-1 [facility] Bilirubin [Mass/Vol] 0.50 mg/dL 0.20-1.00 [facility] Comment on above: For patients on eltr ombopag therapy, use of Dimension Falcon TBIL is not recommended. Chloride [Moles/Vol] 110 mmol/L 98-107 [facility] Cholesterol [Mass/Vol] 134 mg/dL <200 [facility] Comment on above: <200 mg/dL Desirable 200-240 mg/dL Borderline >240 mg/dL High Risk Eosinophils/100 WBC (Bld) 1.7 % 0-5 [facility] Glucose [Mass/Vol] 81 mg/dL 74-106 [facility] Hemoglobin (Bld) [Mass/Vol] 16.6 g/dL 13.0-16.5 [facility] Monocytes/100 WBC (Bld) 8.5 % 0-10 [facility] Neutrophils (Bld) [#/Vol] 3.5 10*3/uL 2.0-7.7 [facility] Neutrophils/100 WBC (Bld) 66.4 % 47-70 [facility] Potassium [Moles/Vol] 3.9 mmol/L 3.5-5.1 [facility] Protein [Mass/Vol] 7.2 g/dL 6.4-8.2 [facility] Sodium [Moles/Vol] 141 mmol/L 136-145 [facility] Triglyceride [Mass/Vol] 121 mg/dL <199 [facility] Comment on above: The drugs N-Acetylcy steine and Metamizole may falsely depress this assay.Serum Triglycerides Reference Interval Normal <150 mg/dL Borderline high 150 - 199 mg/dL High 200 - 499 mg/dL Very High > or = 500 mg/dL WBC (Bld) [#/Vol] 5.3 10*3/uL 4.4-11.0 [facility] Determination of erythrocyte mean corpuscular volume (MCV)Ordered By: [facility] on 09-12-2023 MCV (RBC) [Entitic vol] 86.1 fL 80-94 [facility] Erythrocyte distribution wid th ratioOrdered By: [facility] on 09-12-2023 Erythrocyte distribution width (RBC) [Ratio] 14.4 % 11.6-14.6 [facility] Erythrocyte distribution wid th standard deviationOrdered By: [facility] on 09-12-2023 Erythrocyte distribution width (RBC) [Entitic vol] 45.0 fL 35.1-43.9 [facility] Hematocrit Auto (Bld) [Volum e fraction]Ordered By: [facility] 09-12-2023 Hematocrit (Bld) [Volume fraction] 50.0 % 40-54 [facility] Immature granulocytes/100 WB C Auto (Bld)Ordered By: [facility] on 09-12-2023 Immature granulocytes/100 WBC (Bld) 0.400 % 0.0-0.9 [facility] Comment on above: IG% - Immature Granu locytes (promyelocytes, myelocytes and metamyelocytes) > 1% indicates that a LEFT SHIFT is Present. Laboratory - Chemistry and C hemistry - challengeOrdered By: [facility] 09-12-2023 Albumin/Globulin [Mass ratio] 1.0 {ratio} 0.9-2.4 [facility] ALP [Catalytic activity/Vol] 82 U/L 45-117 [facility] ALT [Catalytic activity/Vol] 21 U/L 16-61 [facility] Cholesterol in HDL [Mass/Vol] 38 mg/dL >40 [facility] Comment on above: The drugs N-Acetylcy steine and Metamizole may falsely depress this assay. Reference Range HDL <40 mg/dL Low HDL Cholesterol HDL >or= 60 mg/dL High HDL Cholesterol Cholesterol in LDL [Mass/Vol] 72 mg/dL 0-130 [facility] CO2 [Moles/Vol] 27.0 mmol/L 21.0-32.0 [facility] Globulin (S) [Mass/Vol] 3.6 g/dL 2.2-4.2 [facility] Urea nitrogen/Creatinine [Mass ratio] 12.9 mg/mg 10-20 [facility] Laboratory - Hematology and Cell countsOrdered By: Kg Salinas on 09-12-2023 MCH (RBC) [Entitic mass] 28.6 pg 27.0-32.0 [facility] MCHC (RBC) [Mass/Vol] 33.2 g/dL 32-36 [facility] Nucleated RBC/100 WBC (Bld) [Ratio] 0 % 0-5 [facility] Platelet mean volume (Bld) [Entitic vol] 10.4 fL 6.2-12.0 [facility] Platelets (Bld) [#/Vol] 218 10*3/uL 150-450 [facility] No Panel InformationOrdered By: Kg Salinas on 09-12-2023 Estimated GFR (MDRD) Amer 94 mL/min >60 [facility] Comment on above: GFR Calc Estimated GFR (MDRD) Non-Af Amer 78 mL/min >60 [facility] Comment on above: Non- GFR Calc Vitamin D 25-Hydroxy 37.4 ng/mL [facility] Comment on above: Vitamin D 25(OH) Sta tus Range Deficiency <20 ng/mL (50nmol/L) Insufficiency 20 - 30 ng/mL (50 - 75 nmol/L) Sufficiency 30 - 100 ng/mL (75 - 250 nmol/L) Toxicity >100 ng/mL (>250 nmol/L) VLDL Cholesterol 24 mg/dL 5-40 [facility] RBC Auto (Bld) [#/Vol]Ordere d By: Kg Salinas on 09-12-2023 RBC (Bld) [#/Vol] 5.81 10*6/uL 4.6-6.2 [facility] Serum or plasma calcium miguel urement (mass/volume)Ordered By: Kg Salinas on 09-12-2023 Calcium [Mass/Vol] 9.1 mg/dL 8.5-10.1 [facility] Serum or plasma creatinine m easurement (mass/volume)Ordered By: Kg Salinas on 09-12-2023 Creatinine [Mass/Vol] 1.01 mg/dL 0.70-1.30 [facility] Comment on above: The validity of the calculated GFR & GFRAA in patients over 70 years has not been determined. Clinical correlation is essential. Serum or plasma thyroid stim ulating hormone (TSH) measurement (units/volume)Ordered By: Kg Lovettok on 09-12-2023 TSH Qn 0.12 uIU/mL 0.358-3.74 [facility] Serum or plasma urea nitroge n measurement (mass/volume)Ordered By: Kg Brad on 09-12-2023 Urea nitrogen [Mass/Vol] 13 mg/dL 7-18 [facility] Thin prep Papanicolaou smear with manual screeningOrdered By: [facility] Thin prep Papanicolaou smear with manual screening 3.6 g/dL 3.2-5.0 [facility] Thin prep Papanicolaou smear with manual screening 13 U/L 15-37 [facility] Thin prep Papanicolaou smear with manual screening 4 5-15 [facility] Absolute lymphocyte countOrd ered By: Kg Salinas on 03-13-2023 Lymphocytes Auto (Unsp spec) [#/Vol] 1.34 10*3/uL 0.83-4.51 [facility] Basophil percentageOrdered B y: Kg Salinas on 03-13-2023 Basophils/100 WBC (Bld) 0.6 % 0-1 [facility] Bilirubin [Mass/Vol] 0.60 mg/dL 0.20-1.00 [facility] Comment on above: For patients on eltr ombopag therapy, use of Dimension Falcon TBIL is not recommended. Chloride [Moles/Vol] 109 mmol/L 98-107 [facility] Cholesterol [Mass/Vol] 91 mg/dL <200 [facility] Comment on above: <200 mg/dL Desirable 200-240 mg/dL Borderline >240 mg/dL High Risk Eosinophils/100 WBC (Bld) 2.1 % 0-5 [facility] Glucose [Mass/Vol] 96 mg/dL 74-106 [facility] Neutrophils (Bld) [#/Vol] 2.9 10*3/uL 2.0-7.7 [facility] Neutrophils/100 WBC (Bld) 60.5 % 47-70 [facility] Potassium [Moles/Vol] 3.4 mmol/L 3.5-5.1 [facility] Protein [Mass/Vol] 7.3 g/dL 6.4-8.2 [facility] Sodium [Moles/Vol] 141 mmol/L 136-145 [facility] Triglyceride [Mass/Vol] 77 mg/dL <199 [facility] Comment on above: The drugs N-Acetylcy steine and Metamizole may falsely depress this assay.Serum Triglycerides Reference Interval Normal <150 mg/dL Borderline high 150 - 199 mg/dL High 200 - 499 mg/dL Very High > or = 500 mg/dL WBC (Bld) [#/Vol] 4.8 10*3/uL 4.4-11.0 [facility] Blood erythrocytes count (nu mber/volume)Ordered By: Kg Salinas on 03-13-2023 RBC (Bld) [#/Vol] 5.63 10*6/uL 4.6-6.2 [facility] Blood hemoglobin measurement (mass/volume)Ordered By: Kg Salinas on 03-13-2023 Hemoglobin (Bld) [Mass/Vol] 15.7 g/dL 13.0-16.5 [facility] Blood lymphocytes/100 leukoc ytesOrdered By: Kg Salinas on 03-13-2023 Lymphocytes/100 WBC (Bld) 27.9 % 19-41 [facility] Blood monocytes/100 leukocyt esOrdered By: Kg Salinas on 03-13-2023 Monocytes/100 WBC (Bld) 8.5 % 0-10 [facility] Blood platelet mean volumeOr dered By: Kg Salinas on 03-13-2023 Platelet mean volume (Bld) [Entitic vol] 10.5 fL 6.2-12.0 [facility] Determination of erythrocyte mean corpuscular volume (MCV)Ordered By: Kg Salinas on 03-13-2023 MCV (RBC) [Entitic vol] 85.1 fL 80-94 [facility] Hematocrit Auto (Bld) [Volum e fraction]Ordered By: Kg Salinas on 03-13-2023 Hematocrit (Bld) [Volume fraction] 47.9 % 40-54 [facility] Laboratory - Chemistry and C hemistry - challengeOrdered By: Kg Salinas on 03-13-2023 ALP [Catalytic activity/Vol] 80 U/L 45-117 [facility] ALT [Catalytic activity/Vol] 31 U/L 16-61 [facility] CO2 [Moles/Vol] 27.0 mmol/L 21.0-32.0 [facility] Globulin (S) [Mass/Vol] 3.9 g/dL 2.2-4.2 [facility] Urea nitrogen/Creatinine [Mass ratio] 12.2 mg/mg 10-20 [facility] Laboratory - Hematology and Cell countsOrdered By: Kg Salinas on 03-13-2023 Erythrocyte distribution width (RBC) [Entitic vol] 41.9 fL 35.1-43.9 [facility] Erythrocyte distribution width (RBC) [Ratio] 13.6 % 11.6-14.6 [facility] Immature granulocytes/100 WBC (Bld) 0.400 % 0.0-0.9 [facility] Comment on above: IG% - Immature Granu locytes (promyelocytes, myelocytes and metamyelocytes) > 1% indicates that a LEFT SHIFT is Present. MCH (RBC) [Entitic mass] 27.9 pg 27.0-32.0 [facility] Nucleated RBC/100 WBC (Bld) [Ratio] 0 % 0-5 [facility] MCHC Auto (RBC) [Mass/Vol]Or dered By: Kg Salinas on 03-13-2023 MCHC (RBC) [Mass/Vol] 32.8 g/dL 32-36 [facility] No Panel InformationOrdered By: Kg Salinas on 03-13-2023 Estimated GFR (MDRD) Amer 97 mL/min >60 [facility] Comment on above: GFR Calc Estimated GFR (MDRD) Non-Af Amer 80 mL/min >60 [facility] Comment on above: Non- GFR Calc Prostate Specific Antigen Screen 0.57 ng/mL 0.00-4.00 [facility] Comment on above: This test was perfor med using the TPSA assay method for theStan[facility] University [facility] Centeron chemistry system. Values obtained with differentassay methods cannot be used interchangably.When changing PSA assays in the course of monitoring apatient, additional sequential testing should be carriedout to confirm baseline values. Thyroid Stimulating Hormone (TSH) 0.21 uIU/mL 0.358-3.74 [facility] Vitamin D 25-Hydroxy 43.8 ng/mL [facility] Comment on above: Vitamin D 25(OH) Sta tus Range Deficiency <20 ng/mL (50nmol/L) Insufficiency 20 - 30 ng/mL (50 - 75 nmol/L) Sufficiency 30 - 100 ng/mL (75 - 250 nmol/L) Toxicity >100 ng/mL (>250 nmol/L) Platelets bldOrdered By: Kg Salinas on 03-13-2023 Platelets (Bld) [#/Vol] 248 10*3/uL 150-450 [facility] Serum or plasma albumin miguel urement (mass/volume)Ordered By: Kg Salinas on 03-13-2023 Albumin [Mass/Vol] 3.4 g/dL 3.2-5.0 [facility] Serum or plasma albumin/glob ulin mass ratioOrdered By: Kg Salinas 03-13-2023 Albumin/Globulin [Mass ratio] 0.9 {ratio} 0.9-2.4 [facility] Serum or plasma calcium miguel urement (mass/volume)Ordered By: Kg Salinas 03-13-2023 Calcium [Mass/Vol] 8.9 mg/dL 8.5-10.1 [facility] Serum or plasma cholesterol in HDL measurement (mass/volume)Ordered By: Kg Salinas 03-13-2023 Cholesterol in HDL [Mass/Vol] 33 mg/dL >40 [facility] Comment on above: The drugs N-Acetylcy steine and Metamizole may falsely depress this assay. Reference Range HDL <40 mg/dL Low HDL Cholesterol HDL >or= 60 mg/dL High HDL Cholesterol Serum or plasma cholesterol in VLDL measurement (mass/volume)Ordered By: Kg Salinas on 03-13-2023 Cholesterol in VLDL [Mass/Vol] 15 mg/dL 5-40 [facility] Serum or plasma creatinine m easurement (mass/volume)Ordered By: Kg Salinas 03-13-2023 Creatinine [Mass/Vol] 0.98 mg/dL 0.70-1.30 [facility] Comment on above: The validity of the calculated GFR & GFRAA in patients over 70 years has not been determined. Clinical correlation is essential. Serum or plasma low density lipoprotein (LDL) cholesterol measurement (mass/volume)Ordered By: Kg Salinas on 03-13-2023 Cholesterol in LDL [Mass/Vol] 43 mg/dL 0-130 [facility] Serum or plasma urea nitroge n measurement (mass/volume)Ordered By: Kg Salinas on 03-13-2023 Urea nitrogen [Mass/Vol] 12 mg/dL 7-18 [facility] Thin prep Papanicolaou smear with manual screeningOrdered By: Kg Salinas on 03-13-2023 Thin prep Papanicolaou smear with manual screening 14 U/L 15-37 [facility] Thin prep Papanicolaou smear with manual screening 5 5-15 [facility] Absolute lymphocyte countOrd ered By: Dr. Tavera on 09-05-2022 Lymphocytes Auto (Unsp spec) [#/Vol] 1.56 10*3/uL 0.83-4.51 [facility] Basophil percentageOrdered B y: Dr. Tavera on 09-05-2022 Basophils/100 WBC (Bld) 0.5 % 0-1 [facility] Bilirubin [Mass/Vol] 0.40 mg/dL 0.20-1.00 [facility] Comment on above: For patients on eltr ombopag therapy, use of Dimension Falcon TBIL is not recommended. Chloride [Moles/Vol] 110 mmol/L 98-107 [facility] Cholesterol [Mass/Vol] 112 mg/dL <200 [facility] Comment on above: <200 mg/dL Desirable 200-240 mg/dL Borderline >240 mg/dL High Risk Eosinophils/100 WBC (Bld) 1.6 % 0-5 [facility] Glucose [Mass/Vol] 80 mg/dL 74-106 [facility] Neutrophils (Bld) [#/Vol] 3.3 10*3/uL 2.0-7.7 [facility] Neutrophils/100 WBC (Bld) 58.4 % 47-70 [facility] Potassium [Moles/Vol] 3.7 mmol/L 3.5-5.1 [facility] Protein [Mass/Vol] 7.1 g/dL 6.4-8.2 [facility] Sodium [Moles/Vol] 143 mmol/L 136-145 [facility] Triglyceride [Mass/Vol] 165 mg/dL <199 [facility] Comment on above: The drugs N-Acetylcy steine and Metamizole may falsely depress this assay.Serum Triglycerides Reference Interval Normal <150 mg/dL Borderline high 150 - 199 mg/dL High 200 - 499 mg/dL Very High > or = 500 mg/dL WBC (Bld) [#/Vol] 5.7 10*3/uL 4.4-11.0 [facility] Blood erythrocytes count (nu mber/volume)Ordered By: Dr. Tavera on 09-05-2022 RBC (Bld) [#/Vol] 5.52 10*6/uL 4.6-6.2 [facility] Blood hemoglobin measurement (mass/volume)Ordered By: Dr. Tavera on 09-05-2022 Hemoglobin (Bld) [Mass/Vol] 15.4 g/dL 13.0-16.5 [facility] Blood lymphocytes/100 leukoc ytesOrdered By: Dr. Tavera on 09-05-2022 Lymphocytes/100 WBC (Bld) 27.5 % 19-41 [facility] Blood monocytes/100 leukocyt esOrdered By: Dr. Tavera on 09-05-2022 Monocytes/100 WBC (Bld) 11.3 % 0-10 [facility] Blood platelet mean volumeOr dered By: Dr. Tavera on 09-05-2022 Platelet mean volume (Bld) [Entitic vol] 10.5 fL 6.2-12.0 [facility] Determination of erythrocyte mean corpuscular volume (MCV)Ordered By: Dr. Tavera on 09-05-2022 MCV (RBC) [Entitic vol] 85.3 fL 80-94 [facility] Hematocrit Auto (Bld) [Volum e fraction]Ordered By: Dr. Tavera on 09-05-2022 Hematocrit (Bld) [Volume fraction] 47.1 % 40-54 [facility] Laboratory - Chemistry and C hemistry - challengeOrdered By: Dr. Tavera on 09-05-2022 ALP [Catalytic activity/Vol] 75 U/L 45-117 [facility] ALT [Catalytic activity/Vol] 31 U/L 16-61 [facility] CO2 [Moles/Vol] 26.0 mmol/L 21.0-32.0 [facility] Globulin (S) [Mass/Vol] 3.6 g/dL 2.2-4.2 [facility] Urea nitrogen/Creatinine [Mass ratio] 12.7 mg/mg 10-20 [facility] Laboratory - Hematology and Cell countsOrdered By: Dr. Tavera on 09-05-2022 Erythrocyte distribution width (RBC) [Entitic vol] 47.4 fL 35.1-43.9 [facility] Erythrocyte distribution width (RBC) [Ratio] 15.1 % 11.6-14.6 [facility] Immature granulocytes/100 WBC (Bld) 0.700 % 0.0-0.9 [facility] Comment on above: IG% - Immature Granu locytes (promyelocytes, myelocytes and metamyelocytes) > 1% indicates that a LEFT SHIFT is Present. MCH (RBC) [Entitic mass] 27.9 pg 27.0-32.0 [facility] Nucleated RBC/100 WBC (Bld) [Ratio] 0 % 0-5 [facility] MCHC Auto (RBC) [Mass/Vol]Or dered By: Dr. Tavera on 09-05-2022 MCHC (RBC) [Mass/Vol] 32.7 g/dL 32-36 [facility] No Panel InformationOrdered By: Dr. Tavera on 09-05-2022 Estimated GFR (MDRD) Amer 85 mL/min >60 [facility] Comment on above: GFR Calc Estimated GFR (MDRD) Non-Af Amer 71 mL/min >60 [facility] Comment on above: Non- GFR Calc Thyroid Stimulating Hormone (TSH) 0.30 uIU/mL 0.358-3.74 [facility] Vitamin D 25-Hydroxy 39.9 ng/mL [facility] Comment on above: Vitamin D 25(OH) Sta tus Range Deficiency <20 ng/mL (50nmol/L) Insufficiency 20 - 30 ng/mL (50 - 75 nmol/L) Sufficiency 30 - 100 ng/mL (75 - 250 nmol/L) Toxicity >100 ng/mL (>250 nmol/L) Platelets bldOrdered By: Dr. Tavera on 09-05-2022 Platelets (Bld) [#/Vol] 232 10*3/uL 150-450 [facility] Serum or plasma albumin miguel urement (mass/volume)Ordered By: Dr. Tavera on 09-05-2022 Albumin [Mass/Vol] 3.5 g/dL 3.2-5.0 [facility] Serum or plasma albumin/glob ulin mass ratioOrdered By: Dr. Tavera on 09-05-2022 Albumin/Globulin [Mass ratio] 1.0 {ratio} 0.9-2.4 [facility] Serum or plasma calcitriol m easurement (mass/volume)Ordered By: Dr. Tavera on 09-05-2022 1,25-dihydroxyvitamin D3 [Mass/Vol] 32.7 pg/mL 24.8-81.5 [facility] Comment on above: Performed at: - [address] [id number] Director: Janeth Ordonez MD, Phone: [phone] Serum or plasma calcium miguel urement (mass/volume)Ordered By: Dr. Tavera on 09-05-2022 Calcium [Mass/Vol] 9.3 mg/dL 8.5-10.1 [facility] Serum or plasma cholesterol in HDL measurement (mass/volume)Ordered By: Dr. Tavera on 09-05-2022 Cholesterol in HDL [Mass/Vol] 38 mg/dL >40 [facility] Comment on above: The drugs N-Acetylcy steine and Metamizole may falsely depress this assay. Reference Range HDL <40 mg/dL Low HDL Cholesterol HDL >or= 60 mg/dL High HDL Cholesterol Serum or plasma cholesterol in VLDL measurement (mass/volume)Ordered By: Dr. Tavera on 09-05-2022 Cholesterol in VLDL [Mass/Vol] 33 mg/dL 5-40 [facility] Serum or plasma creatinine m easurement (mass/volume)Ordered By: Dr. Tavera on 09-05-2022 Creatinine [Mass/Vol] 1.10 mg/dL 0.70-1.30 [facility] Comment on above: The validity of the calculated GFR & GFRAA in patients over 70 years has not been determined. Clinical correlation is essential. Serum or plasma low density lipoprotein (LDL) cholesterol measurement (mass/volume)Ordered By: Dr. Tavera on 09-05-2022 Cholesterol in LDL [Mass/Vol] 41 mg/dL 0-130 [facility] Serum or plasma urea nitroge n measurement (mass/volume)Ordered By: Dr. Tavera on 09-05-2022 Urea nitrogen [Mass/Vol] 14 mg/dL 7-18 [facility] Thin prep Papanicolaou smear with manual screeningOrdered By: Dr. Tavera on 09-05-2022 Thin prep Papanicolaou smear with manual screening 19 U/L 15-37 [facility] Thin prep Papanicolaou smear with manual screening 7 5-15 [facility] COVID-19 virus antigen assay Ordered By: Dr. Salinas on 08-01-2022 SARS-CoV-2 (COVID-19) Ag IA.rapid Ql (Resp) Detected Not Detect [facility] Comment on above: Normal Reference Ran ge: Not DetectedMethod:(RT-PCR) real-time reverse transcriptase PCRLuminex GRETCHEN Instrument*The Food and Drug Administration (FDA) has issued an Emergency Use Authorization (EAU) for the GRETCHEN SARS-CoV-2 Assay for the rapid detection of the virus that causes COVID-19. This test has been validated, but the FDAs independent review of this validation is pending.*Negative results do not preclude infection and should not be used as the sole basis for treatment or patient management. Optimum specimen types and timing for peak viral levels during infections caused by SARS-CoV-2 have not been determined. Collection of multiple specimens from the same patient may be necessary to detect the virus. The possibility of a false negative result should be considered if the patient has clinical presentation or has had recent exposure. No Panel InformationOrdered By: Dr. Salinas on 08-01-2022 Influenza Types A,B Direct FA (ASHLEE) [facility] RSV Ag EIAOrdered By: Dr. Bony mackey on 08-01-2022 RSV Ag Immune stain Ql (Tiss) [facility] Basophil percentageOrdered B y: Dr. Tavera on 06-21-2022 Basophil percentage Comment . [facility] Comment on above: No monoclonality det ected.Performed at: [facility] [id number] Director: Liam Ahuja PhD, Phone: [phone] Albumin Elph [Mass/Vol]Order ed By: Dr. Tavera on 05-30-2022 Albumin [Mass/Vol] 3.7 g/dL 2.9-4.4 [facility] Interpretation of serum or p lasma protein pattern by immunofixation (narrative resultOrdered By: Dr. Tavera on 05-30-2022 Protein Fractions Immunofixation Kehinde [Interp] See comment [facility] Comment on above: Result: Not Observed No Panel InformationOrdered By: Dr. Tavera on 05-30-2022 Addendum Document Comment . [facility] Comment on above: Protein electrophore sis scan will follow via computer,mail, or mud car worker delivery.Performed at: [facility] [employer] [address] [id number] Director: Liam Ahuja PhD, Phone: [phone] Serum [id number] measu rement by electrophoresisOrdered By: Dr. Tavera on 05-30-2022 Alpha 1 globulin Elph [Mass/Vol] 0.3 g/dL 0.0-0.4 [facility] Alpha 1 globulin Elph [Mass/Vol] 0.7 g/dL 0.4-1.0 [facility] Serum globulin measurement ( mass/volume)Ordered By: Dr. Tavera on 05-30-2022 Globulin (S) [Mass/Vol] 4.1 g/dL 2.2-3.9 [facility] Serum or plasma IgA measurem ent (mass/volume)Ordered By: Dr. Tavera on 05-30-2022 IgA [Mass/Vol] 212 mg/dL 61-437 [facility] Serum or plasma IgG measurem ent (mass/volume)Ordered By: Dr. Tavera on 05-30-2022 IgG [Mass/Vol] 2268 mg/dL [phone] [facility] Serum or plasma IgM measurem ent (mass/volume)Ordered By: Dr. Tavera on 05-30-2022 IgM [Mass/Vol] 38 mg/dL 20-172 [facility] Serum or plasma beta globuli n measurement by electrophoresis (mass/volume)Ordered By: Dr. Tavera on 05-30-2022 Beta globulin Elph [Mass/Vol] 1.0 g/dL 0.7-1.3 [facility] Serum or plasma gamma globul in measurement by electrophoresis (mass/volume)Ordered By: Dr. Tavera on 05-30-2022 Gamma globulin Elph [Mass/Vol] 2.1 g/dL 0.4-1.8 [facility] Serum or plasma immunoelectr ophoresis interpretation (nominal result)Ordered By: Dr. Tavera on 05-30-2022 Interpretation IEP [Interp] Comment . [facility] Comment on above: No monoclonality det ected. Thin prep Papanicolaou smear with manual screeningOrdered By: Dr. Tavera on 05-30-2022 Thin prep Papanicolaou smear with manual screening 1.0 0.7-1.7 [facility] Total protein bloodOrdered B y: Dr. Tavera on 05-30-2022 Protein [Mass/Vol] 7.8 g/dL 6.0-8.5 [facility] Serum or plasma uric acid me asurement (mass/volume)Ordered By: Dr. Tavera on 05-19-2022 Urate [Mass/Vol] 7.2 mg/dL 3.5-7.2 [facility] Comment on above: The drugs N-Acetylcy steine and Metamizole may falsely depress this assay. Basophil percentageOrdered B y: Dr. Tavera on 04-26-2022 Basophil percentage 2.4 mg/dL 2.5-4.9 [facility] Bilirubin [Mass/Vol] 0.60 mg/dL 0.20-1.00 [facility] Comment on above: For patients on eltr ombopag therapy, use of Dimension Falcon TBIL is not recommended. Chloride [Moles/Vol] 109 mmol/L 98-107 [facility] Glucose [Mass/Vol] 102 mg/dL 74-106 [facility] Comment on above: Fasting Glucose resu lt from 100 to 125 mg/dL suggests IMPAIRED HOMEOSTASIS per A.D.A. criteria. Potassium [Moles/Vol] 3.8 mmol/L 3.5-5.1 [facility] Protein [Mass/Vol] 7.4 g/dL 6.4-8.2 [facility] Sodium [Moles/Vol] 141 mmol/L 136-145 [facility] WBC (Bld) [#/Vol] 5.6 10*3/uL 4.4-11.0 [facility] Blood erythrocytes count (nu mber/volume)Ordered By: Dr. Tavera on 04-26-2022 RBC (Bld) [#/Vol] 5.47 10*6/uL 4.6-6.2 [facility] Blood hemoglobin measurement (mass/volume)Ordered By: Dr. Tavera on 04-26-2022 Hemoglobin (Bld) [Mass/Vol] 15.4 g/dL 13.0-16.5 [facility] Blood platelet mean volumeOr dered By: Dr. Tavera on 04-26-2022 Platelet mean volume (Bld) [Entitic vol] 10.6 fL 6.2-12.0 [facility] Determination of erythrocyte mean corpuscular volume (MCV)Ordered By: Dr. Tavera on 04-26-2022 MCV (RBC) [Entitic vol] 85.4 fL 80-94 [facility] Hematocrit Auto (Bld) [Volum e fraction]Ordered By: Dr. Tavera on 04-26-2022 Hematocrit (Bld) [Volume fraction] 46.7 % 40-54 [facility] Laboratory - Chemistry and C hemistry - challengeOrdered By: Dr. Tavera on 04-26-2022 ALP [Catalytic activity/Vol] 87 U/L 45-117 [facility] ALT [Catalytic activity/Vol] 21 U/L 16-61 [facility] CO2 [Moles/Vol] 26.0 mmol/L 21.0-32.0 [facility] Cobalamin (Vitamin B12) [Mass/Vol] 375 pg/mL 211-911 [facility] Globulin (S) [Mass/Vol] 3.7 g/dL 2.2-4.2 [facility] Urea nitrogen/Creatinine [Mass ratio] 11.1 mg/mg 10-20 [facility] Laboratory - Hematology and Cell countsOrdered By: Dr. Tavera on 04-26-2022 Erythrocyte distribution width (RBC) [Entitic vol] 43.4 fL 35.1-43.9 [facility] Erythrocyte distribution width (RBC) [Ratio] 13.8 % 11.6-14.6 [facility] MCH (RBC) [Entitic mass] 28.2 pg 27.0-32.0 [facility] MCHC Auto (RBC) [Mass/Vol]Or dered By: Dr. Tavera on 04-26-2022 MCHC (RBC) [Mass/Vol] 33.0 g/dL 32-36 [facility] No Panel InformationOrdered By: Dr. Tavera on 04-26-2022 Estimated GFR (MDRD) Amer 87 mL/min >60 [facility] Comment on above: GFR Calc Estimated GFR (MDRD) Non-Af Amer 72 mL/min >60 [facility] Comment on above: Non- GFR Calc Free Lambda Light Chains, Quant 14.6 mg/L 5.7-26.3 [facility] Thyroid Stimulating Hormone (TSH) 0.36 uIU/mL 0.358-3.74 [facility] Whole Blood Vitamin B1 Level 151.9 nmol/L 66.5-200.0 [facility] Comment on above: Performed at: - [address] [id number] Director: Liam Ahuja PhD, Phone: [phone] at: - [facility] [address] [id number] Director: Janeth Ordonez MD, Phone: [phone] Platelets bldOrdered By: Dr. Tavera on 04-26-2022 Platelets (Bld) [#/Vol] 230 10*3/uL 150-450 [facility] Serum immunoglobulin kappa l ight chains/immunoglobulin lambda light chains mass ratioOrdered By: Dr. Tavera on 04-26-2022 Immunoglobulin light chains.kappa/Immunoglobu ryne light chains.lambda (S) [Mass ratio] 1.89 0.26-1.65 [facility] Serum or plasma albumin miguel urement (mass/volume)Ordered By: Dr. Tavera on 04-26-2022 Albumin [Mass/Vol] 3.7 g/dL 3.2-5.0 [facility] Serum or plasma albumin/glob ulin mass ratioOrdered By: Dr. Tavera on 04-26-2022 Albumin/Globulin [Mass ratio] 1.0 {ratio} 0.9-2.4 [facility] Serum or plasma calcium miguel urement (mass/volume)Ordered By: Dr. Tavera on 04-26-2022 Calcium [Mass/Vol] 9.6 mg/dL 8.5-10.1 [facility] Serum or plasma creatinine m easurement (mass/volume)Ordered By: Dr. Tavera on 04-26-2022 Creatinine [Mass/Vol] 1.08 mg/dL 0.70-1.30 [facility] Comment on above: The validity of the calculated GFR & GFRAA in patients over 70 years has not been determined. Clinical correlation is essential. Serum or plasma folate measu rement (mass/volume)Ordered By: Dr. Tavera on 04-26-2022 Folate [Mass/Vol] 6.40 ng/mL 3.1-55.4 [facility] Serum or plasma immunoglobul in kappa light chains measurement (mass/volume)Ordered By: Dr. Tavera on 04-26-2022 Immunoglobulin light chains.kappa [Mass/Vol] 27.6 mg/L 3.3-19.4 [facility] Serum or plasma urea nitroge n measurement (mass/volume)Ordered By: Dr. Tavera on 04-26-2022 Urea nitrogen [Mass/Vol] 12 mg/dL 7-18 [facility] Thin prep Papanicolaou smear with manual screeningOrdered By: Dr. Tavera on 04-26-2022 Thin prep Papanicolaou smear with manual screening 11 U/L 15-37 [facility] Thin prep Papanicolaou smear with manual screening 6 5-15 [facility] Laboratory - Microbiology an d Antimicrobial susceptibilityon 03-15-2022 SARS-CoV-2 (COVID-19) RNA LUZ ELENA+probe Ql (Unsp spec) Not detected Not Detect [facility] Work Phone: Comment on above: Normal Reference Ran ge: Not DetectedMethod:(RT-PCR) real-time reverse transcriptase PCRLuminex GRETCHEN Instrument*The Food and Drug Administration (FDA) has issued an Emergency Use Authorization (EAU) for the GRETCHEN SARS-CoV-2 Assay for the rapid detection of the virus that causes COVID-19. This test has been validated, but the FDAs independent review of this validation is pending.*Negative results do not preclude infection and should not be used as the sole basis for treatment or patient management. Optimum specimen types and timing for peak viral levels during infections caused by SARS-CoV-2 have not been determined. Collection of multiple specimens from the same patient may be necessary to detect the virus. The possibility of a false negative result should be considered if the patient has clinical presentation or has had recent exposure. Absolute lymphocyte counton 03-07-2022 Lymphocytes Auto (Unsp spec) [#/Vol] 1.72 10*3/uL 0.83-4.51 [facility] Work Phone: [phone] Basophil percentageon 2021 Basophils/100 WBC (Bld) 0.7 % 0-1 [facility] Work Phone: [phone] Bilirubin [Mass/Vol] 0.40 mg/dL 0.20-1.00 [facility] Work Phone: [phone] Comment on above: For patients on eltr ombopag therapy, use of Dimension Falcon TBIL is not recommended. Chloride [Moles/Vol] 107 mmol/L 98-107 [facility] Work Phone: Eosinophils/100 WBC (Bld) 1.7 % 0-5 [facility] Work Phone: [phone] Glucose [Mass/Vol] 100 mg/dL 74-106 [facility] Work Phone: [phone] Comment on above: Fasting Glucose resu lt from 100 to 125 mg/dL suggests IMPAIRED HOMEOSTASIS per A.D.A. criteria. Neutrophils (Bld) [#/Vol] 4.4 10*3/uL 2.0-7.7 [facility] Work Phone: Neutrophils/100 WBC (Bld) 64.0 % 47-70 [facility] Work Phone: Potassium [Moles/Vol] 3.7 mmol/L 3.5-5.1 [facility] Work Phone: Protein [Mass/Vol] 7.5 g/dL 6.4-8.2 [facility] Work Phone: Sodium [Moles/Vol] 141 mmol/L 136-145 [facility] Work Phone: WBC (Bld) [#/Vol] 6.9 10*3/uL 4.4-11.0 [facility] Work Phone: Blood erythrocytes count (nu mber/volume)on 03-07-2022 RBC (Bld) [#/Vol] 5.04 10*6/uL 4.6-6.2 [facility] Work Phone: Blood hemoglobin measurement (mass/volume)on 03-07-2022 Hemoglobin (Bld) [Mass/Vol] 14.4 g/dL 13.0-16.5 [facility] Work Phone: Blood lymphocytes/100 leukoc yteson 03-07-2022 Lymphocytes/100 WBC (Bld) 24.8 % 19-41 [facility] Work Phone: Blood monocytes/100 leukocyt eson 03-07-2022 Monocytes/100 WBC (Bld) 8.1 % 0-10 [facility] Work Phone: Blood platelet mean volumeon 03-07-2022 Platelet mean volume (Bld) [Entitic vol] 10.2 fL 6.2-12.0 [facility] Work Phone: Determination of erythrocyte mean corpuscular volume (MCV)on 03-07-2022 MCV (RBC) [Entitic vol] 86.7 fL 80-94 [facility] Work Phone: Hematocrit Auto (Bld) [Volum e fraction]on 03-07-2022 Hematocrit (Bld) [Volume fraction] 43.7 % 40-54 [facility] Work Phone: [phone] Laboratory - Chemistry and C hemistry - challengeon 03-07-2022 ALP [Catalytic activity/Vol] 93 U/L 45-117 [facility] Work Phone: [phone] ALT [Catalytic activity/Vol] 26 U/L 16-61 [facility] Work Phone: [phone] CO2 [Moles/Vol] 25.0 mmol/L 21.0-32.0 [facility] Work Phone: [phone] Globulin (S) [Mass/Vol] 4.0 g/dL 2.2-4.2 [facility] Work Phone: [phone] Urea nitrogen/Creatinine [Mass ratio] 11.3 mg/mg 10-20 [facility] Work Phone: [phone] Laboratory - Hematology and Cell countson 03-07-2022 Erythrocyte distribution width (RBC) [Entitic vol] 49.0 fL 35.1-43.9 [facility] Work Phone: [phone] Erythrocyte distribution width (RBC) [Ratio] 15.5 % 11.6-14.6 [facility] Work Phone: [phone] Immature granulocytes/100 WBC (Bld) 0.700 % 0.0-0.9 [facility] Work Phone: [phone] Comment on above: IG% - Immature Granu locytes (promyelocytes, myelocytes and metamyelocytes) > 1% indicates that a LEFT SHIFT is Present. MCH (RBC) [Entitic mass] 28.6 pg 27.0-32.0 [facility] Work Phone: [phone] Nucleated RBC/100 WBC (Bld) [Ratio] 0 % 0-5 [facility] Work Phone: [phone] MCHC Auto (RBC) [Mass/Vol]on 03-07-2022 MCHC (RBC) [Mass/Vol] 33.0 g/dL 32-36 [facility] Work Phone: [phone] No Panel Informationon 03-07 Estimated GFR (MDRD) Amer 81 mL/min >60 [facility] Work Phone: Comment on above: GFR Calc Estimated GFR (MDRD) Non-Af Amer 67 mL/min >60 [facility] Work Phone: Comment on above: Non- GFR Calc Prostate Specific Antigen Screen 1.94 ng/mL 0.00-4.00 [facility] Work Phone: Comment on above: This test was perfor med using the TPSA assay method for [employer] chemistry system. Values obtained with differentassay methods cannot be used interchangably.When changing PSA assays in the course of monitoring apatient, additional sequential testing should be carriedout to confirm baseline values. Thyroid Stimulating Hormone (TSH) 0.57 uIU/mL 0.358-3.74 [facility] Work Phone: Vitamin D 25-Hydroxy 37.9 ng/mL [facility] Work Phone: Comment on above: Vitamin D 25(OH) Sta tus Range Deficiency <20 ng/mL (50nmol/L) Insufficiency 20 - 30 ng/mL (50 - 75 nmol/L) Sufficiency 30 - 100 ng/mL (75 - 250 nmol/L) Toxicity >100 ng/mL (>250 nmol/L) Platelets bldon 03-07-2022 Platelets (Bld) [#/Vol] 287 10*3/uL 150-450 [facility] Work Phone: [phone] Serum or plasma albumin miguel urement (mass/volume)on 03-07-2022 Albumin [Mass/Vol] 3.5 g/dL 3.2-5.0 [facility] Work Phone: [phone] Serum or plasma albumin/glob ulin mass ratioon 03-07-2022 Albumin/Globulin [Mass ratio] 0.9 {ratio} 0.9-2.4 [facility] Work Phone: [phone] Serum or plasma calcium miguel urement (mass/volume)on 03-07-2022 Calcium [Mass/Vol] 9.3 mg/dL 8.5-10.1 [facility] Work Phone: [phone] Serum or plasma creatinine m easurement (mass/volume)on 03-07-2022 Creatinine [Mass/Vol] 1.15 mg/dL 0.70-1.30 [facility] Work Phone: Comment on above: The validity of the calculated GFR & GFRAA in patients over 70 years has not been determined. Clinical correlation is essential. Serum or plasma urea nitroge n measurement (mass/volume)on 03-07-2022 Urea nitrogen [Mass/Vol] 13 mg/dL 7-18 [facility] Work Phone: Thin prep Papanicolaou smear with manual screeningon 03-07-2022 Thin prep Papanicolaou smear with manual screening 9 U/L 15-37 [facility] Work Phone: Thin prep Papanicolaou smear with manual screening 9 5-15 [facility] Work Phone: XR ANKLE GENERAL 3V AP/LAT/O BL LEFTon 02-18-2022 [facility] XR Ankle - left AP and Later al and obliqueon 02-18-2022 IMPRESSION: Lateral swelling and small joint effusion. No fracture Eeler: PSCB Transcribe Date/Time: Feb 18 2022 12:03P Dictated by : GAURI RICK MD This examination was interpreted and the report reviewed and electronically signed by: GAURI RICK MD on Feb 18 2022 12:04PM [facility] DIVISION OF RADIOLOGY * * *Final Report* * * DATE OF EXAM: Feb 18 2022 11:15AM WOX [id number] - XR ANKLE 3V AP/LAT/OBL LT / PROCEDURE REASON: Acute left ankle pain * * * * Physician Interpretation * * * * EXAMINATION: Left ankle HISTORY: Pain TECHNIQUE: 3 views RESULTS: There is lateral swelling on the left. Ankle mortise is normal no acute fracture. There is a joint effusion. Cortical thickening noted along the medial distal tibia. DIVISION OF RADIOLOGY Provider, Omar Mcbride - 02/18/2022 * * *Final Report* * * DATE OF EXAM: Feb 18 2022 11:15AM WOX 5298 - XR ANKLE 3V AP/LAT/OBL LT / PROCEDURE REASON: Acute left ankle pain * * * * Physician Interpretation * * * * EXAMINATION: Left ankle HISTORY: Pain TECHNIQUE: 3 views RESULTS: There is lateral swelling on the left. Ankle mortise is normal no acute fracture. There is a joint effusion. Cortical thickening noted along the medial distal tibia. IMPRESSION IMPRESSION: Lateral swelling and small joint effusion. No fracture Eeler: ALMA Transcribe Date/Time: Feb 18 2022 12:03P Dictated by : GAURI RICK MD This examination was interpreted and the report reviewed and electronically signed by: GAURI RICK MD on Feb 18 2022 12:04PM [facility] Radiology Study observation (narrative) Gertrude [facility] XR Ankle - left AP and Later al and obliqueOrdered By: [facility] Provider on 02-18-2022 [facility] Basophil percentageon 2021 Basophil percentage 2.4 mg/dL 2.5-4.9 [facility] Work Phone: Chloride [Moles/Vol] 107 mmol/L 98-107 [facility] Work Phone: Glucose [Mass/Vol] 95 mg/dL 74-106 [facility] Work Phone: Potassium [Moles/Vol] 3.9 mmol/L 3.5-5.1 [facility] Work Phone: Sodium [Moles/Vol] 139 mmol/L 136-145 [facility] Work Phone: Laboratory - Chemistry and C hemistry - challengeon 01-11-2022 CO2 [Moles/Vol] 26.0 mmol/L 21.0-32.0 [facility] Work Phone: Urea nitrogen/Creatinine [Mass ratio] 13.0 mg/mg 10-20 [facility] Work Phone: No Panel Informationon 01-11 Estimated GFR (MDRD) Amer 87 mL/min >60 [facility] Work Phone: Comment on above: GFR Calc Estimated GFR (MDRD) Non-Af Amer 72 mL/min >60 [facility] Work Phone: Comment on above: Non- GFR Calc Serum or plasma albumin miguel urement (mass/volume)on 01-11-2022 Albumin [Mass/Vol] 3.5 g/dL 3.2-5.0 [facility] Work Phone: Serum or plasma calcium miguel urement (mass/volume)on 01-11-2022 Calcium [Mass/Vol] 9.3 mg/dL 8.5-10.1 [facility] Work Phone: [phone] Serum or plasma creatinine m easurement (mass/volume)on 01-11-2022 Creatinine [Mass/Vol] 1.08 mg/dL 0.70-1.30 [facility] Work Phone: Comment on above: The validity of the calculated GFR & GFRAA in patients over 70 years has not been determined. Clinical correlation is essential. Serum or plasma urea nitroge n measurement (mass/volume)on 01-11-2022 Urea nitrogen [Mass/Vol] 14 mg/dL 7-18 [facility] Work Phone: Basophil percentageon 2021 Chloride [Moles/Vol] 114 mmol/L 98-107 [facility] Work Phone: Glucose [Mass/Vol] 98 mg/dL 74-106 [facility] Work Phone: [phone] Potassium [Moles/Vol] 4.0 mmol/L 3.5-5.1 [facility] Work Phone: Sodium [Moles/Vol] 144 mmol/L 136-145 [facility] Work Phone: [phone] Laboratory - Chemistry and C hemistry - challengeon 12-07-2021 CO2 [Moles/Vol] 26.0 mmol/L 21.0-32.0 [facility] Work Phone: [phone] Urea nitrogen/Creatinine [Mass ratio] 11.2 mg/mg 10-20 [facility] Work Phone: No Panel Informationon 12-07 Estimated GFR (MDRD) Amer 42 mL/min >60 [facility] Work Phone: Comment on above: GFR Calc Estimated GFR (MDRD) Non-Af Amer 34 mL/min >60 [facility] Work Phone: Comment on above: Non- GFR Calc Serum or plasma calcium miguel urement (mass/volume)on 12-07-2021 Calcium [Mass/Vol] 9.0 mg/dL 8.5-10.1 [facility] Work Phone: Serum or plasma creatinine m easurement (mass/volume)on 12-07-2021 Creatinine [Mass/Vol] 2.05 mg/dL 0.70-1.30 [facility] Work Phone: Comment on above: The validity of the calculated GFR & GFRAA in patients over 70 years has not been determined. Clinical correlation is essential. Serum or plasma urea nitroge n measurement (mass/volume)on 12-07-2021 Urea nitrogen [Mass/Vol] 23 mg/dL 7-18 [facility] Work Phone: Thin prep Papanicolaou smear with manual screeningon 12-07-2021 Thin prep Papanicolaou smear with manual screening 4 5-15 [facility] Work Phone: Absolute lymphocyte counton 12-06-2021 Lymphocytes Auto (Unsp spec) [#/Vol] 1.31 10*3/uL 0.83-4.51 [facility] Work Phone: Basophil percentageon 2021 Basophils/100 WBC (Bld) 0.6 % 0-1 [facility] Work Phone: Chloride [Moles/Vol] 106 mmol/L 98-107 [facility] Work Phone: Eosinophils/100 WBC (Bld) 4.4 % 0-5 [facility] Work Phone: Glucose [Mass/Vol] 79 mg/dL 74-106 [facility] Work Phone: [phone] Neutrophils (Bld) [#/Vol] 4.0 10*3/uL 2.0-7.7 [facility] Work Phone: Neutrophils/100 WBC (Bld) 63.4 % 47-70 [facility] Work Phone: Potassium [Moles/Vol] 3.8 mmol/L 3.5-5.1 [facility] Work Phone: Sodium [Moles/Vol] 140 mmol/L 136-145 [facility] Work Phone: WBC (Bld) [#/Vol] 6.3 10*3/uL 4.4-11.0 [facility] Work Phone: Blood erythrocytes count (nu mber/volume)on 12-06-2021 RBC (Bld) [#/Vol] 4.77 10*6/uL 4.6-6.2 [facility] Work Phone: Blood hemoglobin measurement (mass/volume)on 12-06-2021 Hemoglobin (Bld) [Mass/Vol] 12.7 g/dL 13.0-16.5 [facility] Work Phone: Blood lymphocytes/100 leukoc yteson 12-06-2021 Lymphocytes/100 WBC (Bld) 20.8 % 19-41 [facility] Work Phone: Blood monocytes/100 leukocyt eson 12-06-2021 Monocytes/100 WBC (Bld) 10.2 % 0-10 [facility] Work Phone: Blood platelet mean volumeon 12-06-2021 Platelet mean volume (Bld) [Entitic vol] 9.9 fL 6.2-12.0 [facility] Work Phone: Determination of erythrocyte mean corpuscular volume (MCV)on 12-06-2021 MCV (RBC) [Entitic vol] 81.8 fL 80-94 [facility] Work Phone: Hematocrit Auto (Bld) [Volum e fraction]on 12-06-2021 Hematocrit (Bld) [Volume fraction] 39.0 % 40-54 [facility] Work Phone: Laboratory - Chemistry and C hemistry - challengeon 12-06-2021 CO2 [Moles/Vol] 27.0 mmol/L 21.0-32.0 [facility] Work Phone: Urea nitrogen/Creatinine [Mass ratio] 11.6 mg/mg 10-20 [facility] Work Phone: [phone] Laboratory - Hematology and Cell countson 12-06-2021 Erythrocyte distribution width (RBC) [Entitic vol] 40.8 fL 35.1-43.9 [facility] Work Phone: [phone] Erythrocyte distribution width (RBC) [Ratio] 13.7 % 11.6-14.6 [facility] Work Phone: [phone] Immature granulocytes/100 WBC (Bld) 0.600 % 0.0-0.9 [facility] Work Phone: [phone] Comment on above: IG% - Immature Granu locytes (promyelocytes, myelocytes and metamyelocytes) > 1% indicates that a LEFT SHIFT is Present. MCH (RBC) [Entitic mass] 26.6 pg 27.0-32.0 [facility] Work Phone: Nucleated RBC/100 WBC (Bld) [Ratio] 0 % 0-5 [facility] Work Phone: MCHC Auto (RBC) [Mass/Vol]on 12-06-2021 MCHC (RBC) [Mass/Vol] 32.6 g/dL 32-36 [facility] Work Phone: No Panel Informationon 12-06 Estimated GFR (MDRD) Amer 37 mL/min >60 [facility] Work Phone: Comment on above: GFR Calc Estimated GFR (MDRD) Non-Af Amer 31 mL/min >60 [facility] Work Phone: [phone] Comment on above: Non- GFR Calc Thyroid Stimulating Hormone (TSH) 6.08 uIU/mL 0.358-3.74 [facility] Work Phone: Platelets bldon 12-06-2021 Platelets (Bld) [#/Vol] 191 10*3/uL 150-450 [facility] Work Phone: Serum or plasma calcium miguel urement (mass/volume)on 12-06-2021 Calcium [Mass/Vol] 8.9 mg/dL 8.5-10.1 [facility] Work Phone: Serum or plasma creatinine m easurement (mass/volume)on 12-06-2021 Creatinine [Mass/Vol] 2.25 mg/dL 0.70-1.30 [facility] Work Phone: Comment on above: The validity of the calculated GFR & GFRAA in patients over 70 years has not been determined. Clinical correlation is essential. Serum or plasma urea nitroge n measurement (mass/volume)on 12-06-2021 Urea nitrogen [Mass/Vol] 26 mg/dL 7-18 [facility] Work Phone: Thin prep Papanicolaou smear with manual screeningon 12-06-2021 Thin prep Papanicolaou smear with manual screening 7 5-15 [facility] Work Phone: Absolute lymphocyte counton 12-05-2021 Lymphocytes Auto (Unsp spec) [#/Vol] 1.33 10*3/uL 0.83-4.51 [facility] Work Phone: Basophil percentageon 2021 Basophils/100 WBC (Bld) 0.5 % 0-1 [facility] Work Phone: [phone] Bilirubin [Mass/Vol] 0.50 mg/dL 0.20-1.00 [facility] Work Phone: Comment on above: For patients on eltr ombopag therapy, use of Dimension Falcon TBIL is not recommended. Chloride [Moles/Vol] 113 mmol/L 98-107 [facility] Work Phone: Eosinophils/100 WBC (Bld) 3.7 % 0-5 [facility] Work Phone: Glucose [Mass/Vol] 122 mg/dL 74-106 [facility] Work Phone: Comment on above: Fasting Glucose resu lt from 100 to 125 mg/dL suggests IMPAIRED HOMEOSTASIS per A.D.A. criteria. Neutrophils (Bld) [#/Vol] 5.0 10*3/uL 2.0-7.7 [facility] Work Phone: Neutrophils/100 WBC (Bld) 69.1 % 47-70 [facility] Work Phone: [phone] Potassium [Moles/Vol] 3.5 mmol/L 3.5-5.1 [facility] Work Phone: [phone] Protein [Mass/Vol] 6.4 g/dL 6.4-8.2 [facility] Work Phone: [phone] Sodium [Moles/Vol] 143 mmol/L 136-145 [facility] Work Phone: [phone] WBC (Bld) [#/Vol] 7.3 10*3/uL 4.4-11.0 [facility] Work Phone: [phone] Blood erythrocytes count (nu mber/volume)on 12-05-2021 RBC (Bld) [#/Vol] 4.39 10*6/uL 4.6-6.2 [facility] Work Phone: Blood hemoglobin measurement (mass/volume)on 12-05-2021 Hemoglobin (Bld) [Mass/Vol] 11.6 g/dL 13.0-16.5 [facility] Work Phone: Blood lymphocytes/100 leukoc yteson 12-05-2021 Lymphocytes/100 WBC (Bld) 18.2 % 19-41 [facility] Work Phone: Blood monocytes/100 leukocyt eson 12-05-2021 Monocytes/100 WBC (Bld) 8.1 % 0-10 [facility] Work Phone: Blood platelet mean volumeon 12-05-2021 Platelet mean volume (Bld) [Entitic vol] 10.0 fL 6.2-12.0 [facility] Work Phone: [phone] Determination of erythrocyte mean corpuscular volume (MCV)on 12-05-2021 MCV (RBC) [Entitic vol] 82.5 fL 80-94 [facility] Work Phone: [phone] Hematocrit Auto (Bld) [Volum e fraction]on 12-05-2021 Hematocrit (Bld) [Volume fraction] 36.2 % 40-54 [facility] Work Phone: [phone] Laboratory - Chemistry and C hemistry - challengeon 12-05-2021 ALP [Catalytic activity/Vol] 68 U/L 45-117 [facility] Work Phone: [phone] ALT [Catalytic activity/Vol] 23 U/L 16-61 [facility] Work Phone: [phone] CO2 [Moles/Vol] 21.0 mmol/L 21.0-32.0 [facility] Work Phone: [phone] Globulin (S) [Mass/Vol] 3.4 g/dL 2.2-4.2 [facility] Work Phone: [phone] Urea nitrogen/Creatinine [Mass ratio] 11.3 mg/mg 10-20 [facility] Work Phone: [phone] Laboratory - Hematology and Cell countson 12-05-2021 Erythrocyte distribution width (RBC) [Entitic vol] 40.6 fL 35.1-43.9 [facility] Work Phone: [phone] Erythrocyte distribution width (RBC) [Ratio] 13.5 % 11.6-14.6 [facility] Work Phone: [phone] Immature granulocytes/100 WBC (Bld) 0.400 % 0.0-0.9 [facility] Work Phone: [phone] Comment on above: IG% - Immature Granu locytes (promyelocytes, myelocytes and metamyelocytes) > 1% indicates that a LEFT SHIFT is Present. MCH (RBC) [Entitic mass] 26.4 pg 27.0-32.0 [facility] Work Phone: [phone] Nucleated RBC/100 WBC (Bld) [Ratio] 0 % 0-5 [facility] Work Phone: [phone] MCHC Auto (RBC) [Mass/Vol]on 12-05-2021 MCHC (RBC) [Mass/Vol] 32.0 g/dL 32-36 [facility] Work Phone: No Panel Informationon 12-05 Estimated Creatinine Clearance Calc 21.53 ml/min [facility] Work Phone: Estimated GFR (MDRD) Amer 30 mL/min >60 [facility] Work Phone: Comment on above: GFR Calc Estimated GFR (MDRD) Non-Af Amer 25 mL/min >60 [facility] Work Phone: Comment on above: Non- GFR Calc Platelets bldon 12-05-2021 Platelets (Bld) [#/Vol] 187 10*3/uL 150-450 [facility] Work Phone: Serum or plasma albumin miguel urement (mass/volume)on 12-05-2021 Albumin [Mass/Vol] 3.0 g/dL 3.2-5.0 [facility] Work Phone: Serum or plasma albumin/glob ulin mass ratioon 12-05-2021 Albumin/Globulin [Mass ratio] 0.9 {ratio} 0.9-2.4 [facility] Work Phone: Serum or plasma calcium miguel urement (mass/volume)on 12-05-2021 Calcium [Mass/Vol] 8.8 mg/dL 8.5-10.1 [facility] Work Phone: [phone] Serum or plasma creatinine m easurement (mass/volume)on 12-05-2021 Creatinine [Mass/Vol] 2.75 mg/dL 0.70-1.30 [facility] Work Phone: Comment on above: The validity of the calculated GFR & GFRAA in patients over 70 years has not been determined. Clinical correlation is essential. Serum or plasma urea nitroge n measurement (mass/volume)on 12-05-2021 Urea nitrogen [Mass/Vol] 31 mg/dL 7-18 [facility] Work Phone: Thin prep Papanicolaou smear with manual screeningon 12-05-2021 Thin prep Papanicolaou smear with manual screening 17 U/L 15-37 [facility] Work Phone: [phone] Thin prep Papanicolaou smear with manual screening 9 5-15 [facility] Work Phone: Basophil percentageon 2021 Cholesterol [Mass/Vol] 99 mg/dL <200 [facility] Work Phone: Comment on above: <200 mg/dL Desirable 200-240 mg/dL Borderline >240 mg/dL High Risk Triglyceride [Mass/Vol] 139 mg/dL <199 [facility] Work Phone: Comment on above: The drugs N-Acetylcy steine and Metamizole may falsely depress this assay.Serum Triglycerides Reference Interval Normal <150 mg/dL Borderline high 150 - 199 mg/dL High 200 - 499 mg/dL Very High > or = 500 mg/dL Laboratory - Chemistry and C hemistry - challengeon 12-03-2021 Free T4 [Mass/Vol] 0.99 ng/dL 0.76-1.46 [facility] Work Phone: No Panel Informationon 12-03 Thyroid Stimulating Hormone (TSH) 5.93 uIU/mL 0.358-3.74 [facility] Work Phone: Serum or plasma cholesterol in HDL measurement (mass/volume)on 12-03-2021 Cholesterol in HDL [Mass/Vol] 29 mg/dL >40 [facility] Work Phone: Comment on above: The drugs N-Acetylcy steine and Metamizole may falsely depress this assay. Reference Range HDL <40 mg/dL Low HDL Cholesterol HDL >or= 60 mg/dL High HDL Cholesterol Serum or plasma cholesterol in VLDL measurement (mass/volume)on 12-03-2021 Cholesterol in VLDL [Mass/Vol] 28 mg/dL 5-40 [facility] Work Phone: [phone] Serum or plasma low density lipoprotein (LDL) cholesterol measurement (mass/volume)on 12-03-2021 Cholesterol in LDL [Mass/Vol] 42 mg/dL 0-130 [facility] Work Phone: Whole blood hemoglobin A1c/t otal hemoglobin ratio (mass fraction)on 12-03-2021 HbA1c (Bld) [Mass fraction] 5.8 % 3.8-5.6 [facility] Work Phone: Comment on above: Normal < 5.7 % Predi abetic 5.7 - 6.4 % Diabetic >or= 6.5 % Please note range changes. Absolute lymphocyte counton 12-02-2021 Lymphocytes Auto (Unsp spec) [#/Vol] 1.48 10*3/uL 0.83-4.51 [facility] Work Phone: Basophil percentageon 2021 Basophil percentage 0-5 SEEN /hpf 0-5 [facility] Work Phone: Basophil percentage 3.4 mg/dL 2.5-4.9 [facility] Work Phone: Basophils/100 WBC (Bld) 0.6 % 0-1 [facility] Work Phone: Bilirubin [Mass/Vol] 0.60 mg/dL 0.20-1.00 [facility] Work Phone: Comment on above: For patients on eltr ombopag therapy, use of Dimension Falcon TBIL is not recommended. Chloride [Moles/Vol] 109 mmol/L 98-107 [facility] Work Phone: Eosinophils/100 WBC (Bld) 2.2 % 0-5 [facility] Work Phone: Glucose [Mass/Vol] 111 mg/dL 74-106 [facility] Work Phone: Comment on above: Fasting Glucose resu lt from 100 to 125 mg/dL suggests IMPAIRED HOMEOSTASIS per A.D.A. criteria. Neutrophils (Bld) [#/Vol] 4.3 10*3/uL 2.0-7.7 [facility] Work Phone: Neutrophils/100 WBC (Bld) 63.5 % 47-70 [facility] Work Phone: Potassium [Moles/Vol] 3.7 mmol/L 3.5-5.1 [facility] Work Phone: Protein [Mass/Vol] 7.3 g/dL 6.4-8.2 [facility] Work Phone: Sodium [Moles/Vol] 141 mmol/L 136-145 [facility]: WBC (Bld) [#/Vol] 6.8 10*3/uL 4.4-11.0 [facility] Work Phone: Bilirubin Test strip Ql (U)o n 12-02-2021 Bilirubin Ql (U) Negative Negative [facility] Work Phone: [phone] Blood erythrocytes count (nu mber/volume)on 12-02-2021 RBC (Bld) [#/Vol] 5.12 10*6/uL 4.6-6.2 [facility]: Blood hemoglobin measurement (mass/volume)on 12-02-2021 Hemoglobin (Bld) [Mass/Vol] 13.6 g/dL 13.0-16.5 [facility] Work Phone: Blood lymphocytes/100 leukoc yteson 12-02-2021 Lymphocytes/100 WBC (Bld) 21.8 % 19-41 [facility] Work Phone: Blood monocytes/100 leukocyt eson 12-02-2021 Monocytes/100 WBC (Bld) 11.5 % 0-10 [facility] Work Phone: Blood platelet mean volumeon 12-02-2021 Platelet mean volume (Bld) [Entitic vol] 9.9 fL 6.2-12.0 [facility] Work Phone: Determination of erythrocyte mean corpuscular volume (MCV)on 12-02-2021 MCV (RBC) [Entitic vol] 81.6 fL 80-94 [facility] Work Phone: Hematocrit Auto (Bld) [Volum e fraction]on 12-02-2021 Hematocrit (Bld) [Volume fraction] 41.8 % 40-54 [facility] Work Phone: INR in Blood by Coagulation assayon 12-02-2021 INR Coag (Bld) [Relative time] 1.1 {INR} [facility] Work Phone: Ketones Test strip Ql (U)on 12-02-2021 Ketones Ql (U) Negative Negative [facility] Work Phone: Laboratory - Chemistry and C hemistry - challengeon 12-02-2021 ALP [Catalytic activity/Vol] 77 U/L 45-117 [facility] Work Phone: ALT [Catalytic activity/Vol] 16 U/L 16-61 [facility] Work Phone: CK [Catalytic activity/Vol] 49 U/L 39-308 [facility] Work Phone: CO2 [Moles/Vol] 26.0 mmol/L 21.0-32.0 [facility] Work Phone: Globulin (S) [Mass/Vol] 3.9 g/dL 2.2-4.2 [facility] Work Phone: Magnesium [Mass/Vol] 2.3 mg/dL 1.6-2.6 [facility] Work Phone: Urea nitrogen/Creatinine [Mass ratio] 11.9 mg/mg 10-20 [facility] Work Phone: Laboratory - Coagulationon 0 12-02-2021 PT Coag (PPP) [Time] 13.6 s 11.7-14.9 [facility] Work Phone: Laboratory - Hematology and Cell countson 12-02-2021 Erythrocyte distribution width (RBC) [Entitic vol] 40.6 fL 35.1-43.9 [facility] Work Phone: Erythrocyte distribution width (RBC) [Ratio] 13.7 % 11.6-14.6 [facility] Work Phone: Immature granulocytes/100 WBC (Bld) 0.400 % 0.0-0.9 [facility] Work Phone: Comment on above: IG% - Immature Granu locytes (promyelocytes, myelocytes and metamyelocytes) > 1% indicates that a LEFT SHIFT is Present. MCH (RBC) [Entitic mass] 26.6 pg 27.0-32.0 [facility] Work Phone: Nucleated RBC/100 WBC (Bld) [Ratio] 0 % 0-5 [facility] Work Phone: MCHC Auto (RBC) [Mass/Vol]on 12-02-2021 MCHC (RBC) [Mass/Vol] 32.5 g/dL 32-36 [facility] Work Phone: Mucus LM Ql (Urine sed)on Mucus Ql (Urine sed) 0 SEEN /hpf [facility] Work Phone: Nitrite Test strip Ql (U)on 12-02-2021 Nitrite Ql (U) Negative Negative [facility] Work Phone: No Panel Informationon 12-02 Estimated Creatinine Clearance Calc 12.81 ml/min [facility] Work Phone: Estimated GFR (MDRD) Amer 16 mL/min >60 [facility] Work Phone: Comment on above: GFR Calc Estimated GFR (MDRD) Non-Af Amer 14 mL/min >60 [facility] Work Phone: Comment on above: Non- GFR Calc Troponin I High Sensitivity 4 pg/mL 3.0-78.0 [facility] Work Phone: Comment on above: Please Note: New Alyse t Units and Gender Specific Reference Ranges. For more information see Policy Stat Procedure Falcon High Sensitivity Troponin (TNIH) and attachments. Platelets bldon 12-02-2021 Platelets (Bld) [#/Vol] 188 10*3/uL 150-450 [facility] Work Phone: Protein Test strip Ql (U)on 12-02-2021 Protein Ql (U) Negative Negative [facility] Work Phone: Serum or plasma albumin miguel urement (mass/volume)on 12-02-2021 Albumin [Mass/Vol] 3.4 g/dL 3.2-5.0 [facility] Work Phone: Serum or plasma albumin/glob ulin mass ratioon 12-02-2021 Albumin/Globulin [Mass ratio] 0.9 {ratio} 0.9-2.4 [facility] Work Phone: Serum or plasma calcium miguel urement (mass/volume)on 12-02-2021 Calcium [Mass/Vol] 10.0 mg/dL 8.5-10.1 [facility] Work Phone: Serum or plasma creatinine m easurement (mass/volume)on 12-02-2021 Creatinine [Mass/Vol] 4.62 mg/dL 0.70-1.30 [facility] Work Phone: Comment on above: The validity of the calculated GFR & GFRAA in patients over 70 years has not been determined. Clinical correlation is essential. Serum or plasma urea nitroge n measurement (mass/volume)on 12-02-2021 Urea nitrogen [Mass/Vol] 55 mg/dL 7-18 [facility] Work Phone: Squamous epithelial cells de tection in urine sediment by light microscopyon 12-02-2021 Epithelial cells.squamous LM Ql (Urine sed) 0 SEEN /hpf 0-5 [facility] Work Phone: Thin prep Papanicolaou smear with manual screeningon 12-02-2021 Thin prep Papanicolaou smear with manual screening 8 U/L 15-37 [facility] Work Phone: [phone] Thin prep Papanicolaou smear with manual screening 6 5-15 [facility] Work Phone: [phone] Urine blood detectionon 11-16 RBC Ql (U) Negative Negative [facility] Work Phone: RBC Ql (U) 0 SEEN /hpf 0-5 [facility] Work Phone: [phone] Urine clarityon 12-02-2021 Clarity (U) Clear Clear [facility] Work Phone: Urine color determinationon 12-02-2021 Color (U) Straw Yellow [facility] Work Phone: Urine glucose detectionon Glucose Ql (U) Normal mg/dl Normal [facility] Work Phone: Urine leukocyte esterase det ection by dipstickon 12-02-2021 Leukocyte esterase Test strip Ql (U) Negative Negative [facility] Work Phone: Urine pHon 12-02-2021 pH (U) 6.0 [pH] 5.0 - 8.0 [facility] Work Phone: Urine sediment bacteria coun t by microscopy (number/high power field)on 12-02-2021 Bacteria LM.HPF (Urine sed) [#/Area] RARE /hpf None Seen [facility] Work Phone: Urine specific gravity measu rementon 12-02-2021 Specific gravity (U) [Rel density] 1.010 1.002-1.030 [facility] Work Phone: Urobilinogen Auto test strip Ql (U)on 12-02-2021 Urobilinogen Ql (U) Normal mg/dl Normal [facility] Work Phone: Bacteria identified Cx Nom ( Wound)on 11-22-2021 Wound Culture Staphylococcus aureus [facility] Work Phone: Gram stain for investigation of transfusion reactionon 11-22-2021 Microscopic observation Gram stain Nom (Unsp spec) [facility] Work Phone: Absolute lymphocyte counton 10-06-2021 Lymphocytes Auto (Unsp spec) [#/Vol] 1.03 10*3/uL 0.83-4.51 [facility] Work Phone: Basophil percentageon 2021 Basophils/100 WBC (Bld) 0.5 % 0-1 [facility] Work Phone: Bilirubin [Mass/Vol] 0.50 mg/dL 0.20-1.00 [facility] Work Phone: Comment on above: For patients on eltr ombopag therapy, use of Dimension Falcon TBIL is not recommended. Chloride [Moles/Vol] 106 mmol/L 98-107 [facility] Work Phone: Eosinophils/100 WBC (Bld) 1.4 % 0-5 [facility] Work Phone: Glucose [Mass/Vol] 112 mg/dL 74-106 [facility] Work Phone: Comment on above: Fasting Glucose resu lt from 100 to 125 mg/dL suggests IMPAIRED HOMEOSTASIS per A.D.A. criteria. Neutrophils (Bld) [#/Vol] 4.7 10*3/uL 2.0-7.7 [facility] Work Phone: Neutrophils/100 WBC (Bld) 70.4 % 47-70 [facility] Work Phone: Potassium [Moles/Vol] 3.9 mmol/L 3.5-5.1 [facility] Work Phone: Protein [Mass/Vol] 7.6 g/dL 6.4-8.2 [facility] Work Phone: Sodium [Moles/Vol] 140 mmol/L 136-145 [facility] Work Phone: WBC (Bld) [#/Vol] 6.6 10*3/uL 4.4-11.0 [facility] Work Phone: Blood erythrocytes count (nu mber/volume)on 10-06-2021 RBC (Bld) [#/Vol] 4.92 10*6/uL 4.6-6.2 [facility] Work Phone: Blood hemoglobin measurement (mass/volume)on 10-06-2021 Hemoglobin (Bld) [Mass/Vol] 13.3 g/dL 13.0-16.5 [facility] Work Phone: Blood lymphocytes/100 leukoc yteson 10-06-2021 Lymphocytes/100 WBC (Bld) 15.5 % 19-41 [facility] Work Phone: Blood monocytes/100 leukocyt eson 10-06-2021 Monocytes/100 WBC (Bld) 11.3 % 0-10 [facility] Work Phone: Blood platelet mean volumeon 10-06-2021 Platelet mean volume (Bld) [Entitic vol] 9.9 fL 6.2-12.0 [facility] Work Phone: Determination of erythrocyte mean corpuscular volume (MCV)on 10-06-2021 MCV (RBC) [Entitic vol] 83.9 fL 80-94 [facility] Work Phone: Hematocrit Auto (Bld) [Volum e fraction]on 10-06-2021 Hematocrit (Bld) [Volume fraction] 41.3 % 40-54 [facility] Work Phone: Laboratory - Chemistry and C hemistry - challengeon 10-06-2021 ALP [Catalytic activity/Vol] 85 U/L 45-117 [facility] Work Phone: ALT [Catalytic activity/Vol] 36 U/L 16-61 [facility] Work Phone: CO2 [Moles/Vol] 28.0 mmol/L 21.0-32.0 [facility] Work Phone: Globulin (S) [Mass/Vol] 4.4 g/dL 2.2-4.2 [facility] Work Phone: Urea nitrogen/Creatinine [Mass ratio] 17.4 mg/mg 10-20 [facility] Work Phone: Laboratory - Hematology and Cell countson 10-06-2021 Erythrocyte distribution width (RBC) [Entitic vol] 42.5 fL 35.1-43.9 [facility] Work Phone: Erythrocyte distribution width (RBC) [Ratio] 13.8 % 11.6-14.6 [facility] Work Phone: Immature granulocytes/100 WBC (Bld) 0.900 % 0.0-0.9 [facility] Work Phone: Comment on above: IG% - Immature Granu locytes (promyelocytes, myelocytes and metamyelocytes) > 1% indicates that a LEFT SHIFT is Present. MCH (RBC) [Entitic mass] 27.0 pg 27.0-32.0 [facility] Work Phone: Nucleated RBC/100 WBC (Bld) [Ratio] 0 % 0-5 [facility] Work Phone: [phone] MCHC Auto (RBC) [Mass/Vol]on 10-06-2021 MCHC (RBC) [Mass/Vol] 32.2 g/dL 32-36 [facility] Work Phone: [phone] No Panel Informationon 10-06 Estimated GFR (MDRD) Amer 81 mL/min >60 [facility] Work Phone: [phone] Comment on above: GFR Calc Estimated GFR (MDRD) Non-Af Amer 67 mL/min >60 [facility] Work Phone: [phone] Comment on above: Non- GFR Calc Thyroid Stimulating Hormone (TSH) 3.88 uIU/mL 0.358-3.74 [facility] Work Phone: [phone] Platelets bldon 10-06-2021 Platelets (Bld) [#/Vol] 256 10*3/uL 150-450 [facility] Work Phone: [phone] Serum or plasma albumin miguel urement (mass/volume)on 10-06-2021 Albumin [Mass/Vol] 3.2 g/dL 3.2-5.0 [facility] Work Phone: [phone] Serum or plasma albumin/glob ulin mass ratioon 10-06-2021 Albumin/Globulin [Mass ratio] 0.7 {ratio} 0.9-2.4 [facility] Work Phone: [phone] Serum or plasma calcium miguel urement (mass/volume)on 10-06-2021 Calcium [Mass/Vol] 9.1 mg/dL 8.5-10.1 [facility] Work Phone: [phone] Serum or plasma creatinine m easurement (mass/volume)on 10-06-2021 Creatinine [Mass/Vol] 1.15 mg/dL 0.70-1.30 [facility] Work Phone: Comment on above: The validity of the calculated GFR & GFRAA in patients over 70 years has not been determined. Clinical correlation is essential. Serum or plasma urea nitroge n measurement (mass/volume)on 10-06-2021 Urea nitrogen [Mass/Vol] 20 mg/dL 7-18 [facility] Work Phone: [phone] Thin prep Papanicolaou smear with manual screeningon 10-06-2021 Thin prep Papanicolaou smear with manual screening 16 U/L 15-37 [facility] Work Phone: Thin prep Papanicolaou smear with manual screening 6 5-15 [facility] Work Phone: Whole blood hemoglobin A1c/t otal hemoglobin ratio (mass fraction)on 10-06-2021 HbA1c (Bld) [Mass fraction] 5.9 % 3.8-5.6 [facility] Work Phone: Comment on above: Normal < 5.7 % Predi abetic 5.7 - 6.4 % Diabetic >or= 6.5 % Please note range changes. Absolute lymphocyte counton 09-06-2021 Lymphocytes Auto (Unsp spec) [#/Vol] 1.70 10*3/uL 0.83-4.51 [facility] Work Phone: [phone] Basophil percentageon 2021 Basophils/100 WBC (Bld) 0.6 % 0-1 [facility] Work Phone: [phone] Bilirubin [Mass/Vol] 0.40 mg/dL 0.20-1.00 [facility] Work Phone: [phone] Comment on above: For patients on eltr ombopag therapy, use of Dimension Falcon TBIL is not recommended. Chloride [Moles/Vol] 109 mmol/L 98-107 [facility] Work Phone: [phone] Eosinophils/100 WBC (Bld) 1.8 % 0-5 [facility] Work Phone: Glucose [Mass/Vol] 91 mg/dL 74-106 [facility] Work Phone: Neutrophils (Bld) [#/Vol] 4.6 10*3/uL 2.0-7.7 [facility] Work Phone: Neutrophils/100 WBC (Bld) 63.4 % 47-70 [facility] Work Phone: Potassium [Moles/Vol] 4.1 mmol/L 3.5-5.1 [facility] Work Phone: Protein [Mass/Vol] 7.3 g/dL 6.4-8.2 [facility] Work Phone: Sodium [Moles/Vol] 141 mmol/L 136-145 [facility] Work Phone: WBC (Bld) [#/Vol] 7.3 10*3/uL 4.4-11.0 [facility] Work Phone: Blood erythrocytes count (nu mber/volume)on 09-06-2021 RBC (Bld) [#/Vol] 5.57 10*6/uL 4.6-6.2 [facility] Work Phone: Blood hemoglobin measurement (mass/volume)on 09-06-2021 Hemoglobin (Bld) [Mass/Vol] 15.2 g/dL 13.0-16.5 [facility] Work Phone: Blood lymphocytes/100 leukoc yteson 09-06-2021 Lymphocytes/100 WBC (Bld) 23.4 % 19-41 [facility] Work Phone: Blood monocytes/100 leukocyt eson 09-06-2021 Monocytes/100 WBC (Bld) 9.8 % 0-10 [facility] Work Phone: Blood platelet mean volumeon 09-06-2021 Platelet mean volume (Bld) [Entitic vol] 10.0 fL 6.2-12.0 [facility] Work Phone: Determination of erythrocyte mean corpuscular volume (MCV)on 09-06-2021 MCV (RBC) [Entitic vol] 83.3 fL 80-94 [facility] Work Phone: [phone] Hematocrit Auto (Bld) [Volum e fraction]on 09-06-2021 Hematocrit (Bld) [Volume fraction] 46.4 % 40-54 [facility] Work Phone: [phone] Laboratory - Chemistry and C hemistry - challengeon 09-06-2021 ALP [Catalytic activity/Vol] 65 U/L 45-117 [facility] Work Phone: [phone] ALT [Catalytic activity/Vol] 28 U/L 16-61 [facility] Work Phone: [phone] CO2 [Moles/Vol] 29.0 mmol/L 21.0-32.0 [facility] Work Phone: [phone] Globulin (S) [Mass/Vol] 3.7 g/dL 2.2-4.2 [facility] Work Phone: [phone] Urea nitrogen/Creatinine [Mass ratio] 13.0 mg/mg 10-20 [facility] Work Phone: [phone] Laboratory - Hematology and Cell countson 09-06-2021 Erythrocyte distribution width (RBC) [Entitic vol] 41.6 fL 35.1-43.9 [facility] Work Phone: [phone] Erythrocyte distribution width (RBC) [Ratio] 13.8 % 11.6-14.6 [facility] Work Phone: [phone] Immature granulocytes/100 WBC (Bld) 1.000 % 0.0-0.9 [facility] Work Phone: [phone] Comment on above: IG% - Immature Granu locytes (promyelocytes, myelocytes and metamyelocytes) > 1% indicates that a LEFT SHIFT is Present. MCH (RBC) [Entitic mass] 27.3 pg 27.0-32.0 [facility] Work Phone: [phone] Nucleated RBC/100 WBC (Bld) [Ratio] 0 % 0-5 [facility] Work Phone: MCHC Auto (RBC) [Mass/Vol]on 09-06-2021 MCHC (RBC) [Mass/Vol] 32.8 g/dL 32-36 [facility] Work Phone: No Panel Informationon 09-06 Estimated GFR (MDRD) Amer 66 mL/min >60 [facility] Work Phone: Comment on above: GFR Calc Estimated GFR (MDRD) Non-Af Amer 54 mL/min >60 [facility] Work Phone: Comment on above: Non- GFR Calc Thyroid Stimulating Hormone (TSH) 2.93 uIU/mL 0.358-3.74 [facility] Work Phone: [phone] Vitamin D 25-Hydroxy 35.5 ng/mL [facility] Work Phone: Comment on above: Vitamin D 25(OH) Sta tus Range Deficiency <20 ng/mL (50nmol/L) Insufficiency 20 - 30 ng/mL (50 - 75 nmol/L) Sufficiency 30 - 100 ng/mL (75 - 250 nmol/L) Toxicity >100 ng/mL (>250 nmol/L) Platelets bldon 09-06-2021 Platelets (Bld) [#/Vol] 230 10*3/uL 150-450 [facility] Work Phone: Serum or plasma albumin miguel urement (mass/volume)on 09-06-2021 Albumin [Mass/Vol] 3.6 g/dL 3.2-5.0 [facility] Work Phone: [phone] Serum or plasma albumin/glob ulin mass ratioon 09-06-2021 Albumin/Globulin [Mass ratio] 1.0 {ratio} 0.9-2.4 [facility] Work Phone: [phone] Serum or plasma calcium miguel urement (mass/volume)on 09-06-2021 Calcium [Mass/Vol] 9.8 mg/dL 8.5-10.1 [facility] Work Phone: [phone] Serum or plasma creatinine m easurement (mass/volume)on 09-06-2021 Creatinine [Mass/Vol] 1.38 mg/dL 0.70-1.30 [facility] Work Phone: Comment on above: The validity of the calculated GFR & GFRAA in patients over 70 years has not been determined. Clinical correlation is essential. Serum or plasma urea nitroge n measurement (mass/volume)on 09-06-2021 Urea nitrogen [Mass/Vol] 18 mg/dL 7-18 [facility] Work Phone: Thin prep Papanicolaou smear with manual screeningon 09-06-2021 Thin prep Papanicolaou smear with manual screening 12 U/L 15-37 [facility] Work Phone: Thin prep Papanicolaou smear with manual screening 3 5-15 [facility] Work Phone: Bacteria identified Anaer cx Nom (Unsp spec) Anaerobic microbial culture No anaerobic bacteria isolated. [facility] Work Phone: Bacteria identified Cx Nom ( Wound) Wound Culture Staphylococcus aureus [facility] Work Phone: Gram stain for investigation of transfusion reaction Microscopic observation Gram stain Nom (Unsp spec) [facility] Work Phone: No Panel Information Influenza Types A,B Direct FA (ASHLEE) [facility] Work Phone: RSV Ag EIA RSV Ag Immune stain Ql (Tiss) [facility] Work Phone: Vital Signs Date Time Vital Sign Value Performing Clinician Facility 03-24-2025 17:45-0400 Body height 162.[address] Kg Salinas MD Work Phone: [facility] 03-24-2025 17:45-0400 Body mass index (BMI) [Ratio] 35.2 kg/m2 Dr. Kg Salinas MD Work Phone: [facility] 03-24-2025 17:45-0400 Body temperature 98 [degF] Dr. Kg Salinas MD Work Phone: [facility] 03-24-2025 17:45-0400 Body weight 92.[address] Kg Salinas MD Work Phone: [facility] 03-24-2025 17:45-0400 Diastolic blood pressure 100 mm[Hg] Dr. Kg Salinas MD Work Phone: [facility] 03-24-2025 17:45-0400 Heart rate 78 /min Dr. Kg Salinas MD Work Phone: [facility] 03-24-2025 17:45-0400 Respiratory rate 16 /min Dr. Kg Salinas MD Work Phone: [facility] 03-24-2025 17:45-0400 SaO2% (BldA) [Mass fraction] 98 % Dr. Kg Salinas MD Work Phone: [facility] 03-24-2025 17:45-0400 Systolic blood pressure 182 mm[Hg] Dr. Kg Salinas MD Work Phone: [facility] 02-03-2025 17:06-0400 Body height 162.[address] Kg Salinas MD Work Phone: [facility] 02-03-2025 17:06-0400 Body mass index (BMI) [Ratio] 30.6 kg/m2 Dr. Kg Salinas MD Work Phone: [facility] 02-03-2025 17:06-0400 Body temperature 98 [degF] Dr. Kg Salinas MD Work Phone: [facility] 02-03-2025 17:06-0400 Body weight 80.[address] Kg Salinas MD Work Phone: [facility] 02-03-2025 17:06-0400 Diastolic blood pressure 62 mm[Hg] Dr. Kg Salinas MD Work Phone: [facility] 02-03-2025 17:06-0400 Heart rate 93 /min Dr. Kg Salinas MD Work Phone: [facility] 02-03-2025 17:06-0400 SaO2% (BldA) [Mass fraction] 96 % Dr. Kg Salinas MD Work Phone: [facility] 02-03-2025 17:06-0400 Systolic blood pressure 128 mm[Hg] Dr. Kg Salinas MD Work Phone: [facility] 09-08-2024 08:13-0400 Body height 162.[address] Kg Salinas MD Work Phone: 5(118)870-663483 [place] [address] 09-08-2024 08:13-0400 Body mass index (BMI) [Ratio] 30.9 kg/m2 Dr. Kg Salinas MD Work Phone: 5(004)035-995783 [place] [address] 09-08-2024 08:13-0400 Body temperature 98.5 [degF] Dr. Kg Salinas MD Work Phone: 9(930)888-803883 [place] [address] 09-08-2024 08:13-0400 Body weight 81.[address] Kg Salinas MD Work Phone: 4(201)273-677983 [place] [address] 09-08-2024 08:13-0400 Diastolic blood pressure 74 mm[Hg] Dr. Kg Salinas MD Work Phone: [facility] 09-08-2024 08:13-0400 Heart rate 85 /min Dr. Kg Salinas MD Work Phone: 9(585)312-085483 [place] [address] 09-08-2024 08:13-0400 Respiratory rate 18 /min Dr. Kg Salinas MD Work Phone: 4(002)551-804383 [place] [address] 09-08-2024 08:13-0400 SaO2% (BldA) [Mass fraction] 95 % Dr. Kg Salinas MD Work Phone: [facility] 09-08-2024 08:13-0400 Systolic blood pressure 118 mm[Hg] Dr. Kg Salinas MD Work Phone: [facility] 09-05-2024 10:38-0400 Body temperature 97.2 [degF] [facility] 09-05-2024 10:38-0400 Body weight 80.05 kg [facility] 09-05-2024 10:38-0400 Diastolic blood pressure 85 mm[Hg] [facility] 09-05-2024 10:38-0400 Heart rate 88 /min [facility] 09-05-2024 10:38-0400 Respiratory rate 18 /min [facility] 09-05-2024 10:38-0400 SaO2% (BldA) [Mass fraction] 98 % [facility] 09-05-2024 10:38-0400 Systolic blood pressure 134 mm[Hg] [facility] 08-29-2024 10:51-0400 Body temperature 97.2 [degF] [facility] 08-29-2024 10:51-0400 Body weight 80.79 kg [facility] 08-29-2024 10:51-0400 Diastolic blood pressure 92 mm[Hg] [facility] 08-29-2024 10:51-0400 Heart rate 83 /min [facility] 08-29-2024 10:51-0400 Respiratory rate 18 /min [facility] 08-29-2024 10:51-0400 SaO2% (BldA) [Mass fraction] 97 % [facility] 08-29-2024 10:51-0400 Systolic blood pressure 153 mm[Hg] [facility] 07-29-2024 09:13-0500 Body temperature 97.7 [degF] Carmen Martin MD PhD Work Phone: [facility] 07-29-2024 09:13-0500 Body weight 79.38 kg Carmen Martin MD PhD Work Phone: [facility] 07-29-2024 09:13-0500 Diastolic blood pressure 80 mm[Hg] Carmen Martin MD PhD Work Phone: [facility] 07-29-2024 09:13-0500 Heart rate 79 /min Carmen Martin MD PhD Work Phone: [facility] 07-29-2024 09:13-0500 Respiratory rate 18 /min Carmen Martin MD PhD Work Phone: [facility] 07-29-2024 09:13-0500 SaO2% (BldA) [Mass fraction] 98 % Carmen Martin MD PhD Work Phone: [facility] 07-29-2024 09:13-0500 Systolic blood pressure 178 mm[Hg] Carmen Martin MD PhD Work Phone: [facility] 01-02-2023 08:00-0400 Body height 162.[address] Kg Salinas Work Phone: [facility] 01-02-2023 08:00-0400 Body mass index (BMI) [Ratio] 31.7 kg/m2 Dr. Kg Salinas Work Phone: [facility] 01-02-2023 08:00-0400 Body temperature 98.4 [degF] Dr. Kg Salinas Work Phone: [facility] 01-02-2023 08:00-0400 Body weight 83.[address] Kg Salinas Work Phone: [facility] 01-02-2023 08:00-0400 Diastolic blood pressure 90 mm[Hg] Dr. Kg Salinas Work Phone: [facility] 01-02-2023 08:00-0400 Heart rate 81 /min Dr. Kg Salinas Work Phone: [facility] 01-02-2023 08:00-0400 Respiratory rate 17 /min Dr. Kg Salinas Work Phone: [facility] 01-02-2023 08:00-0400 SaO2% (BldA) [Mass fraction] 98 % Dr. Kg Salinas Work Phone: [facility] 01-02-2023 08:00-0400 Systolic blood pressure 120 mm[Hg] Dr. Kg Salinas Work Phone: [facility] 09-05-2022 19:42-0400 Diastolic blood pressure 56 mm[Hg] Dr. Kg Salinas Work Phone: [facility] 09-05-2022 19:42-0400 Heart rate 72 /min Dr. Kg Salinas Work Phone: 5(311)907-523183 [place] [address] 09-05-2022 19:42-0400 Systolic blood pressure 96 mm[Hg] Dr. Kg Salinas Work Phone: 1(540)967-881644 [place] [address] 09-05-2022 08:01-0400 Body height 162.[address] Kg Salinas Work Phone: 8(663)951-158944 [place] [address] 09-05-2022 08:01-0400 Body mass index (BMI) [Ratio] 32.2 kg/m2 Dr. Kg Salinas Work Phone: 4(345)897-435344 [place] [address] 09-05-2022 08:01-0400 Body temperature 98 [degF] Dr. Kg Salinas Work Phone: 5(816)868-440344 [place] [address] 09-05-2022 08:01-0400 Body weight 85.[address] Kg Salinas Work Phone: 6(983)053-013444 [place] [address] 09-05-2022 08:01-0400 Respiratory rate 16 /min Dr. Kg Salinas Work Phone: 0(538)896-247144 [place] [address] 09-05-2022 08:01-0400 SaO2% (BldA) [Mass fraction] 98 % Dr. Kg Salinas Work Phone: 8(971)507-396044 [place] [address] 08-08-2022 09:36-0500 Body height 162.[address] Kg Salinas Work Phone: 0(487)999-674344 [place] [address] 08-08-2022 09:36-0500 Body mass index (BMI) [Ratio] 31 kg/m2 Dr. Kg Salinas Work Phone: 6(435)517-171344 [place] [address] 08-08-2022 09:36-0500 Body temperature 98.4 [degF] Dr. Kg Salinas Work Phone: 6(643)591-404283 [place] [address] 08-08-2022 09:36-0500 Body weight 82.[address] Kg Salinas Work Phone: 7(378)495-867244 [place] [address] 08-08-2022 09:36-0500 Diastolic blood pressure 62 mm[Hg] Dr. Kg Salinas Work Phone: 1(544)710-862283 [place] [address] 08-08-2022 09:36-0500 Heart rate 61 /min Dr. gK Salinas Work Phone: 6(112)435-185983 [place] [address] 08-08-2022 09:36-0500 Respiratory rate 16 /min Dr. Kg Salinas Work Phone: 6(479)704-829183 [place] [address] 08-08-2022 09:36-0500 SaO2% (BldA) [Mass fraction] 96 % Dr. Kg Salinas Work Phone: 5(564)064-516783 [place] [address] 08-08-2022 09:36-0500 Systolic blood pressure 98 mm[Hg] Dr. Kg Salinas Work Phone: 8(424)573-498444 [place] [address] 07-26-2022 10:35-0500 Body weight 83.[address] Kg Salinas Work Phone: 4(787)906-448644 [place] [address] 07-26-2022 10:35-0500 Diastolic blood pressure 82 mm[Hg] Dr. Kg Salinas Work Phone: 7(030)535-347644 [place] [address] 07-26-2022 10:35-0500 Heart rate 64 /min Dr. Kg Salinas Work Phone: 3(109)063-250444 [place] [address] 07-26-2022 10:35-0500 Respiratory rate 18 /min Dr. Kg Salinas Work Phone: 8(955)138-596844 [place] [address] 07-26-2022 10:35-0500 Systolic blood pressure 141 mm[Hg] Dr. Kg Salinas Work Phone: 5(108)782-425583 [place] [address] 07-04-2022 08:15-0500 Body mass index (BMI) [Ratio] 30.7 kg/m2 Dr. Kg Salinas Work Phone: 2(709)703-405244 [place] [address] 07-04-2022 08:15-0500 Body temperature 97.8 [degF] Dr. Kg Salinas Work Phone: 6(494)345-945844 [place] [address] 07-04-2022 08:15-0500 Body weight 81.[address] Kg Salinas Work Phone: 3(075)767-696083 [place] [address] 07-04-2022 08:15-0500 Diastolic blood pressure 80 mm[Hg] Dr. Kg Salinas Work Phone: [facility] 07-04-2022 08:15-0500 Heart rate 73 /min Dr. Kg Salinas Work Phone: [facility] 07-04-2022 08:15-0500 Respiratory rate 16 /min Dr. Kg Salinas Work Phone: 4(437)753-908083 [place] [address] 07-04-2022 08:15-0500 SaO2% (BldA) [Mass fraction] 98 % Dr. Kg Salinas Work Phone: 4(224)131-706483 [place] [address] 07-04-2022 08:15-0500 Systolic blood pressure 130 mm[Hg] Dr. Kg Salinas Work Phone: [facility] 05-30-2022 15:09-0500 Body height 162.[address] Kg Salinas Work Phone: [facility] Work Phone: 05-30-2022 15:09-0500 Body mass index (BMI) [Ratio] 31.2 kg/m2 Dr. Kg Salinas Work Phone: 8(174)883-325983 [place] [address] 05-30-2022 15:09-0500 Body temperature 98 [degF] Dr. Kg Salinas Work Phone: 4(589)015-559183 [place] [address] 05-30-2022 15:09-0500 Body weight 82.[address] Kg Salinas Work Phone: [facility] 05-30-2022 15:09-0500 Diastolic blood pressure 80 mm[Hg] Dr. Kg Salinas Work Phone: [facility] 05-30-2022 15:09-0500 Heart rate 81 /min Dr. Kg Salinas Work Phone: [facility] 05-30-2022 15:09-0500 Respiratory rate 16 /min Dr. Kg Salinas Work Phone: [facility] 05-30-2022 15:09-0500 SaO2% (BldA) [Mass fraction] 99 % Dr. Kg Salinas Work Phone: [facility] 05-30-2022 15:09-0500 Systolic blood pressure 138 mm[Hg] Dr. Kg Salinas Work Phone: [facility] 04-25-2022 21:49-0500 Diastolic blood pressure 66 mm[Hg] Dr. Kg Salinas Work Phone: [facility] 04-25-2022 21:49-0500 Heart rate 82 /min Dr. Kg Salinas Work Phone: [facility] 04-25-2022 21:49-0500 Systolic blood pressure 86 mm[Hg] Dr. Kg Salinas Work Phone: [facility] 04-25-2022 09:01-0500 Body height 162.[address] Kg Salinas Work Phone: [facility] Work Phone: 04-25-2022 09:01-0500 Body mass index (BMI) [Ratio] 30.6 kg/m2 Dr. Kg Salinas Work Phone: [facility] 04-25-2022 09:01-0500 Body temperature 98.1 [degF] Dr. Kg Salinas Work Phone: [facility] 04-25-2022 09:01-0500 Body weight 80.[address] Kg Salinas Work Phone: [facility] 04-25-2022 09:01-0500 Respiratory rate 16 /min Dr. Kg Salinas Work Phone: [facility] 02-18-2022 10:32-0400 Body temperature 98.71 [degF] Raman Barroso MD Work Phone: [facility] 02-18-2022 10:32-0400 Body weight 81.65 kg Raman Barroso MD Work Phone: [facility] 02-18-2022 10:32-0400 Diastolic blood pressure 60 mm[Hg] Raman Barroso MD Work Phone: [facility] 02-18-2022 10:32-0400 Heart rate 82 /min Raman Barroso MD Work Phone: [facility] 02-18-2022 10:32-0400 Respiratory rate 22 /min Raman Barroso MD Work Phone: [facility] 02-18-2022 10:32-0400 SaO2% (BldA) [Mass fraction] 97 % Raman Barroso MD Work Phone: [facility] 02-18-2022 10:32-0400 Systolic blood pressure 92 mm[Hg] Raman Barroso MD Work Phone: [facility] 12-05-2021 19:00-0400 Heart rate 63 /min Dr. Kg Salinas Work Phone: [facility] Work Phone: 12-05-2021 18:27-0400 Body temperature 97.5 [degF] Dr. Kg Salinas Work Phone: [facility] Work Phone: 12-05-2021 18:27-0400 Diastolic blood pressure 79 mm[Hg] Dr. Kg Salinas Work Phone: [facility] Work Phone: 12-05-2021 18:27-0400 Respiratory rate 18 /min Dr. Kg Salinas Work Phone: [facility] Work Phone: 12-05-2021 18:27-0400 SaO2% (BldA) [Mass fraction] 98 % Dr. Kg Salinas Work Phone: [facility] Work Phone: 12-05-2021 18:27-0400 Systolic blood pressure 139 mm[Hg] Dr. Kg Salinas Work Phone: [facility] Work Phone: 12-05-2021 15:33-0400 Body height 162.[address] Kg Salinas Work Phone: [facility] Work Phone: 12-05-2021 15:33-0400 Body weight 84.[address] Kg Salinas Work Phone: [facility] Work Phone: 12-04-2021 23:40-0400 Body mass index (BMI) [Ratio] 31.9 kg/m2 Dr. Kg Salinas Work Phone: [facility] Work Phone: 12-02-2021 12:55-0400 Body temperature 97.5 [degF] [facility] Work Phone: 12-02-2021 12:55-0400 Diastolic blood pressure 60 mm[Hg] [facility] Work Phone: 12-02-2021 12:55-0400 Heart rate 53 /min [facility] Work Phone: 12-02-2021 12:55-0400 Respiratory rate 16 /min [facility] Work Phone: 12-02-2021 12:55-0400 SaO2% (BldA) [Mass fraction] 96 % [facility] Work Phone: 12-02-2021 12:55-0400 Systolic blood pressure 110 mm[Hg] [facility] Work Phone: 12-02-2021 09:02-0400 Body height 162.56 cm [facility] Work Phone: 12-02-2021 09:02-0400 Body mass index (BMI) [Ratio] 33.8 kg/m2 [facility] Work Phone: 12-02-2021 09:02-0400 Body weight 89.4 kg [facility] Work Phone: Encounters Encounter Date Encounter Type Care Provider Facility Start: 04-24-2025 ambulatory Kg Salinas Facility:[facility] Start: 04-14-2025 ambulatory Kg Salinas Facility:[facility] Start: 03-25-2025 End: 03-25-[address] [facility] Facility:[facility] Start: 03-24-2025 End: 03-24-2025 Emergency department patient visit Dr. Kg Salinas MD Work Phone: -Emergency Department Work Phone: Start: 02-03-2025 End: 02-03-[address] Kg Salinas MD Work Phone: [facility] Start: 02-03-2025 End: 02-03-2025 Patient encounter procedure Mo BRISENO -[facility] Work Phone: Start: 02-03-2025 End: 02-03-2025 ambulatory Mo BRISENO Facility:[facility] Start: 09-11-2024 End: 09-11-[address] Kg Salinas MD Work Phone: [facility] Work Phone: Start: 09-11-2024 End: 09-11-[address] Kg Salinas MD -Laboratory, Phy Office [facility] Start: 09-10-2024 End: 09-10-2024 [facility] Comment on above: Encounter for antine oplastic radiation therapy; Cutaneous T-cell lymphoma, unspecified, extranodal and solid organ sites (Multi) Start: 09-10-2024 End: 09-11-2024 ambulatory RAMAN [facility] Start: 09-09-2024 End: 09-09-2024 Subsequent hospital visit by physician [facility] Comment on above: Encounter for antine oplastic radiation therapy; Cutaneous T-cell lymphoma, unspecified, extranodal and solid organ sites (Multi) Start: 09-09-2024 End: 09-09-2024 ambulatory RAMAN Chadwick [facility] Start: 09-08-2024 End: 09-08-2024 Subsequent [facility] Comment on above: Encounter for antine oplastic radiation therapy; Cutaneous T-cell lymphoma, unspecified, extranodal and solid organ sites (Multi) Start: 09-08-2024 End: 09-08-2024 ambulatory RAMAN D [facility] Start: 09-08-2024 End: 09-08-2024 Patient encounter procedure Mo BRISENO [facility] Work Phone: Start: 09-08-2024 End: 09-08-2024 ambulatory Mo BRISENO Facility:[facility] Start: 09-05-2024 End: 09-05-2024 Subsequent hospital visit by physician [facility] Comment on above: Arrived Encounter for antine oplastic radiation therapy; Cutaneous T-cell lymphoma, unspecified, extranodal and solid organ sites (Multi) Start: 09-05-2024 End: 09-05-2024 ambulatory [facility] Start: 09-04-2024 End: 09-04-2024 Subsequent [facility] Comment on above: Encounter for antine oplastic radiation therapy; Cutaneous T-cell lymphoma, unspecified, extranodal and solid organ sites (Multi) Start: 09-04-2024 End: 09-04-2024 ambulatory [facility] Start: 09-03-2024 End: 09-03-2024 Subsequent hospital visit [facility] Comment on above: Encounter for antine oplastic radiation therapy; Cutaneous T-cell lymphoma, unspecified, extranodal and solid organ sites (Multi) Start: 09-03-2024 End: 09-03-2024 ambulatory RAMAN D [facility] Start: 09-02-2024 End: 09-02-2024 Subsequent [facility] visit [facility] Comment on above: Encounter for antine oplastic radiation therapy; Cutaneous T-cell lymphoma, unspecified, extranodal and solid organ sites (Multi) Start: 09-02-2024 End: 09-02-2024 ambulatory RAMAN D [facility] Start: 09-01-2024 End: 09-01-2024 Subsequent hospital visit by physician [facility] Comment on above: Encounter for antine oplastic radiation therapy; Cutaneous T-cell lymphoma, unspecified, extranodal and solid organ sites (Multi) Start: 09-01-2024 End: 09-01-2024 ambulatory [facility] Start: 08-29-2024 End: 08-29-2024 Subsequent hospital visit by physician [facility] Comment on above: Arrived Encounter for antine oplastic radiation therapy; Cutaneous T-cell lymphoma, unspecified, extranodal and solid organ sites (Multi) Start: 08-29-2024 End: 08-29-2024 ambulatory [facility] Start: 08-28-2024 End: 08-28-2024 Subsequent hospital visit by physician [address] [place] [address] Comment on above: Encounter for antine oplastic radiation therapy; Cutaneous T-cell lymphoma, unspecified, extranodal and solid organ sites (Multi) Start: 08-28-2024 End: 08-28-2024 ambulatory [facility] Start: 08-27-2024 End: 08-27-2024 Subsequent hospital visit by physician [facility] Comment on above: Encounter for antine oplastic radiation therapy; Cutaneous T-cell lymphoma, unspecified, extranodal and solid organ sites (Multi) Start: 08-27-2024 End: 08-27-2024 ambulatory [facility] Start: 08-26-2024 End: 08-26-2024 Subsequent hospital visit by physician [facility] Comment on above: Encounter for antine oplastic radiation therapy; Cutaneous T-cell lymphoma, unspecified, extranodal and solid organ sites (Multi) Start: 08-26-2024 End: 08-26-2024 ambulatory [facility] Start: 08-01-2024 End: 08-01-2024 ambulatory [facility] Start: 08-01-2024 End: 08-01-2024 Subsequent hospital visit by physician [facility] Comment on above: Arrived Start: 07-29-2024 End: 07-29-2024 Subsequent hospital visit by physician Eduar [facility] Comment on above: Cutaneous T-cell lym phoma, unspecified body region (Multi) (Primary Dx) Start: 07-29-2024 End: 07-29-2024 ambulatory RAMAN [facility] Start: 07-29-2024 End: 07-29-2024 Office outpatient new 30 minutes Carmen Martni MD PhD Work Phone: [facility] Comment on above: Cutaneous T-cell lym phoma, unspecified body region (Multi) Start: 07-29-2024 End: 07-29-2024 ambulatory CARMEN MARTIN [facility] Start: 07-29-2024 End: 07-29-2024 Subsequent hospital visit by physician Rad External Film EF RAD EXTERNAL [facility]M [facility] Comment on above: Cutaneous T-cell lym phoma, unspecified body region (Multi) Start: 07-14-2024 End: 07-14-[address] Mercedes Ortiz MD -Laboratory, [facility] Start: 07-14-2024 End: 07-14-2024 ambulatory Kg Chi Brad Facility:[facility] Start: 07-01-2024 End: 07-01-2024 ambulatory [facility] Start: 07-01-2024 End: 07-01-2024 Patient encounter procedure Leatha Levy MD Work Phone: [facility] Comment on above: Neoplasm of uncertai n behavior of skin (Primary Dx) Start: 07-01-2024 End: 07-01-2024 ambulatory [facility] Start: 07-01-2024 End: 07-01-2024 Office outpatient new 45 minutes Raman Hemphill MD Work Phone: [facility] Comment on above: Other infiltrative d isorders of the skin and subcutaneous tissue (Primary Dx); Lymphoproliferative disorder (Multi) Start: 04-29-2024 End: 04-29-2024 ambulatory Kg Chi Brad Facility:[facility] Start: 09-12-2023 End: 09-12-2023 ambulatory [facility] Work Phone: Start: 09-12-2023 End: 09-12-2023 Patient encounter procedure [facility]-Laboratory, y Office 3rd Flr Start: 07-25-2023 End: 07-25-2023 ambulatory [facility] Work Phone: Start: 07-25-2023 End: 07-25-2023 Patient encounter procedure [facility]-Radiology, [facility] Work Phone: Start: 03-13-2023 End: 03-13-[address] Kg Salinas Work Phone: [facility] Work Phone: Start: 03-13-2023 End: 03-13-[address] Kg Salinas Work Phone: [facility]-Laboratory, y Office 3rd Flr Start: 01-02-2023 End: 01-02-[address] Kg Salinas Work Phone: [facility] Work Phone: Start: 10-13-2022 End: 10-13-[address] Kg Salinas Work Phone: [facility]-Physical Therapy Start: 09-27-2022 End: 09-27-[address] Kg Salinas Work Phone: [facility]-Outpatient Bone Densitometry Start: 09-05-2022 End: 09-05-[address] Kg Salinas Work Phone: [facility] Neurology Start: 08-22-2022 End: 08-22-[address] Kg Salinas Work Phone: [facility] Start: 08-22-2022 End: 08-22-[address] Kg Salinas Work Phone: [facility] Work Phone: Start: 08-22-2022 End: 08-22-[address] [facility] Start: 08-08-2022 End: 08-08-[address] Kg Salinas Work Phone: [facility] Neurology Start: 08-08-[address] Kg portillo [facility] Start: 08-01-2022 End: 08-01-[address] Kg Salinas Work Phone: [facility] Work Phone: Start: 08-01-2022 End: 08-01-[address] Kg Salinas Work Phone: [facility]-Pulmonary Services/Neurology Start: 07-26-2022 End: 07-26-[address] Kg Salinas Work Phone: [facility] Start: 07-04-2022 End: 07-04-[address] Kg Salinas Work Phone: [facility] Neurology Start: 06-21-2022 End: 06-21-[address] Kg Salinas Work Phone: [facility] Work Phone: Start: 06-21-2022 End: 06-21-[address] Kg Salinas Work Phone: [facility]-Laboratory, Specimen Start: 06-05-2022 Non-patient / Non-visit Dr. Ace Salinas Work Phone: [facility] Start: 05-30-2022 End: 05-30-[address] Kg Salinas Work Phone: [facility] Work Phone: Start: 05-30-2022 End: 05-30-[address] Kg Salinas Work Phone: [facility] Neurology Start: 05-19-2022 End: 05-19-[address] Kg Salinas Work Phone: [facility] Work Phone: Start: 05-19-2022 End: 05-19-[address] Kg [facility]inas [facility] Start: 05-12-[address] Kg mackey [facility] Start: 04-26-2022 End: 04-26-[address] Kg Salinas Work Phone: [facility] Work Phone: Start: 04-26-2022 End: 04-26-[address] Kg Salinas Work Phone: [facility] Start: 04-25-2022 End: 04-25-[address] Kg Salinas Work Phone: [facility] Neurology Start: 03-15-2022 End: 03-15-[address] Kg Salinas Work Phone: [facility] Work Phone: Start: 03-15-2022 End: 03-15-[address] Kg Salinas [facility] Start: 03-07-2022 End: 03-07-[address] Kg Salinas Work Phone: [facility] Work Phone: Start: 03-07-2022 End: 03-07-[address] Kg Salinas Work Phone: [facility] Office 3rd Flr Start: 02-21-2022 Telephone encounter Rogerio Toth DO Work Phone: Radiology Comment on above: cd disk Start: 02-18-2022 End: 02-18-2022 Subsequent hospital visit by physician Xr [facility] Work Phone: Radiology Comment on above: Acute left ankle elaine n [M25.572] Start: 02-18-2022 End: 02-18-2022 Patient encounter procedure Raman Barroso MD Work Phone: [facility] Comment on above: Acute left ankle elaine n (Primary Dx) Start: 01-11-2022 End: 01-11-[address] Kg Salinas [facility] Office 3rd Flr Start: 01-03-2022 End: 01-03-[address] Kg Salinas Work Phone: [facility] Start: 12-07-2021 End: 12-07-[address] Kg Salinas [facility] Office 3rd Flr Start: 12-06-2021 End: 12-06-[address] Kg Salinas Work Phone: [facility], [facility] Office 3rd Flr Start: 12-05-2021 Non-patient / Non-visit Dr. Ace Salinas Work Phone: [facility] Start: 12-04-2021 Non-patient / Non-visit Dr. Ace Salinas Work Phone: [facility] Start: 12-03-2021 Non-patient / Non-visit Dr. Ace Salinas Work Phone: [facility] Start: 12-03-2021 End: 12-05-2021 Evaluation and management of inpatient Dr. Kg Salinas Work Phone: [facility] Start: 12-02-2021 Non-patient / Non-visit Dr. Ace Salinas Work Phone: [facility] Start: 12-02-2021 Non-patient / Non-visit Dr. Ace Salinas Work Phone: [facility] Start: 12-02-2021 End: 12-02-2021 Emergency department patient visit [facility]-Emergency Department Start: 11-22-2021 End: 11-22-2021 Patient encounter procedure [facility]-Laboratory, Specimen Start: 10-10-2021 End: 10-10-2021 Patient encounter procedure [facility]-MRI - H Start: 10-06-2021 End: 10-06-2021 Patient encounter procedure [facility]-Cat Scan, [facility] Start: 09-06-2021 End: 09-06-2021 Patient encounter procedure [facility]-Laboratory, Phy Office 3rd Flr Procedures Date Procedure Procedure Detail Performing Clinician Start: 02-03-2025 X-ray of ankle, thre e or more views Dr. Kg Salinas MD Work Phone: Start: 09-10-2024 RAD ONC MSQ TREATMEN T SUMMARY Jim Ho MD Work Phone: Start: 09-09-2024 RAD ONC MSQ TREATMEN T SUMMARY Jim Ho MD Work Phone: Start: 09-08-2024 RAD ONC MSQ TREATMEN T SUMMARY Jim Ho MD Work Phone: Start: 09-05-2024 RAD ONC MSQ TREATMEN T SUMMARY Jim Ho MD Work Phone: Start: 09-04-2024 RAD ONC MSQ TREATMEN T SUMMARY Jim Ho MD Work Phone: Start: 09-03-2024 RAD ONC MSQ TREATMEN T SUMMARY Jim Ho MD Work Phone: Start: 09-02-2024 RAD ONC MSQ TREATMEN T SUMMARY Jim Ho MD Work Phone: Start: 09-01-2024 RAD ONC MSQ TREATMEN T SUMMARY Jim Ho MD Work Phone: Start: 08-29-2024 RAD ONC MSQ TREATMEN T SUMMARY Jim Ho MD Work Phone: Start: 08-28-2024 RAD ONC MSQ TREATMEN T SUMMARY Jim Ho MD Work Phone: Start: 08-27-2024 RAD ONC MSQ TREATMEN T SUMMARY Jim Ho MD Work Phone: Start: 08-26-2024 RAD ONC MSQ TREATMEN T SUMMARY Jim Ho MD Work Phone: Start: 07-29-[address] SIM IMAGES ONLY Carmen Martin MD PhD Work Phone: Start: 07-01-2024 End: 07-01-2024 SKIN / NAIL BIOPSY Cornelio Pete MD Work Phone: Start: 07-25-2023 Radiography of esophagus Start: 02-18-2022 Radex ankle complete minimum 3 views Raman Barroso MD Work Phone: Start: 01-03-2022 MRI of joint of lowe r extremity Dr. Kg aSlinas Work Phone: Start: 12-05-[address] Ace Salinas Work Phone: Start: 12-03-2021 Plain chest X-ray Dr. Geronimo Salinas Work Phone: Start: 12-03-2021 Pulmonary ventilatio n perfusion study Dr. Kg Salinas Work Phone: Start: 12-02-2021 MRI of brain without contrast Dr. Kg Salinas Work Phone: Start: 12-02-2021 CT angiography of ch est with contrast Start: 12-02-2021 CT of head without contrast Start: 11-22-2021 Investigation of transfusion reaction Start: 11-22-2021 Microbial culture, routine Start: 10-10-2021 MRI of joint of lowe r extremity Start: 10-06-2021 MRI of lower extremity Anaerobic microbial culture Influenza Types A,B Direct FA (ASHLEE) Dr. Kg Salinas Work Phone: Influenza Types A,B Direct FA (ASHLEE) Dr. Kg Salinas Work Phone: Investigation of transfusion reaction Microbial culture, routine Respiratory syncytia l virus antigen assay Dr. Kg Salinas Work Phone: Respiratory syncytia l virus antigen assay Dr. Kg Salinas Work Phone: Plan of Treatment Date Care Activity Detail Author Start: 08-22-2032 DTaP/Tdap/Td Vaccines (2 - Td or Tdap) DTaP/Tdap/Td Vaccines (2 - Td or Tdap) [facility] Start: 2028 RSV Vaccine (1 - 1-dose 75+ series) RSV Vaccine (1 - 1-dose 75+ series) [facility] Start: 03-24-2025 [facility] Start: 09-10-2024 End: 09-10-2024 Patient encounter procedure Denis Maldonado [facility] Start: 09-09-2024 End: 09-09-2024 Patient encounter procedure Denis Maldonado [facility] Start: 09-08-2024 End: 09-08-2024 Patient encounter procedure Denis Maldonado [facility] Start: 09-05-2024 End: 09-05-2024 Patient encounter procedure Denis Maldonado [facility] Start: 09-04-2024 End: 09-04-2024 Patient encounter procedure Denis Maldonado [facility] Start: 09-03-2024 End: 09-03-2024 Patient encounter procedure Denis Maldonado [facility] Start: 09-02-2024 End: 09-02-2024 Patient encounter procedure Denis Maldonado [facility] Start: 09-01-2024 End: 09-01-2024 Patient encounter procedure Denis Maldonado [facility] Start: 08-29-2024 End: 08-29-2024 Patient encounter procedure Denis Maldonado [facility] Start: 08-28-2024 End: 08-28-2024 Patient encounter procedure Denis Maldonado [facility] Start: 08-27-2024 End: 08-27-2024 Patient encounter procedure Denis Maldonado [facility] Start: 08-26-2024 End: 08-26-2024 Patient encounter procedure 08/26/2024 9:00 AM EDT Appointment [facility] [address] [place] [address] [facility] Start: 07-01-2024 End: 07-01-2025 CBC W Auto Differential panel - Blood [facility] Service Area Work Phone: Comment on above: Expected: 07/01/2024 (Approximate), Expi res: 07/01/2025 Start: 07-01-2024 End: 07-01-2025 Comprehensive metabolic 2000 panel - Serum or Plasma [facility] Work Phone: Comment on above: Expected: 07/01/2024 (Approximate), Expi res: 07/01/2025 Start: 07-01-2024 End: 07-01-2025 Extractable nuclear Ab panel - Serum [facility] Work Phone: Comment on above: Expected: 07/01/2024 (Approximate), Expi res: 07/01/2025 Start: 07-01-2024 End: 07-01-2025 Nuclear Ab [Presence] in Serum by Hep2 substrate [facility] Work Phone: Comment on above: Expected: 07/01/2024 (Approximate), Expi res: 07/01/2025 Start: 02-17-2024 Covid-19 Vaccine ( season) Covid-19 Vaccine ( season) [facility] Start: 02-17-2024 Influenza vaccination Influenza Vaccine (#1) [facility] Start: 06-18-2023 Advance Directive Discussion Advance Directive Discussion [facility] Start: 05-31-2022 Patient referral [facility] Work Phone: Start: 05-30-2022 Serum immunofixation [facility] Work Phone: Start: 02-16-2022 Influenza vaccination INFLUENZA (#1) [facility] Start: 12-05-2021 Patient discharge [facility] Work Phone: Start: 12-03-2021 Admission procedure [facility] Work Phone: Start: 12-02-2021 Wound care [facility] Work Phone: Start: 12-02-2021 Consultation for treatment [facility] Work Phone: Start: 12-02-2021 Ambulation without limitation [facility] Work Phone: Start: 12-02-2021 Assessment of risk of venous thromboembolism [facility] Work Phone: Start: 12-02-2021 Cardiac monitoring [facility] Work Phone: Start: 12-02-2021 Catheterization of vein [facility] Work Phone: Start: 12-02-2021 Continuous pulse oximetry [facility] Work Phone: Start: 12-02-2021 Elevation of head of bed [facility] Work Phone: Start: 12-02-2021 Exercises [facility] Work Phone: Start: 12-02-2021 Implementation of planned interventions [facility] Work Phone: Start: 12-02-2021 Insertion of catheter into peripheral vein [facility] Work Phone: Start: 12-02-2021 Measuring intake and output [facility] Work Phone: Start: 12-02-2021 Notification of physician [facility] Work Phone: Start: 12-02-2021 Oxygen therapy [facility] Work Phone: Start: 12-02-2021 Providing care according to standard [facility] Work Phone: Start: 12-02-2021 Referral to occupational therapist [facility] Work Phone: Start: 12-02-2021 Referral to service [facility] Work Phone: Start: 12-02-2021 Speech therapy assessment [facility] Work Phone: Start: 12-02-2021 Tobacco use cessation education [facility] Work Phone: Start: 12-02-2021 [facility] Work Phone: Start: 12-02-2021 Following clinical pathway protocol [facility] Work Phone: Start: 12-02-2021 Transfusion of blood product [facility] Work Phone: Start: 12-02-2021 Admission procedure [facility] Work Phone: Start: 12-02-2021 [facility] Work Phone: Start: 12-02-2021 [facility] Work Phone: Start: 11-22-2021 Anaerobic microbial culture Anaerobic Culture [facility] Work Phone: Start: 06-18-2021 ADVANCE DIRECTIVE DISCUSSION ADVANCE DIRECTIVE DISCUSSION [facility] Start: 02-07-2020 Pneumococcal vaccination Pneumococcal Vaccine (2 of 2 - PCV) [facility] Start: 02-07-2020 Pneumococcal Vaccine: 65+ (2 of 2 - PCV) Pneumococcal Vaccine: 65+ (2 of 2 - PCV) [facility] Start: 2018 PNEUMOCOCCAL: 65+ (1 - PCV) PNEUMOCOCCAL: 65+ (1 - PCV) [facility] Start: 03-25-2015 Shingrix Vaccine (2 of 3) Shingrix Vaccine (2 of 3) [facility] Start: 03-25-2015 Zoster Vaccines (1 of 2) Zoster Vaccines (1 of 2) [facility] Start: 03-25-2015 Zoster Vaccines (2 of 3) Zoster Vaccines (2 of 3) [facility] Start: 2008 PROSTATE CANCER SCREENING DISCUSSION PROSTATE CANCER SCREENING DISCUSSION [facility] Start: 2003 SHINGRIX VACCINE (1 of 2) SHINGRIX VACCINE (1 of 2) [facility] Start: 1998 COLOGUARD (FIT-DNA) COLOGUARD (FIT-DNA) [facility] Start: 1998 Colonoscopy COLONOSCOPY [facility] Start: 1998 COLORECTAL CANCER SCREENING COLORECTAL CANCER SCREENING [facility] Start: [address] COLONOGRAPHY [facility] Start: 1998 DIABETES SCREEN DIABETES SCREEN [facility] Start: 1998 Diabetes Screening Diabetes Screening [facility] Start: 1998 FECAL OCCULT BLOOD FECAL OCCULT BLOOD [facility] Start: 1998 Screening for malignant neoplasm of colon [facility] Start: 1998 SIGMOIDOSCOPY SIGMOIDOSCOPY [facility] Start: 1988 Lipid panel Lipid Screening [facility] Start: 1988 LIPID SCREEN LIPID SCREEN [facility] Start: 1972 Urine microalbumin profile [facility] Start: 1971 Anxiety Screening Anxiety Screening [facility] Start: 1971 Depression Screening Depression Screening [facility] Start: 1971 HEPATITIS C SCREENING HEPATITIS C SCREENING [facility] Start: 1971 Hepatitis C screening Hepatitis C Screening [facility] Start: 1965 Adult depression screening assessment DEPRESSION SCREENING [facility] Start: 1953 Examination of skin Derm Melanoma Skin Check [facility] Start: 1953 Lipid panel Lipid Panel [facility] Start: 1953 Medicare Annual Wellness Visit Medicare Annual Wellness Visit (AWV) [facility] Start: 1953 Screening for malignant neoplasm of colon [facility] Start: 1953 Thyroid stimulating hormone measurement TSH Level [facility] Albumin [Moles/volum e] in Serum or Plasma [facility] Work Phone: Albumin/Globulin ratio [facility] Work Phone: Bilirubin measurement, urine [facility] Work Phone: Cardiac event recording [facility] Work Phone: Dermatopathology- DERM LAB [place] topathology- DERM LAB Pathology and Cytology Timed Neoplasm of uncertain behavior of skin Release Upon Ordering for 1 Occurrences starting 07/01/2024 [facility] Service Area Work Phone: Comment on above: Release Upon Ordering for 1 Occurrences starting 07/01/2024 Electroencephalogram [facility] Work Phone: Electrophoresis: [id number] [facility] Work Phone: Electrophoresis: randal ma globulin [facility] Work Phone: Flow Cytometry Test Flow Cytomet ry Test Pathology and Cytology Routine Neoplasm of uncertain behavior of skin Release Upon Ordering for 1 Occurrences starting 07/01/2024 [facility] Work Phone: Comment on above: Release Upon Ordering for 1 Occurrences starting 07/01/2024 End: 07-01-2024 Flow Cytometry Test Flow Cytometry Test Lab Only Timed Neoplasm of uncertain behavior of skin Once for 1 Occurrences starting 07/01/2024 until 07/01/2024 [facility] Work Phone: Comment on above: Once for 1 Occurrences starting 07/01/19 until 07/01/2024 Globulin measurement [facility] Work Phone: Hemoglobin [Presence ] in Urine [facility] Work Phone: IgA [Mass/volume] in Serum or Plasma [facility] Work Phone: IgG [Mass/volume] in Serum or Plasma [facility] Work Phone: IgM [Mass/volume] in Serum or Plasma [facility] Work Phone: Measurement of keton es in urine using dipstick [facility] Work Phone: Microscopic urinalysis [facility] Work Phone: NM Heart Views W str ess and W radionuclide IV [facility] Work Phone: NM Heart Views W str ess and W radionuclide IV [facility] Patient Education ED Choking Spe ll (Adult) [facility] Work Phone: Patient referral [facility] Work Phone: pH of Urine [facility] Work Phone: Protein electrophore sis panel - Serum or Plasma [facility] Work Phone: Rad Onc Intent to Treat Rad Onc Intent to Treat Radiation Oncology Routine Cutaneous T-cell lymphoma, unspecified body region (Multi) Ordered: 07/29/2024 [facility] Service Area Work Phone: Comment on above: Ordered: 07/29/2024 Serum immunofixation [facility] Work Phone: Serum protein electrophoresis [facility] Work Phone: Specific gravity of Urine [facility] Work Phone: Urinalysis, blood, qualitative [facility] Work Phone: Urine dipstick for glucose [facility] Work Phone: Urine dipstick for l eukocyte esterase [facility] Work Phone: Urine dipstick for nitrite [facility] Work Phone: Urine dipstick for protein [facility] Work Phone: Urine examination [facility] Work Phone: Urine immunofixation [facility] Work Phone: Urine microscopy: ep ithelial cells [facility] Work Phone: Urine Microscopy: white cells [facility] Work Phone: Urobilinogen [Presen ce] in Urine [facility] Work Phone: Immunizations Immunization Date Immunization Notes Care Provider Fa cili 08-22-2022 tetanus toxoid, redu melissa diphtheria toxoid, and acellular pertussis vaccine, adsorbed Dr. Kg Salinas Work Phone: [facility] 03-01-2021 influenza virus vaccine, unspecified formulation [facility] Work Phone: [facility] Payers Date Payer Category Payer Unknown [id number] 2024 Self-pay [id number] 2016 Medicaid [id number] 2013 Medicaid [id number] 1992 Medicare [id number] 1992 Medicare [id number] 1953 Unknown [id number] 2.16 [id number] 1953 Unknown [id number] 2.16 [id number] 1953 Unknown [id number] 2.16 [id number] 1953 Unknown [id number] 2. [id number] 1953 Unknown [id number] 2.16 [id number] 1953 Unknown [id number] 2.16 [id number] 1953 Unknown [id number] 2.16 [id number] 1953 Unknown [id number] 2.16 [id number] 1953 Unknown [id number] 2.16 [id number] 1953 Unknown [id number] 2.16 [id number] 1953 Unknown [id number] 2.16 [id number] 1953 Unknown [id number] 2.16 [id number] 1953 Unknown [id number] 2.16. [id number] 1953 Unknown [id number] 2.16. [id number] 1953 Unknown [id number] 2.16. [id number] 1953 Unknown [id number] 2.16. [id number] 1955 Unknown [id number] 2.16. 840.1.002529.3.579.2.1244 1955 Unknown [id number] 2.16. 840.1.462020.3.579.2.1244 1955 Unknown [id number] 2.16. 840.1.285339.3.579.2.1244 1955 Unknown [id number] 2.16. 840.1.884458.3.579.2.1244 1955 Unknown [id number] 2.16. 840.1.537604.3.579.2.1245 Unknown [id number] 2.16.8 40.1.172473.3.579.2.462 Unknown [id number] 2.16.8 40.1.138942.3.579.2.462 Unknown [id number] 2.16.8 40.1.534993.3.579.2.462 Unknown [id number] 2.16.8 40.1.621838.3.579.2.462 Unknown [id number] 2.16.8 40.1.952336.3.579.2.462 Unknown [id number] 2.16.8 40.1.634614.3.579.2.462 Unknown [id number] 2.16.8 40.1.802057.3.579.2.462 Unknown [id number] 2.16.8 40.1.903076.3.579.2.462 Unknown [id number] 2.16.8 40.1.700195.3.579.2.462 Unknown [id number] 2.16.8 40.1.960160.3.579.2.462 Social History Date Type Detail Facility Start: 02-22-2021 End: 01-02-2023 Tobacco smoking status NHIS Unknown if ever smoked [facility] Start: 07-02-2020 Non-smoker [facility] Start: 1955 Sex Assigned At Male W [facility] Start: 02-18-2022 End: 03-24-2025 Tobacco smoking status NHIS Never smoked tobacco [facility] Start: 02-18-2022 End: 07-29-2024 Tobacco use and exposure Smokeless tobacco non-user [facility] Start: 02-18-2022 Alcohol intake Current drinke r of alcohol (finding) [facility] Start: 1955 Sex Assigned At Not on file [facility] Start: 02-18-2022 End: 07-29-2024 History of Social function [facility] Start: 02-18-2022 End: 07-29-2024 Tobacco use panel [facility] National Score (1-100), lower number is lower risk Not on file [facility] Start: 06-21-2024 End: 07-01-2024 Exposure to SARS-CoV-2 (event) Not sure [facility] Start: 07-29-2024 End: 08-29-2024 Alcoholic beverage intake Lifetime non-drinker (finding) [facility] Work Phone: Start: 07-19-2024 End: 07-29-2024 Exposure to SARS-CoV-2 (event) Yes [facility] Work Phone: Start: 08-03-2024 End: 09-08-2024 Exposure to SARS-CoV-2 (event) Unable to assess [facility] Start: 09-16-2024 Sex Male (finding) [facility] Goals Date Patient Goal Desired Activity /State Functional Status Date Assessment Result Facility 12-05-2021 Functional status Bedrest;Assist with Uri nal [facility] Work Phone: Mental Status Date Assessment Result Facility 03-24-2025 Cognitive function Level Of Consciousness Awake [facility] Work Phone: 12-05-2021 Cognitive function Voice/Name [facility] Work Phone: Clinical Notes 02-18-2022 to 03-24-2025 Note Date & Type Note Facility 03-24-2025 Discharge summary [facility] 03-24-2025 Discharge summary Note Date/Time March 24, 2025 6:22pm [facility] Medical Records Department [address] [place] [address] Emergency Department Summary 03/24/25 MR#: [id number] Acct: [id number] Name: RL BROWN Rep #:[id number] : 1955 69 From: Filippo Bradshaw MD PCP: Dr. Kg Salinas MD Status:PRE E R Location: ED HPI History of Present Illness Chief Complaint: General Illness Detail of Chief Complaint: Patient reportedly jumped in a shelter. Now resolved. No complaints. Informant: patient and other (long-term personnel with him.) Onset/Context/Timing Onset: Today Context: Sudden Onset Timing: Intermittent Current Severity: Gone Maximum Severity: Mild Narrative Narrative: 69-year-old male who choked while eating some chicken noodle soup. Now he feelsfine. Denies any trouble swallowing. Denies any trouble breathing. He is symptom-free pain-free. Prior similar symptoms: No Recent Illness/Hospitalization: No PFSH PFSH Medical History Left ankle sprain Right arm cellulitis Cancer Hypothyroidism Insomnia Bipolar disorder Essential hypertension Ventricular tachycardia Wears glasses Anxiety Non-smoker Shortness of breath on exertion Incontinence Limb weakness Difficulty balancing when standing Prostate enlargement Thyroid disease Strain of left ankle Home Medications ?Medication ?Instructions ?Recorded ?Last Taken ?Type risperidone 1 mg tablet 1 mg PO BREAKFAST 08/14/16 0 07/09/20 History buspirone 10 mg tablet 20 mg PO TID 07/05/20 05:20 History risperidone 2 mg tablet 2 mg PO QHS 02/22/21 1 05:20 History oxybutynin chloride 15 mg 15 mg PO DAILY #90 tabs 02/05 Unknown Rx tablet,extended release 24 hr mirtazapine 7.5 mg tablet 7.5 mg PO QHS 04/25/22 Unkno wn History cholecalciferol (vitamin D3) 25 25 mcg PO DAILY Unknown History mcg (1,000 unit) tablet levothyroxine 100 mcg tablet 100 mcg PO DAILY 01/01/24 Unknown History Allergy/AdvReac Type Severity Reaction Status Date / Time doxycycline Allergy unknown Verified 03/24/25 17:47 Environmental Allergies: Allergy allergic Verified 03/24/25 17:47 Uncoded (seasonal) rhinitis Penicillins Allergy Unknown Verified 03/24/25 17:47 Surgical History Hx of transurethral resection of prostate Hx of colonoscopy Hx of cystoscopy Social History Smoking Status: Never smoker second hand exposure: No alcohol intake: never substance use type: does not use caffeine: Yes Type: carbonated beverages Number of servings: 1 ROS ROS ED ROS Narrative Denies recent illness. Constitutional Constitutional ED: Denies chills or fever(s) Eyes Eyes: Denies blurry vision ENT ENT ED: Denies ear pain Cardiovascular Cardiovascular: Denies chest pain Respiratory/Chest Respiratory/Chest: Denies cough or dyspnea Gastrointestinal Gastrointestinal: Denies abdominal pain Genitourinary Genitourinary ED: Denies dysuria or hematuria Musculoskeletal Musculoskeletal: Denies arthralgias or back pain Integumentary Denies abscess Neurologic Neurologic: Denies headache(s) Psychiatric Psychiatric: Denies anxiety or depression Endocrine Endocrinology: Denies cold intolerance Hematologic/Lymphatic Hematologic/Lymphatic: Reports none Allergic/Immunologic Allergic/Immunologic ED: Denies mouth swelling, tongue swelling or urticaria EXAM Physical Exam Narrative Exam Narrative: 69-year-old male no acute distress vital signs stable afebrile. Pulse ox 98% onroom air. No hypoxia. No trouble breathing or swallowing. No choking. 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 Right eye pupil round react to light. Show motion intact. Mouth no joint swelling or breathing no stridor or drooling again last water drink without any difficulty. Neck nontender no lymphadenopathy. Lungs clear to auscultation bilaterally. Heart regular rhythm no murmur rate about 80. Chest wall ribs nontender. Abdomen soft nontender. Moving all 4 extremities. Normal senior vice president strength. Normal dorsi plantarflexion. He is awake and alert. Answering questions following commands. Very benign exam. Const Vital Signs: 03/24/25 17:45 Temperature 98 F Temperature Source Oral Pulse Rate 78 Respiratory Rate 16 Blood Pressure 182/100 H Blood Pressure Mean 127 Pulse Ox 98 Oxygen Delivery Method Room Air MDM MDM MDM Narrative Medical decision making narrative: 69-year-old male with choking episode at the shelter. Currently can swallow without any difficulty. His lungs are clear. There is noes signs of aspiration. He will be discharged home to follow-up as needed. Discharge Plan Triage Chief Complaint: General Illness ED Provider: Filippo Bradshaw Dx/Rx/DC Orders Clinical Impression: Choking Instructions: ED Choking Spell (Adult) Prescriptions: No Action buspirone 10 mg tablet 20 mg PO TID mirtazapine 7.5 mg tablet 7.5 mg PO QHS levothyroxine 100 mcg tablet 100 mcg PO DAILY cholecalciferol (vitamin D3) 25 mcg (1,000 unit) tablet 25 mcg PO DAILY risperidone 1 MG tablet 1 mg PO BREAKFAST risperidone 2 mg tablet 2 mg PO QHS oxybutynin chloride 15 mg tablet extended release 24hr 15 mg PO DAILY Qty: 90 3RF Primary Care Provider: Kg Salinas Chi Referrals: Kg Salinas Chi, MD [Primary Care Provider, Geriatrics] - As Needed Activity Restrictions/Additional Instructions: He checks well now. He may return to work. Make sure he chews his food thoroughly and eats and drink slowly. Print Language: Gabonese Disposition Disposition: Home, Self Care What to do if you have Problems For any increased pain, shortness of breath, bleeding, nausea or vomiting, chestpain, or any unexpected problems, contact your Primary Care Provider. Call [facility] ([phone]) or report to the closest Emergency Room. Call 911 if necessary. 03/24/251821 <Electronically signed by Filippo Bradshaw MD> Cosigner Signature (if applicable): CC: Dr. Kg Salinas MD ~ Signed [facility] Work Phone: 1(318) 294-207308-19-2025 Evaluation note* Diagnosis Onset Date Resolution Status Admit Date Left ankle sprain acute February 03, 2025 4:58pm [facility] Work Phone: 1(126) 289-478308-19-2025 Radiology Diagnostic study note [facility] Imaging Services [address] [place] [address] Ankle min 3 Views MR#: [id number] Acct: [id number] Name: RL BROWN Rep #: [id number] : 1955 M 69 From: Francisco Rebolledo MD PCP: Dr. Kg Salinas MD Status: REG C LI Study:Ankle min 3 Views Date of Exam: Exam# [id number] Ordering Dr: [facility] Villegas PROCEDURE: LEFT ANKLE MIN 3 VIEWS 02/03/2025 REASON FOR EXAM: PAIN TECHNIQUE: LEFT ANKLE MIN 3 VIEWS COMPARISON: 11/12/2020 FINDINGS: No acute fracture or dislocation. Alignment is anatomic. Preserved joint spaces.No aggressive osseous lesion. No marked soft tissue swelling or radiopaque foreign body. RAD/Ankle min 3 Views IMPRESSION: No acute or aggressive osseous abnormality. Reading Location: [id number] CC: Dr. Kg Salinas MD; FINN Garcia ~ Eeler: Signed [facility]03-24-2025 Evaluation note* Diagnosis Onset Date Resolution Status Admit Date Right arm cellulitis acute 2024 8:04am [facility] Work Phone: 1(364) 327-719703-21-2025 History of Present illness Narrative* Carmen Martin MD PhD - 09/05/2024 11:15 AM EDT Images from the original note were not included. RADIATION ONCOLOGY ON-TREATMENT VISIT NOTE Patient Name: Rl Brown : 1955 Radiation Oncologist: Carmen Martin MD PhD Primary Care Provider: No Assigned PCP Brandon Soriano MD Care Team: Patient Care Team: No Assigned Pcp Brandon Soriano MD as PCP - General (Cut Off Man) Carmen Martin MD PhD as Radiation Oncologist (Radiation Oncology) Date of Service: 09/05/2024 Rl Brown is a 69 y.o.-year-old with: Specialty Problems Radiation Oncology Problems Cutaneous T-cell lymphoma, unspecified body region (Multi) Treatment Summary: Radiation Therapy Treatment Period Technique Fraction Dose Fractions Total Dose Course 1 08/26/2024-09/05/2024 (days elapsed: 10) L Flank 08/26/2024-09/05/2024 Electron 250 / 250 cGy 1750 / 3,000 cGy LFlank 08/26/2024-09/01/2024 Electron 250 / 250 cGy 1250 / 3,000 cGy Concurrent systemic therapy: none SUBJECTIVE: accompanied by caregiver, feeling well, denies any pain or pruritus in the region OBJECTIVE: Vital Signs: BP 134/85 Pulse 88 Temp 36.2 C (97.2 F) (Temporal) Resp 18 Wt 80 kg (176 lb 7.7 oz) SpO2 98% Skin: erythematous lesion, mild erythema in RT field, no evidence of infection Toxicity Assessment 08/29/2024 11:00 09/05/2024 11:00 Toxicity Assessment Adverse Events Reviewed (WDL) No (Exceptions to WDL) No (Exceptions to WDL) Treatment Site Skin Skin Dermatitis Radiation Grade 0 Grade 2 skin is prink/ red in treatment area on left flank. Skin peeled on 08/26 when patient took off shirtand some skin stuck to shirt and peeled off Fatigue Grade 0 Grade 0 Pain of Skin Grade 0 Grade 0 Pruritus Grade 0 Grade 0 ASSESSMENT/PLAN: The patient is tolerating radiation therapy as anticipated. Continue per current treatment plan. 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 Specialty Problems Radiation Oncology Problems Cutaneous T-cell lymphoma, unspecified body region (Multi) Treatment Summary: Radiation Therapy Treatment Period Technique Fraction Dose Fractions Total Dose Course 1 08/26/2024-08/29/2024 (days elapsed: 3) L Flank 08/26/2024-08/28/2024 Electron 250 / 250 cGy 750 / 3,000 cGy LFlank 08/26/2024-08/29/2024 Electron 250 / 250 cGy 1000 / 3,000 cGy Concurrent systemic therapy: none SUBJECTIVE: accompanied by caregiver, feeling well, denies any pain or pruritus in the regio OBJECTIVE: Vital Signs: BP (!) 153/92 Pulse 83 Temp 36.2 C (97.2 F) (Temporal) Resp 18 Wt 80.8 kg (178lb 1.6 oz) SpO2 97% Pain Scale: 0 /10. Skin: erythematous lesion that has flattened Toxicity Assessment 08/29/2024 11:00 Toxicity Assessment Adverse Events Reviewed (WDL) No (Exceptions to WDL) Treatment Site Skin Dermatitis Radiation Grade 0 Fatigue Grade 0 Pain of Skin Grade 0 Pruritus Grade 0 ASSESSMENT/PLAN: The patient is tolerating radiation therapy as anticipated. Continue per current treatment plan. Carmen Martin Window Repairer, Radiation Oncology documented in this [facility] Work Phone: 1(376) 899-386302-11-2025 History of Present illness Narrative* Carmen Martin MD PhD - 07/29/2024 9:00 AM EST Images from the original note were not included. Staff Physician: Carmen Martin MD PhD Referring Physician: Raman Hemphill MD Date of Service: 07/29/2024 Patient name: Rl Brown RADIATION ONCOLOGY CONSULT NOTE IDENTIFYING DATA: DIAGNOSIS: Newly diagnosed, localized, CTCL DISEASE STATE: No prior treatment Problem List Items Addressed This Visit Cutaneous T-cell lymphoma, unspecified body region (Multi) Relevant Orders Referral to Radiation Oncology Rad Onc Intent to Treat Mr. Rl Brown is a 69-year-old with newly diagnosed CTCL, referred by Dr. Hemphill, Raman Chadwick MD, for evaluation and discussion of treatment recommendations. HISTORY OF PRESENT ILLNESS: First noticed a rash on his left flank around May 2024. 05/30/2024 punch biopsy noted atypical lymphocyte infiltrate. PAS stain negative for fungus. 40% CD20 positive, 60% CD3 positive, CD4-CD8 ratio 4:1. Epidermal changes unusual for primary CTCL, but due to number of PD-1 positive cells, CTCL is still on the differential. Flow cytometry notes clonal CD4 positive T cells, in line with T-cell lymphoproliferative disorder.Skin flow showed clonal T RBC 1 positive CD4 positive T cells, compatible with mycosis fungoides versus other CD4 positive cutaneous T-cell lymphoproliferative disorder. Today, Mr. Rl Brown is accompanied by his care navigator, with his guardian on the phone. Currently resides in a shelter. Symptomatically, he denies any itchiness or pain from the lesion on his left flank. PAST MEDICAL HISTORY: History reviewed. No pertinent past medical history. PAST SURGICAL HISTORY: History reviewed. No pertinent surgical history. ALLERGIES: Allergies Allergen Reactions Penicillins Unknown Doxycycline Rash and Unknown MEDICATIONS: Current Outpatient Medications: busPIRone (Buspar) 10 mg tablet, Take 2 tablets (20 mg) by mouth 3 times a day., Disp: , Rfl: cholecalciferol (Vitamin D3) 25 MCG (1000 UT) tablet, Take 1 tablet (1,000 Units) by mouth once daily., Disp: , Rfl: levothyroxine (Synthroid, Levoxyl) 100 mcg tablet, 1 tablet (100 mcg)., Disp: , Rfl: oxybutynin XL (Ditropan-XL) 15 mg 24 hr tablet, 1 tablet (15 mg)., Disp: , Rfl: risperiDONE (RisperDAL) 1 mg tablet, Take 1 tablet (1 mg) by mouth once daily., Disp: , Rfl: risperiDONE (RisperDAL) 2 mg tablet, Take 1 tablet (2 mg) by mouth once daily at bedtime., Disp: , Rfl: SOCIAL HISTORY: Social History Tobacco Use Smoking status: Never Smokeless tobacco: Never Substance Use Topics Alcohol use: Never FAMILY HISTORY: No family history on file. REVIEW OF SYSTEMS: Please refer to RN note. PHYSICAL EXAMINATION: BP 178/80 Pulse 79 Temp 36.5 C (97.7 F) (Temporal) Resp 18 Wt 79.4 kg (175 lb) SpO2 98% 4 x 1.8 cm deeply erythematous lesion PERFORMANCE STATUS: KPS/ECO, Cares for self; unable to carry on normal activity or to do active work (ECOG equivalent 1) LABORATORY AND IMAGING DATA: Imaging: All imaging was personally reviewed and interpreted in clinic. Findings as per HPI and EMR. Laboratory/Pathology: All pertinent labs and pathology were personally reviewed and interpreted in clinic. Findings as per HPI and EMR. 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 No evidence of systemic involvement. He is a candidate for directed local radiation. I discussed that low-dose radiation therapy is safe and effective in patients with solitary CTCL lesions, with a high remission rate, although treatment of this area does not prevent recurrence outside of the fieldof radiation. I discussed treatment logistics, short-term and long-term potential side effects. Short-term skin toxicities include but not limited to erythema, xerosis, itching, very rarely exudativedermatitis or erosions. Long-term side effects include mild pigmentation changes of the skin, atrophy, telangiectasias, and hair loss in the radiation field. While there is a risk of secondary maligna ncy with the use of radiation, this risk is very low. He understood the benefits and risks and would like to proceed with radiation. PLAN: -CT sim today -plan for 12 fractions, electrons, treat at [facility] -- per his caregiver availabilities, plan to start on 08/26/24 Thank you for the opportunity to participate in the care of this kind patient. Carmen Martin MD PhD Window Repairer, Radiation Oncology documented in this [facility] Work Phone: 1([phone]) 718-751001-14-2025 History of Present illness Narrative* Leatha Levy MD - 07/01/2024 1:30 PM EST Images from the original note were not included. Subjective Rl Brown is a 69 y.o. male who presents for the following: Procedure [facility] clinic patient of Dr. Hemphill, seeing Dr. 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 See other note for details. Review of Systems: No other skin or systemic complaints other than what is documented elsewhere in the note. Objective Left Flank Anterior 4.0 x 1.8 cm red scaly plaque Left Flank Posterior 4.0 x 1.8 cm red scaly plaque Well appearing patient in no apparent distress; mood and affect are within normal limits. Vital signs: See record. The patient confirmed the identified site. Assessment/Plan Neoplasm of uncertain behavior of skin (2) Left Flank Anterior Lesion biopsy Type of biopsy: punch Informed consent: discussed and consent obtained Timeout: patient name, date of , surgical site, and procedure verified Procedure prep: Patient was prepped and draped Anesthesia: the lesion was anesthetized in a standard fashion Anesthetic: 1% lidocaine w/ epinephrine 1-100,000 local infiltration Punch size: 6 mm Suture size: 4-0 Suture type: Prolene (polypropylene) Suture removal (days): 14 Hemostasis achieved with: suture Outcome: patient tolerated procedure well Post-procedure details: sterile dressing applied and wound care instructions given Dressing type: bandage and petrolatum Staff Communication: Dermatology Local Anesthesia: 1 % Lidocaine / Epinephrine - Amount: Specimen 1 - Flow Cytometry Test Differential Diagnosis: concern for 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 Check Margins Yes/No?: Comments: Dermpath Lab: N/A Left Flank Posterior Lesion biopsy Type of biopsy: punch Informed consent: discussed and consent obtained Timeout: patient name, date of , surgical site, and procedure verified Procedure prep: Patient was prepped and draped Anesthesia: the lesion was anesthetized in a standard fashion Anesthetic: 1% lidocaine w/ epinephrine 1-100,000 local infiltration Punch size: 4 mm Suture size: 4-0 Suture type: Prolene (polypropylene) Suture removal (days): 14 Hemostasis achieved with: suture Outcome: patient tolerated procedure well Post-procedure details: sterile dressing applied and wound care instructions given Dressing type: bandage and petrolatum Staff Communication: Dermatology Local Anesthesia: 1 % Lidocaine / Epinephrine - Amount: Specimen 2 - Dermatopathology- DERM LAB Differential Diagnosis: 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 See resident note for details. Leatha Levy MD documented in this [facility] Work Phone: 1(595) 920-176501-14-2025 History of Present illness Narrative* Raman Hemphill MD - 07/01/2024 1:00 PM EST Images from the original note were not included. Subjective Rl Brown is a 69 y.o. male who presents for the following: Suspicious Skin Lesion. Since the begging of Apr 2024, he had a lesion on the left flank that has been getting more red. Doesn't complain of pain or itch. He was initially treated with doxycycline and Bactrim by his PCP forcellulitis, which did not help. He is currently not using anything here. A punch biopsy of the left abdomen on 05-30-2024 showed atypical lymphocytic infiltrate. There was compact parakeratosis with serous and neutrophilic exudate overlying an acanthotic and markedly spongiotic epidermis with focal erosion and exocytosis of lymphocytes, neutrophils, and eosinophils. Within the dermis, there is a dense perivascular and interstitial lymphohistiocytic infiltrate with occasional eosinophils and plasma cells. CD3 and CD20 stains show numerous T and B cells. There are fewscattered CD30+ cells. The CD4:CD8 ratio is elevated. PAS negative. PU.1 stain highlights numerous macrophages within the infiltrate. PD-1 and ICOS stains are positive in numerous cells within the infiltrate, while there is relatively less CXCL13 staining. 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 Tcell gene rearrangement was negative. Current medications include levothyroxine, risperidone, Vitamin D3, mirtazapine, and oxybutynin. The mirtazapine is the newest medication; it was probably started about 1 year ago for sleep. Review of Systems: No other skin or systemic complaints other than what is documented elsewhere in the note. The following portions of the chart were reviewed this encounter and updated as appropriate: Skin Cancer History No skin cancer on file. Specialty Problems None Objective Well appearing patient in no apparent distress; mood and affect are within normal limits. A focused skin examination was performed. All findings within normal limits unless otherwise noted below. Assessment/Plan 1. 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 Lymphoproliferative disorder (Multi) Related Procedures CBC and Auto Differential Cornelio Pete MD PGY-2, Dermatology I saw and evaluated the patient. I personally obtained the cowart and critical portions of the historyand physical exam or was physically present for cowart and critical portions performed by the resident/fellow. I reviewed the resident/fellow's documentation and discussed the patient with the resident/sreekanth reyes. I agree with the resident/fellow's medical decision making as documented in the note and made changes where appropriate. [facility] Work Phone: [phone]) 473-541701-14-2025 Instructions* Patient Instructions* Cornelio Pete MD - 07/01/2024 1:00 PM EST Thank you for coming in today! Today we discussed the lesion on your side. 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 We would like to get more information today to better determine the diagnosis, so we got 2 biopsies today. Please also get some bloodwork as well. This could also be due to a medication reaction, most likely the mirtazipine. We will have you stopthis for at least 2 months to see if that helps. Follow up pending biopsy results. 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 [facility] History of Present illness Narrative* Chino Rodriguez RT(R) - 02/18/2022 11:00 AM EDT Radiology Service Progress Note PATIENT NAME: Rl Brown DATE OF SERVICE: February 18, 2022 TIME: 11:06 AM PATIENT IDENTITY VERIFICATION COMPLETED USING TWO (2) IDENTIFIERS: Name and Date of confirmedby patient verbally. FALL SCREENING: Has the patient had 2 falls in the last year or 1 fall with injury or currently using an Ambulatory Assistive Device (Walker, Cane, Wheelchair, Crutches, etc.)? No PATIENT GENDER DATA: Male PATIENT RELEVANT IMPLANT DATA REVIEWED: Not Applicable RADIOLOGY DEPARTMENT: General X-ray: Exam(s) Completed: Lower Extremity X- Ray(s): Ankle, Left and Wt. Bearing PERIPHERAL IV DATA: Not applicable SIGNED BY: RT Shanique(R) February 18, 2022 11:06 AM documented in this encounterCommunity [facility]22 History of Present illness Narrative* Raman Barroso MD - 02/18/2022 10:46 AM EDT Patient presents with: Ankle Injury: Hurt it at work yesterday, worse today HPI: Left ankle pain: Duration: turned yesterday Location: left ankle -points to medial and lateral ankle Character: Radiation: Aggravating: Relieving: ice and elevation Pain relievers: none, Associated: swelling, limping Pertinent negatives: History of right ankle fracture and left ankle sprain this summer. His walking boot was discontinued about 3 weeks ago. PAST MEDICAL HISTORY Diagnosis Date BPH (benign prostatic hypertrophy) Cellulitis left arm - intermittent Hypertension Hypertriglyceridemia Hypothyroidism Impulse control disorder Intellectual disability mild MR Restless leg syndrome MEDICATIONS: aspirin, enteric coated (ASPIRIN, ENTERIC COATED) 81 mg EC tablet Take 81 mg by mouth once daily. oxybutynin ER (DITROPAN XL) 15 mg 24 hr Extended Rel Tab atorvastatin (LIPITOR) 40 mg tablet Take by mouth. risperiDONE (RISPERDAL) 2 mg tablet 1/2 (1mg) every morning, 2mg in evening metoprolol tartrate, short acting, (LOPRESSOR) 25 mg tablet Take 12.5 mg by mouth. busPIRone (BUSPAR) 10 mg tablet Take 20 mg by mouth. albuterol (PROVENTIL) 2.5 mg /3 mL (0.083 %) nebulizer solution LEVOTHYROXINE SODIUM (LEVOTHYROXINE ORAL) Take 125 mcg by mouth. budesonide (PULMICORT) 0.5 mg/2 mL nebulizer solution ALLERGIES: ALLERGIES Allergen Reactions Doxycycline Rash Penicillins Unknown VITALS: BP 92/60 Pulse 82 Temp 37.1 C (98.7 F) Resp 22 Wt 81.6 kg (180 lb) SpO2 97% PE: Pleasant, in no acute distress. Accompanied by his caregiver who assist with the history. ANKLE: left. Swelling present over the lateral malleolus. No erythema, ecchymosis, or deformity. Range of motion: inversion - painful, eversion - painful, anterior drawer- non- painful. painful to bear weight. limping gait. Palpation: Medial malleolus painful, lateral malleolus painful, Dorsal proximal midfoot - painful, proximal 5th metatarsal and posterior calcaneus reports discomfort ASSESSMENT/PLAN: 1. Acute left ankle pain - ICD9: 719.47, ICD10: M25.572 - XR ANKLE GENERAL 3V AP/LAT/OBL LEFT - no acute fracture. Placed in Aircast stirrup splint. Continue ice and elevation. Follow-up with foot and ankle doctor if not significantly improved next week. Raman Barroso MD documented [facility] noteNo assessment information availableWUniversity Hospitals [facility] Work Phone: Evaluation note* Diagnosis Onset Date Resolution Status Acute renal failure acute Near syncope acute [facility] Work Phone: Evaluation note* Diagnosis Onset Date Resolution Status Acute renal failure resolved Near syncope resolved [facility] Work Phone: Evaluation note* Diagnosis Acute left ankle pain- Primary documented in this encounter [facility]* Diagnosis Onset Date Resolution Status Orthostatic hypotension acut e 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 Polyneuropathy chronic Dysarthria resolved Pre-syncope resolved [facility] Work Phone: Evaluation note* Diagnosis Onset Date Resolution Status Orthostatic hypotension acut e 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 Polyneuropathy chronic Dysarthria resolved Pre-syncope resolved Fatigue acute [facility] Work Phone: Evaluation note* Diagnosis Onset Date Resolution Status Orthostatic hypotension acut e 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 Polyneuropathy chronic Dysarthria resolved Pre-syncope resolved Fatigue acute Fatigue acute Cardiac arrhythmia acute Essential hypertension chron ic Fatigue acute [facility] Work Phone: Evaluation note* Diagnosis Onset Date Resolution Status Fatigue acute Cardiac arrhythmia acute Essential hypertension chron ic Fatigue acute Encounter for immunization a cute 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 Orthostatic hypotension 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 Polyneuropathy chronic Pre-syncope resolved [facility] Work Phone: Evaluation note* Diagnosis Onset Date Resolution Status 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 Orthostatic hypotension 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 Polyneuropathy chronic Pre-syncope resolved [facility] Work Phone: Evaluation note* Diagnosis Acute left ankle pain [facility]* Diagnosis Neoplasm of uncertain behavior of skin- Primary [facility] Work Phone: [phone] note* Diagnosis Other infiltrative disorders of the skin and subcutaneous tissue- Primary Lymphoproliferative disorder (Multi) Neoplasm of uncertain behavior of other lymphatic and hematopoietic tissues documented in this encounter [facility] Work Phone: [phone] note* Diagnosis Cutaneous T-cell lymphoma, unspecified body region (Multi) documented in this encounter [facility] Work Phone: [phone] note* Diagnosis Cutaneous T-cell lymphoma, 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, unspecified body region (Multi) documented in this encounter [facility] Work Phone: [phone] note* Diagnosis Cutaneous T-cell lymphoma, unspecified body region (Multi) documented in this encounter [facility] Work Phone: [phone] note* Diagnosis Encounter for antineoplastic radiation therapy Cutaneous T-cell lymphoma, unspecified, extranodal and solid organ sites (Multi) documented in this encounter [facility] Work Phone: [phone] note* Diagnosis Encounter for antineoplastic radiation therapy Cutaneous T-cell lymphoma, unspecified, extranodal and solid organ sites (Multi) documented in this encounter [facility] Work Phone: [phone] note* Diagnosis Encounter for antineoplastic radiation therapy Cutaneous T-cell lymphoma, unspecified, extranodal and solid organ sites (Multi) documented in this encounter [facility] Work Phone: [phone] note* Diagnosis Encounter for antineoplastic radiation therapy Cutaneous T-cell lymphoma, unspecified, extranodal and solid organ sites (Multi) documented in [facility] encounter [facility] Work Phone: Evaluation note* Diagnosis Encounter for antineoplastic radiation therapy Cutaneous T-cell lymphoma, unspecified, extranodal and solid organ sites (Multi) documented in this encounter [facility] Work Phone: Evaluation note* Diagnosis Encounter for antineoplastic radiation therapy Cutaneous T-cell lymphoma, unspecified, extranodal and solid organ sites (Multi) documented in this encounter [facility] Work Phone: Evaluation note* Diagnosis Encounter for antineoplastic radiation therapy Cutaneous T-cell lymphoma, unspecified, extranodal and solid organ sites (Multi) documented in this encounter [facility] Work Phone: Evaluation note* Diagnosis Encounter for antineoplastic radiation therapy Cutaneous T-cell lymphoma, unspecified, extranodal and solid organ sites (Multi) documented in this encounter [facility] Work Phone: Evaluation note* Diagnosis Encounter for antineoplastic radiation therapy Cutaneous T-cell lymphoma, unspecified, extranodal and solid organ sites (Multi) documented in this encounter [facility] Work Phone: Evaluation note* Diagnosis Encounter for antineoplastic radiation therapy Cutaneous T-cell lymphoma, unspecified, extranodal and solid organ sites (Multi) documented in this encounter [facility] Work Phone: Evaluation note* Diagnosis Encounter for antineoplastic radiation therapy Cutaneous T-cell lymphoma, unspecified, extranodal and solid organ sites (Multi) documented in this encounter [facility] Work Phone: Evaluation note* Diagnosis Onset Date Resolution Status Admit Date Left ankle sprain acute February 03, 2025 4:58pm [facility] Work Phone: Hospital Discharge instructionsAdditional Instructions He checks well now. He may return to work. Make sure he chews his food thoroughly and eats and drink slowly.[facility] Work Phone: Reason for referral (narrative)* Diagnostic Procedure Only (Urgent) - Closed Specialty Diagnoses / Procedures Referred By Contac t Referred To Contact XR IMAGING Diagnoses Acute left ankle pain Procedures XR ANKLE GENERAL 3V AP/LAT/OBL LEFT RADEX ANKLE COMPLETE MINIMUM 3 VIEWS Raman Barroso MD [address] [place] [address] Xr Imaging Referral ID Status Reason Start Date Expiration Date V isits Requested Visits Authorized [id number] Closed Auto-Generate d Referral 02/18/2022 03/20/2023 1 1 [facility] for referral (narrative)* Diagnostic Procedure Only (Urgent) - Closed Specialty Diagnoses / Procedures Referred By Contac t Referred To Contact XR IMAGING Diagnoses Acute left ankle pain Procedures XR ANKLE GENERAL 3V AP/LAT/OBL LEFT RADEX ANKLE COMPLETE MINIMUM 3 VIEWS Raman Barroso MD [address] [place] [address] [place] [address] Referral ID Status Reason Start Date Expiration Date V isits Requested Visits Authorized [id number] Closed Auto-Generate d Referral 02/18/2022 03/20/2023 1 1 [facility] for referral (narrative)No reason for referral information availableC[facility] Work Phone: Reason for visit Narrative* Diagnostic Procedure Only (Urgent) - Closed Specialty Diagnoses / Procedures Referred By Contac t Referred To Contact XR IMAGING Diagnoses Acute left ankle pain Procedures XR ANKLE GENERAL 3V AP/LAT/OBL LEFT RADEX ANKLE COMPLETE MINIMUM 3 VIEWS Raman Barroso MD [address] [place] [address] [place] [address] Referral ID Status Reason Start Date Expiration Date V isits Requested Visits Authorized [id number] Closed Auto-Generate d Referral 02/18/2022 03/20/2023 1 1 [facility] for visit Narrative* Radiation Therapy (Routine) - Authorized Specialty Diagnoses / Procedures Referred By Conthannah t Referred To Contact Radiation Oncology Diagnoses Cutaneous T-cell lymphoma, unspecified body region (Multi) Procedures Rad Onc Intent to [place] [id number] Department [place] [address] Phone: tel: fax: Referral ID Status Reason Start Date Expiration Date V isits Requested Visits Authorized [id number] Authorized 07/29/2024 07/29/2025 1 999 [facility] Work Phone: Chief Complaint and Reason for Visit Chief Complaint RT ANKLE BRIDGER Chief Complaint RT ANKLE BRIDGER Sprain of unspecified ligament of right ankle Chief Complaint RT ANKLE BRIDGER Sprain of unspecified ligament of right ankle dizzy Chief Complaint RT ANKLE BRIDGER Sprain of unspecified ligament of right ankle dizzy tia tia tia tia Reason for Visit Acute renal failure Near syncope Chief Complaint RT ANKLE BRIDGER Sprain of unspecified ligament of right ankle dizzy tia tia tia tia LABWORK Reason for Visit Acute renal failure Near syncope Chief Complaint RT ANKLE BRIDGER Sprain of unspecified ligament of right ankle dizzy tia tia tia tia LABWORK Other instability, left ankle Reason for Visit Acute renal failure Near syncope Chief Complaint dizzy tia tia tia tia LABWORK Other instability, left ankle Reason for Visit Acute renal failure Near syncope Chief Complaint dizzy tia tia tia tia LABWORK Other instability, left ankle SCREENING Reason for Visit Acute renal failure Near syncope Chief Complaint SCREENING TIA. 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 HOSP FU EORDER FROM DR TAVERA ALSO EPISODIC DYSARTHRIA//LABWORK SCANNED INTO PSN Reason for Visit Orthostatic hypotens ion Intellectual disability Polyneuropathy Dysarthria Pre-syncope Chief Complaint SCREENING TIA. 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 RX HERE B12 inject Reason for Visit Orthostatic hypotens ion Intellectual disability Polyneuropathy Dysarthria Pre-syncope Fatigue Fatigue Cardiac arrhythmia Essential hypertension Fatigue Chief Complaint EORDER B12 VTACH Event Monitor/ TIA 11/2021 CHILLS WITHOUT FEVER B12 inject FOOT PAIN. RX HERE TDAP VACCINE/SELF PAY 4 M FU EORDER POLYNEUROPATHY GAIT INSTABILITY. RX HERE Reason for Visit Fatigue Cardiac arrhythmia Essential hypertension Fatigue Encounter for immunization Intellectual disability Orthostatic hypotension Polyneuropathy Pre-syncope Chief Complaint 4 M FU Reason for Visit Intellectual disabil ity Orthostatic hypotension Polyneuropathy Pre-syncope Chief Complaint DYSPHAGIA Chief Complaint Admit Date SWOLLEN R ELBOW September 08, 2024 8:0 4am Reason for Visit Admit Date Right arm cellulitis September 08, 2024 8: 04am Chief Complaint Admit Date pain- LEFT ANKLE February 03, 2025 4: 35pm L ANKLE INJURY/ [employer] Jan 2024 4:58pm Reason for Visit Admit Date Left ankle sprain February 03, 2025 4: 58pm Chief Complaint Admit Date pain- LEFT ANKLE February 03, 2025 4: 35pm L ANKLE INJURY/ [employer] Jan 2024 4:58pm GEN ILL March 24, 2025 5: 45pm Advance Directives No Advanced Directives Records Found Advance Directive Response Recorded Date/ Time Living Will No February 22 021 8:56am Power of Prop Sawyer Yes February 22, 2021 8:56am Advance Directive Response Recorded Date/ Time Name of Medical Power of Prop Sawyer MASSIMO SOLIS December 02, 2021 9:11am Living Will Yes December 02, 2021 9:11am Power of Prop Sawyer Yes December 02 9:11am Advance Directive Response Recorded Date/ Time Name of Medical Power of Prop Sawyer MASSIMO SOLIS December 02, 2021 1:20pm Living Will Yes December 02, 2021 1:20pm Power of Prop Sawyer Yes December 02 1:20pm Advance Directive Response Recorded Date/ Time Name of Medical Power of Prop Sawyer MASSIMO SOLIS December 02, 2021 1:20pm Living Will Yes December 20, 2021 1 :31pm Power of Prop Sawyer Yes December 20, 2021 1:31pm Advance Directive Response Recorded Date/ Time Living Will Yes December 20, 2021 1 2:31pm Power of Prop Sawyer Yes December 20, 2021 12:31pm Advance Directive Response Recorded Date/ Time Living Will Yes December 20, 2021 1 :31pm Power of Prop Sawyer Yes December 20, 2021 1:31pm Advance Directive Response Recorded Date/ Time Do you have a Healthcare Power of Prop Sawyer? No March 24, 2025 5:45pm Summary Purpose Family History No Family History Records FoundNo Family History Records FoundNo Family History Records FoundNo Family History Records Found Additional Source Comments Goals (unrecognized section and content) Goals may be documented in a n alternate sectionGoals may be documented in an alternate sectionGoals may be documented in an alternate sectionGoals may be documented in an alternate sectionGoals may be documented in an alternate sectionGoals may be documented in an alternate sectionGoals may be documented in an alternate sectionGoals may be documented in an alternate sectionGoals may be documented in an alternate sectionGoals may be documented in an alternate sectionGoals may be documented in an alternate sectionGoals may be documented in an alternate sectionGoals may be documented in an alternate sectionGoals may be documented in an alternate sectionGoals may be documented in an alternate sectionGoals may be documented in an alternate sectionGoals may be documented in an alternate section Source Comments (unrecognize d section and content) In the event this informatio n is protected by the Federal Confidentiality of Alcohol and Drug Abuse Patient Records regulations: The Federal rules restrict any use of the information to criminally investigate or prosecute any alcohol or drug abuse patient.[facility] CenterIn the event this information is protected by the Federal Confidentiality of Alcohol and Drug Abuse Patient Records regulations: The Federal rules restrict any use of the information to criminally investigate or prosecute any alcohol or drug abuse patient.[facility] CenterIn the event this information is protected by the Federal Confidentiality of Alcohol and Drug Abuse Patient Records regulations: The Federal rules restrict any use of the information to criminally investigate or prosecute any alcohol or drug abuse patient.[facility] Reason for Visit (unrecogniz ed section and content) Reason Comments Ankle Injury Hurt it at work yest erday, worse today Reason Comments cd disk Reason Comments Procedure Reason Comments Suspicious Skin Lesion Reason Comments New Patient Visit Specialty Diagnoses / Procedures Referred By Contac t Referred To Contact Radiation Oncology Diagnoses Cutaneous T-cell lymphoma, unspecified body region (Multi) [place] [address] [address] [facility] [place] [address] Phone: tel: fax: Carmen [place] PhD [id number] Department [place] [address] Phone: tel: fax: Referral ID Status Reason Start Date Expiration Date Visits Requested Visits Authorized [id number] Authorized Specialty Services Required 07/08/2024 07/08/2025 1 1 Reason Comments OTV Care Teams (unrecognized sec tion and content) Records Assistant Relationship Specialty Start Date End Date Kg Salinas Chi [address] [address] PCP - General 02/04/14 Records Assistant Relationship Specialty Start Date End Date Kg Salinas Chi [address] [place] [address] PCP - General 02/04/14 Team Status: Active Member Role Status Dates Dr. Kg Salinas MD Family Provider Active Dr. Kg Salinas MD Primary Care Provider Active Team Status: Inactive Member Role Status Dates Dr. Kg Salinas MD Primary Care Provider, Referring Provider Active Dr. Jarad Tavera MD Attending Provider Active Team Status: Inactive Member Role Status Dates Dr. Kg Salinas MD Primary Care Provider Active Dr. Jarad Tavera MD Attending Provider, Referring Provider Active Team Status: Inactive Member Role Status Dates Dr. Kg Salinas MD Primary Care Provider, Referring Provider Active Dr. Carlo Parmar MD Attending Provider Active Team Status: Inactive Member Role Status Dates Dr. Kg Salinas MD Primary Care Provider, Referring Provider Active Jarad Tavera MD Attending Provider Active Team Status: Active Member Role Status Dates Dr. Kg Salinas MD Primary Care Provider Active Dr. Carlo Pamrar MD Attending Provider Active Dr. Jarad Tavera MD Referring Provider Active Team Status: Inactive Member Role Status Dates Dr. Kg Salinas MD Primary Care Provider Active Dr. Karen Hanna DO Attending Provider, Referring P gerardo Active Dr. Jarad Taevra MD Other Provider Active Team Status: Inactive Member Role Status Dates Dr. Kg Salinas MD Primary Care Provider Active Dr. Jarad Tavera MD Attending Provider, Referring Provider Active Dr. Jim Sanchez DPM Other Provider Active Team Status: Active Member Role Status Dates Dr. Kg Salinas MD Primary Care Provider Active Dr. Jarad Tavera MD Attending Provider Active Team Status: Inactive Member Role Status Dates Dr. Kg Salinas MD Primary Care Provider Active Dr. Jarad Tavera MD Attending Provider Active Team Status: Active Member Role Status Dates Dr. Kg Salinas MD Primary Care Provider Active Dr. Jim Sanchez DPM Attending Provider, Referring Provider Active Team Status: Inactive Member Role Status Dates Dr. Kg Salinas MD Primary Care Provi arely, Attending Provider, Referring Provider Active Team Status: Inactive Member Role Status Dates Dr. Kg Salinas MD Primary Care Provider Active Jarad SMITH MD Attending Provider Active Dr. Jarad Tavera MD Referring Provider Active Team Status: Inactive Member Role Status Dates Dr. Kg Salinas MD Primary Care Provider, Referring Provider Active Vincent BRISENO, PA Attending Provider Active Team Status: Inactive Member Role Status Dates Dr. Kg Salinas MD Primary Care Provider Active Dr. Jim Sanchez DPM Attending Provider, Referring Provider Active Team Status: Inactive Member Role Status Dates Dr. Kg Salinas MD Primary Care Provider, Attending Provider Active Team Status: Inactive Member Role Status Dates Dr. Kg Salinas MD Primary Care Provider Active Dr. Juan Wade MD Attending Provider, Refe rring Provider Active Records Assistant Relationship Specialty Start Date End Date Kg Salinas Chi [address] [address] PCP - General 02/04/14 Records Assistant Relationship Specialty Start Date [place] Carm[place] PhD [id number] [address] [facility] Department [place] [address] Radiation Oncologist Radiation Oncology 07/29/24 Records Assistant Relationship Specialty Start Date End Date Generic Provider, No [place] [address] PCP - General Cut Off Man 07/29/24 [place] PhD [id number] Department [place] [address] Radiation Oncologist Radiation Oncology 07/29/24 Records Assistant Relationship Specialty Start Date End Date Generic Provider, No [place] [address] PCP - General Cut Off Man 07/29/24 [place] PhD [id number] Department [place] [address] Radiation Oncologist Radiation Oncology 07/29/24 Records Assistant Relationship Specialty Start Date End Date Generic Provider, No Assigned [facility]cpMD [facility] [place] [address] PCP - General Cut Off Man 07/29/24 [place] PhD [id number] Department [place] [address] Radiation Oncologist Radiation Oncology 07/29/24 Records Assistant Relationship Specialty Start Date End Date Generic Provider, No [place] [address] PCP - General Cut Off Man 07/29/24 [place] PhD [id number] Department [place] [address] Radiation Oncologist Radiation Oncology 07/29/24 Records Assistant Relationship Specialty Start Date End Date Generic Provider, No Assigned MD Pankaj [facility]ONE [facility] [place] [address] PCP - General Cut Off Man 07/29/24 [place] PhD [id number] Department [place] [address] Radiation Oncologist Radiation Oncology 07/29/24 Records Assistant Relationship Specialty Start Date End Date Generic Provider, No Assigned [place] [address] PCP - General Cut Off Man 07/29/24 [place] PhD [id number] Department [place] [address] Radiation Oncologist Radiation Oncology 07/29/24 Records Assistant Relationship Specialty Start Date End Date Generic Provider, No Assigned [place] [address] PCP - General Cut Off Man 07/29/24 [place] PhD [id number] [facility] Department [place] [address] Radiation Oncologist Radiation Oncology 07/29/24 Records Assistant Relationship Specialty Start Date End Date Generic Provider, No Assigned PcpMD NONE [facility] [place] [address] PCP - General Cut Off Man 07/29/24 Carmen Martin MD PhD [id number] [place] [address] Department [place] [address] Radiation Oncologist Radiation Oncology 07/29/24 Records Assistant Relationship Specialty Start Date End Date Generic Provider, No Assigned MD Pankaj NONE [facility] [place] [address] PCP - General Cut Off Man 07/29/24 [place] PhD [id number] [facility] Department [place] [address] Radiation Oncologist Radiation Oncology 07/29/24 Records Assistant Relationship Specialty Start Date End Date Generic Provider, No Assigned MD Pankaj NONE [facility] [place] [address] PCP - General Cut Off Man 07/29/24 Carmen Martin MD PhD [phone] [place] [address] Department [place] [address] Radiation Oncologist Radiation Oncology 07/29/24 Records Assistant Relationship Specialty Start Date End Date Generic Provider, No [place] [address] PCP - General Cut Off Man 07/29/24 [place] PhD [address] [facility] Department [place] [address] Radiation Oncologist Radiation Oncology 07/29/24 Records Assistant Relationship Specialty Start Date End Date Generic Provider, No Assigned MD Pankaj NONE [facility] [place] [address] PCP - General Cut Off Man 07/29/24 [place] PhD [address] [facility] Department [place] [address] Radiation Oncologist Radiation Oncology 07/29/24 Records Assistant Relationship Specialty Start Date End Date Generic Provider, No [place] [address] PCP - General Cut Off Man 07/29/24 [place] PhD [id number] [facility] Department [place] [address] Radiation Oncologist Radiation Oncology 07/29/24 Team Status: Inactive Member Role Status Dates Dr. Kg Salinas MD Primary Care Provider Active Start: July 14, 2024 End: July 14, 2024 Dr. Mercedes Ortiz MD Attending Provider Active S tart: July 14, 2024 End: July 14, 2024 Dr. Mercedes Ortiz MD Referring Provider Active S tart: July 14, 2024 End: July 14, 2024 Team Status: Inactive Member Role Status Dates Dr. Kg Salinas MD Primary Care Provider Active Start: September 08, 2024 End: September 08, 2024 Dr. Kg Salinas MD Referring Provider Active Start: September 08, 2024 End: September 08, 2024 FINN Limon Attending Provider Active Start: September 08, 2024 End: September 08, 2024 Team Status: Inactive Member Role Status Dates Dr. Kg Salinas MD Primary Care Provider Active Start: September 11, 2024 End: September 11, 2024 Dr. Kg Salinas MD Attending Provider Active Start: September 11, 2024 End: September 11, 2024 Team Status: Active Member Role/Relationship Status Dates Dr. Kg Salinas MD Family Provider Active Dr. Kg Salinas MD Primary Care Provider Active Team Status: Active Member Role/Relationship Status Dates Dr. Kg Salinas MD Primary Care Provider Active Start: February 03, 2025 Mo BRISENO PA Attending Provider Active Start: February 03, 2025 Mo BRISENO PA Referring Provider Active Start: February 03, 2025 Team Status: Inactive Member Role/Relationship Status Dates Dr. Kg Salinas MD Primary Care Provider Active Start: February 03, 2025 End: February 03, 2025 Dr. Kg Salinas MD Referring Provider Active Start: February 03, 2025 End: February 03, 2025 FINN Limon Attending Provider Active Start: February 03, 2025 End: February 03, 2025 Team Status: Inactive Member Role/Relationship Status Dates Dr. Kg Salinas MD Primary Care Provider Active Start: February 03, 2025 End: February 03, 2025 FINN Limon Attending Provider Active Start: February 03, 2025 End: February 03, 2025 FINN Limon Referring Provider Active Start: February 03, 2025 End: February 03, 2025 Team Status: Active Member Role/Relationship Status Dates Dr. Kg Salinas MD Primary care physician Active Team Status: Inactive Member Role/Relationship Status Dates Dr. Kg Salinas MD Primary care physician Active Start: February 03, 2025 End: February 03, 2025 FINN Limon Attending physician Active Start: February 03, 2025 End: February 03, 2025 FINN Limon Referring Provider Active Start: February 03, 2025 End: February 03, 2025 Team Status: Inactive Member Role/Relationship Status Dates Dr. Kg Salinas MD Primary care physician Active Start: February 03, 2025 End: February 03, 2025 Dr. Kg Salinas MD Referring Provider Active Start: February 03, 2025 End: February 03, 2025 FINN Limon Attending physician Active Start: February 03, 2025 End: February 03, 2025 Team Status: Inactive Member Role/Relationship Status Dates Dr. Kg Salinas MD Primary care physician Active Start: March 24, 2025 End: March 24, 2025 Dr. Filippo Bradshaw MD Emergency Department Physician Ac tive Start: March 24, 2025 End: March 24, 2025 (unrecognized sect ion and content) No Status Records FoundNo Status Records FoundNo Status Records FoundNo Status Records Found INFORMATION SOURCE (unrecogn ized section and content) DATE CREATED AUTHOR 06/15/2024 [facility] DATE CREATED AUTHOR AUTHOR'S ORGANIZ ATION 07/28/[address] [facility] DATE CREATED AUTHOR AUTHOR'S ORGANIZ ATION 09/17/2024 [facility] DATE CREATED AUTHOR AUTHOR'S ORGANIZ ATION 04/25/2025 [facility] FOR RECORDS PERTAINING TO PATIENTS WHO ARE OR HAVE BEEN ENROLLED IN A CHEMICAL DEPENDENCY/SUBSTANCEABUSE PROGRAM, SOME INFORMATION MAY BE OMITTED. This clinical summary was aggregated from multiple sources. Caution should be exercised in using it in the provision of clinical care. This summary normalizes information from multiple sources, and as a consequence, information in this document may materially change the coding, format and clinical context of patient data. In addition, data may be omitted in some cases. CLINICAL DECISIONS SHOULD BE BASED ON THE PRIMARY CLINICAL RECORDS. [employer] [facility]. provides no warranty or guarantee of the accuracy or completeness of information in this document.
== END | disposition home or self-care (01) ==
LOC: POLAB3 08:52
PROVIDERS: PCP Family Medicine Geriatric Medicine; Visit Provider Family Medicine Geriatric Medicine
DX: E03.9 Hypothyroidism, unspecified (principal)
CPT/HCPCS: 36415; 84443

== ENCOUNTER 2025-06-05 09:00 | Outpatient (RCR) | payer MEDICARE, MEDICAID, SELFPAY ==
--- NOTE | 2025-04-23 14:46 | HP.SP.EV_ITS ---
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 Rl was put in a thin liquid with easy to chew (IDDSI level EC7) upon being discharged from the hospital. Other Relevant Medical History/Diagnoses/Surgery: Rl Brown is a 69M [facility] resident who was referred to [facility] outpatient speech therapy for dysphagia concerns. Rl has a PMH of anxiety, cancer, TIA, ventricular tachycardia, hypothyroidism, essential hypertension, cardiac arrhythmia, orthostatic hypotension, intellectual disability, dysarthria, polyneuropathy, and overactive bladder. His caregiver stated that he has difficulty with eating and drinking too quickly, which has caused him to have a major choking incident within the last month (he was eating chicken noodle soup). Medications related to this diagnosis: buspirone 10 mg tablet, cholecalciferol (vitamin D3) 25 mcg (1,000 unit) tablet, levothyroxine 100 mcg tablet, mirtazapine 7.5 mg tablet, oxybutynin chloride 15 mg tablet extended release 24hr, risperidone 1 MG tablet, risperidone 2 mg tablet Smoking Status: Never smoker Diagnosis Diagnosis: Mild oropharyngeal dysphagia Pain Is pain an issue with your current prescribed condition?: No Personal Preferred language: Filipino Patient Allergies Allergies Allergies: Allergies doxycycline Allergy (Verified 03/24/25 17:47) unknown Environmental Allergies: Uncoded (seasonal) Allergy (Verified 03/24/25 17:47) allergic rhinitis Penicillins Allergy (Verified 03/24/25 17:47) Unknown Subjective Dysphagia Symptoms Reported Symptoms/Problems with: Coughing and Choking Current Diet Solids Current Diet: Regular Current Diet Liquids Current Liquids: Thin [place] free water Protocol: Yes Objective Dysphagia Administered by Administered by: Caregiver Thin Liquids Administred via: Cup Oral Transit: WNL Bolus clearance: fully cleared Gagging: No Cough: immediate, delayed and wet Pharyngeal phase: laryngeal elevation mildly restricted slow initiation Patient Report: Caregiver reported that Rl will guzzle liquids if given the opportunity. She also stated that he does not follow commands well, so it is hard to get him to slow down when he is given a drink. Comments: Mildly recuced hyolarygeal excursion may be due to how quickly he was drinking the water. Pureed Administered via: Spoon Oral Preparation: lip or tongue seal bolus escape and WNL Oral Transit: WNL Bolus clearance: significant clearance/minimal residue Gagging: No Cough: none observed/unable to assess Pharyngeal phase: laryngeal elevation mildly restricted slow initiation Comments: Mildly recuced hyolarygeal excursion observed. Rl not able to follow command to take smaller bites or to slow down while taking bites. Soft & Bite sized (Mechanical) Administered via: Spoon Oral Preparation: WNL Oral Transit: WNL Bolus clearance: fully cleared Gagging: No Cough: throat clear, wet and productive Pharyngeal phase: laryngeal elevation mildly restricted slow initiation Comments: Mildly recuced hyolarygeal excursion observed. Rl not able to follow command to take smaller bites or to slow down while taking bites. Regular Oral Preparation: WNL Oral Transit: Delay > 1 seconds Bolus clearance: significant clearance/minimal residue Gagging: No Cough: none observed/unable to assess Pharyngeal phase: laryngeal elevation mildly restricted slow initiation Comments: Mildly recuced hyolarygeal excursion observed. Rl also with slower mastication during this consistency. Swallowing Impairment Contributing Factors to Swallowing Impairment: Reduced Alertness or Attention, Difficulty Following Directions and Reduced Laryngeal Excursion Impact Impact on Safety & Functioning: Risk for Aspiration Recommendations Modified Barium Swallow/Cookie Swallow Recommended: No Swallowing Treatment: Yes Diet Texture Recommendations Solids: Soft & Bite sized (Level 6, Chopped) Liquids: Thin (Level 0) Safety Saftey Precautions/Swallowing Recommendations (Check all that Apply): Supervision Needed All Meals, 1 to 1 Close Supervision, Reduce Distractions, Needs Verbal Cues to Use Recommended Strategies, Upright Position at Least 30 Minutes After Meals, Small Sips & Bites when Eating, No Straw, Alternate Liquids & Solids and Other (Specify Below) Other: Use of provale cup to consume liquids. Results Swallowing Within Normal Limits: No Swallowing Diagnosis: Oropharyngeal Phase Dysphagia (R13.12) Severity: Mild Subjective Oral Motor Subjective Patient Reports: Slurred Speech and Difficulty being Understood Facial Drooping: Left Objective Oral Motor Oral Status Dentition: Missing Teeth and Decay Labial Impairment: Mild Observation at Rest: Left Droop Closure: WNL Pucker: Mild Retraction: Mild Alternating Pucker/Retraction: Mild Involuntary Movement noted: No Labial Comments Comments: Difficulty with following commands duirng assessment. Lingual Impairment: Mild Protrusion: WFL Retraction: WFL Lateralization: WFL Involuntary Movement: No Lingual Comments Comments: Difficulty with following commands duirng assessment. Jaw Impairment: WNL Opening: WNL Closing: WNL Involuntary Movement: No Jaw Comments Comments: Mild jaw tension observed Oral Motor Comments Comments: Pt with mildly reduced ROM and strength for lingual and labial structures. This could ahve been observed due to his difficulty following commands. Reference: Neuro-QoL instrument Radiation Oncology Patient Plan Plan Plan: At this time, it is recommended that Rl participate in skilled speech therapy to target mild oropharyngeal dysphagia. Participating in intervention will aid in strengthening the oral and pharyngeal muscles and reduce the risk for aspiration during, and after, comsumption. Recommendations Treatment Warranted: Yes Treatment Warranted: Dysphagia Progress Prognosis: Excellent Frequency Frequency: 1x/Week Duration: 12 Months Visits in this POC: 52 Patient/Family Goal Patient/Family Goal: For Rl to utilize compensatory strategies, as well as reduce his risk for aspiration. Goals that are Established Determination:: Goals will be added/modified as deemed necessary and appropriate. Therapy will be discontinued when results of re-evaluation indicate therapy is no longer needed or lack of progress has been documented. Goal #1-5 Goal #1: Pt will utilize swallowing strategies (alternate bites/sips, small bites/sips, no straws) and tolerate least restrictive diet with no overt s/s of aspiration/penetration to aid in safe consumption of solid/liquids independently. Goal #2: Pt will complete oral motor exercises to aid in bolus manipulation, oral strengthening, and ROM with minimal cues. Goal #3: Pt will complete pharyngeal strengthening and laryngeal elevation exercises with minimal cues. Education Patient has Indicated that the Following Identified Educational Needs: Cognitively Impaired Patient Instruction Patient Education: Diagnosis, Treatment Plan, Goals, Safety Precautions and Diet Level Person Taught: Patient and Primary Caregiver Teaching Method: Discussion and Handout Response to teaching: Verbalize Understanding and Reinforcement Needed
--- NOTE | 2025-06-12 13:01 | HP.SP.DC ---
ST Discharge Summary Discharged: Discharge: Patient is being discharged from [facility] speech therapy services at this time. Patient attended initial evaluation on 04/23/25 and attended weekly appointments until 06/05/25. Patients caregiver requesting to stop sessions due to Rl not participating in the home exercises, and staff at his halfway not following diet recommendations. Thank you for allowing me to participate in the care of this patient.
== END 2025-06-05 19:00 | disposition home or self-care (01) ==
LOC: SP 09:00
PROVIDERS: PCP Family Medicine Geriatric Medicine; Referring Provider Family Medicine Geriatric Medicine; Visit Provider Family Medicine Geriatric Medicine
DX: R13.12 Dysphagia, oropharyngeal phase (principal); F31.9 Bipolar disorder, unspecified; Z79.899 Other long term (current) drug therapy; F41.9 Anxiety disorder, unspecified
CPT/HCPCS: 92507; 92610